=== PATIENT | male | born 1950 | race Caucasian/White ===

== ENCOUNTER 2017-12-08 11:49 | Inpatient (IN) | payer OTHER ==
[~2017-12-08] VITALS: Ht 177.8 cm; Wt 77.7 kg
[2017-12-08] MEDS ORDERED: SODIUM CHLORIDE 0.9% 1000ML 1,000 ML IV SCH (11:56)
--- NOTE | 2017-12-08 12:04 | EMERGENCY ROOM VISIT NOTE ---
History Report prepared by Jordyn: Shelly Cloud Under the Supervision of: Maged FerrerO. First contact with patient: 11:56 Chief Complaint: STROKE SYMPTOMS Stated Complaint: STROKE SYMPTOMS History of Present Illness The patient is a 67 year old male who presents to the Emergency Room with complaints of episodic stroke-like symptoms at 1015 this morning. The patient was on the phone Face-Timing with his grandson when his speech began to slur. The patient reports right-side arm numbness. He denies any facial weakness. He denies any headaches, chest pain, or shortness of breath. Per , the patient has had similar symptoms in the past, which have resolved within the hour. Source of History: patient, spouse/significant other Onset: since 1015 this morning Position: other (global) Quality: other (stroke-like symptoms) Timing: other (episodic) Associated Symptoms: + numbness (right arm), No headache, No chest pain, No SOB, No weakness (facial) Note: He notes slurred speech. Review of Systems See HPI for pertinent positives & negatives. A total of 10 systems reviewed and were otherwise negative. Past Medical & Surgical Medical Problems: (1) CAD (coronary artery disease) (2) CKD (chronic kidney disease), stage III (3) Dyslipidemia (4) HTN (hypertension) (5) Hx of diabetes mellitus Surgical Problems: (1) History of open heart surgery (2) History of penile implant (3) Hx of CABG (4) Hx of kidney transplant (5) Hx of pancreas transplant Family History Diabetes mellitus Heart disease Hypertension Social History Smoking Status: Current Every Day Smoker Smokeless Tobacco Use: Yes Alcohol Use: none Drug Use: none Marital Status: Housing Status: lives with significant other Occupation Status: unemployed Current/Historical Medications Scheduled Amlodipine (Norvasc), 5 MG PO DAILY Aspirin (Aspirin 81), 1 TAB PO DAILY Bimatoprost (Lumigan), 1 DROPS OPB HS Cholecalciferol (Vitamin D 1000 Unit), 1,000 INTER.UNIT PO DAILY Cyanocobalamin (Vitamin B12 100 Mcg), 200 MCG PO DAILY Fish Oil (Fish Oil), 1 GM PO DAILY Lisinopril (Prinivil), 20 MG PO DAILY Multivitamin (Multivitamin), 1 TAB PO DAILY Probiotic Product (Probiotic Daily), 1 CAP PO BID Tacrolimus (Prograf), 2 MG PO BID Vitamin E (Vitamin E 400 Iu), 400 INTER.UNIT PO DAILY Allergies Coded Allergies: Sulfamethoxazole w/Trimethoprim (Unverified Allergy, Unknown, rash, ) Physical Exam Vital Signs Date Time Temp Pulse Resp B/P (MAP) Pulse Ox O2 Delivery O2 Flow Rate FiO2 12/08/17 14:27 70 18 167/85 98 Room Air 12/08/17 13:00 66 20 162/81 97 Room Air 12/08/17 12:42 70 18 151/74 97 Room Air 12/08/17 12:42 76 12/08/17 12:24 76 20 181/86 100 Room Air 12/08/17 12:03 97 Room Air 12/08/17 11:54 37.0 73 18 158/87 96 Room Air Physical Exam GENERAL: Patient is awake, alert, and in no acute distress. Patient is resting comfortably and showing no signs of anxiety EYES: The conjunctivae are clear. The pupils are round and reactive. EARS, NOSE, MOUTH AND THROAT: The nose is without any evidence of any deformity. Mucous membranes are moist tongue is midline NECK: The neck is nontender and supple. RESPIRATORY: Normal respiratory effort is noted there is no evidence of wheezing rhonchi or rales CARDIOVASCULAR: Regular rate and rhythm noted there no murmurs rubs or gallops normal S1 normal S2 GASTROINTESTINAL: The abdomen is soft. Bowel sounds are present in all quadrants. Abdomen is nontender MUSCULOSKELETAL/EXTREMITIES: There is no evidence of gross deformity full range of motion is noted in the hips and shoulders SKIN: Trace pedal edema bilaterally. NEUROLOGIC: Patient is awake alert and oriented x3. Sign Designer strength symmetric, no drift noted, no facial droop appreciated, patient able to hold each leg off of bed for greater than 5 seconds. Medical Decision & Procedures ER Provider Diagnostic Interpretation: Radiology results as stated below per my review and radiologist interpretation: CT OF THE HEAD WITHOUT CONTRAST CLINICAL HISTORY: Stroke. Slurred speech. Dizzy. COMPARISON STUDY: No previous studies for comparison. CT DOSE: 687.98 mGy.cm TECHNIQUE: Helical axial images of the head were obtained without IV contrast. Automated exposure control was utilized for the study. A dose lowering technique was utilized adhering to the principles of ALARA. FINDINGS: No acute intracranial hemorrhage, midline shift or mass effect is present. Ventricular system is normal. Basilar cisterns are patent. There are no extra axial collections. White matter hypodensities suggest moderate small vessel disease. A 1.4 cm hypodensity within the left basal ganglia/nolasco radiata suggests an old infarct. There are no findings to suggest acute dural sinus thrombosis or acute territorial infarct. There is moderate mucosal thickening of the left maxillary sinus. There are postoperative findings within the sinuses. There is mild mucosal thickening of the ethmoid sinuses. Mastoid air cells are clear. IMPRESSION: 1. No acute intracranial findings. 2. 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 Moderate small vessel disease. 3. Moderate left maxillary sinus mucosal thickening. Electronically signed by: Russell Richards M.D. 12/08/2017 12:26 PM Dictated Date/Time: 12/08/2017 12:22 PM CHEST ONE VIEW PORTABLE CLINICAL HISTORY: Stroke mental status change COMPARISON STUDY: No previous studies for comparison. FINDINGS: Prior median sternotomy. No evidence for cardiac enlargement. Elevation right hemidiaphragm possibly chronic. Lungs appear clear. IMPRESSION: No acute process. The above report was generated using voice recognition software. It may contain grammatical, syntax or spelling errors. Electronically signed by: Eulalio Larson M.D. 12/08/2017 12:24 PM Dictated Date/Time: 12/08/2017 12:24 PM HEAD WITHOUT CONTRAST (CT) CT DOSE: 700.35 mGycm HISTORY: Headache. Stroke. Mental status change. booth and worsening S/S TECHNIQUE: Multiaxial CT images of the head were performed without the use of intravenous contrast. A dose lowering technique was utilized adhering to the principles of ALARA. Comparison: 12/08/2017 12:18 PM Findings: Chronic sinus change produces described. The calvarium and skull base are intact. The ventricles and sulci are within normal limits. There is no mass, hematoma, midline shift, or acute infarct. 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 No acute intracranial hemorrhage. Mild age-related atrophy and chronic small vessel change. Impression: No acute intracranial abnormality. Chronic and age-related changes unaltered from the prior study. The above report was generated using voice recognition software. It may contain grammatical, syntax or spelling errors. Electronically signed by: Eulalio Larson M.D. 12/08/2017 2:59 PM Dictated Date/Time: 12/08/2017 2:57 PM Laboratory Results 12/08/17 12:07 Red Blood Count 4.88, Mean Corpuscular Volume 88.3, Mean Corpuscular Hemoglobin 30.9, Mean Corpuscular Hemoglobin Concent 35.0, Mean Platelet Volume 11.5, Neutrophils (%) (Auto) 70.2, Lymphocytes (%) (Auto) 11.9, Monocytes (%) (Auto) 7.0, Eosinophils (%) (Auto) 10.5, Basophils (%) (Auto) 0.2, Neutrophils # (Auto ) 6.85, Lymphocytes # (Auto) 1.16, Monocytes # (Auto) 0.68, Eosinophils # (Auto ) 1.02, Basophils # (Auto) 0.02 12/08/17 12:07 Test 12/08/17 12:02 12/08/17 12:07 Bedside Prothrombin Time INR 1.0 (0.9-1.1) Bedside Glucose 148 mg/dl (70-99) White Blood Count 9.75 K/uL (4.8-10.8) Red Blood Count 4.88 M/uL (4.7-6.1) Hemoglobin 15.1 g/dL (14.0-18.0) Hematocrit 43.1 % (42-52) Mean Corpuscular Volume 88.3 fL (80-100) Mean Corpuscular Hemoglobin 30.9 pg (25-34) Mean Corpuscular Hemoglobin Concent 35.0 g/dl (32-36) Platelet Count 142 K/uL (130-400) Mean Platelet Volume 11.5 fL (7.4-10.4) Neutrophils (%) (Auto) 70.2 % Lymphocytes (%) (Auto) 11.9 % Monocytes (%) (Auto) 7.0 % Eosinophils (%) (Auto) 10.5 % Basophils (%) (Auto) 0.2 % Neutrophils # (Auto) 6.85 K/uL (1.4-6.5) Lymphocytes # (Auto) 1.16 K/uL (1.2-3.4) Monocytes # (Auto) 0.68 K/uL (0.11-0.59) Eosinophils # (Auto) 1.02 K/uL (0-0.5) Basophils # (Auto) 0.02 K/uL (0-0.2) RDW Standard Deviation 44.5 fL (36.4-46.3) RDW Coefficient of Variation 13.7 % (11.5-14.5) Immature Granulocyte % (Auto) 0.2 % Immature Granulocyte # (Auto) 0.02 K/uL (0.00-0.02) Prothrombin Time 10.4 SECONDS (9.0-12.0) Prothromb Time International Ratio 1.0 (0.9-1.1) Activated Partial Thromboplast Time 26.8 SECONDS (21.0-31.0) Partial Thromboplastin Ratio 1.0 Anion Gap 5.0 mmol/L (3-11) Est Creatinine Clear Calc Drug Dose 49.3 ml/min Estimated GFR () 55.6 Estimated GFR (Non- 47.9 BUN/Creatinine Ratio 13.8 (10-20) Estimated Average Glucose 151 mg/dl Hemoglobin A1c 6.9 % (4.5-5.6) Calcium Level 9.1 mg/dl (8.5-10.1) Magnesium Level 1.7 mg/dl (1.8-2.4) Total Creatine Kinase 157 U/L (39-308) Creatine Kinase MB 3.9 ng/ml (0.5-3.6) Creatine Kinase MB Ratio 2.5 (0-3.0) Troponin I < 0.015 ng/ml (0-0.045) Laboratory results per my review. Medications Administered Medications (Trade) Dose Ordered Sig/Noemí Route Start Time Stop Time Status Last Admin Dose Admin Magnesium Sulfate (Magnesium Sulfate) 1 gm NOW STAT IV 12/08/17 12:42 12/08/17 12:43 DC 12/08/17 12:59 1 GM Acetaminophen (Tylenol Tab) 1,000 mg NOW STAT PO 12/08/17 13:03 12/08/17 13:04 DC 12/08/17 13:12 1,000 MG ECG Per My Interpretation Indication: other (stroke-like symptoms) Rate (beats per minute): 74 Rhythm: normal sinus Findings: no acute ischemic change, no ectopy (no PVCs) Comparison ECG Date: no prior available ED Course 1155: The patient was evaluated in room A1. A complete history and physical examination were performed. 1156: Ordered NSS 1,000 ml @ 50 mls/hr IV 1240: The patient was moved to room B10. 1242: Ordered Magnesium Sulfate 1 gm IV 1245: I reassessed the patient at this time. He is resting. 1250: I spoke with Dr. Reddy [facility]. He recommends consulting with neurology. The patient will be evaluated by the [facility] for further management. 1258: I spoke with Dr. Santiago, [facility] neurology. We discussed the patient's case. He recommended an MRI. 1303: Ordered Tylenol 1,000 mg PO 1442: I reassessed the patient at this time. The patient has declined, he does not know where he is. 1445: The patient has been moved to room B1. Medical Decision Prior records/ancillary studies reviewed and summarized above. Nursing notes reviewed. Differential diagnosis: Etiologies such as metabolic, infection, hypo/hyperglycemia, electrolyte abnormalities, cardiac sources, intracerebral event, toxicologic, neurologic, as well as others were entertained. Additional history is obtained from the patient's significant other. The patient is a 67-year-old male who has a history of stroke in the past who presented to the emergency department for an evaluation of strokelike illness. The patient was found to have slurred speech and a facial droop by his significant other. The patient did not have symptoms upon arrival to the emergency department but did have some subjective numbness on the left side of the face and the right upper extremity. His NIH stroke scale at that time was 0. I discussed the patient's laboratory and radiographic studies with him. He does have a history of stroke but does not take antiplatelet agents as his primary neurologist has requested. I discussed patient's laboratory and radiographic studies with him. I discussed his case the patient's primary neurologist. I also discussed this case with the on-call [facility] hospitalist. The patient had a slight headache in the emergency department and was treated with Tylenol. He then started to have symptoms of recurrence of his stroke symptoms. He was evaluated again by the [facility] and had a repeat CAT scan which did not show any acute disease but his symptoms were very short-lived. The patient was reevaluated again and had no neurologic symptoms. Medication Reconcilliation Current Medication List: was personally reviewed by me Blood Pressure Screening Patient's blood pressure: Elevated blood pressure Blood pressure disposition: Elevated BP felt to be situational Consults Time Called: 1240 Consulting Physician: Lawrence Leon hospitalist Returned Call: 1250 I spoke with Lawrence Leon hospitalist. He recommends consulting with neurology. The patient will be evaluated by the [facility] for further management. Additional Consults: Time Called: 1253 Consulted Physician: Lawrence Weber neurology Returned Call: [phone] Additional Comments: I spoke with Lawrence Weber neurology. We discussed the patient's case. He recommended an MRI. Impression Primary Impression: TIA (transient ischemic attack) Additional Impression: Headache Scribe Attestation The scribe's documentation has been prepared under my direction and personally reviewed by me in its entirety. I confirm that the note above accurately reflects all work, treatment, procedures, and medical decision making performed by me. Departure Information Dispostion Being Evaluated By Hospitalist Referrals Jolly Prajapati M.D. (PCP) Patient Instructions My [facility] Stroke History Time Last Known Well 1015 today Stroke t-PA Criteria Reviewed Does NOT meet criteria for t-PA Reason t-PA Not Given Treatment not indicated Problem Qualifiers Primary Impression: TIA (transient ischemic attack) Transient cerebral ischemia type: unspecified Qualified Codes: G45.9 - Transient cerebral ischemic attack, unspecified Additional Impression: Headache Headache type: unspecified Headache chronicity pattern: acute headache Intractability: not intractable Qualified Codes: R51 - Headache
[2017-12-08 12:23] LABS: BASO % 0.2 %; BASO ABS # 0.02 K/uL (0-0.2); EOS % 10.5 %; EOS ABS # 1.02 K/uL (0-0.5); HEMATOCRIT 43.1 % (42-52); HEMOGLOBIN 15.1 g/dL (14.0-18.0); IG# 0.02 K/uL (0.00-0.02); LYMPH % 11.9 %; LYMPH ABS # 1.16 K/uL (1.2-3.4); MEAN CELL VOLUME 88.3 fL (80-100); MEAN CORPUSCULAR HEMOGLOBIN 30.9 pg (25-34); MEAN PLATELET VOLUME 11.5 fL (7.4-10.4); MONO ABS # 0.68 K/uL (0.11-0.59); NEUT % 70.2 %; NEUT ABS # 6.85 K/uL (1.4-6.5); PLATELET COUNT 142 K/uL (130-400); RED CELL DISTRIBUTION WIDTH CV 13.7 % (11.5-14.5); RED CELL DISTRIBUTION WIDTH SD 44.5 fL (36.4-46.3); WHITE BLOOD COUNT 9.75 K/uL (4.8-10.8)
--- NOTE | 2017-12-08 12:25 | DIAGNOSTIC IMAGING REPORT ---
CHEST ONE VIEW PORTABLE CLINICAL HISTORY: Stroke mental status change COMPARISON STUDY: No previous studies for comparison. FINDINGS: Prior median sternotomy. No evidence for cardiac enlargement. Elevation right hemidiaphragm possibly chronic. Lungs appear clear. IMPRESSION: No acute process. The above report was generated using voice recognition software. It may contain grammatical, syntax or spelling errors. Electronically signed by: Eulalio Larson M.D. 12/08/2017 12:24 PM Dictated Date/Time: 12/08/2017 12:24 PM
--- NOTE | 2017-12-08 12:27 | DIAGNOSTIC IMAGING REPORT ---
CT OF THE HEAD WITHOUT CONTRAST CLINICAL HISTORY: Stroke. Slurred speech. Dizzy. COMPARISON STUDY: No previous studies for comparison. CT DOSE: 687.98 mGy.cm TECHNIQUE: Helical axial images of the head were obtained without IV contrast. Automated exposure control was utilized for the study. A dose lowering technique was utilized adhering to the principles of ALARA. FINDINGS: No acute intracranial hemorrhage, midline shift or mass effect is present. Ventricular system is normal. Basilar cisterns are patent. There are no extra axial collections. White matter hypodensities suggest moderate small vessel disease. A 1.4 cm hypodensity within the left basal ganglia/nolasco radiata suggests an old infarct. There are no findings to suggest acute dural sinus thrombosis or acute territorial infarct. There is moderate mucosal thickening of the left maxillary sinus. There are postoperative findings within the sinuses. There is mild mucosal thickening of the ethmoid sinuses. Mastoid air cells are clear. IMPRESSION: 1. No acute intracranial findings. 2. 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 Moderate small vessel disease. 3. Moderate left maxillary sinus mucosal thickening. Electronically signed by: Russell Richards M.D. 12/08/2017 12:26 PM Dictated Date/Time: 12/08/2017 12:22 PM
[2017-12-08 12:33] LABS: PTT PATIENT 26.8 SECONDS (21.0-31.0)
[2017-12-08 12:34] LABS: BLOOD UREA NITROGEN 20 mg/dl (7-18); CALCIUM 9.1 mg/dl (8.5-10.1); CARBON DIOXIDE 28 mmol/L (21-32); CREATININE 1.48 mg/dl (0.60-1.40); GLUCOSE 162 mg/dl (70-99); POTASSIUM 4.2 mmol/L (3.5-5.1); SODIUM 136 mmol/L (136-145)
[2017-12-08 12:39] LABS: CKMB 3.9 ng/ml (0.5-3.6)
[2017-12-08] MEDS ORDERED: MAGNESIUM SULFATE 1GM / D5W 1 GM BAG IV STA (12:42)
[2017-12-08] MEDS ORDERED: ACETAMINOPHEN 500 MG TAB PO STA (13:03)
[2017-12-08] MEDS ORDERED: OMG3 PO ×2 (13:06)
[2017-12-08] MEDS ORDERED: TACR1CAP PO ×2 (13:06)
[2017-12-08] MEDS ORDERED: PROB1CAP41 PO ×2 (13:06)
[2017-12-08] MEDS ORDERED: MULT-506 PO ×2 (13:06)
[2017-12-08] MEDS ORDERED: CLOP1TAB15 PO (13:38)
[2017-12-08] MEDS ORDERED: LISI20TA3 PO ×2 (13:38)
[2017-12-08] MEDS ORDERED: AMLO-110 PO (13:38)
[2017-12-08] MEDS ORDERED: BIMA0.01 OPB ×2 (13:38)
[2017-12-08] MEDS ORDERED: OXYCODONE HCL IR 5 MG TAB (IMMEDIATE RELEASE) PO STA (14:43)
[2017-12-08] MEDS ORDERED: PHARMACIST DISCHARGE MED REC CONSULT PRN (14:45)
[2017-12-08] MEDS ORDERED: POLYETHYLENE (MIRALAX) 17 GM PACK PO PRN (14:45)
[2017-12-08] MEDS ORDERED: ACETAMINOPHEN 325 MG TAB PO PRN (14:45)
[2017-12-08] MEDS ORDERED: NITROGLYCERIN 0.4 MG SL PER TAB CHARGE SL PRN (14:45)
[2017-12-08] MEDS ORDERED: ASPI-435 PO ×2 (14:55)
[2017-12-08] MEDS ORDERED: VITA400C3 PO ×2 (14:55)
[2017-12-08] MEDS ORDERED: CYAN100T6 PO ×2 (14:55)
[2017-12-08] MEDS ORDERED: CHOL100027 PO ×2 (14:55)
--- NOTE | 2017-12-08 15:01 | DIAGNOSTIC IMAGING REPORT ---
HEAD WITHOUT CONTRAST (CT) CT DOSE: 700.35 mGycm HISTORY: Headache. Stroke. Mental status change. booth and worsening S/S TECHNIQUE: Multiaxial CT images of the head were performed without the use of intravenous contrast. A dose lowering technique was utilized adhering to the principles of ALARA. Comparison: 12/08/2017 12:18 PM Findings: Chronic sinus change produces described. The calvarium and skull base are intact. The ventricles and sulci are within normal limits. There is no mass, hematoma, midline shift, or acute infarct. 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 No acute intracranial hemorrhage. Mild age-related atrophy and chronic small vessel change. Impression: No acute intracranial abnormality. Chronic and age-related changes unaltered from the prior study. The above report was generated using voice recognition software. It may contain grammatical, syntax or spelling errors. Electronically signed by: Eulalio Larson M.D. 12/08/2017 2:59 PM Dictated Date/Time: 12/08/2017 2:57 PM
[2017-12-08] MEDS ORDERED: CLOPIDOGREL BISULFATE 300 MG TAB PO STA (15:40)
[2017-12-08] MEDS ORDERED: LABETALOL HCL IV 5 MG/ML 20ML IV PRN ×2 (16:00→17:15)
[2017-12-08 16:14] LABS: HEMOGLOBIN A1C 6.9 % (4.5-5.6)
[2017-12-08] MEDS ORDERED: IV FLUIDS COMPLETED PRN (16:15)
[2017-12-08 16:55] VITALS: BP_SYST 197; BP_SYST 205; BP_DIAS 87; BP_DIAS 95; PULSE 79; TEMP 36.7; O2SAT 97
[2017-12-08] MEDS ORDERED: DEXTROSE 50% 50 ML SYR IV PRN (17:00)
[2017-12-08] MEDS ORDERED: GLUCAGON FOR INJ 1 MG VIAL SQ PRN (17:00)
[2017-12-08] MEDS ORDERED: GLUCOSE 40% GEL 15 GM TUBE PO PRN (17:00)
[2017-12-08] MEDS ORDERED: GLUCOSE 10 TABS/TUBE PO PRN (17:00)
[2017-12-08 17:27] VITALS: BMI 24.6
[2017-12-08] MEDS ORDERED: OXYCODONE HCL IR 5 MG TAB (IMMEDIATE RELEASE) PO PRN (17:45)
[2017-12-08 18:14] VITALS: BP 175/71; PULSE 85
[2017-12-08 19:10] VITALS: BP 166/76; PULSE 76; TEMP 36.9; O2SAT 97
[2017-12-08] MEDS: BIMATOPROST 0.01% OP SOLN 2.5 ML BTL OPB SCH (21:24)
[2017-12-08] MEDS: TACROLIMUS 1 MG CAP PO SCH (21:24)
[2017-12-08] MEDS: INSULIN ASPART 100 UNITS/ML 3 ML PEN SC SCH (21:27)
[2017-12-08] MEDS: HEPARIN SOD 5000 UNIT/0.5 ML CARP SQ SCH (21:28)
--- NOTE | 2017-12-08 21:47 | History and Physical ---
History & Physical Date & Time of Service: Dec 08, 2017 at 15:17 Chief Complaint: Stroke Symptoms Primary Care Physician: Jolly Prajapati M.D. History of Present Illness Source: patient, spouse, clinic records, hospital records Pt is 67 y/o M with PMH CAD S/P CABG in 2002, dyslipidemia, diabetes, hypertension, CKD 3, history of kidney and pancreas transplant in 2003, penile implant, presented to ER with chief complaint of left facial drooping and slurred speech and right hand and finger tingling. reports believes onset of symptoms was 11:15 AM today reports patient was face timing with son and grandson when the noticed onset of slurred speech and left facial droop. Patient denied any headache or vision changes at that time however reported felt a little dizzy. reports immediately came to the ER which took about approximately 30 minutes upon ER arrival patient had resolution of slurred speech and left facial droop and no further dizziness. Still with some tingling to right hand and fingers. Denies extremity weakness. Patient states while here in the ER started having frontal headache. Denies photophobia, phonophobia , nausea or vomiting. Denies recent fall or head trauma. Reports 2 days ago had several episodes of diarrhea that resolved in approx 24 hours, other family member had similar symptoms. Denies fever/chills, diaphoresis, N/V/D/C, syncope , vision changes, neck pain, CP, SOB, orthopnea, palpitations, cough, sore throat, choking, otalgia, rhinorrhea, abdominal pain, extremity edema, rashes, urinary symptoms. Denies hx migraines, photophobia, phonophobia. Patient has been following with Dr. Santiago for history of intermittent left facial drooping and left arm and leg numbness which occurred in July. Patient had outpatient CT scan of head upon follow-up with PCP which revealed several subacute infarcts bilateral MCA. Patient was prescribed Plavix by Dr. Santiago however patient never started secondary to his concern of bleeding. patient takes baby aspirin every day. Patient with history of right facial drooping 3 years ago. Patient reports was evaluated to [facility] at that point in time and had negative stroke workup. Patient had TTE on 10/14/17: EF: 55-59%, mild abnormal LV diastolic function, moderate mitral annular calcification, no interarterial shunt, no atrial septal defect, no patent foramen ovale. Patient had ultrasound carotid arteries on 10/09/2017: Less than 50% stenosis of right internal carotid artery. Less than 50% stenosis of left internal carotid artery. patient had skip locator 2 weeks, place 11/12/17: Predominantly sinus rhythm , SVT run occurred 19 times, fasted interval lasting 11 beats with max HR 152 bpm, longest lasting 30.7 seconds, no atrial fibrillation or flutter Per epic records on hx, MRI 2013 chronic small vessel ischemic changes. Pt does not have the card with him on his penile implant to reveal if MRI compatible. Here in the ER upon initial evaluation by ER staff, patient was asymptomatic except for mild right hand numbness. Pt initial CT scan no acute changes, old L basal ganglia/nolasco radiata infartct. Patient then developed frontal headache and left-sided headache. Patient was given 1 g of Tylenol. Upon my evaluation patient had aphasia and continued headache. Approximately 15 minutes later patient was noted to have mild right facial drooping with continued headache, now increased to left side of IVERSON. Another CT head was obtained and did not show any other changes from initial CT scan. Patient returns from CT scan and reports headache has resolved and patient has no further aphasia, no further R extremity numbness or facial drooping. Past Medical/Surgical History Medical Problems: (1) CAD (coronary artery disease) Permanent Comment: s/p CABG x 5 in 2002 Status: Chronic (2) CKD (chronic kidney disease), stage III Status: Chronic (3) Dyslipidemia Status: Chronic (4) HTN (hypertension) Status: Chronic (5) Hx of diabetes mellitus Status: Chronic Surgical Problems: (1) History of open heart surgery Status: Resolved (2) History of penile implant Status: Resolved (3) Hx of CABG Status: Resolved (4) Hx of kidney transplant Permanent Comment: hx 2003 Status: Resolved (5) Hx of pancreas transplant Permanent Comment: 2003 Status: Resolved Family History Diabetes mellitus Heart disease Hypertension Social History Smoking Status: Never Smoker Smokeless Tobacco Use: Yes (2 bags chewing tobacco once a week) Alcohol Use: none Drug Use: none Marital Status: Housing status: lives with significant other Occupational Status: employed Allergies Coded Allergies: Sulfamethoxazole w/Trimethoprim (Unverified Allergy, Unknown, rash, ) Home Medications Scheduled Amlodipine (Norvasc), 5 MG PO DAILY Aspirin (Aspirin 81), 1 TAB PO DAILY Bimatoprost (Lumigan), 1 DROPS OPB HS Cholecalciferol (Vitamin D 1000 Unit), 1,000 INTER.UNIT PO DAILY Cyanocobalamin (Vitamin B12 100 Mcg), 200 MCG PO DAILY Fish Oil (Fish Oil), 1 GM PO DAILY Lisinopril (Prinivil), 20 MG PO DAILY Multivitamin (Multivitamin), 1 TAB PO DAILY Probiotic Product (Probiotic Daily), 1 CAP PO BID Tacrolimus (Prograf), 2 MG PO BID Vitamin E (Vitamin E 400 Iu), 400 INTER.UNIT PO DAILY Review of Systems Constitutional: No fever, No chills, No sweats, No weight loss, No fatigue Eyes: No worsening of vision, No eye pain, No redness, No discharge, No diplopia ENT: No hearing loss, No unusual epistaxis, No nasal symptoms, No sore throat, No tinnitus, No trouble swallowing Respiratory: No cough, No sputum, No wheezing, No shortness of breath, No dyspnea on exertion, No dyspnea at rest, No hemoptysis Cardiovascular: No chest pain, No orthopnea, No PND, No edema, No claudication , No palpitations Abdomen: + diarrhea (see HPI), + problem reported, No pain, No nausea, No vomiting, No constipation, No GI bleeding Musculoskeletal: No joint pain, No muscle pain, No swelling, No calf pain Genitourinary - Male: No hematuria, No dysuria, No urinary frequency, No urinary urgency Neurologic: + problem reported (see HPI) Psychiatric: No depression symptoms, No anxiety Endocrine: No fatigue, No excessive thirst, No excessive urination Hematologic / Lymphatic: No abnormal bleeding/bruising, No clotting problems, No swollen lymph nodes, No night sweats Integumentary: No rash, No itch Physical Exam Vital Signs Date Time Temp Pulse Resp B/P (MAP) Pulse Ox O2 Delivery O2 Flow Rate FiO2 12/08/17 14:27 70 18 167/85 98 Room Air 12/08/17 13:00 66 20 162/81 97 Room Air 12/08/17 12:42 70 18 151/74 97 Room Air 12/08/17 12:42 76 12/08/17 12:24 76 20 181/86 100 Room Air 12/08/17 12:03 97 Room Air 12/08/17 11:54 37.0 73 18 158/87 96 Room Air General Appearance: WD/WN, no apparent distress Head: normocephalic, atraumatic Eyes: normal inspection, PERRL, EOMI, sclerae normal ENT: hearing grossly normal, pharynx normal, + pertinent finding (mucous membranes moist) Neck: supple, no JVD, trachea midline Respiratory/Chest: lungs clear, normal breath sounds, no respiratory distress Cardiovascular: regular rate, rhythm, no murmur, normal peripheral pulses Abdomen/GI: normal bowel sounds, non tender, soft Extremities/Musculoskelatal: normal inspection, no calf tenderness, normal capillary refill, no pedal edema, normal range of motion, non-tender Neurologic/Psych: alert, oriented x 3, + pertinent finding (+expressive aphasia initial evaluation. Aphasia then resolves. No initial facial dropping noted, then pt with noted right facial dropping which then resolves. tongue midline. bilateral upper and lower extremities with ROM intact, strength 5/5 throughout, strong and equal lubrication technician strength, no ataxia, negative romberg.) Skin: normal color, warm/dry Diagnostics Laboratory Results Results Past 24 Hours Test 12/08/17 12:02 12/08/17 12:07 Range/Units Bedside Prothrombin Time INR 1.0 0.9-1.1 White Blood Count 9.75 4.8-10.8 K/uL Red Blood Count 4.88 4.7-6.1 M/uL Hemoglobin 15.1 14.0-18.0 g/dL Hematocrit 43.1 42-52 % Mean Corpuscular Volume 88.3 80-100 fL Mean Corpuscular Hemoglobin 30.9 25-34 pg Mean Corpuscular Hemoglobin Concent 35.0 32-36 g/dl Platelet Count 142 130-400 K/uL Mean Platelet Volume 11.5 7.4-10.4 fL Neutrophils (%) (Auto) 70.2 % Lymphocytes (%) (Auto) 11.9 % Monocytes (%) (Auto) 7.0 % Eosinophils (%) (Auto) 10.5 % Basophils (%) (Auto) 0.2 % Neutrophils # (Auto) 6.85 1.4-6.5 K/uL Lymphocytes # (Auto) 1.16 1.2-3.4 K/uL Monocytes # (Auto) 0.68 0.11-0.59 K/uL Eosinophils # (Auto) 1.02 0-0.5 K/uL Basophils # (Auto) 0.02 0-0.2 K/uL RDW Standard Deviation 44.5 36.4-46.3 fL RDW Coefficient of Variation 13.7 11.5-14.5 % Immature Granulocyte % (Auto) 0.2 % Immature Granulocyte # (Auto) 0.02 0.00-0.02 K/uL Prothrombin Time 10.4 9.0-12.0 SECONDS Prothromb Time International Ratio 1.0 0.9-1.1 Activated Partial Thromboplast Time 26.8 21.0-31.0 SECONDS Partial Thromboplastin Ratio 1.0 Sodium Level 136 136-145 mmol/L Potassium Level 4.2 3.5-5.1 mmol/L Chloride Level 103 98-107 mmol/L Carbon Dioxide Level 28 21-32 mmol/L Anion Gap 5.0 3-11 mmol/L Blood Urea Nitrogen 20 7-18 mg/dl Creatinine 1.48 0.60-1.40 mg/dl Est Creatinine Clear Calc Drug Dose 49.3 ml/min Estimated GFR () 55.6 Estimated GFR (Non- 47.9 BUN/Creatinine Ratio 13.8 10-20 Random Glucose 162 70-99 mg/dl Calcium Level 9.1 8.5-10.1 mg/dl Magnesium Level 1.7 1.8-2.4 mg/dl Total Creatine Kinase 157 39-308 U/L Creatine Kinase MB 3.9 0.5-3.6 ng/ml Creatine Kinase MB Ratio 2.5 0-3.0 Troponin I < 0.015 0-0.045 ng/ml Diagnostic Radiology CXR: IMPRESSION: No acute process. INITIAL HEAD CT at 12:22 IMPRESSION: 1. No acute intracranial findings. 2. 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 Moderate small vessel disease. 3. Moderate left maxillary sinus mucosal thickening. REPEAT HEAD CT at 14:57 Impression: No acute intracranial abnormality. Chronic and age-related changes unaltered from the prior study. EKG EKG: NSR, rate 74 Impression Assessment and Plan Pt with waxing waning neuro symptoms. First onset approx 11:15AM with slurred speech and L facial drooping lasted approx 30 minutes and resolved upon ER evaluation Pt with hx L facial drooping, reported in July 2017 resolved within 1 hour that pt did not seek initial evaluation for. Hx R facial symptoms 3 years ago with evaluation at [facility] with reported negative stroke workup at that time. Pt followed with Dr Grider over past 2 months and refused plavix at that time. Had CT head: several subacute infarcts bilateral MCA. Had TTE in 09/2017: EF: 55-59%, no interatrial shunt, septal defect or PFO. U/S carotids 09/2017: less than 50% occlusion bilateral internal carotids ZIO report 10/2017: Predominantly sinus rhythm, SVT run occurred 19 times, fasted interval lasting 11 beats with max HR 152 bpm, longest lasting 30.7 seconds, no atrial fibrillation or flutter TIA VS STROKE CT head in ER: old L basal ganglia/nolasco radiata infarct, no hemorrhage. Repeat CT head 10/31 pt with worsening symptoms shows no acute changes, no hemorrhage. Pt had resolution of IVERSON, aphasia, extremity paresthesias and facial drooping -tele to monitor -pt had recent doppler carotids and TTE -Pt with hx penile implant, had hx MRI in 2012. Pt does not have his procedure card. reports will try to look for it at home. Will order MRI, pending further information on pt's prosthesis. Holding MRA at this time with pt's hx renal transplant. -Plavix -continue ASA -holding on statin at this time with possible interaction with tacrolimus, lipid panel in am -neurology consult - spoke with Dr Santiago recommended MRI and plavix and EEG -EILEEN ordered, npo after midnight -continue to monitor, routine neuro checks HTN Will allow permissive HTN with stroke symptoms -labetolol prn SBP>180, DBP>100 -resume amlodipine, lisinopril tomorrow HX RENAL TRANSPLANT/CKD III Cr: 1. 48. ~baseline. Follows with Dr Mcgovern -nephrology [place] -continue to monitor renal functions -try to avoid nephrotoxic agents when possible -continue tacrolimus HX DM/HX PANCREATIC TRANSPLANT Pt not on medications. Glucose: 162 -HA1c in am -continue tacrolimus -novolog sliding scale per protocol HYPOMAGNESIA Ma.7. Was given 1gm magnesium IV in ER -repeat magnesium in am HX CAD S/P CABG Denies CP, SOB. Initial troponin negative. EKG no acute ST elevation noted, NSR -continue to monitor DVT Prophylaxis -heparin SQ Disposition admit tele Full Code as per discussion with pt Follows with Dr Prajapati for routine care Pt was seen with Dr Reddy. See addendum Resuscitation Status Full Code VTE Prophylaxis Will order VTE Prophylaxis: Yes Note ATTENDING ADDENDUM Record reviewed. Patient interviewed and examined. Care coordinated with Jeanna Warren PA-C. Please refer to her documentation for patient's history. 67 YO male with complicated PMH as summarized. Had stroke symptoms a few months ago with facial palsy and paresthesiae of left upper and lower extremities. CT in clinic in August demonstrated bilateral subacute ischemic strokes in MCA territories. Outpatient work-up included carotid duplex that showed < 50% stenoses, transthoracic echo, and skip locator. Episode of slurred speech and left facial palsy this morning. Symptoms improved in ED. At time of my assessment, pt c/o left frontal headache and was noted to have right facial palsy and mixed aphasia. EXAM: General- adult male, appears to be uncomfortable due to headache Lungs- clear to auscultation; no respiratory distress Cardiovascular- RRR; S4 gallop; no JVD; no pretibial edema Abdomen- + bowel sounds, soft, nontender Extremities- no cyanosis; no calf tenderness Neuro- alert, PERRL, EOMI, right facial palsy, tongue ? slightly deviated to right, motor strength extremities 5/5, plantar reflexes downgoing, had difficulty following instructions for finger to nose and heal to shah, mixed aphasia Skin- warm & dry DATA: CT # 1- apparent old infarct left basal ganglia, no bleed. CT # 2- no change. Lab studies as noted. Chest x-ray unremarkable. EKG performed at 1203 reviewed and demonstrated NSR at 74 / minute, no acute changes. ASSESSMENT AND PLAN: 67 YO male with previously noted bilateral MCA ischemic infarcts and outpatient evaluation as noted. Fluctuating symptoms today. Initially better in ED, then worse with severe headache, right facial palsy, mixed aphasia. Repeat CT stable without bleed. Neuro symptoms again improved. ED provider discussed case with Neuro. MRI recommended, but uncertain whether or not it can be performed safely because of penile implant years ago. Repeat CT imaging with contrast +/- CTA considered, but not pursued because of renal transplant status and elevated creatinine. Neurology recommended antiplatelet therapy with aspirin + clopidogrel. Further management per stroke protocol. Please refer to JADON Aleman's documentation for discussion of other issues. Bernard Reddy MD . Additional Copies To Jolly Prajapati M.D.
[2017-12-09] VITALS (12 sets, daily range): BP systolic 149–201; BP diastolic 60–90; PULSE 63–74; TEMP 36.6–36.9; O2SAT 95–97
[2017-12-09 06:44] LABS: BASO % 0.2 %; BASO ABS # 0.02 K/uL (0-0.2); EOS % 13.1 %; EOS ABS # 1.15 K/uL (0-0.5); HEMATOCRIT 38.6 % (42-52); HEMOGLOBIN 13.9 g/dL (14.0-18.0); IG# 0.02 K/uL (0.00-0.02); LYMPH ABS # 1.32 K/uL (1.2-3.4); MEAN CELL VOLUME 86.9 fL (80-100); MEAN CORPUSCULAR HEMOGLOBIN 31.3 pg (25-34); MEAN PLATELET VOLUME 11.4 fL (7.4-10.4); MONO % 7.8 %; MONO ABS # 0.69 K/uL (0.11-0.59); NEUT % 63.7 %; NEUT ABS # 5.61 K/uL (1.4-6.5); PLATELET COUNT 131 K/uL (130-400); RED CELL DISTRIBUTION WIDTH CV 13.7 % (11.5-14.5); RED CELL DISTRIBUTION WIDTH SD 43.5 fL (36.4-46.3); WHITE BLOOD COUNT 8.81 K/uL (4.8-10.8)
[2017-12-09 07:11] LABS: CALCIUM 8.5 mg/dl (8.5-10.1); CREATININE 1.5 mg/dl (0.60-1.40); POTASSIUM 4.1 mmol/L (3.5-5.1)
[2017-12-09] MEDS: INSULIN ASPART 100 UNITS/ML 3 ML PEN SC SCH ×4 (08:32→21:00)
[2017-12-09] MEDS ORDERED: ASPIRIN 81 MG ECTAB PO SCH (09:00)
[2017-12-09] MEDS ORDERED: ATORVASTATIN 40 MG TAB PO SCH (09:00)
[2017-12-09] MEDS: ASPIRIN 81 MG ECTAB PO SCH (09:58)
[2017-12-09] MEDS: CLOPIDOGREL BISULFATE 75 MG TAB PO SCH (09:58)
[2017-12-09] MEDS: MULTIVITAMIN TAB PO SCH (09:58)
[2017-12-09] MEDS: AMLODIPINE BESYLATE 5 MG TAB PO SCH (09:58)
[2017-12-09] MEDS: LISINOPRIL 20 MG TAB PO SCH (09:58)
[2017-12-09] MEDS: TACROLIMUS 1 MG CAP PO SCH ×2 (09:58→21:29)
[2017-12-09] MEDS: HEPARIN SOD 5000 UNIT/0.5 ML CARP SQ SCH ×2 (10:05→21:32)
--- NOTE | 2017-12-09 12:46 | EEG Procedure Note ---
EEG Procedure Note Date of Service Dec 09, 2017. Start / End Times Start Time: 8:58 AM End Time: 9:18 AM Referring Physician JADON Zarate History This is a 67-year-old male who presented with TIA/seizure-like symptoms. EEG for further evaluation of possible seizure etiology. Home Medication List Scheduled Amlodipine (Norvasc), 5 MG PO DAILY Aspirin (Aspirin 81), 1 TAB PO DAILY Bimatoprost (Lumigan), 1 DROPS OPB HS Cholecalciferol (Vitamin D 1000 Unit), 1,000 INTER.UNIT PO DAILY Cyanocobalamin (Vitamin B12 100 Mcg), 200 MCG PO DAILY Fish Oil (Fish Oil), 1 GM PO DAILY Lisinopril (Prinivil), 20 MG PO DAILY Multivitamin (Multivitamin), 1 TAB PO DAILY Probiotic Product (Probiotic Daily), 1 CAP PO BID Tacrolimus (Prograf), 2 MG PO BID Vitamin E (Vitamin E 400 Iu), 400 INTER.UNIT PO DAILY Inpatient Medication List Current Inpatient Medications Medications (Trade) Dose Ordered Sig/Noemí Route Start Time Stop Time Status Last Admin Dose Admin Miscellaneous Information (Pharmacist Discharge Med Rec Consult) 1 ea UD PRN N/A 12/08/17 14:45 01/07/18 14:44 Heparin Sodium (Porcine) (Heparin Sq 5000 Unit/0.5ml) 5,000 unit Q12 SQ 12/08/17 21:00 01/07/18 20:59 12/09/17 10:05 5,000 UNIT Acetaminophen (Tylenol Tab) 650 mg Q4H PRN PO 12/08/17 14:45 01/07/18 14:44 12/08/17 19:06 650 MG Nitroglycerin (Nitrostat Tab) 0.4 mg UD PRN SL 12/08/17 14:45 01/07/18 14:44 Polyethylene (Miralax Powder Packet) 17 gm DAILY PRN PO 12/08/17 14:45 01/07/18 14:44 Clopidogrel Bisulfate (plAVix TAB) 75 mg QAM PO 12/09/17 09:00 01/08/18 08:59 12/09/17 09:58 75 MG Amlodipine Besylate (Norvasc Tab) 5 mg DAILY PO 12/09/17 09:00 01/08/18 08:59 12/09/17 09:58 5 MG Aspirin (Ecotrin Tab) 81 mg DAILY PO 12/09/17 09:00 01/08/18 08:59 12/09/17 09:58 81 MG Lisinopril (Zestril Tab) 20 mg DAILY PO 12/09/17 09:00 01/08/18 08:59 12/09/17 09:58 20 MG Multivitamins (Multivitamin Tab) 1 tab DAILY PO 12/09/17 09:00 01/08/18 08:59 12/09/17 09:58 1 TAB Tacrolimus (Prograf Cap) 2 mg BID PO 12/08/17 21:00 01/07/18 20:59 12/09/17 09:58 2 MG Bimatoprost (Lumigan 0.01%) 1 drops HS OPB 12/08/17 21:00 01/07/18 20:59 12/08/17 21:24 1 DROPS Miscellaneous (Iv Fluids Completed) 1 ea PRN PRN N/A 12/08/17 16:15 12/08/18 16:14 Glucose (Glucose 40% Gel) 15-30 GRAMS 15 GRAMS... UD PRN PO 12/08/17 17:00 01/07/18 16:59 Glucose (Glucose Chew Tab) 4-8 Tablets 4 Tabl... UD PRN PO 12/08/17 17:00 01/07/18 16:59 Dextrose (Dextrose 50% 50ML Syringe) 25-50ML OF 50% DW IV FOR... UD PRN IV 12/08/17 17:00 01/07/18 16:59 Glucagon (Glucagon Inj) 1 mg UD PRN SQ 12/08/17 17:00 01/07/18 16:59 Oxycodone HCl (Roxicodone Immediate Rel Tab) 5 mg Q6H PRN PO 12/08/17 17:45 12/22/17 17:44 Insulin Aspart (novoLOG ASPART) SLIDING SCALE If C... ACHS SC 12/08/17 21:00 01/07/18 20:59 12/09/17 11:33 3 UNITS Labetalol HCl (Normodyne IV) 10 mg Q1H PRN IV 12/09/17 11:45 01/08/18 11:44 Description This is a 21 electrode EEG with a single channel dedicated to limited EKG. The electrodes were placed in accordance with the International 10-20 system. At the start of the recording the patient was in an awake state. Background was well organized and composed of symmetric mixed alpha and beta frequencies. There was a symmetric well-formed moderate amplitude 9-10 Hz posterior dominant rhythm that was reactive to eye opening and closure. Hyperventilation was not done. Intermittent photic stimulation at various frequencies produced no abnormalities. Sleep was indicated by symmetric sleep spindles. Interpretation This is a normal awake and asleep routine EEG. There was no electrographic seizures or epileptiform discharges. Clinical Correlation A normal EEG does not rule out epilepsy if there is a strong clinical suspicion.
--- NOTE | 2017-12-09 14:23 | Neurology Consultation ---
Neurology Consultation Date of Consultation: Dec 09, 2017. Attending Physician: John De Jesus MD Primary Care Physician: Jolly Prajapati M.D. Reason for Consultation: TIA History of Present Illness Source: patient Roderick is a 67 year old with PMH CAD S/P CABG in 2002, DL, DM, HTN, CKD 3, history of kidney and pancreas transplant in 2003, penile implant. He states he doesn't know what happened but he had right facial numbness, left hand numbness and tingling and a severe headache. He states he never gets headaches but this was a bad one. Records from ED estimated the onset of symptoms was 11:15 AM 12/08/2017 His son and grandson stated he had slurred speech and left facial droop. He came to the ED within 30 minutes resolution of slurred speech and left facial droop and no further dizziness. Still with some tingling to right hand and fingers. He did state he had 2 days ago had several episodes of diarrhea that resolved in approx 24 hours, other family member had similar symptoms. denies CP, SOB, abdominal pain, current one sided weakness, numbness, tingling, N, V, hearing loss, vision changes, falls, head injury. Past Medical/Surgical History Medical Problems: (1) Headache Status: Acute (2) TIA (transient ischemic attack) Status: Acute Social History Smokeless Tobacco Use: Yes (2 bags chewing tobacco once a week) Alcohol Use: none Drug Use: none Marital Status: Housing Status: lives with significant other Occupation Status: employed Allergies Coded Allergies: Sulfamethoxazole w/Trimethoprim (Unverified Allergy, Unknown, rash, ) Current Inpatient Medications Current Inpatient Medications Medications (Trade) Dose Ordered Sig/Noemí Route Start Time Stop Time Status Last Admin Dose Admin Miscellaneous Information (Pharmacist Discharge Med Rec Consult) 1 ea UD PRN N/A 12/08/17 14:45 01/07/18 14:44 Heparin Sodium (Porcine) (Heparin Sq 5000 Unit/0.5ml) 5,000 unit Q12 SQ 12/08/17 21:00 01/07/18 20:59 12/09/17 10:05 5,000 UNIT Acetaminophen (Tylenol Tab) 650 mg Q4H PRN PO 12/08/17 14:45 01/07/18 14:44 12/08/17 19:06 650 MG Nitroglycerin (Nitrostat Tab) 0.4 mg UD PRN SL 12/08/17 14:45 01/07/18 14:44 Polyethylene (Miralax Powder Packet) 17 gm DAILY PRN PO 12/08/17 14:45 01/07/18 14:44 Clopidogrel Bisulfate (plAVix TAB) 75 mg QAM PO 12/09/17 09:00 01/08/18 08:59 12/09/17 09:58 75 MG Amlodipine Besylate (Norvasc Tab) 5 mg DAILY PO 12/09/17 09:00 01/08/18 08:59 12/09/17 09:58 5 MG Aspirin (Ecotrin Tab) 81 mg DAILY PO 12/09/17 09:00 01/08/18 08:59 12/09/17 09:58 81 MG Lisinopril (Zestril Tab) 20 mg DAILY PO 12/09/17 09:00 01/08/18 08:59 12/09/17 09:58 20 MG Multivitamins (Multivitamin Tab) 1 tab DAILY PO 12/09/17 09:00 01/08/18 08:59 12/09/17 09:58 1 TAB Tacrolimus (Prograf Cap) 2 mg BID PO 12/08/17 21:00 01/07/18 20:59 12/09/17 09:58 2 MG Bimatoprost (Lumigan 0.01%) 1 drops HS OPB 12/08/17 21:00 01/07/18 20:59 12/08/17 21:24 1 DROPS Miscellaneous (Iv Fluids Completed) 1 ea PRN PRN N/A 12/08/17 16:15 12/08/18 16:14 Glucose (Glucose 40% Gel) 15-30 GRAMS 15 GRAMS... UD PRN PO 12/08/17 17:00 01/07/18 16:59 Glucose (Glucose Chew Tab) 4-8 Tablets 4 Tabl... UD PRN PO 12/08/17 17:00 01/07/18 16:59 Dextrose (Dextrose 50% 50ML Syringe) 25-50ML OF 50% DW IV FOR... UD PRN IV 12/08/17 17:00 01/07/18 16:59 Glucagon (Glucagon Inj) 1 mg UD PRN SQ 12/08/17 17:00 01/07/18 16:59 Oxycodone HCl (Roxicodone Immediate Rel Tab) 5 mg Q6H PRN PO 12/08/17 17:45 12/22/17 17:44 Insulin Aspart (novoLOG ASPART) SLIDING SCALE If C... ACHS SC 12/08/17 21:00 01/07/18 20:59 12/09/17 11:33 3 UNITS Labetalol HCl (Normodyne IV) 10 mg Q1H PRN IV 12/09/17 11:45 01/08/18 11:44 Physical Exam Vital Signs (Past 24 Hrs): Date Time Temp Pulse Resp B/P (MAP) Pulse Ox O2 Delivery O2 Flow Rate FiO2 12/09/17 12:49 36.6 70 18 155/73 (100) 96 Room Air 154/60 (91) 12/09/17 12:00 96 Room Air 12/09/17 11:24 36.9 63 18 201/89 (126) 97 185/77 (113) 12/09/17 08:00 96 Room Air 12/09/17 07:45 36.8 68 16 149/61 (90) 96 12/09/17 04:19 36.7 66 18 182/82 (115) 97 Room Air 12/09/17 04:00 Room Air 12/09/17 00:15 65 176/74 (108) 12/09/17 00:12 36.6 69 18 194/82 (119) 95 Room Air 12/09/17 00:00 Room Air 12/08/17 20:00 Room Air 12/08/17 19:10 36.9 76 18 166/76 (106) 97 Room Air 12/08/17 18:14 85 175/71 (105) 12/08/17 17:27 Room Air 12/08/17 16:55 36.7 79 20 197/87 (123) 97 205/95 (131) 12/08/17 15:48 68 16 203/88 98 12/08/17 14:27 70 18 167/85 98 Room Air Physical Exam: Constitutional: appearance nourished, healthy and normal Ears, Nose, Mouth and Throat: mucous membranes moist, no injection and skin normal, eyes normal Cardiovascular: normal S-1 and S-2 and regular rate and rhythm Respiratory: clear to auscultation (CTA) and no rales, rhonchi or wheeze Musculoskeletal: no peripheral edema and good distal pulses Skin: no stigmata of neurocutaneous disease noted and normal and intact Eyes: extraocular muscles intact (EOMI) and pupils equal, round and reactive to light (PERRL) NEUROLOGIC EXAMINATION: Mental status: Alert and interactive Oriented to full date and location Oriented to person Speech fluent slight lisp Cranial Nerves smile eye brow raise symmetric Reflexes: Deep tendon reflexes were symmetrical and graded 2/5. Plantar responses were flexor. Sensory: with cool or light touch Coordination: absent with eyes closed Gait/Stance: Posture normal. Gait normal: with steady with steps, base, turning,and tandem gait. Motor: Negative for pronator drift of out stretched arms with eyes closed. Strength: biceps triceps deltoids hand observation nurse 5/5 bilaterally, hip flex plantar flex ext bilaterally 5/5 Laboratory Results Past 24 Hours: 12/09/17 06:05 Red Blood Count 4.44, Mean Corpuscular Volume 86.9, Mean Corpuscular Hemoglobin 31.3, Mean Corpuscular Hemoglobin Concent 36.0, Mean Platelet Volume 11.4, Neutrophils (%) (Auto) 63.7, Lymphocytes (%) (Auto) 15.0, Monocytes (%) (Auto) 7.8, Eosinophils (%) (Auto) 13.1, Basophils (%) (Auto) 0.2, Neutrophils # (Auto ) 5.61, Lymphocytes # (Auto) 1.32, Monocytes # (Auto) 0.69, Eosinophils # (Auto ) 1.15, Basophils # (Auto) 0.02 12/09/17 06:05 Test 12/08/17 17:58 12/08/17 21:15 12/09/17 00:06 12/09/17 06:05 Hepatitis C Antibody Screen NEG (NEG) Urine Color YELLOW Urine Appearance CLEAR (CLEAR) Urine pH 5.5 (4.5-7.5) Urine Specific [place] 1.017 (1.000-1.030) Urine Protein 1+ (NEG) Urine Glucose (UA) NEG (NEG) Urine Ketones NEG (NEG) Urine Occult Blood NEG (NEG) Urine Nitrite NEG (NEG) Urine Bilirubin NEG (NEG) Urine Urobilinogen NEG (NEG) Urine Leukocyte Esterase NEG (NEG) Urine WBC (Auto) 0 /hpf (0-5) Urine RBC (Auto) 0-4 /hpf (0-4) Urine Hyaline Casts (Auto) 1-5 /lpf (0-5) Urine Epithelial Cells (Auto) 0-5 /lpf (0-5) Urine Bacteria (Auto) NEG (NEG) Troponin I < 0.015 ng/ml (0-0.045) White Blood Count 8.81 K/uL (4.8-10.8) Red Blood Count 4.44 M/uL (4.7-6.1) Hemoglobin 13.9 g/dL (14.0-18.0) Hematocrit 38.6 % (42-52) Mean Corpuscular Volume 86.9 fL (80-100) Mean Corpuscular Hemoglobin 31.3 pg (25-34) Mean Corpuscular Hemoglobin Concent 36.0 g/dl (32-36) Platelet Count 131 K/uL (130-400) Mean Platelet Volume 11.4 fL (7.4-10.4) Neutrophils (%) (Auto) 63.7 % Lymphocytes (%) (Auto) 15.0 % Monocytes (%) (Auto) 7.8 % Eosinophils (%) (Auto) 13.1 % Basophils (%) (Auto) 0.2 % Neutrophils # (Auto) 5.61 K/uL (1.4-6.5) Lymphocytes # (Auto) 1.32 K/uL (1.2-3.4) Monocytes # (Auto) 0.69 K/uL (0.11-0.59) Eosinophils # (Auto) 1.15 K/uL (0-0.5) Basophils # (Auto) 0.02 K/uL (0-0.2) RDW Standard Deviation 43.5 fL (36.4-46.3) RDW Coefficient of Variation 13.7 % (11.5-14.5) Immature Granulocyte % (Auto) 0.2 % Immature Granulocyte # (Auto) 0.02 K/uL (0.00-0.02) Anion Gap 6.0 mmol/L (3-11) Est Creatinine Clear Calc Drug Dose 48.7 ml/min Estimated GFR () 54.7 Estimated GFR (Non- 47.2 BUN/Creatinine Ratio 13.7 (10-20) Calcium Level 8.5 mg/dl (8.5-10.1) Magnesium Level 1.8 mg/dl (1.8-2.4) Triglycerides Level 106 mg/dl (0-150) Cholesterol Level 135 mg/dl (0-200) HDL Cholesterol 36 mg/dl LDL Cholesterol, Calculated 78 mg/dl VLDL Cholesterol, Calculated 21 mg/dl Cholesterol/HDL Ratio 3.8 Test 12/09/17 11:23 Bedside Glucose 269 mg/dl (70-99) Imaging CT head- Chronic sinus change produces described. The calvarium and skull base are intact. The ventricles and sulci are within normal limits. There is no mass , hematoma, midline shift, or acute infarct. 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 No acute intracranial hemorrhage. Mild age-related atrophy and chronic small vessel change. A normal EEG does not rule out epilepsy if there is a strong clinical suspicion. Impression 67 year old male history of TIA/stroke like symptoms Plan 1. CT head no new acute infarcts imaging 09/18/2018 [facility] several subacute infarcts in b/l MCA territories. 2. neurology Dr Santiago ordered ZIO patch done 11/12/2017 no afib but atrial tachycardia 3. advise to take plavix 75 mg and aspirin 81 mg daily- patient refused to continue on plavix due to increased bleeding risk 4. EEG with no seizure activity noted 5. MRI would be helpful unclear if patient is able to have MRI due to implant 6. MARQUIS- ordered will be done tomorrow 7. restart plavix 75 mg and aspirin 81 mg daily 8. headache - treat with tylenol 9. further recommendations to follow I have seen and discussed above patient with Dr Bernard Santiago, neurology Patient inown to me from op visits Above history reviewed currently asymptomatic and exam is normal history coud be vb tias or embolic shower or even later desean=fe migraines with somatosensory aura We need to get mri and mra to check for intracranial disease but need to have this cleared by radiology and we need to know if the penile implant has metallic elements but he states he had had mri studies in the past post implant so suspect we can get studies and hopefully clear the air having marquis today and we will continue plavix and asa for now Will follow up tomorrow Reviewed with Kyra Santiago MD
--- NOTE | 2017-12-09 17:36 | Progress Note ---
Internal Med Progress Note Date of Service: Dec 09, 2017. Provider Documentation: SUBJECTIVE: presented with numness of left side of head and face and right hand and severe headache symptoms resolved now 'speech is ok swallowing fine no chest pain or sob afebrile no cough no nausea OBJECTIVE: Vital Signs-as noted below Exam: General-alert and oriented. Not in distress ENT-Normal hearing Neck-no neck masses Lungs-cta b/l no wheezing or crackles Heart-S1 and S2 heard regular rate and rhythm no murmurs Abdomen-Soft bowel sounds present non tender no distension Extremities-no edema no erythema Neuro-alert and awake and Oriented power 5/5 in all extremities no pronator drift co ordination of movements normal non focal Lab data as noted below. ASSESSMENT & PLAN: CVA/TIA Pt with waxing waning neuro symptoms. First onset approx 11:15AM yesterday with slurred speech and L facial drooping lasted approx 30 minutes and resolved upon ER evaluation As per H and P:"Pt with hx L facial drooping, reported in July 2017 resolved within 1 hour that pt did not seek initial evaluation for as per h and p. Hx R facial symptoms 3 years ago with evaluation at [facility] with reported negative stroke workup at that time. Pt followed with Dr Grider over past 2 months and refused plavix at that time. Had CT head: several subacute infarcts bilateral MCA. Had TTE in 09/2017: EF: 55-59%, no interatrial shunt, septal defect or PFO. U/S carotids 09/2017: less than 50% occlusion bilateral internal carotids ZIO report 10/2017: Predominantly sinus rhythm, SVT run occurred 19 times, fasted interval lasting 11 beats with max HR 152 bpm, longest lasting 30.7 seconds, no atrial fibrillation or flutter" CT head in ER: old L basal ganglia/nolasco radiata infarct, no hemorrhage. Repeat CT head 2/2 pt with worsening symptoms shows no acute changes, no hemorrhage. Plan for EILEEN Plan for MRI/MRA head once records available regaring penile implant on Plavix and aspirin holding on statin at this time with possible interaction with tacrolimus, eeg unremarkable appreciate neuro inputs neuro checks continue to monitor in tele HTN ill allow permissive HTN with stroke symptoms -labetolol prn SBP>180, DBP>100 on amlodipine and lisinopril HX RENAL TRANSPLANT/CKD III Cr: 1. 48. ~baseline. Follows with Dr Mcgovern -nephrology Mateo continue tacrolimus will f/u labs HX DM/HX PANCREATIC TRANSPLANT Pt not on medications. Glucose: 162 HA1c6.9 continue tacrolimus novolog sliding scale per protocol will monitor HYPOMAGNESIA Ma.7. replaced HX CAD S/P CABG stable on aspirin, plavix DVT Prophylaxis heparin SQ Disposition monitor in tele Full Code as per admissions Follows with Dr Prajapati for routine care Vital Signs: Date Time Temp Pulse Resp B/P (MAP) Pulse Ox O2 Delivery O2 Flow Rate FiO2 12/09/17 16:00 Room Air 12/09/17 15:36 36.8 67 18 173/79 (110) 96 12/09/17 12:49 36.6 70 18 155/73 (100) 96 Room Air 154/60 (91) 12/09/17 12:00 96 Room Air 12/09/17 11:24 36.9 63 18 201/89 (126) 97 185/77 (113) 12/09/17 08:00 96 Room Air 12/09/17 07:45 36.8 68 16 149/61 (90) 96 12/09/17 04:19 36.7 66 18 182/82 (115) 97 Room Air 12/09/17 04:00 Room Air 12/09/17 00:15 65 176/74 (108) 12/09/17 00:12 36.6 69 18 194/82 (119) 95 Room Air 12/09/17 00:00 Room Air 12/08/17 20:00 Room Air 12/08/17 19:10 36.9 76 18 166/76 (106) 97 Room Air 12/08/17 18:14 85 175/71 (105) Lab Results: Results Past 24 Hours Test 12/08/17 17:58 12/08/17 20:22 12/08/17 21:15 12/09/17 00:06 Range/Units Troponin I < 0.015 < 0.015 0-0.045 ng/ml Hepatitis C Antibody Screen NEG NEG Bedside Glucose 215 70-99 mg/dl Urine Color YELLOW Urine Appearance CLEAR CLEAR Urine pH 5.5 4.5-7.5 Urine Specific [place] 1.017 1.000-1.030 Urine Protein 1+ NEG Urine Glucose (UA) NEG NEG Urine Ketones NEG NEG Urine Occult Blood NEG NEG Urine Nitrite NEG NEG Urine Bilirubin NEG NEG Urine Urobilinogen NEG NEG Urine Leukocyte Esterase NEG NEG Urine WBC (Auto) 0 0-5 /hpf Urine RBC (Auto) 0-4 0-4 /hpf Urine Hyaline Casts (Auto) 1-5 0-5 /lpf Urine Epithelial Cells (Auto) 0-5 0-5 /lpf Urine Bacteria (Auto) NEG NEG Test 12/09/17 06:05 12/09/17 07:20 12/09/17 11:23 12/09/17 16:28 Range/Units White Blood Count 8.81 4.8-10.8 K/uL Red Blood Count 4.44 4.7-6.1 M/uL Hemoglobin 13.9 14.0-18.0 g/dL Hematocrit 38.6 42-52 % Mean Corpuscular Volume 86.9 80-100 fL Mean Corpuscular Hemoglobin 31.3 25-34 pg Mean Corpuscular Hemoglobin Concent 36.0 32-36 g/dl Platelet Count 131 130-400 K/uL Mean Platelet Volume 11.4 7.4-10.4 fL Neutrophils (%) (Auto) 63.7 % Lymphocytes (%) (Auto) 15.0 % Monocytes (%) (Auto) 7.8 % Eosinophils (%) (Auto) 13.1 % Basophils (%) (Auto) 0.2 % Neutrophils # (Auto) 5.61 1.4-6.5 K/uL Lymphocytes # (Auto) 1.32 1.2-3.4 K/uL Monocytes # (Auto) 0.69 0.11-0.59 K/uL Eosinophils # (Auto) 1.15 0-0.5 K/uL Basophils # (Auto) 0.02 0-0.2 K/uL RDW Standard Deviation 43.5 36.4-46.3 fL RDW Coefficient of Variation 13.7 11.5-14.5 % Immature Granulocyte % (Auto) 0.2 % Immature Granulocyte # (Auto) 0.02 0.00-0.02 K/uL Sodium Level 137 136-145 mmol/L Potassium Level 4.1 3.5-5.1 mmol/L Chloride Level 103 98-107 mmol/L Carbon Dioxide Level 29 21-32 mmol/L Anion Gap 6.0 3-11 mmol/L Blood Urea Nitrogen 21 7-18 mg/dl Creatinine 1.50 0.60-1.40 mg/dl Est Creatinine Clear Calc Drug Dose 48.7 ml/min Estimated GFR () 54.7 Estimated GFR (Non- 47.2 BUN/Creatinine Ratio 13.7 10-20 Random Glucose 172 70-99 mg/dl Calcium Level 8.5 8.5-10.1 mg/dl Magnesium Level 1.8 1.8-2.4 mg/dl Triglycerides Level 106 0-150 mg/dl Cholesterol Level 135 0-200 mg/dl HDL Cholesterol 36 mg/dl LDL Cholesterol, Calculated 78 mg/dl VLDL Cholesterol, Calculated 21 mg/dl Cholesterol/HDL Ratio 3.8 Bedside Glucose 155 269 145 70-99 mg/dl
--- NOTE | 2017-12-09 18:54 | Anesthesiology Progress Note ---
Anesthesia Progress Note Date of Service Dec 09, 2017. Progress Notes Mr. Brock is a 67 year old male who presented with recent stroke like symptoms. He is allergic to bactrim. Medication list as noted in chart. PMH sig for 5 v CABG in 2002, penile implant and pancreas/kidney transplant in 2003. No anesthetic problems. PMH sig for CAD, HTN, GERD, IDDM, CKD. Never smoker but current smokeless tobacco use. CT head this admission failed to show new infarcts. EEG from 12/09/17 normal without evidence of seizure. EKG NSR but cannot r/o anterior infarct. Recent TTE Sep 2017 showed EF 55-59%. Carotid U/S showed less than 50% stenosis Sep 2017 b/l. Airway exam normal with MP 2. Plan for MAC. Consent obtained. Questions answered. Advised that he should be NPO after midnight to include chewing tobacco!
[2017-12-09] MEDS: LABETALOL HCL IV 5 MG/ML 20ML IV PRN (19:59)
[2017-12-09] MEDS: BIMATOPROST 0.01% OP SOLN 2.5 ML BTL OPB SCH (21:28)
[2017-12-10] VITALS (20 sets, daily range): BP systolic 122–189; BP diastolic 62–92; PULSE 60–75; TEMP 36.3–36.9; O2SAT 95–100
[2017-12-10] MEDS: LABETALOL HCL IV 5 MG/ML 20ML IV PRN ×2 (00:13→16:37)
[2017-12-10] MEDS: INSULIN ASPART 100 UNITS/ML 3 ML PEN SC SCH ×4 (06:30→20:15)
[2017-12-10] MEDS: TACROLIMUS 1 MG CAP PO SCH ×2 (07:24→20:11)
[2017-12-10] MEDS: CLOPIDOGREL BISULFATE 75 MG TAB PO SCH (07:25)
[2017-12-10] MEDS: MULTIVITAMIN TAB PO SCH (07:25)
[2017-12-10] MEDS: LISINOPRIL 20 MG TAB PO SCH (07:25)
[2017-12-10] MEDS: ASPIRIN 81 MG ECTAB PO SCH (07:25)
[2017-12-10] MEDS: AMLODIPINE BESYLATE 5 MG TAB PO SCH (07:25)
[2017-12-10 07:27] LABS: BASO % 0.3 %; BASO ABS # 0.02 K/uL (0-0.2); EOS % 16.1 %; EOS ABS # 1.09 K/uL (0-0.5); HEMATOCRIT 41.6 % (42-52); HEMOGLOBIN 14.8 g/dL (14.0-18.0); IG# 0.01 K/uL (0.00-0.02); LYMPH % 17.6 %; LYMPH ABS # 1.19 K/uL (1.2-3.4); MEAN CELL VOLUME 87.6 fL (80-100); MEAN CORPUSCULAR HEMOGLOBIN 31.2 pg (25-34); MEAN CORPUSCULAR HGB CONC 35.6 g/dl (32-36); MEAN PLATELET VOLUME 11.4 fL (7.4-10.4); MONO % 9.5 %; MONO ABS # 0.64 K/uL (0.11-0.59); NEUT % 56.4 %; NEUT ABS # 3.82 K/uL (1.4-6.5); PLATELET COUNT 142 K/uL (130-400); RED CELL DISTRIBUTION WIDTH CV 13.8 % (11.5-14.5); RED CELL DISTRIBUTION WIDTH SD 44.3 fL (36.4-46.3); WHITE BLOOD COUNT 6.77 K/uL (4.8-10.8)
[2017-12-10] MEDS: HEPARIN SOD 5000 UNIT/0.5 ML CARP SQ SCH ×2 (07:28→20:17)
[2017-12-10 08:01] LABS: CALCIUM 8.9 mg/dl (8.5-10.1); CREATININE 1.65 mg/dl (0.60-1.40); POTASSIUM 4.2 mmol/L (3.5-5.1)
[2017-12-10] MEDS: AMLODIPINE BESYLATE 5 MG TAB PO ONE ×2 (11:15→15:12)
[2017-12-10] MEDS ORDERED: LIDOCAINE HCL 2% VISC SOLN 20 ML UDC ONE (11:40)
--- NOTE | 2017-12-10 13:01 | History & Physical Bridge Note ---
H&P Re-Evaluation Bridge Note: I have examined the patient, reviewed the History & Physical and in the interval since the performance of the History & Physical I have noted the following changes of clinical significance: No changes noted
--- NOTE | 2017-12-10 13:39 | Cardiology Procedure Brief Nt ---
Preliminary Cardiology Note Procedure Date Dec 10, 2017. Pre-Procedure Diagnosis Assess for cardiac source of embolism Post-Procedure Diagnosis No source of cardiac embolism noted on transesophageal echocardiogram Procedure(s) Performed Transesophageal echocardiogram Drivers' Cash Clerk Eric Hodgson DO Human Resources Advisor(s) BHUPENDRA Min Estimated Blood Loss none Preliminary Findings Normal left ventricular systolic function. The left atrial appendage or left atrial thrombus. Intact interatrial septum without atrial septal defect or PFO. There are no valvular vegetations. There is no significant atheromatous disease in the aortic root, proximal ascending aorta, aortic arch, or proximal descending thoracic aorta. There is no cardiac source of embolism identified. Recommendations Ongoing medication therapy for secondary prevention of stroke, as per Neurology recommendations. Specimens none Anesthesia Lidocaine 60 mg IV, Propofol 270 mg IV Complication(s) None Disposition Transfer to telemetry
--- NOTE | 2017-12-10 13:48 | Anesthesiology Progress Note ---
Anesthesia Post Op Note Date & Time Dec 10, 2017 at 13:48 Vital Signs Pain Intensity: 0 Vital Signs Past 12 Hours Date Time Temp Pulse Resp B/P (MAP) Pulse Ox O2 Delivery O2 Flow Rate FiO2 12/10/17 13:43 65 18 137/75 (95) 94 Room Air 12/10/17 13:34 77 18 146/75 (98) 94 Room Air 12/10/17 13:30 70 20 134/66 96 Nasal Cannula 6 12/10/17 13:25 63 20 159/62 99 Nasal Cannula 6 12/10/17 13:20 62 20 122/62 99 Nasal Cannula 6 12/10/17 13:15 62 20 134/68 99 Nasal Cannula 6 12/10/17 13:10 69 20 175/92 100 Nasal Cannula 6 12/10/17 13:05 69 20 146/70 100 Nasal Cannula 6 12/10/17 13:00 61 20 151/75 100 Room Air 12/10/17 11:35 Room Air 12/10/17 11:32 36.8 63 18 149/73 (98) 96 Room Air 12/10/17 08:58 36.6 62 18 161/71 (101) 96 Room Air 175/91 (119) 12/10/17 08:00 Room Air 12/10/17 07:33 36.5 68 18 164/74 (104) 97 Room Air 12/10/17 05:00 36.7 60 18 155/73 (100) 95 Room Air 12/10/17 04:00 Room Air Notes Mental Status: alert / awake / arousable, participated in evaluation Pt Amnestic to Procedure: Yes Nausea / Vomiting: adequately controlled Pain: adequately controlled Airway Patency, RR, SpO2: stable & adequate BP & HR: stable & adequate Hydration State: stable & adequate Anesthetic Complications: no major complications apparent
[2017-12-10] MEDS ORDERED: PROPOFOL IV EMULSION 10 MG/ML 20 ML VIAL IV ONE (14:12)
[2017-12-10] MEDS ORDERED: LIDOCAINE HCL 2% 2 ML VIAL (20MG/ML) ONE (14:12)
--- NOTE | 2017-12-10 14:30 | Neurology Progress Notes ---
Neurology Progress Note Date of Service Dec 10, 2017. Hipolito Vaughn is a 67 year old with PMH CAD S/P CABG in 2002, DL, DM, HTN, CKD 3, history of kidney and pancreas transplant in 2003, penile implant. He states he doesn't know what happened but he had right facial numbness, left hand numbness and tingling and a severe headache. He states he never gets headaches but this was a bad one. Records from ED estimated the onset of symptoms was 11:15 AM 12/08/2017 His son and grandson stated he had slurred speech and left facial droop. He came to the ED within 30 minutes resolution of slurred speech and left facial droop and no further dizziness. Still with some tingling to right hand and fingers. He did state he had 2 days ago had several episodes of diarrhea that resolved in approx 24 hours, other family member had similar symptoms. He is back from his RICKEY. His is calling for the information for his implant to help with obtaining MRI. He want to get it done and get home. denies CP, SOB, abdominal pain, current one sided weakness, numbness, tingling, N, V, hearing loss, vision changes, falls, head injury. Objective Date Time Temp Pulse Resp B/P (MAP) Pulse Ox O2 Delivery O2 Flow Rate FiO2 12/10/17 13:58 36.3 63 16 180/79 (112) 96 Room Air 12/10/17 13:54 65 18 142/75 (97) 94 Room Air 12/10/17 13:43 65 18 137/75 (95) 94 Room Air 12/10/17 13:34 77 18 146/75 (98) 94 Room Air 12/10/17 13:30 70 20 134/66 96 Nasal Cannula 6 12/10/17 13:25 63 20 159/62 99 Nasal Cannula 6 12/10/17 13:20 62 20 122/62 99 Nasal Cannula 6 12/10/17 13:15 62 20 134/68 99 Nasal Cannula 6 12/10/17 13:10 69 20 175/92 100 Nasal Cannula 6 12/10/17 13:05 69 20 146/70 100 Nasal Cannula 6 12/10/17 13:00 61 20 151/75 100 Room Air 12/10/17 11:35 Room Air 12/10/17 11:32 36.8 63 18 149/73 (98) 96 Room Air 12/10/17 08:58 36.6 62 18 161/71 (101) 96 Room Air 175/91 (119) 12/10/17 08:00 Room Air 12/10/17 07:33 36.5 68 18 164/74 (104) 97 Room Air 12/10/17 05:00 36.7 60 18 155/73 (100) 95 Room Air 12/10/17 04:00 Room Air 12/10/17 00:46 75 144/65 (91) 12/10/17 00:04 36.8 67 18 184/78 (113) 96 Room Air 12/10/17 00:00 Room Air 12/09/17 21:27 74 166/75 (105) 12/09/17 20:21 36.7 72 20 187/86 (119) 97 Room Air 12/09/17 20:00 Room Air 12/09/17 19:56 68 201/90 (127) 12/09/17 16:00 Room Air 12/09/17 15:36 36.8 67 18 173/79 (110) 96 Last 24 Hours Test 12/09/17 16:28 12/09/17 21:04 12/10/17 07:12 12/10/17 07:43 Bedside Glucose 145 mg/dl 147 mg/dl 171 mg/dl White Blood Count 6.77 K/uL Red Blood Count 4.75 M/uL Hemoglobin 14.8 g/dL Hematocrit 41.6 % Mean Corpuscular Volume 87.6 fL Mean Corpuscular Hemoglobin 31.2 pg Mean Corpuscular Hemoglobin Concent 35.6 g/dl Platelet Count 142 K/uL Mean Platelet Volume 11.4 fL Neutrophils (%) (Auto) 56.4 % Lymphocytes (%) (Auto) 17.6 % Monocytes (%) (Auto) 9.5 % Eosinophils (%) (Auto) 16.1 % Basophils (%) (Auto) 0.3 % Neutrophils # (Auto) 3.82 K/uL Lymphocytes # (Auto) 1.19 K/uL Monocytes # (Auto) 0.64 K/uL Eosinophils # (Auto) 1.09 K/uL Basophils # (Auto) 0.02 K/uL RDW Standard Deviation 44.3 fL RDW Coefficient of Variation 13.8 % Immature Granulocyte % (Auto) 0.1 % Immature Granulocyte # (Auto) 0.01 K/uL Sodium Level 137 mmol/L Potassium Level 4.2 mmol/L Chloride Level 103 mmol/L Carbon Dioxide Level 28 mmol/L Anion Gap 6.0 mmol/L Blood Urea Nitrogen 26 mg/dl Creatinine 1.65 mg/dl Est Creatinine Clear Calc Drug Dose 44.2 ml/min Estimated GFR () 48.7 Estimated GFR (Non- 42.0 BUN/Creatinine Ratio 15.8 Random Glucose 165 mg/dl Calcium Level 8.9 mg/dl Imaging: RICKEY- Normal left ventricular systolic function. without left atrial appendage or left atrial thrombus. Intact interatrial septum without atrial septal defect or PFO. There are no valvular vegetations. There is no significant atheromatous disease in the aortic root, proximal ascending aorta, aortic arch, or proximal descending thoracic aorta. There is no cardiac source of embolism identified. Exam: Physical Exam: Constitutional: appearance nourished, healthy and normal Ears, Nose, Mouth and Throat: mucous membranes moist, no injection and skin normal, eyes normal Cardiovascular: normal S-1 and S-2 and regular rate and rhythm Respiratory: clear to auscultation (CTA) and no rales, rhonchi or wheeze Musculoskeletal: no peripheral edema and good distal pulses Skin: no stigmata of neurocutaneous disease noted and normal and intact Eyes: extraocular muscles intact (EOMI) and pupils equal, round and reactive to light (PERRL) NEUROLOGIC EXAMINATION: Mental status: Alert and interactive Oriented to full date and location Oriented to person Speech fluent with no evidence of aphasia Cranial Nerves smile eye brow raise symmetric Sensory: intact to light touch Coordination: finger to nose no bi pass Gait/Stance: Posture lying in bed Motor: Negative for pronator drift of out stretched arms with eyes closed. 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, hip flex plantar flex ext 5/5 bilaterally Current Inpatient Medications Medications (Trade) Dose Ordered Sig/Noemí Route Start Time Stop Time Status Last Admin Dose Admin Miscellaneous Information (Pharmacist Discharge Med Rec Consult) 1 ea UD PRN N/A 12/08/17 14:45 01/07/18 14:44 Heparin Sodium (Porcine) (Heparin Sq 5000 Unit/0.5ml) 5,000 unit Q12 SQ 12/08/17 21:00 01/07/18 20:59 12/10/17 07:28 5,000 UNIT Acetaminophen (Tylenol Tab) 650 mg Q4H PRN PO 12/08/17 14:45 01/07/18 14:44 12/08/17 19:06 650 MG Nitroglycerin (Nitrostat Tab) 0.4 mg UD PRN SL 12/08/17 14:45 01/07/18 14:44 Polyethylene (Miralax Powder Packet) 17 gm DAILY PRN PO 12/08/17 14:45 01/07/18 14:44 Clopidogrel Bisulfate (plAVix TAB) 75 mg QAM PO 12/09/17 09:00 01/08/18 08:59 12/10/17 07:25 75 MG Aspirin (Ecotrin Tab) 81 mg DAILY PO 12/09/17 09:00 01/08/18 08:59 12/10/17 07:25 81 MG Lisinopril (Zestril Tab) 20 mg DAILY PO 12/09/17 09:00 01/08/18 08:59 12/10/17 07:25 20 MG Multivitamins (Multivitamin Tab) 1 tab DAILY PO 12/09/17 09:00 01/08/18 08:59 12/10/17 07:25 1 TAB Tacrolimus (Prograf Cap) 2 mg BID PO 12/08/17 21:00 01/07/18 20:59 12/10/17 07:24 2 MG Bimatoprost (Lumigan 0.01%) 1 drops HS OPB 12/08/17 21:00 01/07/18 20:59 12/09/17 21:28 1 DROPS Miscellaneous (Iv Fluids Completed) 1 ea PRN PRN N/A 12/08/17 16:15 12/08/18 16:14 Glucose (Glucose 40% Gel) 15-30 GRAMS 15 GRAMS... UD PRN PO 12/08/17 17:00 01/07/18 16:59 Glucose (Glucose Chew Tab) 4-8 Tablets 4 Tabl... UD PRN PO 12/08/17 17:00 01/07/18 16:59 Dextrose (Dextrose 50% 50ML Syringe) 25-50ML OF 50% DW IV FOR... UD PRN IV 12/08/17 17:00 01/07/18 16:59 Glucagon (Glucagon Inj) 1 mg UD PRN SQ 12/08/17 17:00 01/07/18 16:59 Oxycodone HCl (Roxicodone Immediate Rel Tab) 5 mg Q6H PRN PO 12/08/17 17:45 12/22/17 17:44 Insulin Aspart (novoLOG ASPART) SLIDING SCALE If C... ACHS SC 12/08/17 21:00 01/07/18 20:59 12/09/17 17:16 4 UNITS Labetalol HCl (Normodyne IV) 10 mg Q1H PRN IV 12/09/17 11:45 01/08/18 11:44 12/10/17 00:13 10 MG Amlodipine Besylate (Norvasc Tab) 10 mg DAILY PO 12/11/17 09:00 01/08/18 08:59 Impression 67 year old male history of TIA/stroke like symptoms Plan 1. CT head no new acute infarcts imaging 09/18/2018 [facility] several subacute infarcts in b/l MCA territories. 2. neurology Dr Santiago ordered ZIO patch done 11/12/2017 no afib but atrial tachycardia 3. advise to take plavix 75 mg and aspirin 81 mg daily- patient refused to continue on plavix due to increased bleeding risk 4. EEG with no seizure activity noted 5. MRI would be helpful unclear if patient is able to have MRI due to implant 6. RICKEY- NO ASD 7. restart plavix 75 mg and aspirin 81 mg daily 8. headache - treat with tylenol neurology follow up 3-[address] Bernard Santigao, or Kyra Morrell PAC schedule I have seen and discussed above patient with Dr Bernard Santiaog, neurology Rickey done no pfo and no other source for emboli issue re mri and mra still pending but at this point see no reason we could not do this on op basis once th records are obtained re the nature and mri compatibility of the penile implant. Therapy even if he had intracranial disease would not change ie dual antiplatelet rx and we can follow up outpatient zuluaga after the information from the penile implant surgery group is obtained We will sign off for now but if the information arrives and he still needs to be in the hospital for medical reasons and mri can be don go for the mri mra combination looking for intracranial stenoses Bernard Santiago MD
--- NOTE | 2017-12-10 14:53 | Progress Note ---
Internal Med Progress Note Date of Service: Dec 10, 2017. Provider Documentation: SUBJECTIVE: denies any numbness or weakness now no headaches eating ok speech ok afebrile no sob or chest pain no nausea npo for marquis today OBJECTIVE: Vital Signs-as noted below Exam: General-alert and oriented. Not in distress ENT-Normal hearing Neck-no neck masses Lungs-cta b/l no wheezing or crackles Heart-S1 and S2 heard regular rate and rhythm no murmurs Abdomen-Soft bowel sounds present non tender no distension Extremities-no edema no erythema Neuro-alert and awake and Oriented power 5/5 in all extremities no pronator drift co ordination of movements normal non focal Lab data as noted below. ASSESSMENT & PLAN: CVA/TIA Pt with waxing waning neuro symptoms. First onset approx 11:15AM 12/08/17 with slurred speech and L facial drooping lasted approx 30 minutes and resolved upon ER evaluation As per H and P:"Pt with hx L facial drooping, reported in July 2017 resolved within 1 hour that pt did not seek initial evaluation for as per h and p. Hx R facial symptoms 3 years ago with evaluation at [facility] with reported negative stroke workup at that time. Pt followed with Dr Grider over past 2 months and refused plavix at that time. Had CT head: several subacute infarcts bilateral MCA. Had TTE in 09/2017: EF: 55-59%, no interatrial shunt, septal defect or PFO. U/S carotids 09/2017: less than 50% occlusion bilateral internal carotids ZIO report 10/2017: Predominantly sinus rhythm, SVT run occurred 19 times, fasted interval lasting 11 beats with max HR 152 bpm, longest lasting 30.7 seconds, no atrial fibrillation or flutter" CT head in ER: old L basal ganglia/nolasco radiata infarct, no hemorrhage. Repeat CT head 2/2 pt with worsening symptoms shows no acute changes, no hemorrhage. Plan for MARQUIS Plan for MRI/MRA head once records available regarding penile implant-still awaiting records on Plavix and aspirin holding on statin at this time with possible interaction with tacrolimus, eeg unremarkable appreciate neuro inputs neuro checks stable currently continue to monitor in tele HTN Will allow permissive HTN with stroke symptoms -labetalol prn SBP>180, DBP>100 on amlodipine and lisinopril increased amlodipine to 10mg and will monitor HX RENAL TRANSPLANT/CKD III. [place] on CKD stage 3 Cr: 1. 48. ~baseline. Follows with Dr Mcgovern -nephrology Mateo continue tacrolimus cr 1.65 today will f/u labs HX DM/HX PANCREATIC TRANSPLANT Pt not on medications. Glucose: 162 HA1c6.9 continue tacrolimus novolog sliding scale per protocol will monitor HYPOMAGNESIA Ma.7. replaced HX CAD S/P CABG stable on aspirin, plavix DVT Prophylaxis heparin SQ Disposition monitor in tele Full Code as per admissions Follows with Dr Prajapati for routine care Vital Signs: Date Time Temp Pulse Resp B/P (MAP) Pulse Ox O2 Delivery O2 Flow Rate FiO2 12/10/17 13:58 36.3 63 16 180/79 (112) 96 Room Air 12/10/17 13:54 65 18 142/75 (97) 94 Room Air 12/10/17 13:43 65 18 137/75 (95) 94 Room Air 12/10/17 13:34 77 18 146/75 (98) 94 Room Air 12/10/17 13:30 70 20 134/66 96 Nasal Cannula 6 12/10/17 13:25 63 20 159/62 99 Nasal Cannula 6 12/10/17 13:20 62 20 122/62 99 Nasal Cannula 6 12/10/17 13:15 62 20 134/68 99 Nasal Cannula 6 12/10/17 13:10 69 20 175/92 100 Nasal Cannula 6 12/10/17 13:05 69 20 146/70 100 Nasal Cannula 6 12/10/17 13:00 61 20 151/75 100 Room Air 12/10/17 11:35 Room Air 12/10/17 11:32 36.8 63 18 149/73 (98) 96 Room Air 12/10/17 08:58 36.6 62 18 161/71 (101) 96 Room Air 175/91 (119) 12/10/17 08:00 Room Air 12/10/17 07:33 36.5 68 18 164/74 (104) 97 Room Air 12/10/17 05:00 36.7 60 18 155/73 (100) 95 Room Air 12/10/17 04:00 Room Air 12/10/17 00:46 75 144/65 (91) 12/10/17 00:04 36.8 67 18 184/78 (113) 96 Room Air 12/10/17 00:00 Room Air 12/09/17 21:27 74 166/75 (105) 12/09/17 20:21 36.7 72 20 187/86 (119) 97 Room Air 12/09/17 20:00 Room Air 12/09/17 19:56 68 201/90 (127) 12/09/17 16:00 Room Air 12/09/17 15:36 36.8 67 18 173/79 (110) 96 Lab Results: Results Past 24 Hours Test 12/09/17 16:28 12/09/17 21:04 12/10/17 07:12 12/10/17 07:43 Range/Units Bedside Glucose 145 147 171 70-99 mg/dl White Blood Count 6.77 4.8-10.8 K/uL Red Blood Count 4.75 4.7-6.1 M/uL Hemoglobin 14.8 14.0-18.0 g/dL Hematocrit 41.6 42-52 % Mean Corpuscular Volume 87.6 80-100 fL Mean Corpuscular Hemoglobin 31.2 25-34 pg Mean Corpuscular Hemoglobin Concent 35.6 32-36 g/dl Platelet Count 142 130-400 K/uL Mean Platelet Volume 11.4 7.4-10.4 fL Neutrophils (%) (Auto) 56.4 % Lymphocytes (%) (Auto) 17.6 % Monocytes (%) (Auto) 9.5 % Eosinophils (%) (Auto) 16.1 % Basophils (%) (Auto) 0.3 % Neutrophils # (Auto) 3.82 1.4-6.5 K/uL Lymphocytes # (Auto) 1.19 1.2-3.4 K/uL Monocytes # (Auto) 0.64 0.11-0.59 K/uL Eosinophils # (Auto) 1.09 0-0.5 K/uL Basophils # (Auto) 0.02 0-0.2 K/uL RDW Standard Deviation 44.3 36.4-46.3 fL RDW Coefficient of Variation 13.8 11.5-14.5 % Immature Granulocyte % (Auto) 0.1 % Immature Granulocyte # (Auto) 0.01 0.00-0.02 K/uL Sodium Level 137 136-145 mmol/L Potassium Level 4.2 3.5-5.1 mmol/L Chloride Level 103 98-107 mmol/L Carbon Dioxide Level 28 21-32 mmol/L Anion Gap 6.0 3-11 mmol/L Blood Urea Nitrogen 26 7-18 mg/dl Creatinine 1.65 0.60-1.40 mg/dl Est Creatinine Clear Calc Drug Dose 44.2 ml/min Estimated GFR () 48.7 Estimated GFR (Non- 42.0 BUN/Creatinine Ratio 15.8 10-20 Random Glucose 165 70-99 mg/dl Calcium Level 8.9 8.5-10.1 mg/dl
--- NOTE | 2017-12-10 16:10 | TEE ---
*NOTICE TO RECEIVING [employer] This information is strictly Confidential and protected under [place] law. [place] law prohibits you from making any further disclosure of this information unless further disclosure is expressly permitted by the written consent of the person to whom it pertains or is authorized by law. A general authorization for the release of medical or other information is not sufficient for this purpose. Hospital accepts no responsibility if the information is made available to any other person, INCLUDING THE PATIENT. Interpretation Summary * Name: LAW HE Study Date: 12/10/2017 11:31 AM BP: 189/85 mmHg * Patient Location: CATH HR: 86 * : 1950 (M/d/yyyy) Gender: Male Height: 70 in * Age: 67 yrs Ethnicity: CA Weight: 168 lb * Ordering Physician: Jeanna Aleman * Referring Physician: Self, Referred * Performed By: Richelle Chavez RDCS * * Reason For Study: Cerebral Ischemia/ Embolus * BSA: 1.9 m2 * -- Conclusions -- * Transesophageal echocardiogram was technically adequate. * No cardiac source of embolism was identified. * Please refer to below for details. Procedure Details * The study was performed in Cardiac Catheterization Lab. * Time out was conducted by the physician, nurse, and central service tech with positive identification of patient and procedure. * Informed consent for Transesophageal Echocardiogram was obtained prior to the procedure. * An intravenous line was placed. A topical anesthetic agent was used for oropharangeal anesthesia. A bite block was inserted. * Sedation performed by the anesthesia department. * The patient's vital signs, including blood pressure, heart rate, pulse oximetry and cardiac rhythm were monitored throughout the procedure . * The posterior oropharynx was anesthetized using a topical anesthetic spray. A bite guard was inserted. * A multifrequency, multiplane transesopheageal echocardiographic endoscope was inserted and manipulated in the standard fashion to achieve multiplane views. * The transesophageal probe was passed without difficulty. * The usual views were obtained; basal, mid-esophageal, transgastric and aortic views. * The patient tolerated the procedure well without evidence of orophangeal or esophageal trauma. * A 2D transesophageal echocardiogram with spectral and color flow Doppler was performed. * 60 LIDOCAINE 270 PROPOFOL EILEEN PROBE #3 UTILIZED Start Time 13:08 End Time 13:25 Left Ventricle * The left ventricle is normal in size. * There is normal left ventricular wall thickness. * Left ventricular systolic function is normal. * Ejection Fraction = 55-60%. * The left ventricular wall motion is normal. Right Ventricle * The right ventricle is normal in size and function. Atria * The left atrial size is normal. * No thrombus is detected in the left atrial appendage. * No left atrial mass or thrombus visualized. * Right atrial size is normal. * The interatrial septum is intact with no evidence for an atrial septal defect. Mitral Valve * The mitral valve anatomy is normal. * There is no mitral valve prolapse present. * There is no vegetation seen on the mitral valve. * There is no mitral valve stenosis. * Significant mitral regurgitation is absent. Tricuspid Valve * The tricuspid valve is normal. * There is no tricuspid stenosis. * There is trace tricuspid regurgitation. Aortic Valve * The aortic valve is trileaflet. * There is no aortic valvular vegetation. * No hemodynamically significant valvular aortic stenosis. * No aortic regurgitation is present. Pulmonic Valve * The pulmonic valve is not well seen, but is grossly normal. Great Vessels * The aortic root is normal size. * The proximal descending thoracic aorta diameter is normal. There is no significant atheromatous disease in the visualized portions of the aortic root, proximal ascending aorta, aortic arch, and proximal descending thoracic aorta. Pericardium * There is no pericardial effusion.
[2017-12-10] MEDS: BIMATOPROST 0.01% OP SOLN 2.5 ML BTL OPB SCH (20:11)
[2017-12-11] VITALS (11 sets, daily range): BP systolic 153–220; BP diastolic 67–83; PULSE 62–72; TEMP 36.5–36.8; O2SAT 96–99; Ht 177.8 cm; Wt 77.7 kg
[2017-12-11] MEDS: LABETALOL HCL IV 5 MG/ML 20ML IV PRN ×2 (00:16→11:18)
[2017-12-11 07:41] LABS: BASO % 0.4 %; BASO ABS # 0.03 K/uL (0-0.2); EOS % 15.6 %; EOS ABS # 1.19 K/uL (0-0.5); HEMATOCRIT 40.3 % (42-52); HEMOGLOBIN 14.3 g/dL (14.0-18.0); IG# 0.02 K/uL (0.00-0.02); LYMPH % 17.3 %; LYMPH ABS # 1.32 K/uL (1.2-3.4); MEAN CELL VOLUME 87.8 fL (80-100); MEAN CORPUSCULAR HEMOGLOBIN 31.2 pg (25-34); MEAN CORPUSCULAR HGB CONC 35.5 g/dl (32-36); MONO % 7.4 %; MONO ABS # 0.56 K/uL (0.11-0.59); NEUT ABS # 4.49 K/uL (1.4-6.5); PLATELET COUNT 132 K/uL (130-400); RED CELL DISTRIBUTION WIDTH CV 13.8 % (11.5-14.5); RED CELL DISTRIBUTION WIDTH SD 44.5 fL (36.4-46.3); WHITE BLOOD COUNT 7.61 K/uL (4.8-10.8)
[2017-12-11] MEDS: MULTIVITAMIN TAB PO SCH (08:02)
[2017-12-11] MEDS: TACROLIMUS 1 MG CAP PO SCH ×2 (08:02→20:47)
[2017-12-11] MEDS: CLOPIDOGREL BISULFATE 75 MG TAB PO SCH (08:02)
[2017-12-11] MEDS: LISINOPRIL 20 MG TAB PO SCH (08:02)
[2017-12-11] MEDS: AMLODIPINE BESYLATE 5 MG TAB PO SCH (08:03)
[2017-12-11] MEDS: ASPIRIN 81 MG ECTAB PO SCH (08:03)
[2017-12-11] MEDS: INSULIN ASPART 100 UNITS/ML 3 ML PEN SC SCH ×4 (08:05→20:48)
[2017-12-11] MEDS: HEPARIN SOD 5000 UNIT/0.5 ML CARP SQ SCH ×2 (08:05→20:55)
[2017-12-11 08:12] LABS: CALCIUM 8.8 mg/dl (8.5-10.1); CREATININE 1.61 mg/dl (0.60-1.40); POTASSIUM 4.5 mmol/L (3.5-5.1)
[2017-12-11] MEDS ORDERED: CARVEDILOL 6.25 MG TAB PO ONE (14:00)
--- NOTE | 2017-12-11 15:18 | DIAGNOSTIC IMAGING REPORT ---
BRAIN COMBO HISTORY: Mental status change intermittent stroke symptoms TECHNIQUE: Utilizing a 1.5 Glo magnet and dedicated coil, multiplanar, multiecho imaging of the brain was performed pre and postcontrast administration. IV administration of 7.5 cc of Gadavist contrast was uneventful. COMPARISON STUDY: CT 12/08/2017 FINDINGS: Diffusion-weighted images show a low signal focus at the site of the previously described old ischemic insult left paraventricular region. There is a rim of mildly increased signal in a peripheral distribution. There is no reactive vasogenic edema. This region shows uniform increase in signal the T2 images suggesting an old ischemic insult. The peripheral increase in signal on diffusion density suggests a slight acute to subacute localized extension. No abnormal postcontrast enhancement. The ventricular system is midline. Moderate chronic small vessel change of the periventricular deep white matter regions. Structures the sella and parasellar region are unremarkable. IMPRESSION: 1. 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 2. No evidence for abnormal postcontrast enhancement. 3. Moderate chronic small vessel change throughout both cerebral hemispheres. 4. A follow-up MRI is recommended in 2-3 weeks as follow-up The above report was generated using voice recognition software. It may contain grammatical, syntax or spelling errors. Electronically signed by: Eulalio Larson M.D. 12/11/2017 3:17 PM Dictated Date/Time: 12/11/2017 3:12 PM TON
--- NOTE | 2017-12-11 16:50 | Neurology Progress Notes ---
Neurology Progress Note Date of Service Dec 11, 2017. Subjective patient was able to have MRI but images are not available. Will order carotid doppler and see patient tomorrow. MRI reports do not explain presenting symptoms will discuss with Dr Suresh Richards tomorrow for clarification Objective Date Time Temp Pulse Resp B/P (MAP) Pulse Ox O2 Delivery O2 Flow Rate FiO2 12/11/17 15:56 36.6 67 18 163/75 (104) 97 Room Air 12/11/17 13:59 72 18 168/77 (107) 96 Room Air 12/11/17 12:00 98 Room Air 12/11/17 11:51 36.5 70 18 184/80 (114) 98 12/11/17 08:00 97 Room Air 12/11/17 07:46 36.8 67 16 153/67 (95) 97 12/11/17 04:25 36.6 72 18 168/67 (100) 96 Room Air 12/11/17 04:00 Room Air 12/11/17 00:00 Room Air 12/10/17 22:45 36.9 73 18 189/76 (113) 97 Room Air 12/10/17 20:00 Room Air 12/10/17 20:00 36.6 74 18 169/81 (110) 97 Room Air 12/10/17 17:40 75 167/66 (99) Last 24 Hours Test 12/10/17 20:13 12/11/17 07:25 12/11/17 07:28 12/11/17 11:27 Bedside Glucose 147 mg/dl 158 mg/dl 246 mg/dl White Blood Count 7.61 K/uL Red Blood Count 4.59 M/uL Hemoglobin 14.3 g/dL Hematocrit 40.3 % Mean Corpuscular Volume 87.8 fL Mean Corpuscular Hemoglobin 31.2 pg Mean Corpuscular Hemoglobin Concent 35.5 g/dl Platelet Count 132 K/uL Mean Platelet Volume 12.0 fL Neutrophils (%) (Auto) 59.0 % Lymphocytes (%) (Auto) 17.3 % Monocytes (%) (Auto) 7.4 % Eosinophils (%) (Auto) 15.6 % Basophils (%) (Auto) 0.4 % Neutrophils # (Auto) 4.49 K/uL Lymphocytes # (Auto) 1.32 K/uL Monocytes # (Auto) 0.56 K/uL Eosinophils # (Auto) 1.19 K/uL Basophils # (Auto) 0.03 K/uL RDW Standard Deviation 44.5 fL RDW Coefficient of Variation 13.8 % Immature Granulocyte % (Auto) 0.3 % Immature Granulocyte # (Auto) 0.02 K/uL Sodium Level 138 mmol/L Potassium Level 4.5 mmol/L Chloride Level 105 mmol/L Carbon Dioxide Level 30 mmol/L Anion Gap 4.0 mmol/L Blood Urea Nitrogen 29 mg/dl Creatinine 1.61 mg/dl Est Creatinine Clear Calc Drug Dose 45.3 ml/min Estimated GFR () 50.2 Estimated GFR (Non- 43.3 BUN/Creatinine Ratio 18.0 Random Glucose 170 mg/dl Calcium Level 8.8 mg/dl Test 12/11/17 16:27 Bedside Glucose 109 mg/dl Imaging: MRI report reviewed no imaging available Exam: no exam for this encounter Current Inpatient Medications Medications (Trade) Dose Ordered Sig/Noemí Route Start Time Stop Time Status Last Admin Dose Admin Miscellaneous Information (Pharmacist Discharge Med Rec Consult) 1 ea UD PRN N/A 12/08/17 14:45 01/07/18 14:44 Heparin Sodium (Porcine) (Heparin Sq 5000 Unit/0.5ml) 5,000 unit Q12 SQ 12/08/17 21:00 01/07/18 20:59 12/11/17 08:05 5,000 UNIT Acetaminophen (Tylenol Tab) 650 mg Q4H PRN PO 12/08/17 14:45 01/07/18 14:44 12/08/17 19:06 650 MG Nitroglycerin (Nitrostat Tab) 0.4 mg UD PRN SL 12/08/17 14:45 01/07/18 14:44 Polyethylene (Miralax Powder Packet) 17 gm DAILY PRN PO 12/08/17 14:45 01/07/18 14:44 Clopidogrel Bisulfate (plAVix TAB) 75 mg QAM PO 12/09/17 09:00 01/08/18 08:59 12/11/17 08:02 75 MG Aspirin (Ecotrin Tab) 81 mg DAILY PO 12/09/17 09:00 01/08/18 08:59 12/11/17 08:03 81 MG Lisinopril (Zestril Tab) 20 mg DAILY PO 12/09/17 09:00 01/08/18 08:59 12/11/17 08:02 20 MG Multivitamins (Multivitamin Tab) 1 tab DAILY PO 12/09/17 09:00 01/08/18 08:59 12/11/17 08:02 1 TAB Tacrolimus (Prograf Cap) 2 mg BID PO 12/08/17 21:00 01/07/18 20:59 12/11/17 08:02 2 MG Bimatoprost (Lumigan 0.01%) 1 drops HS OPB 12/08/17 21:00 01/07/18 20:59 12/10/17 20:11 1 DROPS Miscellaneous (Iv Fluids Completed) 1 ea PRN PRN N/A 12/08/17 16:15 12/08/18 16:14 Glucose (Glucose 40% Gel) 15-30 GRAMS 15 GRAMS... UD PRN PO 12/08/17 17:00 01/07/18 16:59 Glucose (Glucose Chew Tab) 4-8 Tablets 4 Tabl... UD PRN PO 12/08/17 17:00 01/07/18 16:59 Dextrose (Dextrose 50% 50ML Syringe) 25-50ML OF 50% DW IV FOR... UD PRN IV 12/08/17 17:00 01/07/18 16:59 Glucagon (Glucagon Inj) 1 mg UD PRN SQ 12/08/17 17:00 01/07/18 16:59 Oxycodone HCl (Roxicodone Immediate Rel Tab) 5 mg Q6H PRN PO 12/08/17 17:45 12/22/17 17:44 Insulin Aspart (novoLOG ASPART) SLIDING SCALE If C... ACHS SC 12/08/17 21:00 01/07/18 20:59 12/11/17 12:14 7 UNITS Labetalol HCl (Normodyne IV) 10 mg Q1H PRN IV 12/09/17 11:45 01/08/18 11:44 12/11/17 11:18 10 MG Amlodipine Besylate (Norvasc Tab) 10 mg DAILY PO 12/11/17 09:00 01/08/18 08:59 12/11/17 08:03 10 MG Carvedilol (Coreg Tab) 6.25 mg BID PO 12/11/17 21:00 01/10/18 20:59 Impression 67 year old male history of TIA/stroke like symptoms Plan 1. CT head no new acute infarcts imaging 09/18/2018 [facility] several subacute infarcts in b/l MCA territories. 2. neurology Dr Santiago ordered ZIO patch done 11/12/2017 no afib but atrial tachycardia 3. advise to take plavix 75 mg and aspirin 81 mg daily- patient refused to continue on plavix due to increased bleeding risk 4. EEG with no seizure activity noted 5. MRI would be helpful unclear if patient is able to have MRI due to implant- done but images not available at this time 6. EILEEN- NO ASD 7. restart plavix 75 mg and aspirin 81 mg daily 8. headache - treat with tylenol 9. carotid doppler ordered neurology follow up 3-[address] Bernard Santiago, or Kyra Morrell PAC schedule I have seen and discussed above patient with Dr Kyra Colon, neurology Pt MRI reported to us, at time images not avail. Will see pt in am, review images. 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 ISAK Colon mD
--- NOTE | 2017-12-11 18:34 | Progress Note ---
Internal Med Progress Note Date of Service: Dec 11, 2017. Provider Documentation: SUBJECTIVE: ambulating fine speech ok eating ok no headaches no weakness wants to go home OBJECTIVE: Vital Signs-as noted below Exam: General-alert and oriented. Not in distress ENT-Normal hearing Neck-no neck masses Lungs-cta b/l no wheezing or crackles Heart-S1 and S2 heard regular rate and rhythm no murmurs Abdomen-Soft bowel sounds present non tender no distension Extremities-no edema no erythema Neuro-alert and awake and Oriented power 5/5 in all extremities no pronator drift co ordination of movements normal non focal Lab data as noted below. ASSESSMENT & PLAN: CVA/TIA Pt with waxing waning neuro symptoms. First onset approx 11:15AM 12/08/17 with slurred speech and L facial drooping lasted approx 30 minutes and resolved upon ER evaluation As per H and P:"Pt with hx L facial drooping, reported in July 2017 resolved within 1 hour that pt did not seek initial evaluation for as per h and p. Hx R facial symptoms 3 years ago with evaluation at [facility] with reported negative stroke workup at that time. Pt followed with Dr Grider over past 2 months and refused plavix at that time. Had CT head: several subacute infarcts bilateral MCA. Had TTE in 09/2017: EF: 55-59%, no interatrial shunt, septal defect or PFO. U/S carotids 09/2017: less than 50% occlusion bilateral internal carotids ZIO report 10/2017: Predominantly sinus rhythm, SVT run occurred 19 times, fasted interval lasting 11 beats with max HR 152 bpm, longest lasting 30.7 seconds, no atrial fibrillation or flutter" CT head in ER: old L basal ganglia/nolasco radiata infarct, no hemorrhage. Repeat CT head 2/2 pt with worsening symptoms shows no acute changes, no hemorrhage. Plan for EILEEN Plan for MRI/MRA head once records available regarding penile implant-still awaiting records on Plavix and aspirin holding on statin at this time with possible interaction with tacrolimus, eeg unremarkable MRI -possible extension of old infarct continue to monitor HTN Will allow permissive HTN with stroke symptoms -labetalol prn SBP>180, DBP>100 on amlodipine and lisinopril increased amlodipine to 10mg and will monitor added coreg will monitor HX RENAL TRANSPLANT/CKD III. [place] on CKD stage 3 Cr: 1. 48. ~baseline. Follows with Dr Mcgovern -nephrology Mateo continue tacrolimus cr 1.61 today will f/u labs HX DM/HX PANCREATIC TRANSPLANT Pt not on medications. Glucose: 162 HA1c6.9 continue tacrolimus novolog sliding scale per protocol will monitor HYPOMAGNESIA Ma.7. replaced HX CAD S/P CABG stable on aspirin, plavix DVT Prophylaxis heparin SQ Disposition monitor in tele Full Code as per admissions Follows with Dr Prajapati for routine care Vital Signs: Date Time Temp Pulse Resp B/P (MAP) Pulse Ox O2 Delivery O2 Flow Rate FiO2 12/11/17 16:03 97 Room Air 12/11/17 15:56 36.6 67 18 163/75 (104) 97 Room Air 12/11/17 13:59 72 18 168/77 (107) 96 Room Air 12/11/17 12:00 98 Room Air 12/11/17 11:51 36.5 70 18 184/80 (114) 98 12/11/17 08:00 97 Room Air 12/11/17 07:46 36.8 67 16 153/67 (95) 97 12/11/17 04:25 36.6 72 18 168/67 (100) 96 Room Air 12/11/17 04:00 Room Air 12/11/17 00:00 Room Air 12/10/17 22:45 36.9 73 18 189/76 (113) 97 Room Air 12/10/17 20:00 Room Air 12/10/17 20:00 36.6 74 18 169/81 (110) 97 Room Air Lab Results: Results Past 24 Hours Test 12/10/17 20:13 12/11/17 07:25 12/11/17 07:28 12/11/17 11:27 Range/Units Bedside Glucose 147 158 246 70-99 mg/dl White Blood Count 7.61 4.8-10.8 K/uL Red Blood Count 4.59 4.7-6.1 M/uL Hemoglobin 14.3 14.0-18.0 g/dL Hematocrit 40.3 42-52 % Mean Corpuscular Volume 87.8 80-100 fL Mean Corpuscular Hemoglobin 31.2 25-34 pg Mean Corpuscular Hemoglobin Concent 35.5 32-36 g/dl Platelet Count 132 130-400 K/uL Mean Platelet Volume 12.0 7.4-10.4 fL Neutrophils (%) (Auto) 59.0 % Lymphocytes (%) (Auto) 17.3 % Monocytes (%) (Auto) 7.4 % Eosinophils (%) (Auto) 15.6 % Basophils (%) (Auto) 0.4 % Neutrophils # (Auto) 4.49 1.4-6.5 K/uL Lymphocytes # (Auto) 1.32 1.2-3.4 K/uL Monocytes # (Auto) 0.56 0.11-0.59 K/uL Eosinophils # (Auto) 1.19 0-0.5 K/uL Basophils # (Auto) 0.03 0-0.2 K/uL RDW Standard Deviation 44.5 36.4-46.3 fL RDW Coefficient of Variation 13.8 11.5-14.5 % Immature Granulocyte % (Auto) 0.3 % Immature Granulocyte # (Auto) 0.02 0.00-0.02 K/uL Sodium Level 138 136-145 mmol/L Potassium Level 4.5 3.5-5.1 mmol/L Chloride Level 105 98-107 mmol/L Carbon Dioxide Level 30 21-32 mmol/L Anion Gap 4.0 3-11 mmol/L Blood Urea Nitrogen 29 7-18 mg/dl Creatinine 1.61 0.60-1.40 mg/dl Est Creatinine Clear Calc Drug Dose 45.3 ml/min Estimated GFR () 50.2 Estimated GFR (Non- 43.3 BUN/Creatinine Ratio 18.0 10-20 Random Glucose 170 70-99 mg/dl Calcium Level 8.8 8.5-10.1 mg/dl Test 12/11/17 16:27 Range/Units Bedside Glucose 109 70-99 mg/dl
[2017-12-11] MEDS: CARVEDILOL 6.25 MG TAB PO SCH (20:47)
[2017-12-11] MEDS: BIMATOPROST 0.01% OP SOLN 2.5 ML BTL OPB SCH (20:48)
[2017-12-12] VITALS (7 sets, daily range): BP systolic 152–193; BP diastolic 67–90; PULSE 60–65; TEMP 36.6–36.8; O2SAT 96–98
--- NOTE | 2017-12-12 07:03 | DIAGNOSTIC IMAGING REPORT ---
CAROTID DOPPLER NECK ART CLINICAL HISTORY: 67 years-old Male presenting with stroke . TECHNIQUE: Real-time grayscale and color and spectral Doppler ultrasound imaging of the bilateral carotid arteries was performed. NASCET criteria was used in evaluating this study. COMPARISON: None. FINDINGS: Right: Common carotid: Atherosclerosis. Peak systolic velocity 61 cm/s. Internal carotid artery: Atherosclerosis of the proximal ICA. Peak systolic velocity 98 cm/s. Systolic ratio: 1.6. External carotid artery: Atherosclerosis. Peak systolic velocity 395 cm/s. Left: Common carotid: Atherosclerosis. Peak systolic velocity 72 cm/s. Internal carotid artery: Atherosclerosis of the proximal ICA. Peak systolic velocity 110 cm/s. Systolic ratio: 1.5. External carotid artery: Atherosclerosis. Peak systolic velocity 660 cm/s. Bilateral antegrade flow within the vertebral arteries. Reference ranges: Stenosis measurements are compared to reference velocity parameters. ICA peak systolic velocity (PSV) < 125 cm/s normal or indicating < 50% stenosis; ICA PSV 125-230 cm/s equivalent to 50-69% stenosis; ICA PSV > 230 cm/s equivalent to greater than or equal to 70% stenosis. ICA PSV to common carotid artery PSV ratio < 2 normal or < 50% stenosis; 2-4 equates to 50-69% stenosis, > 4 equates to greater than or equal to 70% stenosis. Normal ICA end-diastolic velocity less than 40. Blood pressure Brachial: Not performed. IMPRESSION: 1. Atherosclerosis without hemodynamically significant stenosis seen within the common or internal carotid arteries. 2. Stenosis in the bilateral external carotid arteries. Electronically signed by: Donaldo Castillo M.D. 12/12/2017 7:01 AM Dictated Date/Time: 12/12/2017 7:00 AM
[2017-12-12] MEDS: TACROLIMUS 1 MG CAP PO SCH (07:40)
[2017-12-12] MEDS: LISINOPRIL 20 MG TAB PO SCH (07:40)
[2017-12-12] MEDS: AMLODIPINE BESYLATE 5 MG TAB PO SCH (07:40)
[2017-12-12] MEDS: CLOPIDOGREL BISULFATE 75 MG TAB PO SCH (07:40)
[2017-12-12] MEDS: ASPIRIN 81 MG ECTAB PO SCH (07:41)
[2017-12-12] MEDS: CARVEDILOL 6.25 MG TAB PO SCH (07:41)
[2017-12-12] MEDS: MULTIVITAMIN TAB PO SCH (07:41)
[2017-12-12] MEDS: INSULIN ASPART 100 UNITS/ML 3 ML PEN SC SCH ×3 (08:05→16:30)
[2017-12-12] MEDS: HEPARIN SOD 5000 UNIT/0.5 ML CARP SQ SCH (08:06)
--- NOTE | 2017-12-12 12:46 | Neurology Progress Notes ---
Neurology Progress Note Date of Service Dec 12, 2017. Hipolito Vaughn is a 67 year old with PMH CAD S/P CABG in 2002, DL, DM, HTN, CKD 3, history of kidney and pancreas transplant in 2003, penile implant. He states he doesn't know what happened but he had right facial numbness, left hand numbness and tingling and a severe headache. He states he never gets headaches but this was a bad one. Records from ED estimated the onset of symptoms was 11:15 AM 12/08/2017 His son and grandson stated he had slurred speech and left facial droop. He came to the ED within 30 minutes resolution of slurred speech and left facial droop and no further dizziness. Still with some tingling to right hand and fingers. He did state he had 2 days ago had several episodes of diarrhea that resolved in approx 24 hours, other family member had similar symptoms. He is doing well today and is ready to go home. His can't pick him up until around 5p, He states he no longer had a headache. he voices understanding with the findings on MRI and should be repeated in 2-3 weeks per radiology recommendations. He is also aware he should be taking both plavix and aspirin for stroke prevention. denies CP, SOB, abdominal pain, current one sided weakness, numbness, tingling, N, V, hearing loss, vision changes, falls, head injury. Objective Date Time Temp Pulse Resp B/P (MAP) Pulse Ox O2 Delivery O2 Flow Rate FiO2 12/12/17 12:00 Room Air 12/12/17 11:27 36.8 65 20 172/76 (108) 98 Room Air 193/90 (124) 12/12/17 08:00 Room Air 12/12/17 07:25 36.7 62 20 164/67 (99) 96 Room Air 12/12/17 05:33 36.6 60 18 152/67 (95) 97 Room Air 12/12/17 04:00 Room Air 12/12/17 00:10 36.8 62 18 173/84 (113) 96 Room Air 12/12/17 00:00 Room Air 12/11/17 21:45 62 162/75 (104) 12/11/17 21:25 36.8 68 18 220/83 (128) 99 Room Air 12/11/17 20:06 97 Room Air 12/11/17 16:03 97 Room Air 12/11/17 15:56 36.6 67 18 163/75 (104) 97 Room Air 12/11/17 13:59 72 18 168/77 (107) 96 Room Air Last 24 Hours Test 12/11/17 16:27 12/11/17 20:23 12/12/17 07:41 12/12/17 11:47 Bedside Glucose 109 mg/dl 158 mg/dl 145 mg/dl 147 mg/dl Imaging: MRI brain combo- . 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 2. No evidence for abnormal postcontrast enhancement. 3. Moderate chronic small vessel change throughout both cerebral hemispheres. 4. A follow- up MRI is recommended in 2-3 weeks as follow-up MRA not completed carotid doppler- . Atherosclerosis without hemodynamically significant stenosis seen within the common or internal carotid arteries. Stenosis in the bilateral external carotid arteries. Exam: Physical Exam: Constitutional: appearance nourished, healthy and normal Ears, Nose, Mouth and Throat: mucous membranes moist, no injection and skin normal, eyes normal Cardiovascular: normal S-1 and S-2 and regular rate and rhythm Respiratory: clear to auscultation (CTA) and no rales, rhonchi or wheeze Musculoskeletal: no peripheral edema Skin: no stigmata of neurocutaneous disease noted and normal and intact Eyes: extraocular muscles intact (EOMI) and pupils equal, round and reactive to light (PERRL) NEUROLOGIC EXAMINATION: Mental status: Alert and interactive Oriented to full date and location Oriented to person Speech fluent with no evidence of aphasia Cranial Nerves smile eye brow raise symmetric Coordination: finger to nose with no bipass Gait/Stance: Posture normal. Motor: Negative for pronator drift of out stretched arms with eyes closed. Strength: hand meter mechanic biceps triceps 5/5 bilaterally hip flex 5/5 bilaterally plantar flex ext 5/5 bilaterally Current Inpatient Medications Medications (Trade) Dose Ordered Sig/Noemí Route Start Time Stop Time Status Last Admin Dose Admin Miscellaneous Information (Pharmacist Discharge Med Rec Consult) 1 ea UD PRN N/A 12/08/17 14:45 01/07/18 14:44 Heparin Sodium (Porcine) (Heparin Sq 5000 Unit/0.5ml) 5,000 unit Q12 SQ 12/08/17 21:00 01/07/18 20:59 12/12/17 08:06 5,000 UNIT Acetaminophen (Tylenol Tab) 650 mg Q4H PRN PO 12/08/17 14:45 01/07/18 14:44 12/08/17 19:06 650 MG Nitroglycerin (Nitrostat Tab) 0.4 mg UD PRN SL 12/08/17 14:45 01/07/18 14:44 Polyethylene (Miralax Powder Packet) 17 gm DAILY PRN PO 12/08/17 14:45 01/07/18 14:44 Clopidogrel Bisulfate (plAVix TAB) 75 mg QAM PO 12/09/17 09:00 01/08/18 08:59 12/12/17 07:40 75 MG Aspirin (Ecotrin Tab) 81 mg DAILY PO 12/09/17 09:00 01/08/18 08:59 12/12/17 07:41 81 MG Lisinopril (Zestril Tab) 20 mg DAILY PO 12/09/17 09:00 01/08/18 08:59 12/12/17 07:40 20 MG Multivitamins (Multivitamin Tab) 1 tab DAILY PO 12/09/17 09:00 01/08/18 08:59 12/12/17 07:41 1 TAB Tacrolimus (Prograf Cap) 2 mg BID PO 12/08/17 21:00 01/07/18 20:59 12/12/17 07:40 2 MG Bimatoprost (Lumigan 0.01%) 1 drops HS OPB 12/08/17 21:00 01/07/18 20:59 12/11/17 20:48 1 DROPS Miscellaneous (Iv Fluids Completed) 1 ea PRN PRN N/A 12/08/17 16:15 12/08/18 16:14 Glucose (Glucose 40% Gel) 15-30 GRAMS 15 GRAMS... UD PRN PO 12/08/17 17:00 01/07/18 16:59 Glucose (Glucose Chew Tab) 4-8 Tablets 4 Tabl... UD PRN PO 12/08/17 17:00 01/07/18 16:59 Dextrose (Dextrose 50% 50ML Syringe) 25-50ML OF 50% DW IV FOR... UD PRN IV 12/08/17 17:00 01/07/18 16:59 Glucagon (Glucagon Inj) 1 mg UD PRN SQ 12/08/17 17:00 01/07/18 16:59 Oxycodone HCl (Roxicodone Immediate Rel Tab) 5 mg Q6H PRN PO 12/08/17 17:45 12/22/17 17:44 Insulin Aspart (novoLOG ASPART) SLIDING SCALE If C... ACHS SC 12/08/17 21:00 01/07/18 20:59 12/12/17 12:11 6 UNITS Labetalol HCl (Normodyne IV) 10 mg Q1H PRN IV 12/09/17 11:45 01/08/18 11:44 12/11/17 11:18 10 MG Amlodipine Besylate (Norvasc Tab) 10 mg DAILY PO 12/11/17 09:00 01/08/18 08:59 12/12/17 07:40 10 MG Carvedilol (Coreg Tab) 6.25 mg BID PO 12/11/17 21:00 01/10/18 20:59 12/12/17 07:41 6.25 MG Impression 67 year old male history of TIA/stroke like symptoms Plan 1. CT head no new acute infarcts imaging 09/18/2018 [facility] several subacute infarcts in b/l MCA territories. 2. neurology Dr Santiago ordered ZIO patch done 11/12/2017 no afib but atrial tachycardia 3. advise to take plavix 75 mg and aspirin 81 mg daily- patient refused to continue on plavix due to increased bleeding risk 4. EEG with no seizure activity noted 5. MRI brain combo with report extension of old stroke but would not account for reported symptoms-recommended to repeat in 2-3 weeks for clarification 6. EILEEN- NO ASD 7. restart plavix 75 mg and aspirin 81 mg daily 8. headache - treat with tylenol 9. carotid doppler >70% should have vascular referral as outpatient 10. MRA was not done will order as outpatient when repeat MRI is done for further evaluation of previous stroke neurology follow up 3-[address] Bernard Santiago, or Kyra Morrell PAC schedule I have seen and discussed above patient with Dr Kyra Colon, neurology. Pt seen, had been following Dr Santiago as outpt for recurrent neurol sx. Had had echo, zio, possibly EEG. On this admission possible extension of the deep white matter infarct. Pt was encouraged to take asa and plavix. He was prescribed Plavix but was not taking. Continue risk factor mod. Pt should see Dr Santiago in follow-up so he may compare outpt and inpt studies to further clarify. ISAK Colon MD
[2017-12-12] MEDS ORDERED: AMLO-114 PO ×2 (16:36)
[2017-12-12] MEDS ORDERED: CRG625 PO ×2 (16:36)
[2017-12-12] MEDS ORDERED: PLV75 PO ×2 (16:36)
--- NOTE | 2017-12-12 16:39 | Discharge Instructions ---
Discharge Instructions Date of Service Dec 12, 2017. Admission Reason for Admission: TIA Discharge Discharge Diagnosis / Problem: cva Discharge Goals Goal(s): Decrease discomfort, Improve function Activity Recommendations Activity Limitations: resume your previous activity . Instructions / Follow-Up Instructions / Follow-Up FOLLOWUP WITH FAMILY DOCTOR Jolly Arellano ON November AT 6:05PM. FOLLOWUP WITH NEUROLOGY IN 3-4 WEEKS REPEAT MRI/MRA HEAD IN 2-3 WEEKS PER NEUROLOGY. BLOOD PRESSURE FOLLOWUP WITH FAMILY DOCTOR. DIABETES FOLLOWUP WITH FAMILY DOCTOR HBA1C 6.9 PLEASE GO THROUGH MEDICATION LIST AND TO TAKE ALL MEDICATIONS REGULARLY PRESCRIBED. FOLLOWUP WITH VASCULAR SURGEON WITH FAMILY DOCTOR REFERRAL FOR CAROTID STENOSIS Risk Factors for Stroke: You can reduce your chances of stroke by working with your medical provider to adopt a healthy lifestyle. Some specific ways to lower your chance of stroke are: * If you are a smoker, now is the time to stop smoking cigarettes * If you are diabetic, improve the control of your blood sugars * Avoid excessive amounts of alcohol * Control high blood pressure * Lose weight if you are overweight * Be sure to lead an active lifestyle * Eat a healthy diet low in salt, cholesterol and fat You should know about other risk factors for stroke that you are unable to control. These include: * Age 55 years or older * Male gender * Certain racial groups: , or / * Family History of Stroke, Mini stroke or Heart Attack * Sickle Cell Disease Follow Up: It is important for you to keep your follow up appointments with your medical provider. Current Hospital Diet Patient's current hospital diet: AHA Diet (Heart Healthy), Diabetes Type 2 Diet Discharge Diet Recommended Diet: AHA Diet (Heart Healthy), Diabetes Type 2 Diet Pending Studies Studies pending at discharge: no Laboratory Results Hemoglobin A1c Test 12/08/17 12:07 Range/Units Estimated Average Glucose 151 mg/dl Hemoglobin A1c 6.9 H 4.5-5.6 % Lipid Panel Test 12/09/17 06:05 Range/Units Triglycerides Level 106 0-150 mg/dl Cholesterol Level 135 0-200 mg/dl HDL Cholesterol 36 mg/dl Cholesterol/HDL Ratio 3.8 LDL Cholesterol, Calculated 78 mg/dl Medical Emergencies . Who to Call and When: Medical Emergencies: Call 911 immediately if you experience any of the following warning signs and symptoms of Stroke: * Sudden numbness or weakness of the face, arm or leg, especially on one side of the body * Sudden confusion, trouble speaking or understanding * Sudden trouble seeing in one or both eyes * Sudden trouble walking, dizziness, loss of balance or coordination * Sudden severe headache with no cause Do not delay calling 911 if you experience any warning signs or symptoms of a stroke. Delay in seeking medical attention may affect what treatments can be given to you. . Non-Emergent Contact Non-Emergency issues call your: Primary Care Provider . . "Provider Documentation" section prepared by John De Jesus. . Stroke Core Measures Reason no t-PA for Stroke: Treatment not indicated Reason no antithrom by day 2: Treatment provided - N/A Reason no antithrom at D/C: Treatment provided - N/A Reason no statin at D/C: Treatment provided - N/A Reason no anticoag w/a fib: Treatment not indicated
--- NOTE | 2017-12-12 18:09 | Pharmacy Progress Note ---
Pharmacist Stroke Counseling Date of Service Dec 12, 2017. Scope Pharmacy has been consulted to provide medication discharge counseling for this patient admitted with transient ischemic attack as per the Pharmacist Discharge Counseling for Stroke Patients Protocol. Medications on Discharge New Medications: Amlodipine (Norvasc) 10 Mg Tab 10 MG PO DAILY, #30 TAB 2 Refills Carvedilol (Carvedilol) 6.25 Mg Tab 6.25 MG PO BID, #60 TAB 2 Refills Clopidogrel Bisulfate (Clopidogrel) 75 Mg Tab 75 MG PO QAM, #30 TAB 2 Refills Continued Medications: Aspirin (Aspirin 81) 81 Mg Tab 1 TAB PO DAILY Bimatoprost (Lumigan) 0.01 % Carmen 1 DROPS OPB HS for 30 Days, #2.5 ML 3 Refills Cholecalciferol (Vitamin D 1000 Unit) 1,000 Unit Cap 1000 INTER.UNIT PO DAILY, CAP Cyanocobalamin (Vitamin B12 100 Mcg) 100 Mcg Tab 200 MCG PO DAILY, TAB Fish Oil (Fish Oil) 1 Gm Cap 1 GM PO DAILY Lisinopril (Prinivil) 20 Mg Tab 20 MG PO DAILY, TAB Multivitamin (Multivitamin) Tab 1 TAB PO DAILY, TAB Probiotic Product (Probiotic Daily) 1 Cap Cap 1 CAP PO BID Tacrolimus (Prograf) 1 Mg Cap 2 MG PO BID, CAP Vitamin E (Vitamin E 400 Iu) 400 Unit Cap 400 INTER.UNIT PO DAILY, CAP Discontinued Medications: Amlodipine (Norvasc) 5 Mg Tab 5 MG PO DAILY, TAB Action The above medications, specifically ones for stroke treatment/prophylaxis, have been reviewed in detail with the patient and/or patient patient service representative(s) prior to discharge. This includes indication, common adverse reactions, drug interactions, and medication administration. Medication counseling has been employed using the teach-back method to ensure understanding. Outcome The patient has demonstrated understanding of the medications. Please note, they are aware that the pharmacist will call them within 72 hours post-discharge to confirm that the appropriate medications are being taken and answer any further medication related questions the patient might have at that time. Contact information Individual to be contacted: Daniela Relationship to patient (if applicable): Phone number: [phone] Best time to call: anytime Additional comments: * Roderick was pleasant to speak with. He was wishing his was there to ask the detailed questions. I reassured him that we would be calling in 72 hours and could speak with her then. * I noted that he was not prescribed statin therapy and that he could speak with his doctor at a follow up appointment to see if it would be appropriate for him. Thank you for allowing pharmacy to be involved in the care of this patient. Please call [phone] or [phone] with any additional questions
--- NOTE | 2017-12-12 19:28 | Progress Note ---
Internal Med Progress Note Date of Service: Dec 12, 2017. Provider Documentation: SUBJECTIVE: resting comfortably afebrile no chest pain or sob no weakness ambulating fine ok to go home OBJECTIVE: Vital Signs-as noted below Exam: General-alert and oriented. Not in distress ENT-Normal hearing Neck-no neck masses Lungs-cta b/l no wheezing or crackles Heart-S1 and S2 heard regular rate and rhythm no murmurs Abdomen-Soft bowel sounds present non tender no distension Extremities-no edema no erythema Neuro-alert and awake and Oriented power 5/5 in all extremities no pronator drift co ordination of movements normal non focal Lab data as noted below. ASSESSMENT & PLAN: CVA/TIA Pt with waxing waning neuro symptoms. First onset approx 11:15AM 12/08/17 with slurred speech and L facial drooping lasted approx 30 minutes and resolved upon ER evaluation As per H and P:"Pt with hx L facial drooping, reported in July 2017 resolved within 1 hour that pt did not seek initial evaluation for as per h and p. Hx R facial symptoms 3 years ago with evaluation at [facility] with reported negative stroke workup at that time. Pt followed with Dr Grider over past 2 months and refused plavix at that time. Had CT head: several subacute infarcts bilateral MCA. Had TTE in 09/2017: EF: 55-59%, no interatrial shunt, septal defect or PFO. U/S carotids 09/2017: less than 50% occlusion bilateral internal carotids ZIO report 10/2017: Predominantly sinus rhythm, SVT run occurred 19 times, fasted interval lasting 11 beats with max HR 152 bpm, longest lasting 30.7 seconds, no atrial fibrillation or flutter" CT head in ER: old L basal ganglia/nolasco radiata infarct, no hemorrhage. Repeat CT head 2/2 pt with worsening symptoms shows no acute changes, no hemorrhage. Plan for EILEEN Plan for MRI/MRA head once records available regarding penile implant-still awaiting records on Plavix and aspirin holding on statin at this time with possible interaction with tacrolimus, eeg unremarkable MRI -possible extension of old infarct to d/c on aspirin and plavix. BP control plan for repeat m,ri/mra head with contrast in 2-3 weeks and f/u with neurology HTN Will allow permissive HTN with stroke symptoms -labetalol prn SBP>180, DBP>100 on amlodipine and lisinopril increased amlodipine to 10mg and will monitor added coreg 6.25mg bid manual BP check 145/70 f/u with pcp HX RENAL TRANSPLANT/CKD III. BERLIN on CKD stage 3 Cr: 1. 48. ~baseline. Follows with Dr Mcgovern -nephrology Mateo continue tacrolimus cr 1.61 will f/u labs HX DM/HX PANCREATIC TRANSPLANT Pt not on medications. Glucose: 162 HA1c6.9 continue tacrolimus novolog sliding scale per protocol f/u with pcp for diabetes HYPOMAGNESIA Ma.7. replaced HX CAD S/P CABG stable on aspirin, plavix Discharged home Vital Signs: Date Time Temp Pulse Resp B/P (MAP) Pulse Ox O2 Delivery O2 Flow Rate FiO2 12/12/17 16:50 36.7 65 18 97 Room Air 12/12/17 16:03 97 Room Air 12/12/17 15:34 36.7 65 18 182/77 (112) 97 Room Air 12/12/17 12:00 Room Air 12/12/17 11:27 36.8 65 20 172/76 (108) 98 Room Air 193/90 (124) 12/12/17 08:00 Room Air 12/12/17 07:25 36.7 62 20 164/67 (99) 96 Room Air 12/12/17 05:33 36.6 60 18 152/67 (95) 97 Room Air 12/12/17 04:00 Room Air 12/12/17 00:10 36.8 62 18 173/84 (113) 96 Room Air 12/12/17 00:00 Room Air 12/11/17 21:45 62 162/75 (104) 12/11/17 21:25 36.8 68 18 220/83 (128) 99 Room Air 12/11/17 20:06 97 Room Air Lab Results: Results Past 24 Hours Test 12/11/17 20:23 12/12/17 07:41 12/12/17 11:47 12/12/17 16:07 Range/Units Bedside Glucose 158 145 147 135 70-99 mg/dl
--- NOTE | 2017-12-12 20:06 | Discharge Summary ---
Discharge Summary Date of Service Dec 12, 2017. Discharge Summary Admission Date: Dec 08, 2017 at 15:47 Discharge Date: Dec 12, 2017 Discharge Disposition: Home Principal Diagnosis: CVA HTN Secondary Diagnoses/Problems: (1) CAD (coronary artery disease) Permanent Comment: s/p CABG x 5 in 2002 Status: Chronic (2) CKD (chronic kidney disease), stage III Status: Chronic (3) Dyslipidemia Status: Chronic (4) HTN (hypertension) Status: Chronic (5) Hx of diabetes mellitus Status: Chronic Surgical Problems: (1) History of open heart surgery Status: Resolved (2) History of penile implant Status: Resolved (3) Hx of CABG Status: Resolved (4) Hx of kidney transplant Permanent Comment: hx 2003 Status: Resolved (5) Hx of pancreas transplant Permanent Comment: 2003 Status: Resolved Procedures: CT HEAD: 1. No acute intracranial findings. 2. 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 Moderate small vessel disease. 3. Moderate left maxillary sinus mucosal thickening. BRAIN MRI: 1. 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 2. No evidence for abnormal postcontrast enhancement. 3. Moderate chronic small vessel change throughout both cerebral hemispheres. 4. A follow-up MRI is recommended in 2-3 weeks as follow-up CAROTID US: 1. Atherosclerosis without hemodynamically significant stenosis seen within the common or internal carotid arteries. 2. Stenosis in the bilateral external carotid arteries. EEG: This is a normal awake and asleep routine EEG. There was no electrographic seizures or epileptiform discharges S/P EILEEN: Transesophageal echocardiogram was technically adequate. * No cardiac source of embolism was identified. Consultations: NEUROLOGY Medication Reconciliation New Medications: Amlodipine (Norvasc) 10 Mg Tab 10 MG PO DAILY, #30 TAB 2 Refills Carvedilol (Carvedilol) 6.25 Mg Tab 6.25 MG PO BID, #60 TAB 2 Refills Clopidogrel Bisulfate (Clopidogrel) 75 Mg Tab 75 MG PO QAM, #30 TAB 2 Refills Continued Medications: Aspirin (Aspirin 81) 81 Mg Tab 1 TAB PO DAILY Bimatoprost (Lumigan) 0.01 % Carmen 1 DROPS OPB HS for 30 Days, #2.5 ML 3 Refills Cholecalciferol (Vitamin D 1000 Unit) 1,000 Unit Cap 1000 INTER.UNIT PO DAILY, CAP Cyanocobalamin (Vitamin B12 100 Mcg) 100 Mcg Tab 200 MCG PO DAILY, TAB Fish Oil (Fish Oil) 1 Gm Cap 1 GM PO DAILY Lisinopril (Prinivil) 20 Mg Tab 20 MG PO DAILY, TAB Multivitamin (Multivitamin) Tab 1 TAB PO DAILY, TAB Probiotic Product (Probiotic Daily) 1 Cap Cap 1 CAP PO BID Tacrolimus (Prograf) 1 Mg Cap 2 MG PO BID, CAP Vitamin E (Vitamin E 400 Iu) 400 Unit Cap 400 INTER.UNIT PO DAILY, CAP Discontinued Medications: Amlodipine (Norvasc) 5 Mg Tab 5 MG PO DAILY, TAB Admission Information HPI (per Admitting provider): Pt is 67 y/o M with PMH CAD S/P CABG in 2002, dyslipidemia, diabetes, hypertension, CKD 3, history of kidney and pancreas transplant in 2003, penile implant, presented to ER with chief complaint of left facial drooping and slurred speech and right hand and finger tingling. reports believes onset of symptoms was 11:15 AM today reports patient was face timing with son and grandson when the noticed onset of slurred speech and left facial droop. Patient denied any headache or vision changes at that time however reported felt a little dizzy. reports immediately came to the ER which took about approximately 30 minutes upon ER arrival patient had resolution of slurred speech and left facial droop and no further dizziness. Still with some tingling to right hand and fingers. Denies extremity weakness. Patient states while here in the ER started having frontal headache. Denies photophobia, phonophobia , nausea or vomiting. Denies recent fall or head trauma. Reports 2 days ago had several episodes of diarrhea that resolved in approx 24 hours, other family member had similar symptoms. Denies fever/chills, diaphoresis, N/V/D/C, syncope , vision changes, neck pain, CP, SOB, orthopnea, palpitations, cough, sore throat, choking, otalgia, rhinorrhea, abdominal pain, extremity edema, rashes, urinary symptoms. Denies hx migraines, photophobia, phonophobia. Patient has been following with Dr. Santiago for history of intermittent left facial drooping and left arm and leg numbness which occurred in July. Patient had outpatient CT scan of head upon follow-up with PCP which revealed several subacute infarcts bilateral MCA. Patient was prescribed Plavix by Dr. Santiago however patient never started secondary to his concern of bleeding. patient takes baby aspirin every day. Patient with history of right facial drooping 3 years ago. Patient reports was evaluated to [facility] at that point in time and had negative stroke workup. Patient had TTE on 10/14/17: EF: 55-59%, mild abnormal LV diastolic function, moderate mitral annular calcification, no interarterial shunt, no atrial septal defect, no patent foramen ovale. Patient had ultrasound carotid arteries on 10/09/2017: Less than 50% stenosis of right internal carotid artery. Less than 50% stenosis of left internal carotid artery. patient had fiberglass technician 2 weeks, place 11/12/17: Predominantly sinus rhythm , SVT run occurred 19 times, fasted interval lasting 11 beats with max HR 152 bpm, longest lasting 30.7 seconds, no atrial fibrillation or flutter Per epic records on hx, MRI 2013 chronic small vessel ischemic changes. Pt does not have the card with him on his penile implant to reveal if MRI compatible. Here in the ER upon initial evaluation by ER staff, patient was asymptomatic except for mild right hand numbness. Pt initial CT scan no acute changes, old L basal ganglia/nolasco radiata infartct. Patient then developed frontal headache and left-sided headache. Patient was given 1 g of Tylenol. Upon my evaluation patient had aphasia and continued headache. Approximately 15 minutes later patient was noted to have mild right facial drooping with continued headache, now increased to left side of IVERSON. Another CT head was obtained and did not show any other changes from initial CT scan. Patient returns from CT scan and reports headache has resolved and patient has no further aphasia, no further R extremity numbness or facial drooping. Physical Exam (per Admitting): General Appearance: WD/WN, no apparent distress Head: normocephalic, atraumatic Eyes: normal inspection, PERRL, EOMI, sclerae normal ENT: hearing grossly normal, pharynx normal, + pertinent finding (mucous membranes moist) Neck: supple, no JVD, trachea midline Respiratory/Chest: lungs clear, normal breath sounds, no respiratory distress Cardiovascular: regular rate, rhythm, no murmur, normal peripheral pulses Abdomen/GI: normal bowel sounds, non tender, soft Extremities/Musculoskelatal: normal inspection, no calf tenderness, normal capillary refill, no pedal edema, normal range of motion, non-tender Neurologic/Psych: alert, oriented x 3, + pertinent finding (+expressive aphasia initial evaluation. Aphasia then resolves. No initial facial dropping noted, then pt with noted right facial dropping which then resolves. tongue midline. bilateral upper and lower extremities with ROM intact, strength 5/5 throughout, strong and equal brand marketing intern strength, no ataxia, negative romberg.) Skin: normal color, warm/dry Hospital Course CVA/TIA Pt with waxing waning neuro symptoms. First onset approx 11:15AM 12/08/17 with slurred speech and L facial drooping lasted approx 30 minutes and resolved upon ER evaluation As per H and P:"Pt with hx L facial drooping, reported in July 2017 resolved within 1 hour that pt did not seek initial evaluation for as per h and p. Hx R facial symptoms 3 years ago with evaluation at [facility] with reported negative stroke workup at that time. Pt followed with Dr Grider over past 2 months and refused plavix at that time. Had CT head: several subacute infarcts bilateral MCA. Had TTE in 09/2017: EF: 55-59%, no interatrial shunt, septal defect or PFO. U/S carotids 09/2017: less than 50% occlusion bilateral internal carotids ZIO report 10/2017: Predominantly sinus rhythm, SVT run occurred 19 times, fasted interval lasting 11 beats with max HR 152 bpm, longest lasting 30.7 seconds, no atrial fibrillation or flutter" CT head in ER: old L basal ganglia/nolasco radiata infarct, no hemorrhage. Repeat CT head 2/2 pt with worsening symptoms shows no acute changes, no hemorrhage. Plan for EILEEN Plan for MRI/MRA head once records available regarding penile implant-still awaiting records on Plavix and aspirin holding on statin at this time with possible interaction with tacrolimus, eeg unremarkable MRI -possible extension of old infarct to d/c on aspirin and plavix. BP control plan for repeat m,ri/mra head with contrast in 2-3 weeks and f/u with neurology HTN Will allow permissive HTN with stroke symptoms -labetalol prn SBP>180, DBP>100 on amlodipine and lisinopril increased amlodipine to 10mg and will monitor added coreg 6.25mg bid manual BP check 145/70 f/u with pcp HX RENAL TRANSPLANT/CKD III. B[place] on CKD stage 3 Cr: 1. 48. ~baseline. Follows with Dr Mcgovern -nephrology Mateo continue tacrolimus cr 1.61 will f/u labs HX DM/HX PANCREATIC TRANSPLANT Pt not on medications. Glucose: 162 HA1c6.9 continue tacrolimus novolog sliding scale per protocol f/u with pcp for diabetes HYPOMAGNESIA Ma.7. replaced HX CAD S/P CABG stable on aspirin, plavix Discharged home Total time spent on discharge = 40MINUTES This includes examination of the patient, discharge planning, medication reconciliation, and communication with other providers. Discharge Instructions Discharge Instructions Date of Service Dec 12, 2017. Admission Reason for Admission: TIA Discharge Discharge Diagnosis / Problem: cva Discharge Goals Goal(s): Decrease discomfort, Improve function Activity Recommendations Activity Limitations: resume your previous activity . Instructions / Follow-Up Instructions / Follow-Up FOLLOWUP WITH FAMILY DOCTOR Jolly Arellano ON November AT 6:05PM. FOLLOWUP WITH NEUROLOGY IN 3-4 WEEKS REPEAT MRI/MRA HEAD IN 2-3 WEEKS PER NEUROLOGY. BLOOD PRESSURE FOLLOWUP WITH FAMILY DOCTOR. DIABETES FOLLOWUP WITH FAMILY DOCTOR HBA1C 6.9 PLEASE GO THROUGH MEDICATION LIST AND TO TAKE ALL MEDICATIONS REGULARLY PRESCRIBED. FOLLOWUP WITH VASCULAR SURGEON WITH FAMILY DOCTOR REFERRAL FOR CAROTID STENOSIS Risk Factors for Stroke: You can reduce your chances of stroke by working with your medical provider to adopt a healthy lifestyle. Some specific ways to lower your chance of stroke are: * If you are a smoker, now is the time to stop smoking cigarettes * If you are diabetic, improve the control of your blood sugars * Avoid excessive amounts of alcohol * Control high blood pressure * Lose weight if you are overweight * Be sure to lead an active lifestyle * Eat a healthy diet low in salt, cholesterol and fat You should know about other risk factors for stroke that you are unable to control. These include: * Age 55 years or older * Male gender * Certain racial groups: , or / * Family History of Stroke, Mini stroke or Heart Attack * Sickle Cell Disease Follow Up: It is important for you to keep your follow up appointments with your medical provider. Current Hospital Diet Patient's current hospital diet: AHA Diet (Heart Healthy), Diabetes Type 2 Diet Discharge Diet Recommended Diet: AHA Diet (Heart Healthy), Diabetes Type 2 Diet Pending Studies Studies pending at discharge: no Laboratory Results Hemoglobin A1c Test 12/08/17 12:07 Range/Units Estimated Average Glucose 151 mg/dl Hemoglobin A1c 6.9 H 4.5-5.6 % Lipid Panel Test 12/09/17 06:05 Range/Units Triglycerides Level 106 0-150 mg/dl Cholesterol Level 135 0-200 mg/dl HDL Cholesterol 36 mg/dl Cholesterol/HDL Ratio 3.8 LDL Cholesterol, Calculated 78 mg/dl Medical Emergencies . Who to Call and When: Medical Emergencies: Call 911 immediately if you experience any of the following warning signs and symptoms of Stroke: * Sudden numbness or weakness of the face, arm or leg, especially on one side of the body * Sudden confusion, trouble speaking or understanding * Sudden trouble seeing in one or both eyes * Sudden trouble walking, dizziness, loss of balance or coordination * Sudden severe headache with no cause Do not delay calling 911 if you experience any warning signs or symptoms of a stroke. Delay in seeking medical attention may affect what treatments can be given to you. . Non-Emergent Contact Non-Emergency issues call your: Primary Care Provider . . "Provider Documentation" section prepared by John De Jesus. . Stroke Core Measures Reason no t-PA for Stroke: Treatment not indicated Reason no antithrom by day 2: Treatment provided - N/A Reason no antithrom at D/C: Treatment provided - N/A Reason no statin at D/C: Treatment provided - N/A Reason no anticoag w/a fib: Treatment not indicated
--- NOTE | 2017-12-15 14:40 | Pharmacy Progress Note ---
Pharmacist Post D/C Phone Note Date of phone call: Dec 15, 2017. Individual with whom pharmacist spoke to: Patient's (Daniela) The following questions were reviewed during the phone call with responses listed below each: Can you tell me the medications that you are currently taking as well as when and how you take each medication? - Medications Dose Route/Sig Max Daily Dose Days Date Category Norvasc (Amlodipine Besylate) 10 Mg Tab 10 Mg PO DAILY 12/12/17 Rx Carvedilol 6.25 Mg Tab 6.25 Mg PO BID 12/12/17 Rx Clopidogrel (Clopidogrel Bisulfate) 75 Mg Tab 75 Mg PO QAM 12/12/17 Rx Vitamin E 400 Iu (Vitamin E) 400 Unit Cap 400 Inter.unit PO DAILY 12/08/17 Reported Vitamin D 1000 Unit (Cholecalciferol) 1,000 Unit Cap 1,000 Inter.unit PO DAILY 12/08/17 Reported Vitamin B12 100 Mcg (Cyanocobalamin) 100 Mcg Tab 200 Mcg PO DAILY 12/08/17 Reported Aspirin 81 (Aspirin) 81 Mg Tab 1 Tab PO DAILY 12/08/17 Reported Prinivil (Lisinopril) 20 Mg Tab 20 Mg PO DAILY 12/08/17 Reported Lumigan (Bimatoprost) 0.01 % Carmen 1 Drops OPB HS 30 12/08/17 Reported Fish Oil 1 Gm Cap 1 Gm PO DAILY 12/08/17 Reported Probiotic Daily (Probiotic Product) 1 Cap Cap 1 Cap PO BID 12/08/17 Reported Multivitamin (Multivitamins) Tab 1 Tab PO DAILY 12/08/17 Reported Prograf (Tacrolimus) 1 Mg Cap 2 Mg PO BID 12/08/17 Reported When have you missed any doses of your medications? - No What side effects are you having from your medications? - None What questions do you have about your medications? - None What problems are you having obtaining your medications? - None - picked up new Rx Friday morning When is your next appointment with your primary care doctor? - 12/15/17 As per the Pharmacist Discharge Counseling for Stroke Patients Protocol, this phone call has been completed within 72 hours of discharge. Thank you for allowing us to be involved in the care of this patient.
== END 2017-12-12 18:58 | disposition home or self-care (01) | DRG 65 ==
LOC: C.EDB 11:51 → ENRESERV 15:01 → EDBEDREQ 15:44 → C.MED 15:47
PROVIDERS: ADMIT Hospitalist; ATTEND Internal Medicine
DX: I63.9 Cerebral infarction, unspecified (principal); Z94.0 Kidney transplant status; Z94.83 Pancreas transplant status; I25.10 Atherosclerotic heart disease of native coronary artery without angina pectoris; N18.3 Chronic kidney disease, stage 3 (moderate); E78.5 Hyperlipidemia, unspecified; I12.9 Hypertensive chronic kidney disease with stage 1 through stage 4 chronic kidney disease, or unspecified chronic kidney disease; F17.200 Nicotine dependence, unspecified, uncomplicated; E11.9 Type 2 diabetes mellitus without complications; E83.42 Hypomagnesemia; Z95.1 Presence of aortocoronary bypass graft; Z79.82 Long term (current) use of aspirin; Z88.2 Allergy status to sulfonamides; Z83.3 Family history of diabetes mellitus; Z82.49 Family history of ischemic heart disease and other diseases of the circulatory system

== ENCOUNTER → 2017-12-31 | Outpatient (CLI) | payer OTHER ==
[~2017-12-31] MED LIST: AMLO-110 PO; AMLO-114 PO; ASPI-435 PO; BIMA0.01 OPB; CHOL100027 PO; CLOP1TAB15 PO; CRG625 PO; CYAN100T6 PO; GADAVIST IV PRN; LISI20TA3 PO; MULT-506 PO; OMG3 PO; PLV75 PO; PROB1CAP41 PO; TACR1CAP PO; VITA400C3 PO
--- NOTE | 2017-12-31 16:31 | DIAGNOSTIC IMAGING REPORT ---
ORBIT RADIOGRAPHS 3 VIEWS HISTORY: pre-MRI screening. COMPARISON: None. FINDINGS: There are no radiopaque foreign bodies identified within the orbits. IMPRESSION: No radiopaque foreign bodies identified within the orbits. Electronically signed by: Deni Huffman M.D. 12/31/2017 4:30 PM Dictated Date/Time: 12/31/2017 4:30 PM
--- NOTE | 2017-12-31 17:25 | DIAGNOSTIC IMAGING REPORT ---
Brain MRI WITH AND WITHOUT CONTRAST HISTORY: Left facial numbness. F/U TO PREVIOUS ABNORMAL MRI,DEEP SMALL VESSEL EVENT TECHNIQUE: Multiplanar multisequence MRI of the brain was performed both before and after the intravenous administration of contrast. COMPARISON STUDY: Brain MRI 12/11/2017. FINDINGS: There is no mass, hematoma, midline shift, or acute infarct. Moderate mucosal thickening and a fluid level within the left maxillary sinus. This is consistent with acute sinusitis. No change in 1.3 cm old left periventricular infarct.. The mastoid air cells are clear. The ventricles and sulci demonstrate mild age-related involutional changes. Scattered foci of T2 hyperintensity seen within the periventricular and subcortical white matter are nonspecific but suggestive of mild microvascular ischemic changes. The major vascular flow voids at the skull base are well-maintained. No abnormal enhancement. IMPRESSION: 1. No acute intracranial abnormality. 2. No change in the old small left periventricular infarct. No acute infarcts identified. 3. Interval development of acute left maxillary sinusitis. Electronically signed by: Deni Huffman M.D. 12/31/2017 5:24 PM Dictated Date/Time: 12/31/2017 5:17 PM
== END | disposition home or self-care (01) ==
LOC: C.RAD 16:06
PROVIDERS: ATTEND Psychiatry & Neurology Neurology
DX: G45.2 Multiple and bilateral precerebral artery syndromes (principal); Z13.89 Encounter for screening for other disorder

== ENCOUNTER 2018-01-18 06:40 | Emergency (ER) | payer OTHER, MEDICARE ==
[~2018-01-18] VITALS: Ht 177.8 cm; Wt 78.6 kg
[~2018-01-18 06:40] MED LIST changes: -AMLO-110 PO; -CLOP1TAB15 PO; -GADAVIST IV PRN
[2018-01-18 06:51] VITALS: TEMP 37.4; Ht 177.8 cm; Wt 78.6 kg
[2018-01-18] MEDS ORDERED: METHYLPREDNISOLONE 125 MG VIAL IV STA (07:30)
[2018-01-18] MEDS ORDERED: ALBUT/IPRATROP 3MG/0.5MG NEB 3 ML VIAL INH STA (07:30)
[2018-01-18] MEDS ORDERED: VITACAP37 PO (07:38)
[2018-01-18 07:48] VITALS: O2SAT 96
[2018-01-18 07:54] LABS: BASO % 0.3 %; BASO ABS # 0.02 K/uL (0-0.2); EOS % 2.5 %; EOS ABS # 0.15 K/uL (0-0.5); HEMATOCRIT 41.8 % (42-52); HEMOGLOBIN 14.7 g/dL (14.0-18.0); IG# 0.02 K/uL (0.00-0.02); LYMPH % 10.8 %; LYMPH ABS # 0.65 K/uL (1.2-3.4); MEAN CELL VOLUME 87.1 fL (80-100); MEAN CORPUSCULAR HEMOGLOBIN 30.6 pg (25-34); MEAN CORPUSCULAR HGB CONC 35.2 g/dl (32-36); MEAN PLATELET VOLUME 10.9 fL (7.4-10.4); MONO ABS # 1.08 K/uL (0.11-0.59); NEUT % 68.1 %; NEUT ABS # 4.08 K/uL (1.4-6.5); PLATELET COUNT 135 K/uL (130-400); RED CELL DISTRIBUTION WIDTH CV 13.3 % (11.5-14.5); RED CELL DISTRIBUTION WIDTH SD 42.5 fL (36.4-46.3)
[2018-01-18 07:59] LABS: PTT PATIENT 28.9 SECONDS (21.0-31.0)
[2018-01-18 08:01] LABS: BLOOD UREA NITROGEN 18 mg/dl (7-18); CALCIUM 8.9 mg/dl (8.5-10.1); CARBON DIOXIDE 29 mmol/L (21-32); CREATININE 1.56 mg/dl (0.60-1.40); GLUCOSE 172 mg/dl (70-99); POTASSIUM 4.1 mmol/L (3.5-5.1); SODIUM 134 mmol/L (136-145)
[2018-01-18 08:06] LABS: CKMB 0.7 ng/ml (0.5-3.6)
--- NOTE | 2018-01-18 08:33 | DIAGNOSTIC IMAGING REPORT ---
CHEST 2 VIEWS ROUTINE CLINICAL HISTORY: cough, chest tightness dyspnea COMPARISON STUDY: 12/08/2017 FINDINGS: Chronic elevation right hemidiaphragm. Chronic blunting right lateral costophrenic angle. Lungs otherwise appear clear. Prior median sternotomy. IMPRESSION: Chronic change. No acute process. The above report was generated using voice recognition software. It may contain grammatical, syntax or spelling errors. Electronically signed by: Eulalio Larson M.D. 01/18/2018 8:32 AM Dictated Date/Time: 01/18/2018 8:32 AM
[2018-01-18] MEDS ORDERED: VNTHFA/IN INH (09:20)
[2018-01-18] MEDS ORDERED: METH4PAK PO (09:20)
--- NOTE | 2018-01-18 09:21 | EMERGENCY ROOM VISIT NOTE ---
History First contact with patient: 07:21 Chief Complaint: RESPIRATORY PROBLEMS Stated Complaint: CAN'T BREATHE Nursing Triage Summary: Pt has been feeling "tight in the chest" for a few days. History of Present Illness The patient is a 67 year old male who presents to the Emergency Room with complaints of his chest feeling tight. He states symptoms have been going on for 3-4 days. The patient denies any other upper respiratory symptoms of head congestion, fever, sore throat or ear pain. He does admit to intermittent cough sometimes productive sometimes not. Patient denies tobacco use. The patient denies any history of DVTs or PEs. He does admit to a collapsed lung when he had a cardiac bypass in 2002. He states since that time his lungs have never been the same. He does admit that he had asthma as a child but outgrew it at approximately age 18. The patient denies any recent leg pain or any recent travel or surgeries. Review of Systems 10 system review was performed and was negative unless stated otherwise history of present illness. Past Medical/Surgical History Medical Problems: (1) CAD (coronary artery disease) (2) CKD (chronic kidney disease), stage III (3) Dyslipidemia (4) HTN (hypertension) (5) Hx of diabetes mellitus Surgical Problems: (1) History of open heart surgery (2) History of penile implant (3) Hx of CABG (4) Hx of kidney transplant (5) Hx of pancreas transplant Family History Diabetes mellitus Heart disease Hypertension Social History Smoking Status: Never Smoker Alcohol Use: none Drug Use: none Marital Status: Housing Status: lives with significant other Occupation Status: employed Current/Historical Medications Scheduled Amlodipine (Norvasc), 10 MG PO DAILY Aspirin (Aspirin 81), 81 MG PO DAILY Bimatoprost (Lumigan), 1 DROPS OPB HS Carvedilol (Carvedilol), 6.25 MG PO BID Cholecalciferol (Vitamin D 1000 Unit), 1,000 INTER.UNIT PO DAILY Clopidogrel Bisulfate (Clopidogrel), 75 MG PO QAM Cyanocobalamin (Vitamin B12 100 Mcg), 200 MCG PO DAILY Fish Oil (Fish Oil), 1 GM PO DAILY Lisinopril (Prinivil), 20 MG PO DAILY Multivitamin (Multivitamin), 1 TAB PO DAILY Probiotic Product (Probiotic Daily), 1 CAP PO BID Tacrolimus (Prograf), 2 MG PO BID Vitamin E (E-400), 400 UNITS PO DAILY Physical Exam Vital Signs Date Time Temp Pulse Resp B/P (MAP) Pulse Ox O2 Delivery O2 Flow Rate FiO2 01/18/18 07:49 58 18 176/78 100 Nebulizer 01/18/18 07:48 96 Room Air 01/18/18 07:27 95 Room Air 01/18/18 07:10 61 01/18/18 07:03 95 Room Air 01/18/18 06:51 37.4 73 20 158/79 93 Room Air Physical Exam PHYSICAL EXAM: Vital Signs were reviewed: Temperature 37.4, blood pressure 150/ 79, pulse 73, respiratory rate 20 reviewed Nurse's notes and agree. Oxygen saturation is 83 % on room air which is normal . GENERAL: 67 year-old male appears in no acute distress. MENTAL STATUS: Alert, oriented, coherent. EARS: Canals clear. TMs good light reflex, no erythema or fluid level noted. NOSE: Nasal mucosa with moderate erythema engorgement. PHARYNX no erythema, no edema noted. No exudate noted. Airway is adequate. NECK: Supple, non-tender. No lymphadenopathy noted. LUNGS: Clear to auscultation without wheezes rales or rhonchi. Patient does have a deep congested cough. CARDIAC: Regular rate and rhythm without murmur. SKIN: No rashes noted. Medical Decision & Procedures ER Provider Diagnostic Interpretation: CHEST 2 VIEWS ROUTINE CLINICAL HISTORY: cough, chest tightness dyspnea COMPARISON STUDY: 12/08/2017 FINDINGS: Chronic elevation right hemidiaphragm. Chronic blunting right lateral costophrenic angle. Lungs otherwise appear clear. Prior median sternotomy. IMPRESSION: Chronic change. No acute process. The above report was generated using voice recognition software. It may contain grammatical, syntax or spelling errors. Electronically signed by: Eulalio Larson M.D. 01/18/2018 8:32 AM Dictated Date/Time: 01/18/2018 8:32 AM Laboratory Results 01/18/18 07:20 Red Blood Count 4.80, Mean Corpuscular Volume 87.1, Mean Corpuscular Hemoglobin 30.6, Mean Corpuscular Hemoglobin Concent 35.2, Mean Platelet Volume 10.9, Neutrophils (%) (Auto) 68.1, Lymphocytes (%) (Auto) 10.8, Monocytes (%) (Auto) 18.0, Eosinophils (%) (Auto) 2.5, Basophils (%) (Auto) 0.3, Neutrophils # (Auto ) 4.08, Lymphocytes # (Auto) 0.65, Monocytes # (Auto) 1.08, Eosinophils # (Auto ) 0.15, Basophils # (Auto) 0.02 01/18/18 07:20 Test 01/18/18 07:20 01/18/18 07:48 White Blood Count 6.00 K/uL (4.8-10.8) Red Blood Count 4.80 M/uL (4.7-6.1) Hemoglobin 14.7 g/dL (14.0-18.0) Hematocrit 41.8 % (42-52) Mean Corpuscular Volume 87.1 fL (80-100) Mean Corpuscular Hemoglobin 30.6 pg (25-34) Mean Corpuscular Hemoglobin Concent 35.2 g/dl (32-36) Platelet Count 135 K/uL (130-400) Mean Platelet Volume 10.9 fL (7.4-10.4) Neutrophils (%) (Auto) 68.1 % Lymphocytes (%) (Auto) 10.8 % Monocytes (%) (Auto) 18.0 % Eosinophils (%) (Auto) 2.5 % Basophils (%) (Auto) 0.3 % Neutrophils # (Auto) 4.08 K/uL (1.4-6.5) Lymphocytes # (Auto) 0.65 K/uL (1.2-3.4) Monocytes # (Auto) 1.08 K/uL (0.11-0.59) Eosinophils # (Auto) 0.15 K/uL (0-0.5) Basophils # (Auto) 0.02 K/uL (0-0.2) RDW Standard Deviation 42.5 fL (36.4-46.3) RDW Coefficient of Variation 13.3 % (11.5-14.5) Immature Granulocyte % (Auto) 0.3 % Immature Granulocyte # (Auto) 0.02 K/uL (0.00-0.02) Prothrombin Time 10.5 SECONDS (9.0-12.0) Prothromb Time International Ratio 1.0 (0.9-1.1) Activated Partial Thromboplast Time 28.9 SECONDS (21.0-31.0) Partial Thromboplastin Ratio 1.1 Anion Gap 6.0 mmol/L (3-11) Est Creatinine Clear Calc Drug Dose 46.8 ml/min Estimated GFR () 52.1 Estimated GFR (Non- 45.0 BUN/Creatinine Ratio 11.3 (10-20) Calcium Level 8.9 mg/dl (8.5-10.1) Total Creatine Kinase 75 U/L (39-308) Creatine Kinase MB 0.7 ng/ml (0.5-3.6) Creatine Kinase MB Ratio 0.9 (0-3.0) Troponin I < 0.015 ng/ml (0-0.045) Bedside D-Dimer 295 ng/mlFEU (0-450) Medications Administered Medications (Trade) Dose Ordered Sig/Noemí Route Start Time Stop Time Status Last Admin Dose Admin Albuterol/ Ipratropium (Duoneb) 3 ml NOW STAT INH 01/18/18 07:30 01/18/18 07:35 DC 01/18/18 07:46 3 ML Methylprednisolone Sodium Succinate (Solu-Medrol IV) 125 mg NOW STAT IV 01/18/18 07:30 01/18/18 07:35 DC 01/18/18 07:46 125 MG ECG Per My Interpretation Indication: other (Chest tightness) Rhythm: normal sinus Findings: no acute ischemic change ED Course The patient was evaluated. The patient's EMR was reviewed. Medication list was reviewed. The patient was placed on a monitor and continuous pulse ox. EKG was ordered interpreted as above. There were no acute ST findings. Normal sinus rhythm. IV access was obtained. The patient was given Solu-Medrol 125 mg IV for chest tightness. The patient was given a DuoNeb. CBC and differential, renal profile, CK-MB, coags, [id number] d-dimer, troponin was ordered. Chest x-ray was ordered interpreted by the radiologist and myself as above changes but no acute findings noted. Labs are reviewed and were unremarkable. D-dimer and troponin were within normal range. The patient was reevaluated and was feeling much better after the DuoNeb. The patient was independently evaluated with Dr. Pacheco who agree with treatment plan. The patient was discharged home in stable condition. Medical Decision Differential diagnosis include PE, URI, COPD, pneumonia, bronchitis [place] Drug Monitoring Program Search Results: patient reviewed within database Medication Reconcilliation Current Medication List: was personally reviewed by me Blood Pressure Screening Patient's blood pressure: Elevated blood pressure Blood pressure disposition: Elevated BP felt to be situational Impression Primary Impression: Reactive airway disease Departure Information Dispostion Home / Self-Care Condition GOOD Prescriptions Methylprednisolone (MEDROL DOSEPAK) 4 Mg Jared 1 PKT PO UD for 6 Days, #1 PKT Prov: Diana Larson PA-C 01/18/18 Albuterol Hfa (VENTOLIN HFA) 200 Puffs/93298 Mcg Aers 2 PUFFS INH QID for 5 Days, #1 INHALER Prov: Diana Larson PA-C 01/18/18 Referrals Jolly Prajapati M.D. (PCP) Forms HOME CARE DOCUMENTATION FORM, IMPORTANT VISIT INFORMATION, WORK / SCHOOL INSTRUCTIONS Patient Instructions My [facility] [employer] Additional Instructions Start the Medrol Dosepak tomorrow. Use the inhaler 2 puffs every 4 hours for 5 days then every 4 hours as needed for chest tightness or cough. Follow-up with your PCP this week for recheck as well as possible referral for pulmonary function tests. If symptoms worsen in the interim, return to ER. Problem Qualifiers Primary Impression: Reactive airway disease Asthma severity: unspecified severity Asthma persistence: unspecified Asthma complication type: uncomplicated Qualified Codes: J45.909 - Unspecified asthma, uncomplicated
[2018-01-18 09:32] VITALS: BP 159/71; PULSE 57; O2SAT 92
== END 2018-01-18 09:47 | disposition home or self-care (01) ==
LOC: C.EDB 06:42
DX: J45.909 Unspecified asthma, uncomplicated (principal); R07.89 Other chest pain; I25.10 Atherosclerotic heart disease of native coronary artery without angina pectoris; N18.3 Chronic kidney disease, stage 3 (moderate); E78.5 Hyperlipidemia, unspecified; I12.9 Hypertensive chronic kidney disease with stage 1 through stage 4 chronic kidney disease, or unspecified chronic kidney disease; Z79.82 Long term (current) use of aspirin; Z79.899 Other long term (current) drug therapy; Z86.39 Personal history of other endocrine, nutritional and metabolic disease; Z87.09 Personal history of other diseases of the respiratory system

== ENCOUNTER 2019-10-12 11:56 | Inpatient (IN) ==
[2019-10-12] MEDS ORDERED: cefTRIAXone SODIUM 1,000 MG/50 ML BAG IV STA (12:15)
[2019-10-12] MEDS ORDERED: ALBUT/IPRATROP 3MG/0.5MG NEB 3 ML VIAL INH STA (12:15)
[2019-10-12] MEDS ORDERED: methylPREDNISolone 60 MG in SYRINGE 1 ML IV STA (12:15)
--- NOTE | 2019-10-12 12:27 | XRay Report ---
XR chest 1V portable CLINICAL HISTORY: SOB COMPARISON STUDY: 10/06/2019 FINDINGS: There are postsurgical changes of a midline sternotomy. The heart is at the upper limits of normal in size. There is persistent elevation/eventration of the right hemidiaphragm. There is right basilar atelectasis/scarring. There is a subtle increase in the left basilar reticulonodular marking s. This could indicate a subtle infectious/inflammatory process.[ IMPRESSION: Subtle increase in left basilar reticulonodular markings, possibly secondary to a subtle infectious/inflammatory process. Stable elevation of the right hemidiaphragm with right basilar atele ctasis/scarring ACT 112: Negative or not required by law. Electronically signed by: Junior Ortega M.D. 10/12/2019 12:26 PM
[2019-10-12 12:30] LABS: Basophils # (auto) 0.01 K/uL (0-0.2); Basophils % (auto) 0.1 %; Eosinophils # (auto) 0.08 K/uL (0-0.5); Eosinophils % (auto) 0.7 %; Hemoglobin 14.7 g/dL (14.0-18.0); Immature Granulocytes # (auto) 0.05 K/uL (0.00-0.02); Immature Granulocytes % (auto) 0.4 %; Lymphocytes # (auto) 1.05 K/uL (1.2-3.4); Lymphocytes % (auto) 8.9 %; Mean Corpuscular Hgb Conc 35.9 g/dL (32-36); Mean Corpuscular Volume 86.5 fL (80-100); Mean Platelet Volume 11.8 fL (7.4-10.4); Monocytes # (auto) 0.98 K/uL (0.11-0.59); Monocytes % (auto) 8.3 %; Neutrophils # (auto) 9.59 K/uL (1.4-6.5); Neutrophils % (auto) 81.6 %; Platelet Count 166 K/uL (130-400); RDW Coefficient of Variation 13.6 % (11.5-14.5); RDW Standard Deviation 43.2 fL (36.4-46.3); Red Blood Count 4.74 M/uL (4.7-6.1); White Blood Count 11.76 K/uL (4.8-10.8)
[2019-10-12 12:45] LABS: Partial Thromboplastin Time 26.7 Seconds (21.0-31.0); Prothrombin Time 10.1 Seconds (9.0-12.0)
[2019-10-12 12:49] LABS: Alanine Aminotransferase 16 U/L (12-78); Albumin Level 2.9 gm/dl (3.4-5.0); Aspartate Aminotransferase 7 U/L (15-37); BUN Creatinine Ratio 17.6 (10-20); Blood Urea Nitrogen 20 mg/dl (7-18); Carbon Dioxide 31 mmol/L (21-32); Chloride 98 mmol/L (98-107); Est GFR (African American) 74.3; Est GFR (Non-African American) 64.1; Glucose 215 mg/dl (70-99); Magnesium 1.7 mg/dl (1.8-2.4); Potassium 4.5 mmol/L (3.5-5.1); Sodium 133 mmol/L (136-145)
[2019-10-12] MEDS ORDERED: ALBUT/IPRATROP 3MG/0.5MG NEB 3 ML VIAL NEB STA (12:50)
[2019-10-12] MEDS ORDERED: MAGNESIUM SULFATE / D5W 1 GM/100 ML BAG IV ONE (12:50)
[2019-10-12 12:54] LABS: Albumin Globulin Ratio 0.8 (0.9-2); Alkaline Phosphatase 82 U/L (45-117); Bilirubin,Total 0.7 mg/dl (0.2-1); Globulin 3.7 gm/dl (2.5-4.0); Total Protein 6.6 gm/dl (6.4-8.2); Troponin I < 0.015 ng/ml (0-0.045)
--- NOTE | 2019-10-12 13:01 | Emergency Department Note ---
Entered by Bird Duarte acting as a scribe for Shaheen Pringle MD History of Present Illness General Chief complaint: Shortness of Breath/Dyspnea Stated complaint: sob/cough Time Seen by Provider: 10/12/19 12:07 Source: patient Mode of arrival: EMS History of Present Illness Onset (ago): week(s) (6-8) Location: chest (lungs) Pain Consistency: + other (worsening) Quality: + other (SOB) Exacerbated By: + other (lying down) Associated symptoms: + denies other symptoms (fevers) The patient is a 69 y/o male who presents to the ED w/ CC of worsening shortness of breath beginning 6-8 weeks ago. The patient states he went to his PCP, Dr. Prajapati, today because he could not catch his breath, and his symptoms were worsening. He reports he was given a breathing treatment and felt mildly better. The patient notes his appointment today was not a scheduled visit. He states his symptoms also worsen when he is laying down, and he is not able to sleep. The patient reports a history of heart failure, CABGx5, and kidney and pancreas transplants in 2003. He notes he is taking immune suppressive medication. The patient denies fevers and a smoking history. He was sent here via EMS. The nursing staff notes the patient's O2Sat was 88 on 4L at his PCP. His O2Sat lisette to 96 on 8L and was then given a Duoneb. His current O2Sat is 93 on RA. Review of EMR states the patient was here on the 8th for SOB. His chest x-ray was clear, and his WBC was normal. He was diagnosed with influenza A and given Tamiflu and prednisone. He has finished both of these medications. Home Medications Home Medications Medication Instructions Recorded Confirmed Type aspirin [Aspirin Low Dose] 81 mg PO QAM #0 12/08/17 10/12/19 History bimatoprost [Lumigan] 1 drp OPB HS 30 Days #2.5 ml 12/08/17 10/12/19 History cholecalciferol (vitamin D3) 1,000 unit PO QAM #0 cap 12/08/17 10/12/19 History [Vitamin D3] cyanocobalamin (vitamin B-12) 200 mcg PO QAM #0 tab 12/08/17 10/12/19 History [Vitamin B-12] lactobacillus combination no.4 3,000 mmu cells PO QAM #0 12/08/17 10/12/19 History [Probiotic] multivitamin 1 tab PO QAM #0 tab 12/08/17 10/12/19 History omega 3-hkj-tox-fish oil [Fish Oil] 1 cap PO QAM #0 12/08/17 10/12/19 History tacrolimus [Prograf] 2 mg PO DAILY #0 cap 12/08/17 10/12/19 History vitamin E 400 unit PO QAM #0 01/18/18 10/12/19 History amlodipine 10 mg PO QAM 09/23/19 10/12/19 History carvedilol 6.25 mg PO BID 09/23/19 10/12/19 History clopidogrel 75 mg PO QAM 09/23/19 10/12/19 History metformin 500 mg PO QAM 09/23/19 10/12/19 History ondansetron 4 mg PO Q6H PRN #14 tab 10/06/19 10/12/19 Rx lisinopril 20 mg PO QAM 10/12/19 10/12/19 History tacrolimus 1 mg PO PM 10/12/19 10/12/19 History Allergies Allergy/AdvReac Type Severity Reaction Status Date / Time Bactrim Allergy Unknown rash Unverified 01/18/18 07:36 sulfamethoxazole Allergy Unknown rash Unverified 10/12/19 12:42 trimethoprim Allergy Unknown rash Unverified 10/12/19 12:42 Past Med/Surg History Medical History (Updated 10/12/19 @ 14:06 by Jeanna Aleman PA-C) CAD (coronary artery disease) (Chronic) "s/p CABG x 5 in 2002" CKD (chronic kidney disease), stage III (Chronic) Diabetes mellitus, type II Dyslipidemia (Chronic) History of TIA (transient ischemic attack) HTN (hypertension) (Chronic) Hx of diabetes mellitus (Chronic) Surgical History (Updated 10/12/19 @ 14:00 by Jeanna Aleman PA-C) History of kidney transplant 2003 -[facility] History of pancreas transplant 2003- [facility] S/P CABG (coronary artery bypass graft) 2002 Family History (Updated 10/12/19 @ 14:00 by Jeanna Aleman PA-C) Mother Breast cancer Father Diabetes Social History (Updated 10/12/19 @ 14:03 by Jeanna Aleman PA-C) Preferred Language: Qatari Communication Ability: Effective Operations Research Director Required: No Beliefs That Will Affect Care: None Current Living Situation: Spouse Other Information That Helps Us Care for You: No Feels Safe at Home: Yes Safety Concerns: Feels Safe At This Time Smoking Status: Never smoker Tobacco Type: smokeless tobacco ; Do You Dip or Chew Tobacco: No ; Second Hand Exposure: No ; Tobacco Cessation Education Requested by Patient: No Hx Alcohol Use: No Hx Substance Use: No Review of Systems See HPI for pertinent positives & negatives. and A total of 10 systems reviewed and were otherwise negative Physical Exam Vital Signs Vital Signs - 24 hr 10/12/19 12:00 10/12/19 12:06 10/12/19 12:16 Temperature 36.9 C Temperature Source Oral Pulse Rate 66 64 Pulse Rate [Right Finger] Pulse Rate from SpO2 Sensor 64 Pulse Rhythm Regular Pulse Strength Normal Respiratory Rate 22 20 Respiratory Effort / Characteristics Non-Labored Spontaneous Respiratory Depth Shallow Respiratory Pattern Regular Blood Pressure 165/75 H 165/75 H Blood Pressure Mean 105 112 Blood Pressure Position Lying Pulse Oximetry 93 90 93 Oxygen Delivery Method Room Air Room Air Oxygen Flow Rate Sepsis Recent Fever Within 48 Hours No Sepsis New/Unexplained Change in Mental Status No Sepsis Action Taken by Nursing No Action Required 10/12/19 12:30 10/12/19 12:38 10/12/19 13:34 Temperature Temperature Source Pulse Rate 63 64 Pulse Rate [Right Finger] 60 Pulse Rate from SpO2 Sensor 62 64 Pulse Rhythm Pulse Strength Respiratory Rate 27 H 20 28 H Respiratory Effort / Characteristics Non-Labored Spontaneous Respiratory Depth Respiratory Pattern Blood Pressure 177/83 H 168/82 H Blood Pressure Mean 130 112 Blood Pressure Position Pulse Oximetry 92 91 94 Oxygen Delivery Method Room Air Oxygen Flow Rate Sepsis Recent Fever Within 48 Hours Sepsis New/Unexplained Change in Mental Status Sepsis Action Taken by Nursing 10/12/19 13:48 Temperature Temperature Source Pulse Rate Pulse Rate [Right Finger] 60 Pulse Rate from SpO2 Sensor Pulse Rhythm Pulse Strength Respiratory Rate 20 Respiratory Effort / Characteristics Non-Labored Spontaneous Respiratory Depth Respiratory Pattern Blood Pressure Blood Pressure Mean Blood Pressure Position Pulse Oximetry 93 Oxygen Delivery Method Nasal Cannula Oxygen Flow Rate 2 Sepsis Recent Fever Within 48 Hours Sepsis New/Unexplained Change in Mental Status Sepsis Action Taken by Nursing GENERAL: Patient is in moderate distress from dyspnea. HEENT: No acute trauma, normocephalic atraumatic, mucous membranes moist, no nasal congestion, no scleral icterus. NECK: No stridor, no adenopathy, no meningismus, trachea is midline. LUNGS: Moist cough noted, diminished breath sounds bilaterally, breath sounds equal. Increased respiratory rate with bilateral wheezes. HEART: Without murmurs gallops or rubs, regular rate and rhythm. ABDOMEN: Soft, nontender, bowel sounds positive, no hernias, no peritonitis. EXTREMITIES: No cyanosis or edema, full range of motion of all the joints without pain or difficulty, no signs for acute trauma. NEUROLOGIC: Oriented x 3, no acute motor or sensory deficits, no focal weakness. SKIN: No rash, no jaundice, no diaphoresis. Course Course 1210: Past medical records reviewed. The patient was evaluated in room C05. A complete history and physical exam was performed. 1301: I reviewed the patient's case with Jeanna Aleman PA-C, [facility] Hospitalist with Dr. Freitas attending. She will evaluate the patient for further management. 1305: Upon reevaluation, the patient is resting comfortably. I discussed laboratory and radiographic results with him. He verbalized agreement of the treatment plan. The patient will be evaluated for further management and care. Administered Medications Albuterol (Duoneb) 3 ml NEB QIDR RUBY Stop: 11/11/19 15:49 Last Admin: 10/12/19 17:16 Dose: Not Given Documented by: [id number] Doxycycline Hyclate (Vibramycin) 100 mg PO BID RUBY Stop: 10/19/19 15:49 Last Admin: 10/12/19 17:10 Dose: 100 mg Documented by: [id number] Heparin Sodium (Porcine) (Heparin Sodium (Porcine)) 5,000 units SQ Q8 RUBY Stop: 11/11/19 15:59 Last Admin: 10/12/19 16:58 Dose: 5,000 units Documented by: [id number] Cosigned by: [id number] Sodium Chloride (Nss 1000ml) 1,000 mls @ 100 mls/hr IV .Q10H RUBY Stop: 10/13/19 11:49 Last Admin: 10/12/19 16:29 Dose: 100 mls/hr Documented by: [id number] Insulin Aspart (Novolog Flexpen) 0 units SC ACHS RUBY Stop: 11/11/19 16:29 Last Admin: 10/12/19 17:45 Dose: 8 units Documented by: [id number] Cosigned by: [id number] Discontinued Medications Albuterol (Duoneb) 3 ml INH NOW STA Stop: 10/12/19 12:16 Last Admin: 10/12/19 12:38 Dose: 3 ml Documented by: [id number] Albuterol (Duoneb) 3 ml NEB NOW STA Stop: 10/12/19 12:51 Last Admin: 10/12/19 13:48 Dose: 3 ml Documented by: [id number] Methylprednisolone 60 mg/ (Syringe) 1.96 mls @ 1.5 mls/min IV NOW STA Stop: 10/12/19 12:16 Last Admin: 10/12/19 13:38 Dose: Not Given Documented by: [id number] Ceftriaxone Sodium (Rocephin) 1,000 mg in 50 mls @ 100 mls/hr IV NOW STA Stop: 10/12/19 12:44 Last Infusion: 10/12/19 14:19 Dose: 0 mls/hr Documented by: [id number] Admin: 10/12/19 13:39 Dose: 100 mls/hr Documented by: [id number] Magnesium Sulfate/Dextrose (Magnesium Sulfate / D5w) 1 gm in 100 mls @ 100 mls/hr IV ONE ONE Stop: 10/12/19 13:49 Last Infusion: 10/12/19 14:36 Dose: 0 mls/hr Documented by: [id number] Admin: 10/12/19 13:38 Dose: 100 mls/hr Documented by: [id number] Methylprednisolone (Solumedrol) Confirm Administered Dose 80 mg .ROUTE .STK-MED ONE Stop: 10/12/19 13:08 Last Admin: 10/12/19 13:38 Dose: 60 mg Documented by: [id number] Critical Care Time Critical Care Time: Yes Total Critical Care Time: 33 I have personally spent 33 minutes of critical care time in the direct management of this patient. This includes bedside care, interpretation of diagnostic studies, and testing, discussion with consultants, patient, and family members, and other required patient management activities. This 33 minutes is in excess of all separately billable procedures. Medical Decision Making Differential Diagnosis Differential diagnosis includes: pneumonia, bronchitis, exacerbation of underlying lung disease, dehydration, failure of outpatient treatment, ischemia, influenza. Medical Records Attestation: I reviewed the patient's medical records. Home Medications Current Medication List: was personally reviewed by me Laboratory Data Attestation: I reviewed the patient's lab results. Result diagrams: 10/12/19 12:20 10/12/19 12:20 Lab Results 10/12/19 10/12/19 10/12/19 Range/Units 12:20 12:20 12:20 WBC 11.76 H (4.8-10.8) K/uL RBC 4.74 (4.7-6.1) M/uL Hgb 14.7 (14.0-18.0) g/dL Hct 41.0 L (42-52) % MCV 86.5 (80-100) fL MCH 31.0 (25-34) pg MCHC 35.9 (32-36) g/dL RDW Std Deviation 43.2 (36.4-46.3) fL RDW Coeff of Jorden 13.6 (11.5-14.5) % Plt Count 166 (130-400) K/uL MPV 11.8 H (7.4-10.4) fL Immature Gran % (Auto) 0.4 % Neut % (Auto) 81.6 % Lymph % (Auto) 8.9 % Nicholas % (Auto) 8.3 % Eos % (Auto) 0.7 % Baso % (Auto) 0.1 % Immature Gran # (Auto) 0.05 H (0.00-0.02) K/uL Neut # (Auto) 9.59 H (1.4-6.5) K/uL Lymph # (Auto) 1.05 L (1.2-3.4) K/uL Nicholas # (Auto) 0.98 H (0.11-0.59) K/uL Eos # (Auto) 0.08 (0-0.5) K/uL Baso # (Auto) 0.01 (0-0.2) K/uL PT 10.1 (9.0-12.0) Seconds INR 1.0 (0.9-1.1) APTT 26.7 (21.0-31.0) Seconds PTT Ratio 1.0 Sodium (136-145) mmol/L Potassium (3.5-5.1) mmol/L Chloride (98-107) mmol/L Carbon Dioxide (21-32) mmol/L Anion Gap (3-11) BUN (7-18) mg/dl Creatinine (0.6-1.4) mg/dl Est Cr Clr Drug Dosing Est GFR ( Amer) Est GFR (Non-Af Amer) BUN/Creatinine Ratio (10-20) Glucose (70-99) mg/dl Lactate 0.8 (0.4-2.0) mmol/L Calcium (8.5-10.1) mg/dl Magnesium (1.8-2.4) mg/dl Total Bilirubin (0.2-1) mg/dl AST (15-37) U/L ALT (12-78) U/L Alkaline Phosphatase (45-117) U/L Troponin I (0-0.045) ng/ml Total Protein (6.4-8.2) gm/dl Albumin (3.4-5.0) gm/dl Globulin (2.5-4.0) gm/dl Albumin/Globulin Ratio (0.9-2) 10/12/19 Range/Units 12:20 WBC (4.8-10.8) K/uL RBC (4.7-6.1) M/uL Hgb (14.0-18.0) g/dL Hct (42-52) % MCV (80-100) fL MCH (25-34) pg MCHC (32-36) g/dL RDW Std Deviation (36.4-46.3) fL RDW Coeff of Jorden (11.5-14.5) % Plt Count (130-400) K/uL MPV (7.4-10.4) fL Immature Gran % (Auto) % Neut % (Auto) % Lymph % (Auto) % Nicholas % (Auto) % Eos % (Auto) % Baso % (Auto) % Immature Gran # (Auto) (0.00-0.02) K/uL Neut # (Auto) (1.4-6.5) K/uL Lymph # (Auto) (1.2-3.4) K/uL Nicholas # (Auto) (0.11-0.59) K/uL Eos # (Auto) (0-0.5) K/uL Baso # (Auto) (0-0.2) K/uL PT (9.0-12.0) Seconds INR (0.9-1.1) APTT (21.0-31.0) Seconds PTT Ratio Sodium 133 L (136-145) mmol/L Potassium 4.5 (3.5-5.1) mmol/L Chloride 98 (98-107) mmol/L Carbon Dioxide 31 (21-32) mmol/L Anion Gap 4.0 (3-11) BUN 20 H (7-18) mg/dl Creatinine 1.15 (0.6-1.4) mg/dl Est Cr Clr Drug Dosing Not Reportable Est GFR ( Amer) 74.3 Est GFR (Non-Af Amer) 64.1 BUN/Creatinine Ratio 17.6 (10-20) Glucose 215 H (70-99) mg/dl Lactate (0.4-2.0) mmol/L Calcium 9.0 (8.5-10.1) mg/dl Magnesium 1.7 L (1.8-2.4) mg/dl Total Bilirubin 0.7 (0.2-1) mg/dl AST 7 L (15-37) U/L ALT 16 (12-78) U/L Alkaline Phosphatase 82 (45-117) U/L Troponin I < 0.015 (0-0.045) ng/ml Total Protein 6.6 (6.4-8.2) gm/dl Albumin 2.9 L (3.4-5.0) gm/dl Globulin 3.7 (2.5-4.0) gm/dl Albumin/Globulin Ratio 0.8 L (0.9-2) Imaging Data Radiologist's Impression: Radiology results as stated below per my review and the radiologist's interpretation: XR chest 1V portable CLINICAL HISTORY: SOB COMPARISON STUDY: 10/06/2019 FINDINGS: There are postsurgical changes of a midline sternotomy. The heart is at the upper limits of normal in size. There is persistent elevation/eventration of the right hemidiaphragm. There is right basilar atelectasis/scarring. There is a subtle increase in the left basilar reticulonodular markings. This could indicate a subtle infectious/inflammatory process.[ IMPRESSION: Subtle increase in left basilar reticulonodular markings, possibly secondary to a subtle infectious/inflammatory process. Stable elevation of the right hemidiaphragm with right basilar atelectasis/scarring ACT 112: Negative or not required by law. Electronically signed by: Junior Ortega M.D. 10/12/2019 12:26 PM ECG Data Attestation: I personally reviewed and interpreted this ECG as follows: Indication: + SOB/dyspnea Rate (beats per minute): 89 Rhythm: + normal sinus (with some baseline artifact) ECG Intervals/blocks: + Normal QT-c (435) ECG ST segments: no ST elevation ECG Findings: + Other (Potential old septal infarct.); no PVCs Blood Pressure Blood Pressure Findings: Elevated blood pressure Blood Pressure Disposition: further management by hospitalist MDM Narrative There is a mild leukocytosis which could be consistent with infection. No concerning anemia. No coagulopathy. No kidney failure. Glucose was just over 200, magnesium was somewhat low at 1.7. Lactic acid level was not elevated terrence ing sepsis less likely. Blood cultures are pending. Liver profile did not show any evidence for liver enzyme elevation. EKG showed a sinus rhythm, no acute ST elevation. Cardiac enzyme testing x1 was not consistent with acute cardiac injury. Chest film does appear to show a new lower lung pneumonia. This was not present on the film from a few days ago. There was no pneumothorax or CHF. On exam, the patient was wheezing and seemed short of breath. The patient was aggressively managed as he was dyspneic and reportedly hypoxic earlier. He received a DuoNeb, a second DuoNeb was given. He received IV magnesium for the low magnesium value. He was given IV Solu-Medrol and IV ceftriaxone. The patient does seem to be improved with the above treatment. I do think he requires a hospital stay. He is immunocompromised because of his kidney and pancreas transplant. He was diagnosed with influenza several days ago and is no better as an outpatient. He is now much more short of breath and does appear to have a pneumonia on x-ray. I spoke to the patient, I talked with case management. The on-call hospitalist was consulted. Impression & Plan Acute respiratory distress, Hypoxia, Immunocompromised, Wheezing, Shortness of breath Discharge Plan Visit Data *Final* Discharge Date/Time: 10/12/19 15:27 Chief Complaint: Shortness of Breath/Dyspnea Stated Complaint: sob/cough ED Provider: Shaheen Pringle Discharge Problem: Acute respiratory distress, Hypoxia, Immunocompromised, Wheezing, Shortness of breath Patient Disposition: Admitted As Inpatient Discharge Instructions Interventions: ED Discharge Assessment Last Done: 10/12/19 15:27 The scribe's documentation has been prepared under my direction and personally reviewed by me in its entirety. I confirm that the note above accurately reflects all work, treatment, procedures, and medical decision making performed by me.
--- NOTE | 2019-10-12 13:55 | History & Physical Report ---
Date of Service October 12, 2019 Assessment & Plan (1) Hypoxia: (2) Influenza A: (3) Pneumonia: Pt is 69 y/o M with PMH DM II, CKD H/O pancreas and kidney transplant in 2003, CAD s/p CABG in 2002, HTN, h/o TIA presented to ER with c/o SOB, cough. Was seen in ER on 10/06/19 and tested positive for influenza A and was started on prednisone and Tamiflu and finished yesterday without improvement of symptoms. Denies CP. 10/12/19 at PCP office with reported pulse ox of 88% on RA In ER afebrile, R: 20, BP: 165/75, 93% on RA WBC: 11.7, normal lactic acid, corrected Na of 135 for glucose of 215, negative troponin CXR: Subtle increase in left basilar reticulonodular markings, possibly secondar y to a subtle infectious/inflammatory process. -In ER given Solumedrol 60mg IV, Rocephin 1GM IV, Duoneb x 2 -Blood cultures pending -Rocephin, doxycycline -Solumedrol 40mg Q8H -Duonebs scheduled -Supplemental oxygen as needed -CBC, BMP in am (4) Hypomagnesemia: Magnesium: 1.7 -In ER given magnesium sulfate 1GM IV -Monitor magnesium level (5) Diabetes mellitus, type II: A1c: 7.2 on 06/2018 -Hold metformin -Basal bolus insulin per protocol (6) History of pancreas transplant: H/O DM. S/P pancreas transplant in 2003 in [facility] -Continue tacrolimus (7) History of kidney transplant: (8) CKD (chronic kidney disease), stage III: Hx ESRD. S/P kidney transplant in 2003 at [facility] Cr: 1.15. Baseline Cr: 1.2-1.3 -Monitor renal functions -Avoid nephrotoxic agents when possible -Continue tacrolimus (9) HTN (hypertension): -Continue amlodipine, carvedilol, lisinopril (10) CAD (coronary artery disease): Denies CP S/P CABG in 2002 -Continue aspirin, carvedilol (11) History of TIA (transient ischemic attack): -Continue Plavix, aspirin DVT Prophylaxis -Heparin SQ Full Code as per discussion with pt Follows with Dr Prajapati for routine care Pt was seen and care coordinated with Dr Laughlin. See addendum History of Present Illness Chief Complaint: SOB Primary Care Provider: Jolly Prajapati MD Pt is 69 y/o M with PMH DM II, CKD H/O pancreas and kidney transplant in 2003, CAD s/p CABG in 2002, HTN, h/o TIA presented to ER with c/o SOB. Pt reports cough, congestion and increased SOB and was seen in [facility] ER on 10/06/19 and tested positive for influenza A and was started on prednisone and Tamiflu. Reports finished yesterday without any relief. C/O continue cough intermittently productive yellow sputum, increased cough with lying supine and SOB with lying supine and with exertion. Seen at PCP's office today with reported pulse ox: 88% on RA and noted dyspnea with walking into office. Denies any known fevers. Has also been taking Mucinex and Tylenol at home. Reports decreased appetite and decreased oral intake. Reports family member with URI symptoms prior. Pt did not have influenza vaccine this season. Denies diaphoresis, N/V/D/C, IVERSON, dizziness, syncope, vision changes, neck pain, CP, SOB, orthopnea, palpitations, hemoptysis, sore throat, choking, otalgia, abdominal pain, paresthesias, weakness, extremity edema, rashes, urinary symptoms. Allergies Allergy/AdvReac Type Severity Reaction Status Date / Time Bactrim Allergy Unknown rash Unverified 01/18/18 07:36 sulfamethoxazole Allergy Unknown rash Unverified 10/12/19 12:42 trimethoprim Allergy Unknown rash Unverified 10/12/19 12:42 Home Medications Home Medications Medication Instructions Recorded Confirmed Type aspirin [Aspirin Low Dose] 81 mg PO QAM #0 12/08/17 10/12/19 History bimatoprost [Lumigan] 1 drp OPB HS 30 Days #2.5 ml 12/08/17 10/12/19 History cholecalciferol (vitamin D3) 1,000 unit PO QAM #0 cap 12/08/17 10/12/19 History [Vitamin D3] cyanocobalamin (vitamin B-12) 200 mcg PO QAM #0 tab 12/08/17 10/12/19 History [Vitamin B-12] lactobacillus combination no.4 3,000 mmu cells PO QAM #0 12/08/17 10/12/19 History [Probiotic] multivitamin 1 tab PO QAM #0 tab 12/08/17 10/12/19 History omega 2-zce-tzj-fish oil [Fish Oil] 1 cap PO QAM #0 12/08/17 10/12/19 History tacrolimus [Prograf] 2 mg PO DAILY #0 cap 12/08/17 10/12/19 History vitamin E 400 unit PO QAM #0 01/18/18 10/12/19 History amlodipine 10 mg PO QAM 09/23/19 10/12/19 History carvedilol 6.25 mg PO BID 09/23/19 10/12/19 History clopidogrel 75 mg PO QAM 09/23/19 10/12/19 History metformin 500 mg PO QAM 09/23/19 10/12/19 History ondansetron 4 mg PO Q6H PRN #14 tab 10/06/19 10/12/19 Rx lisinopril 20 mg PO QAM 10/12/19 10/12/19 History tacrolimus 1 mg PO PM 10/12/19 10/12/19 History Past Med/Surg History Medical History (Updated 10/12/19 @ 14:06 by Jeanna Aleman PA-C) CAD (coronary artery disease) (Chronic) "s/p CABG x 5 in 2002" CKD (chronic kidney disease), stage III (Chronic) Diabetes mellitus, type II Dyslipidemia (Chronic) History of TIA (transient ischemic attack) HTN (hypertension) (Chronic) Hx of diabetes mellitus (Chronic) Surgical History (Updated 10/12/19 @ 14:00 by Jeanna Aleman PA-C) History of kidney transplant 2003 -[facility] History of pancreas transplant 2003- [facility] S/P CABG (coronary artery bypass graft) 2002 Family History (Updated 10/12/19 @ 14:00 by Jeanna Aleman PA-C) Mother Breast cancer Father Diabetes Social History (Updated 10/12/19 @ 14:03 by Jeanna Aleman PA-C) Preferred Language: Norwegian Communication Ability: Effective Extension Supervisor Required: No Beliefs That Will Affect Care: None Current Living Situation: Spouse Other Information That Helps Us Care for You: No Feels Safe at Home: Yes Safety Concerns: Feels Safe At This Time Smoking Status: Never smoker Tobacco Type: smokeless tobacco ; Do You Dip or Chew Tobacco: No ; Second Hand Exposure: No ; Tobacco Cessation Education Requested by Patient: No Hx Alcohol Use: No Hx Substance Use: No Review of Systems Review of Systems: All systems reviewed & are unremarkable except as noted in HPI & below Physical Exam Physical Exam: General: no acute distress, chronic ill appearing, WDWN Head: normocephalic, atraumatic Eyes: PERRL, EOM's intact, conjunctiva non-injected, anicteric ENT: normal inspection external ears, nose, mucous membranes mildly dry Neck: supple, trachea midline Lungs: R: 20, no accessory muscle use on 3L oxygen via NC with sat: 94%, diffuse wheezing, rhonchi at bases; +cough CV: RRR, no murmur, no pretibial edema Abd: normal BS, soft, non-tender Ext: no cyanosis, no calf tenderness Neuro: A&O x 3, no focal deficits noted, normal affect Skin: warm, dry Results & Data Vital Signs (Past 12 Hours) Vital Signs Temp Pulse Pulse Resp BP Pulse Ox 10/12/19 13:48 60 20 93 10/12/19 12:38 60 20 91 10/12/19 12:16 93 10/12/19 12:00 36.9 C 66 22 165/75 H 93 Laboratory Results Short CBC 10/12/19 Range/Units 12:20 WBC 11.76 H (4.8-10.8) K/uL Hgb 14.7 (14.0-18.0) g/dL Hct 41.0 L (42-52) % Plt Count 166 (130-400) K/uL BMP 10/12/19 12:20 Sodium 133 L Potassium 4.5 Chloride 98 Carbon Dioxide 31 BUN 20 H Creatinine 1.15 Glucose 215 H Calcium 9.0 Cardiac Enzymes 10/12/19 Range/Units 12:20 Troponin I < 0.015 (0-0.045) ng/ml Liver Function 10/12/19 Range/Units 12:20 Total Bilirubin 0.7 (0.2-1) mg/dl AST 7 L (15-37) U/L ALT 16 (12-78) U/L Alkaline Phosphatase 82 (45-117) U/L Albumin 2.9 L (3.4-5.0) gm/dl Diagnostic Findings CXR: IMPRESSION: Subtle increase in left basilar reticulonodular markings, possibly secondary to a subtle infectious/inflammatory process. Stable elevation of the right hemidiaphragm with right basilar atelectasis/scarring ECG Rate (beats per minute): 69 Rhythm: sinus rhythm Code Status & VTE Plan VTE Prophylaxis Plan VTE Prophylaxis will be ordered: Yes Supervising Physician Co-Signing Physician Notes Attending addendum: The patient was seen and examined in medical floor in presence of the He finished recent course of anti-flu medication with history of immunosuppressed condition He was admitted with exacerbation of COPD likely infective He has been getting better since admission On examination Minimal shortness of breath at rest Sitting at the edge of the bed His blood pressure noted to be high at 167/78 Chest-decreased breath sounds bilaterally with occasional wheezing and minimal bibasilar crackles Heart-S1-S2, regular Abdomen-benign Extremities-no edema Admission labs and imaging studies reviewed Has exacerbation of COPD likely infective with immunosuppressed condition and current flu Agree with assessment and plan as outlined above by CATALINA Choudhary DR (1) HTN (hypertension) Hypertension type: essential hypertension Qualified Code(s): I10 - Essential (primary) hypertension
[2019-10-12] MEDS ORDERED: INFLUENZA ADMINISTRATION CHARGE ONE (14:08)
[2019-10-12] MEDS ORDERED: INFLUENZA VACCINE HIGH DOSE 65+ 0.5 ML SYR IM ONE (14:08)
--- NOTE | 2019-10-12 14:50 | Electrocardiogram Report ---
Test Reason : Blood Pressure : / mmHG Vent. Rate : 069 BPM Atrial Rate : 069 BPM P-R Int : 138 ms QRS Dur : 088 ms QT Int : 406 ms P-R-T Axes : 023 -39 034 degrees QTc Int : 435 ms Poor data quality, interpretation may be adversely affected Normal sinus rhythm Left axis deviation Abnormal ECG When compared with ECG of 06-OCT-2019 15:45, No significant change was found Confirmed by Giancarlo Diaz ([id number]) on 10/12/2019 2:50:19 PM Referred By: Confirmed By:Giancarlo Diaz
[2019-10-12] MEDS ORDERED: DEXTROSE 50% 50 ML SYRINGE IV PRN (15:50)
[2019-10-12] MEDS ORDERED: GLUCAGON FOR INJ 1 MG VIAL SQ PRN (15:50)
[2019-10-12] MEDS ORDERED: CARBOHYDRATES FOR HYPOGLYCEMIA PO PRN (15:50)
[2019-10-12] MEDS ORDERED: GLUCOSE 40% GEL 15 GM TUBE PO PRN (15:50)
[2019-10-12] MEDS ORDERED: ACETAMINOPHEN 325 MG TAB PO PRN (15:50)
[2019-10-12] MEDS ORDERED: GLUCOSE 10 TABS/TUBE PO PRN (15:50)
[2019-10-12] MEDS ORDERED: guaiFENesin 600 MG TABCR PO PRN (15:50)
[2019-10-12] MEDS: SODIUM CHLORIDE 0.9% 1000ML 1,000 ML IV SCH (16:29)
[2019-10-12] MEDS: HEPARIN SOD 5,000 UNIT/0.5 ML VIAL SQ SCH ×2 (16:58→21:20)
[2019-10-12] MEDS: DOXYCYCLINE HYCLATE 100 MG CAP PO SCH ×2 (17:10→23:30)
[2019-10-12] MEDS: ALBUT/IPRATROP 3MG/0.5MG NEB 3 ML VIAL NEB SCH ×2 (17:16→20:23)
[2019-10-12] MEDS: INSULIN ASPART 100 UNITS/ML 3 ML PEN SC SCH ×2 (17:45→21:18)
[2019-10-12] MEDS: BIMATOPROST 0.01% OP SOLN 2.5 ML BTL OP SCH (21:00)
[2019-10-12] MEDS: carvediloL 6.25 MG TAB PO SCH (21:02)
[2019-10-12] MEDS: TACROLIMUS 1 MG CAP PO SCH (21:03)
[2019-10-12] MEDS: INSULIN GLARGINE SOLOSTAR 100 UNITS/ML 3 ML PEN SC SCH (21:19)
[2019-10-12] MEDS: methylPREDNISolone 40 MG in SYRINGE 0 ML IV SCH (21:22)
[2019-10-13] MEDS ORDERED: INSULIN ASPART 100 UNITS/ML 3 ML PEN SC STA (01:01)
[2019-10-13] MEDS: SODIUM CHLORIDE 0.9% 1000ML 1,000 ML IV SCH (02:33)
[2019-10-13] MEDS: methylPREDNISolone 40 MG in SYRINGE 0 ML IV SCH ×3 (05:47→22:24)
[2019-10-13] MEDS: HEPARIN SOD 5,000 UNIT/0.5 ML VIAL SQ SCH ×3 (05:47→22:09)
[2019-10-13] MEDS: ALBUT/IPRATROP 3MG/0.5MG NEB 3 ML VIAL NEB SCH ×4 (07:04→19:58)
[2019-10-13 07:55] LABS: Basophils # (auto) 0.01 K/uL (0-0.2); Basophils % (auto) 0.1 %; Hematocrit (blood only) 41.5 % (42-52); Hemoglobin 14.4 g/dL (14.0-18.0); Immature Granulocytes # (auto) 0.11 K/uL (0.00-0.02); Immature Granulocytes % (auto) 1.1 %; Lymphocytes # (auto) 0.55 K/uL (1.2-3.4); Lymphocytes % (auto) 5.4 %; Mean Corpuscular Hemoglobin 30.2 pg (25-34); Mean Corpuscular Hgb Conc 34.7 g/dL (32-36); Mean Platelet Volume 11.2 fL (7.4-10.4); Monocytes # (auto) 0.18 K/uL (0.11-0.59); Monocytes % (auto) 1.8 %; Neutrophils # (auto) 9.41 K/uL (1.4-6.5); Neutrophils % (auto) 91.6 %; Platelet Count 164 K/uL (130-400); RDW Coefficient of Variation 13.8 % (11.5-14.5); RDW Standard Deviation 43.8 fL (36.4-46.3); Red Blood Count 4.77 M/uL (4.7-6.1); White Blood Count 10.26 K/uL (4.8-10.8)
[2019-10-13 08:23] LABS: BUN Creatinine Ratio 22.5 (10-20); Calcium 8.8 mg/dl (8.5-10.1); Creatinine Clr Calc Pharmacy 54.8 ml/min; Est GFR (African American) 68.5; Est GFR (Non-African American) 59.1; Magnesium 2.1 mg/dl (1.8-2.4); Potassium 5.1 mmol/L (3.5-5.1)
[2019-10-13] MEDS: AMLODIPINE BESYLATE 5 MG TAB PO SCH (08:43)
[2019-10-13] MEDS: carvediloL 6.25 MG TAB PO SCH ×2 (08:43→22:02)
[2019-10-13] MEDS: LACTOBACILLUS ACIDOPHILUS (FLORANEX) TAB PO SCH (08:43)
[2019-10-13] MEDS: ASPIRIN 81 MG ECTAB PO SCH (08:43)
[2019-10-13] MEDS: MULTIVITAMIN TAB PO SCH (08:43)
[2019-10-13] MEDS: TACROLIMUS 1 MG CAP PO SCH ×2 (08:44→22:01)
[2019-10-13] MEDS: INSULIN GLARGINE SOLOSTAR 100 UNITS/ML 3 ML PEN SC SCH (08:44)
[2019-10-13] MEDS: DOXYCYCLINE HYCLATE 100 MG CAP PO SCH ×2 (08:44→22:02)
[2019-10-13] MEDS: CHOLECALCIFEROL 1,000 UNITS 25 MCG TAB PO SCH (08:44)
[2019-10-13] MEDS: cefTRIAXone SODIUM 1,000 MG in DEXTROSE 5% 50 ML IV SCH (08:44)
[2019-10-13] MEDS: CLOPIDOGREL BISULFATE 75 MG TAB PO SCH (08:44)
[2019-10-13] MEDS: CYANOCOBALAMIN (VITAMIN B-12) 100 MCG TABLET PO SCH (08:44)
[2019-10-13] MEDS: lisinopriL 20 MG TAB PO SCH (08:44)
[2019-10-13] MEDS: INSULIN ASPART 100 UNITS/ML 3 ML PEN SC SCH ×4 (08:45→22:08)
[2019-10-13 09:05] LABS: Estimated Average Glucose 192 mg/dl; Hemoglobin A1C 8.3 % (4.5-5.6)
--- NOTE | 2019-10-13 10:42 | Hospitalist Progress Note ---
Date of Service October 13, 2019 Assessment & Plan (1) Hypoxia: (2) Influenza A: (3) Pneumonia: Present on admission with worsening SOB and hypoxia CXR on admission showed subtle increase in left basilar reticulonodular markings, possibly secondary to a subtle infectious/inflammatory process. Received IV Solumedrol and Rocephin IV in the ER In ER afebrile, R: 20, BP: 165/75, 93% on RA WBC: 11.7, normal lactic acid, corrected Na of 135 for glucose of 215, negative troponin CXR: Subtle increase in left basilar reticulonodular markings, possibly secondary to a subtle infectious/inflammatory process. Blood cx and sputum cx pending Continue IV Rocephin and doxycycline Continue oxygen supplement and neb treatment Continue monitor closely (4) Hypomagnesemia: Magnesium: 1.7 on admission Mg replaced in the ER Mg level 2.1 Monitor Magnesium level (5) Diabetes mellitus, type II: A1c: 7.2 on 06/2018 Most recent hba1c 8.3 Elevated BS since pt on IV steroid Will adjust sliding scale Continue to hold metformin Continue monitor BS (6) History of pancreas transplant: H/O DM. S/P pancreas transplant in 2003 in [facility] Continue tacrolimus (7) History of kidney transplant: (8) CKD (chronic kidney disease), stage III: Hx ESRD. S/P kidney transplant in 2003 at [facility] Cr: 1.15. Baseline Cr: 1.2-1.3 Avoid nephrotoxic agents when possible Continue tacrolimus Stable (9) HTN (hypertension): BP elevated Continue amlodipine, carvedilol, lisinopril If BP does not improve, will increase Lisinopril to 40mg (10) CAD (coronary artery disease): Denies CP S/P CABG in 2002 Continue aspirin, carvedilol, plavix Stable (11) History of TIA (transient ischemic attack): Continue Plavix, aspirin DVT Prophylaxis On Heparin SQ CODE STATUS Full Code Disposition Possible discharge tomorrow Subjective Pt was seen and examined. Sitting at the edge of the bed with no distress Pt said that breathing seems to improve He said that he is able to lie down flat with no discomfort He said that cough is minimal He continues requires oxygen supplement Denies any chest pain, palpitation and fever Physical Exam Physical Exam: General- No acute distress Head- atraumatic Eyes- PERRL, EOMI, ENT- oropharynx clear Neck- supple, no JVD Lungs- +wheezing Heart- regular rhythm; no murmur Abdomen- normal bowel sounds, soft, nontender Extremities- no calf tenderness Neuro- alert, oriented x 3; PERRL, EOMI; no facial palsy; no dysarthria Skin- warm & dry Results & Data Vital Signs (Past 12 Hours) Vital Signs Temp Pulse Pulse Resp BP Pulse Ox 10/13/19 09:28 71 10/13/19 09:00 56 L 10/13/19 07:48 36.8 C 59 L 18 172/70 H 93 10/13/19 07:04 66 18 96 10/13/19 04:26 37 C 74 16 153/81 H 94 10/13/19 00:39 66 10/12/19 23:14 36.9 C 67 18 162/80 H 95 (1) HTN (hypertension) Hypertension type: essential hypertension Qualified Code(s): I10 - Essential (primary) hypertension
[2019-10-13] MEDS ORDERED: INSULIN GLARGINE SOLOSTAR 100 UNITS/ML 3 ML PEN SC SCH (21:00)
[2019-10-13] MEDS: BIMATOPROST 0.01% OP SOLN 2.5 ML BTL OP SCH (22:00)
[2019-10-13] MEDS ORDERED: LORazepam 0.25 MG/0.5 ML VIAL IV PRN (22:20)
[2019-10-13] MEDS: INSULIN GLARGINE SOLOSTAR 100 UNITS/ML 3 ML PEN SQ SCH (22:35)
--- NOTE | 2019-10-13 23:03 | XRay Report ---
XR chest 1V portable CLINICAL HISTORY: Shortness of breath COMPARISON STUDY: 10/12/2019 FINDINGS: There are postsurgical changes of midline sternotomy. The heart is mildly enlarged. There i s chronic elevation right hemidiaphragm. There is right basilar atelectasis/scarring. There is no ove rt failure. There is blunting of both lateral costophrenic angles. There is no lobar consolidation.[ IMPRESSION: 1. No acute findings. 2. Stable elevation of the right hemidiaphragm with right basilar scarring. ACT 112: Negative or not required by law. Electronically signed by: Junior Ortega M.D. 10/13/2019 11:01 PM
[2019-10-14] MEDS: methylPREDNISolone 40 MG in SYRINGE 0 ML IV SCH ×3 (05:35→21:13)
[2019-10-14] MEDS: HEPARIN SOD 5,000 UNIT/0.5 ML VIAL SQ SCH ×3 (05:45→21:22)
[2019-10-14] MEDS: ALBUT/IPRATROP 3MG/0.5MG NEB 3 ML VIAL NEB SCH ×4 (07:06→19:45)
[2019-10-14] MEDS: ASPIRIN 81 MG ECTAB PO SCH (08:13)
[2019-10-14] MEDS: carvediloL 6.25 MG TAB PO SCH ×2 (08:13→21:14)
[2019-10-14] MEDS: AMLODIPINE BESYLATE 5 MG TAB PO SCH (08:14)
[2019-10-14] MEDS: cefTRIAXone SODIUM 1,000 MG in DEXTROSE 5% 50 ML IV SCH (08:14)
[2019-10-14] MEDS: DOXYCYCLINE HYCLATE 100 MG CAP PO SCH ×2 (08:14→21:13)
[2019-10-14] MEDS: CYANOCOBALAMIN (VITAMIN B-12) 100 MCG TABLET PO SCH (08:14)
[2019-10-14] MEDS: LACTOBACILLUS ACIDOPHILUS (FLORANEX) TAB PO SCH (08:14)
[2019-10-14] MEDS: CHOLECALCIFEROL 1,000 UNITS 25 MCG TAB PO SCH (08:14)
[2019-10-14] MEDS: lisinopriL 20 MG TAB PO SCH (08:14)
[2019-10-14] MEDS: TACROLIMUS 1 MG CAP PO SCH ×2 (08:14→21:12)
[2019-10-14] MEDS: CLOPIDOGREL BISULFATE 75 MG TAB PO SCH (08:14)
[2019-10-14] MEDS: MULTIVITAMIN TAB PO SCH (08:14)
[2019-10-14] MEDS: INSULIN GLARGINE SOLOSTAR 100 UNITS/ML 3 ML PEN SQ SCH ×2 (08:15→21:22)
[2019-10-14] MEDS: INSULIN ASPART 100 UNITS/ML 3 ML PEN SC SCH ×4 (08:15→21:23)
[2019-10-14] MEDS ORDERED: PHARMACY GLYCEMIC MGMT CONSULT PRN (12:00)
[2019-10-14] MEDS ORDERED: INSULIN GLARGINE SOLOSTAR 100 UNITS/ML 3 ML PEN SQ ONE (12:15)
[2019-10-14] MEDS ORDERED: INSULIN HUMAN REGULAR PER UNIT 7 UNITS in SYRINGE 6.93 ML IV ONE (12:15)
--- NOTE | 2019-10-14 14:38 | Pharmacy Report ---
Glycemic Control Consultation - Date of Service October 14, 2019 - Scope Scope: Glycemic Pharmacist consulted by Dr Quiroz on 10/14/19 for glycemic control and to write orders per [facility] inpatient glycemic control protocol - Objective Weight: 72.9 kg Accuchecks BSG (last 24hrs): 10/13/19 10/13/19 10/13/19 16:40 16:41 16:43 POC Glucose 327 H* 294 H 271 H 10/13/19 10/14/19 10/14/19 19:53 07:32 11:32 POC Glucose 266 H 270 H 317 H* 10/14/19 11:33 POC Glucose 326 H* HbA1c: Hemoglobin A1c 8.3 % (4.5-5.6) H 10/13/19 07:13 - Recent Pertinent Medications Outpatient Anti-diabetic Regimen: * Metformin 500 mg PO daily * A1c = 8.3 % (10/13/19) The patient is currently receiving: * Basal insulin: Lantus 15 units every 12 hours * Correctional Insulin: Novolog Correction per scale ACHS Goal Range: Low 120 mg/dL - High 160 mg/dL Correction Factor: 25 mg/dL/unit * Prandial insulin: Per carb ratio of 1 unit per 8 grams CHO consumed Risk Factors for Insulin Resistance: * Steroids: Solu-medrol 40 mg IV q8h * Infection: Ceftriaxone/Doxycycline (pneumonia) * Diet: T2DM - Assessment & Plan Assessment & Plan: ASSESSMENT: * LR is a 69 year old male presented to [facility] ED on 10/12/19 with chief complaint of shortness of breath * Patient diagnosed with pneumonia and being treated with IV antibiotics and methylprednisolone 40 mg IV q8h * Pertinent PMH includes history of pancreatic and kidney transplant (on chronic tacrolimus), type 2 DM, and CKD stage 3 * Pharmacy consulted at lunchtime on 10/14/19 for BSG of 326 mg/dL * 30 units (0.4 unit/kg) of Lantus ordered in addition to 7 unit (0.1 unit/kg) IV bolus * BSGs yesterday ranging 223-386 mg/dL - patient received 66 units of insulin PLAN FOR INPATIENT GLYCEMIC CONTROL: * Holding outpatient oral diabetes medications * Basal insulin - increase * Lantus 15 units this morning - added additional 30 units at lunchtime to account for methylprednisolone * Lantus 18 units SQ BID thereafter (weight/stress of 3 dosing) * Bolus insulin - tighten * NovoLog per scale ACHS or Q6hrs while NPO * Goal Range: Low 110 mg/dL - High 140 mg/dL * Correction Factor: 20 mg/dL/unit * Nutritional / Prandial insulin per carb ratio of 1 unit per 7 grams CHO consumed * Overnight checks at 00,04 added with same parameters * Please note that the plan above was derived based on current level of insulin resistance and hospital stress. These recommendations are appropriate for inpatient admission only. Plan of care upon discharge will need to be reassessed to avoid potential outpatient hypo/hyperglycemia. Thank you.
--- NOTE | 2019-10-14 19:55 | Hospitalist Progress Note ---
Date of Service October 14, 2019 Assessment & Plan (1) Hypoxia: (2) Influenza A: (3) Pneumonia: Present on admission with worsening SOB and hypoxia CXR on admission showed subtle increase in left basilar reticulonodular markings, possibly secondary to a subtle infectious/inflammatory process. Completed the course of tamiflu the day before admitting Received IV Solumedrol and Rocephin IV in the ER Blood cx no growth and sputum cx grew normal juan luis Continue IV Rocephin and doxycycline Continue oxygen supplement and neb treatment IV solumedrol will change to BID Continue monitor closely (4) Hypomagnesemia: Magnesium: 1.7 on admission Mg replaced in the ER Mg level 2.1 Monitor Magnesium level (5) Diabetes mellitus, type II: A1c: 7.2 on 06/2018 Most recent hba1c 8.3 Elevated BS since pt on IV steroid Will adjust sliding scale Continue to hold metformin Continue monitor BS (6) History of pancreas transplant: H/O DM. S/P pancreas transplant in 2003 in [facility] Continue tacrolimus (7) History of kidney transplant: (8) CKD (chronic kidney disease), stage III: Hx ESRD. S/P kidney transplant in 2003 at [facility] Cr: 1.15. Baseline Cr: 1.2-1.3 Avoid nephrotoxic agents when possible Continue tacrolimus Stable (9) HTN (hypertension): BP elevated Continue amlodipine, carvedilol, lisinopril If BP does not improve, will increase Lisinopril to 40mg (10) CAD (coronary artery disease): Denies CP S/P CABG in 2002 Continue aspirin, carvedilol, plavix Stable (11) History of TIA (transient ischemic attack): Continue Plavix, aspirin DVT Prophylaxis On Heparin SQ CODE STATUS Full Code Disposition Possible discharge tomorrow Subjective Pt was seen and examined Sitting in bed with no distress Pt said that he feels a little better He said that cough improves a little Saturated well with RA Denies any chest pain, palpitation and fever Physical Exam Physical Exam: General- No acute distress Head- atraumatic Eyes- PERRL, EOMI, ENT- oropharynx clear Neck- supple, no JVD Lungs- +wheezing Heart- regular rhythm; no murmur Abdomen- normal bowel sounds, soft, nontender Extremities- no calf tenderness Neuro- alert, oriented x 3; PERRL, EOMI; no facial palsy; no dysarthria Skin- warm & dry Results & Data Vital Signs (Past 12 Hours) Vital Signs Temp Pulse Pulse Resp BP Pulse Ox Pulse Ox 10/14/19 19:51 94 10/14/19 19:45 71 18 94 10/14/19 15:35 36.3 C L 70 18 165/73 H 97 10/14/19 15:23 76 10/14/19 15:08 72 16 97 10/14/19 11:24 36.3 C L 73 18 170/74 H 96 10/14/19 11:13 66 14 97 10/14/19 09:00 71 (1) HTN (hypertension) Hypertension type: essential hypertension Qualified Code(s): I10 - Essential (primary) hypertension
[2019-10-14] MEDS: guaiFENesin 200 MG TAB PO SCH (21:11)
[2019-10-14] MEDS: BIMATOPROST 0.01% OP SOLN 2.5 ML BTL OP SCH (21:14)
[2019-10-15] MEDS: INSULIN ASPART 100 UNITS/ML 3 ML PEN SC SCH ×5 (00:11→17:11)
[2019-10-15] MEDS: guaiFENesin 200 MG TAB PO SCH ×3 (02:09→15:14)
[2019-10-15] MEDS: HEPARIN SOD 5,000 UNIT/0.5 ML VIAL SQ SCH ×2 (06:13→13:52)
[2019-10-15] MEDS: ALBUT/IPRATROP 3MG/0.5MG NEB 3 ML VIAL NEB SCH ×3 (07:33→15:03)
[2019-10-15] MEDS: MULTIVITAMIN TAB PO SCH (08:02)
[2019-10-15] MEDS: carvediloL 6.25 MG TAB PO SCH (08:02)
[2019-10-15] MEDS: LACTOBACILLUS ACIDOPHILUS (FLORANEX) TAB PO SCH (08:02)
[2019-10-15] MEDS: TACROLIMUS 1 MG CAP PO SCH (08:03)
[2019-10-15] MEDS: CHOLECALCIFEROL 1,000 UNITS 25 MCG TAB PO SCH (08:03)
[2019-10-15] MEDS: AMLODIPINE BESYLATE 5 MG TAB PO SCH (08:03)
[2019-10-15] MEDS: ASPIRIN 81 MG ECTAB PO SCH (08:03)
[2019-10-15] MEDS: CLOPIDOGREL BISULFATE 75 MG TAB PO SCH (08:03)
[2019-10-15] MEDS: lisinopriL 20 MG TAB PO SCH (08:03)
[2019-10-15] MEDS: CYANOCOBALAMIN (VITAMIN B-12) 100 MCG TABLET PO SCH (08:03)
[2019-10-15] MEDS: DOXYCYCLINE HYCLATE 100 MG CAP PO SCH (08:03)
[2019-10-15] MEDS: INSULIN GLARGINE SOLOSTAR 100 UNITS/ML 3 ML PEN SQ SCH (08:07)
[2019-10-15] MEDS: cefTRIAXone SODIUM 1,000 MG in DEXTROSE 5% 50 ML IV SCH (08:12)
[2019-10-15] MEDS ORDERED: HydrALAZINE HCL 20 MG/ML VIAL IV PRN (08:17)
--- NOTE | 2019-10-15 08:55 | Pharmacy Report ---
Pharmacy Glycemic Short Note 2 - Date of Service October 15, 2019 - Glycemic Short BSG Results (Last 24 hours): 10/14/19 10/14/19 10/14/19 11:32 11:33 16:38 POC Glucose 317 H* 326 H* 189 H 10/14/19 10/15/19 10/15/19 21:00 00:10 03:54 POC Glucose 207 H 145 H 109 H 10/15/19 07:58 POC Glucose 138 H OUTPATIENT ANTIDIABETIC REGIMEN: * Metformin 500 mg PO daily * Of note: patient also on tacrolimus for history of pancreatic and kidney transplants * A1c = 8.3% (10/13/19) ASSESSMENT: * Pharmacy consulted yesterday (10/14) at lunchtime for BSG of 326 mg/dL * Since that time BSGs have ranged 109-207 mg/dL * Received 120 units of insulin yesterday (63 units of which were basal) * Steroids tapered today (methylprednisolone 40 mg IV q8h -> q12h) * Will keep weight/stress of 3 dosing for this morning and reassess with lunch BSG PLAN FOR INPATIENT GLYCEMIC CONTROL: * Hold outpatient oral diabetes medications * Basal insulin - utilize scale * Lantus scale * -12 units - BSG 140 mg/dL or below * -18 units - BSG 141 mg/dL or above * Bolus insulin - continue * NovoLog per scale ACHS or Q6hrs while NPO * Goal Range: Low 110 mg/dL - High 140 mg/dL * Correction Factor: 20 mg/dL/unit * Nutritional / Prandial insulin per carb ratio of 1 unit per 7 grams CHO consumed PLAN FOR DISCHARGE: * To be determined - patient still requiring large doses of insulin due to steroid-induced hyperglycemia * Based on GFR greater than 45 - could titrate up metformin to 1000 mg PO BIDM as tolerated by the patient * Increase by 500 mg at weekly intervals until reaching maximum dose of 1000 mg PO BIDM * Patient would need to have renal function monitored closely given history of kidney transplant * Consider XR formulation to decrease GI upset * Ensure proper outpatient followup for further management of diabetes * Support patient self-management * Healthy Lifestyle (diet, exercise, and smoking cessation) * Disease self-management (SMBG) * Prevention of complications (BP, Lipid goals, Immunizations) * Consider outpatient Diabetes Self-Management Education & Support
[2019-10-15] MEDS ORDERED: methylPREDNISolone 40 MG in SYRINGE 0 ML IV SCH (09:00)
--- NOTE | 2019-10-15 16:33 | Hospitalist Progress Note ---
Date of Service October 15, 2019 Assessment & Plan (1) Hypoxia: (2) Influenza A: (3) Pneumonia: Present on admission with worsening SOB and hypoxia CXR on admission showed subtle increase in left basilar reticulonodular markings, possibly secondary to a subtle infectious/inflammatory process. Completed the course of tamiflu the day before admitting Received IV Solumedrol and Rocephin IV in the ER Blood cx no growth and sputum cx grew normal juan luis IV Rocephin and doxycycline Will discharge on doxycycline po BID Will transition to oral prednisone Saturated well on RA Continue monitor closely (4) Hypomagnesemia: Magnesium: 1.7 on admission Mg replaced in the ER Mg level 2.1 Monitor Magnesium level (5) Diabetes mellitus, type II: A1c: 7.2 on 06/2018 Most recent hba1c 8.3 Elevated BS since pt on IV steroid On Lantus and Novolog sliding scale resume metformin on discharge Continue monitor BS (6) History of pancreas transplant: H/O DM. S/P pancreas transplant in 2003 in [facility] Continue tacrolimus (7) History of kidney transplant: (8) CKD (chronic kidney disease), stage III: Hx ESRD. S/P kidney transplant in 2003 at [facility] Cr: 1.15. Baseline Cr: 1.2-1.3 Avoid nephrotoxic agents when possible Continue tacrolimus Stable (9) HTN (hypertension): BP fluactuates Continue amlodipine, carvedilol, lisinopril If BP does not improve, Consider to increase Lisinopril to 40mg Follow up with PCP (10) CAD (coronary artery disease): Denies CP S/P CABG in 2002 Continue aspirin, carvedilol, plavix Stable (11) History of TIA (transient ischemic attack): Continue Plavix, aspirin DVT Prophylaxis On Heparin SQ CODE STATUS Full Code Disposition Possible discharge today Follow up with your PCP dr. Prajapati on 10/19 @ 2:05 PM Subjective Pt was seen and examined Sitting in chair with no distress Pt said that he feels much better he said that cough improves Saturated well on RA Denies any chest pain, palpitation and SOB Physical Exam Physical Exam: General- No acute distress Head- atraumatic Eyes- PERRL, EOMI, ENT- oropharynx clear Neck- supple, no JVD Lungs- No wheezing Heart- regular rhythm; no murmur Abdomen- normal bowel sounds, soft, nontender Extremities- no calf tenderness Neuro- alert, oriented x 3; PERRL, EOMI; no facial palsy; no dysarthria Skin- warm & dry Results & Data Vital Signs (Past 12 Hours) Vital Signs Temp Pulse Pulse Resp BP Pulse Ox 10/15/19 15:45 80 10/15/19 15:04 36.6 C 74 18 164/74 H 97 10/15/19 14:04 78 172/81 H 10/15/19 11:48 78 16 95 10/15/19 11:31 36.3 C L 87 16 182/93 H 97 10/15/19 08:00 75 10/15/19 07:45 36.2 C L 69 16 187/94 H 98 10/15/19 07:34 78 18 95 (1) HTN (hypertension) Hypertension type: essential hypertension Qualified Code(s): I10 - Essential (primary) hypertension
[2019-10-15] MEDS ORDERED: INSULIN GLARGINE SOLOSTAR 100 UNITS/ML 3 ML PEN SQ SCH (21:00)
--- NOTE | 2019-10-16 08:33 | Discharge Summary ---
Date of Service October 15, 2019 Admission HPI Per Admitting Provider Pt is 69 y/o M with PMH DM II, CKD H/O pancreas and kidney transplant in 2003, CAD s/p CABG in 2002, HTN, h/o TIA presented to ER with c/o SOB. Pt reports cough, congestion and increased SOB and was seen in [facility] ER on 10/06/19 and tested positive for influenza A and was started on prednisone and Tamiflu. Reports finished yesterday without any relief. C/O continue cough intermittently productive yellow sputum, increased cough with lying supine and SOB with lying supine and with exertion. Seen at PCP's office today with reported pulse ox: 88% on RA and noted dyspnea with walking into office. Denies any known fevers. Has also been taking Mucinex and Tylenol at home. Reports decreased appetite and decreased oral intake. Reports family member with URI symptoms prior. Pt did not have influenza vaccine this season. Denies diaphoresis, N/V/D/C, IVERSON, dizziness, syncope, vision changes, neck pain, CP, SOB, orthopnea, palpitations, hemoptysis, sore throat, choking, otalgia, abdominal pain, paresthesias, weakness, extremity edema, rashes, urinary symptoms. Admission Exam Per Admitting Provider General: no acute distress, chronic ill appearing, WDWN Head: normocephalic, atraumatic Eyes: PERRL, EOM's intact, conjunctiva non-injected, anicteric ENT: normal inspection external ears, nose, mucous membranes mildly dry Neck: supple, trachea midline Lungs: R: 20, no accessory muscle use on 3L oxygen via NC with sat: 94%, diffuse wheezing, rhonchi at bases; +cough CV: RRR, no murmur, no pretibial edema Abd: normal BS, soft, non-tender Ext: no cyanosis, no calf tenderness Neuro: A&O x 3, no focal deficits noted, normal affect Skin: warm, dry Principal Diagnosis Hypoxia Influenza A Pneumonia Diabetes Hypomagnesemia Discharge Exam General- No acute distress Head- atraumatic Eyes- PERRL, EOMI, ENT- oropharynx clear Neck- supple, no JVD Lungs- No wheezing Heart- regular rhythm; no murmur Abdomen- normal bowel sounds, soft, nontender Extremities- no calf tenderness Neuro- alert, oriented x 3; PERRL, EOMI; no facial palsy; no dysarthria Skin- warm & dry Discharge Data Allergies Allergy/AdvReac Type Severity Reaction Status Date / Time Bactrim Allergy Unknown rash Unverified 01/18/18 07:36 sulfamethoxazole Allergy Unknown rash Unverified 10/12/19 12:42 trimethoprim Allergy Unknown rash Unverified 10/12/19 12:42 Consultations 10/12/19 13:05 ED Decision to Admit Stat 10/12/19 15:50 Consult Case Management - Discharge Planning Routine Ordered Studies XR chest 1V portable CLINICAL HISTORY: SOB COMPARISON STUDY: 10/06/2019 FINDINGS: There are postsurgical changes of a midline sternotomy. The heart is at the upper limits of normal in size. There is persistent elevation/eventration of the right hemidiaphragm. There is right basilar atelectasis/scarring. There is a subtle increase in the left basilar reticulonodular markings. This could indicate a subtle infectious/inflammatory process.[ IMPRESSION: Subtle increase in left basilar reticulonodular markings, possibly secondary to a subtle infectious/inflammatory process. Stable elevation of the right hemidiaphragm with right basilar atelectasis/scarring ACT 112: Negative or not required by law. Electronically signed by: Junior Ortega M.D. 10/12/2019 12:26 PM Dictated: 10/12/19 1224 Transcribed: 10/12/19 1224 XR chest 1V portable CLINICAL HISTORY: Shortness of breath COMPARISON STUDY: 10/12/2019 FINDINGS: There are postsurgical changes of midline sternotomy. The heart is mildly enlarged. There is chronic elevation right hemidiaphragm. There is right basilar atelectasis/scarring. There is no overt failure. There is blunting of both lateral costophrenic angles. There is no lobar consolidation.[ IMPRESSION: 1. No acute findings. 2. Stable elevation of the right hemidiaphragm with right basilar scarring. ACT 112: Negative or not required by law. Electronically signed by: Junior Ortega M.D. 10/13/2019 11:01 PM Dictated: 10/13/19 2300 Transcribed: 10/13/19 230 Hospital Course (1) Hypoxia: (2) Influenza A: (3) Pneumonia: Present on admission with worsening SOB and hypoxia CXR on admission showed subtle increase in left basilar reticulonodular ma rkings, possibly secondary to a subtle infectious/inflammatory process. Completed the course of tamiflu the day before admitting Received IV Solumedrol and Rocephin IV in the ER Blood cx no growth and sputum cx grew normal juan luis IV Rocephin and doxycycline Will discharge on doxycycline po BID Will transition to oral prednisone Saturated well on RA Continue monitor closely (4) Hypomagnesemia: Magnesium: 1.7 on admission Mg replaced in the ER Mg level 2.1 Monitor Magnesium level (5) Diabetes mellitus, type II: A1c: 7.2 on 06/2018 Most recent hba1c 8.3 Elevated BS since pt on IV steroid On Lantus and Novolog sliding scale resume metformin on discharge Continue monitor BS (6) History of pancreas transplant: H/O DM. S/P pancreas transplant in 2003 in [facility] Continue tacrolimus (7) History of kidney transplant: (8) CKD (chronic kidney disease), stage III: Hx ESRD. S/P kidney transplant in 2003 at [facility] Cr: 1.15. Baseline Cr: 1.2-1.3 Avoid nephrotoxic agents when possible Continue tacrolimus Stable (9) HTN (hypertension): BP fluactuates Continue amlodipine, carvedilol, lisinopril If BP does not improve, Consider to increase Lisinopril to 40mg Follow up with PCP (10) CAD (coronary artery disease): Denies CP S/P CABG in 2002 Continue aspirin, carvedilol, plavix Stable (11) History of TIA (transient ischemic attack): Continue Plavix, aspirin DVT Prophylaxis On Heparin SQ CODE STATUS Full Code Disposition Possible discharge today Follow up with your PCP dr. Prajapati on 10/19 @ 2:05 PM Total Time Total Time Spent Total Time Spent (In Minutes): 35 minutes Total Time Includes: Examination of the Patient, Discharge Planning, Medication Reconciliation, Communication With Other Providers and Other Discharge Plan Discharge Items Patient Disposition: Home - Self-Care Reason For Visit: PNEUMONIA Discharge Diagnosis: Hypoxia Influenza A Pneumonia Diabetes Hypomagnesemia Activity: Resume your previous activity Non-emergency contact: Primary Care Provider Call non-emergency contact if: you have any medication questions and your temperature is above 101 Follow-up/Referrals: Jolly Prajapati MD [Primary Care Provider] - 10/19/19 2:05 pm Diet: Heart Healthy Addtl Attending Provider Instructions: Follow up with your primary care provider Dr. Prajapati on 10/19 @ 2:05 PM Monitor your blood pressure and bring your blood pressure log at your next appointment with your provider Your physician will adjust your blood pressure medication if needs Complete the course of the antibiotic with doxycycline and prednisone Pending Studies at Discharge: No Stand-Alone Forms: [facility], Smoking Cessation Medications and DC Order Prescriptions: New doxycycline hyclate 100 mg Capsule 100 mg PO BID 4 Days Qty: 8 RF: 0 guaifenesin 200 mg Tablet 200 mg PO Q8H PRN (Reason: cough) 5 Days Qty: 15 RF: 0 prednisone 20 mg tablet 40 mg PO DAILY 4 Days Qty: 8 RF: 0 Continued multivitamin Tablet 1 tab PO QAM Qty: 0 RF: 0 tacrolimus [Prograf] 1 mg Capsule 2 mg PO DAILY Qty: 0 RF: 0 omega 3-[id number]-fish oil [Fish Oil] 1,000 mg (120 mg-180 mg) Capsule 1 cap PO QAM Qty: 0 RF: 0 Probiotic 3 billion cell Capsule 3,000 mmu cells PO QAM Qty: 0 RF: 0 Lumigan 0.01 % Drops 1 drp OPB HS 30 Days Qty: 2.5 RF: 3 cyanocobalamin (vitamin B-12) [Vitamin B-12] 100 mcg Tablet 200 mcg PO QAM Qty: 0 RF: 0 aspirin [Aspirin Low Dose] 81 mg Tablet,Delayed Release (Dr/Ec) 81 mg PO QAM Qty: 0 RF: 0 cholecalciferol (vitamin D3) [Vitamin D3] 1,000 unit Tablet,Chewable 1,000 unit PO QAM Qty: 0 RF: 0 vitamin E 400 unit Capsule 400 unit PO QAM Qty: 0 RF: 0 metformin 500 mg tablet 500 mg PO QAM RF: 0 carvedilol 6.25 mg tablet 6.25 mg PO BID RF: 0 clopidogrel 75 mg tablet 75 mg PO QAM RF: 0 amlodipine 10 mg tablet 10 mg PO QAM RF: 0 ondansetron 4 mg tablet,disintegrating 4 mg PO Q6H PRN (Reason: nausea and vomiting) Qty: 14 RF: 0 lisinopril 20 mg tablet 20 mg PO QAM RF: 0 tacrolimus 1 mg Capsule 1 mg PO PM RF: 0 Discharge Orders: Discharge Order (Routine); Ordered 10/15/19 Ordered By: Claudy Carlton/Other Patient Handouts: Diabetes Synthetic Chemist Complications, Diabetes Resources, Diabetes Healthy Meals, Diabetes Exercise Benefits, Diabetes Living Life, Diabetes Manage A1C Test Admission Data Admit Date/Time: 10/12/19 13:49 Attending Provider: Claudy Quiroz Admit Provider: Hubert Laughlin Primary Care Provider: Jolly Prajapati Other Providers: Jatin Freitas ; Hubert Laughlin Other Interventions: Discharge Summary Assessment (RN) Last Done: 10/15/19 17:28 DC Date/Time DO NOT enter until pt leaves facility: 10/15/19 19:25
--- NOTE | 2019-10-19 09:14 | Coding Query ---
CODING QUERY To promote full compliance with coding requirements relating to patient care, provider participation is requested in all cases of supervisor throwing department uncertainty. Please assist us with the question(s) below: Coding Question(s): Patient admitted with shortness of breath. Received IV Solumedrol, Rocephin and Nebulizers in ED. History/Physical states " pt admitted with exacerbation of COPD , likely infectious". Please check below the phrase that describes the diagnosis that was treated during this Inpatient Stay. Thank you. Physician's Response(s): COPD with exacerbation was treated COPD wiithout exacerbation was treated Cannot determine if COPD was treated x__ Other/ Please document: Influenza, Pneumonia Principal Diagnosis: "that condition established after study, to be chiefly responsible for occasioning the admission of the patient to the hospital for care." Co-Existing Principal Diagnosis: "when two or more diagnoses equally meet the criteria for principal diagnosis as determined by the circumstances of admission, diagnostic work up, and/or therapy provided, and the Alphabetic Index, Tabular List, or another coding guideline does not provide sequencing direction, any one of the diagnoses may be sequenced first." "When the physician has documented what appears to be a current diagnosis in the body of the record, but has not included the diagnosis in the final diagnostic statement, the physician should be asked whether the diagnosis should be added." (Source [facility]oding [facility] 2 QTR90. p3-4) TON
== END 2019-10-15 19:25 | disposition home or self-care (01) | DRG 194 ==
LOC: ED 11:56 → SUATTDRO 13:49 → 2W 13:49 → 2N 15:27

== ENCOUNTER 2022-07-16 13:03 | Observation (INO) ==
[2022-07-16 14:07] LABS: Basophils # (auto) 0.04 K/uL (0-0.2); Basophils % (auto) 0.6 %; Eosinophils # (auto) 0.77 K/uL (0-0.50); Eosinophils % (auto) 10.7 %; Hematocrit (blood only) 40.4 % (40.1-51.0); Hemoglobin 13.9 g/dl (14.0-18.0); Immature Granulocytes # (auto) 0.04 K/uL (0.00-0.02); Immature Granulocytes % (auto) 0.6 %; Lymphocytes # (auto) 1.18 K/uL (1.2-3.4); Lymphocytes % (auto) 16.4 %; Mean Corpuscular Hemoglobin 31.4 pg (25.0-34.0); Mean Corpuscular Hgb Conc 34.4 g/dL (32.0-36.0); Mean Corpuscular Volume 91.4 fL (80.0-100.0); Mean Platelet Volume 11.4 fL (9.4-12.4); Monocytes # (auto) 0.66 K/uL (0.24-0.82); Monocytes % (auto) 9.2 %; Neutrophils # (auto) 4.52 K/uL (1.4-6.5); Neutrophils % (auto) 62.5 %; Platelet Count 148 K/uL (130-400); RDW Coefficient of Variation 14.2 % (11.5-14.5); RDW Standard Deviation 47.6 fL (36.4-46.3); Red Blood Count 4.42 M/uL (4.63-6.08); White Blood Count 7.21 K/ul (4.8-10.8)
[2022-07-16 14:28] LABS: Albumin Globulin Ratio 1.3 (0.9-2); Albumin Level 4.1 gm/dl (3.4-5.0); BUN Creatinine Ratio 15.8 (10-20); Bilirubin,Total 0.6 mg/dl (0.2-1.0); Calcium 9.7 mg/dl (8.5-10.1); Creatinine Clr Calc Pharmacy 46.5 ml/min; Est GFR (African American) 54.5 ml/min; Globulin 3.1 gm/dl (2.5-4.0); Magnesium 1.7 mg/dl (1.7-2.4); Potassium 4.1 mmol/L (3.5-5.1); Total Protein 7.2 gm/dl (6.0-8.3)
[2022-07-16 14:29] LABS: Partial Thromboplastin Ratio 1.1; Partial Thromboplastin Time 29.1 Seconds (21.0-31.0); Prothrombin Time 10.9 Seconds (9.0-12.0)
--- NOTE | 2022-07-16 14:57 | Electrocardiogram Report ---
Test Reason : Blood Pressure : / mmHG Vent. Rate : 058 BPM Atrial Rate : 058 BPM P-R Int : 148 ms QRS Dur : 092 ms QT Int : 438 ms P-R-T Axes : 018 -35 037 degrees QTc Int : 429 ms Poor data quality, interpretation may be adversely affected Sinus bradycardia Left anterior fascicular block Poor R wave progression, consider anterior AL vs. lead placement vs. LVH Abnormal ECG No previous ECGs available Confirmed by Channing Garza ([id number]) on 07/16/2022 2:57:14 PM Referred By: Confirmed By:Channing Garza
--- NOTE | 2022-07-16 15:16 | XRay Report ---
XR chest 2V PA/lateral CLINICAL HISTORY: SOB TECHNIQUE: 2 views of the chest were obtained. Comparison: Comparison is made to chest radiograph 10/13/2019 FINDINGS: Median sternotomy wires are unchanged. The cardiomediastinal silhouette is normal. There is elevation of the right hemidiaphragm. Underlying right lower airspace opacity is likely. Small right pleural e ffusion. IMPRESSION: Small right pleural effusion. Right lower lung airspace opacity may represent atelectasis, pneumonia, and/or aspiration. ACT 112: Negative or not required by law. Electronically signed by: Vitaliy Naidu M.D. 07/16/2022 3:15 PM
--- NOTE | 2022-07-16 16:03 | Emergency Department Note ---
Impression & Plan Pulmonary edema, Pleural effusion, COVID-19 ED Provider Note NAME: LAW HE AGE: 72 SEX: M : 1950 ARRIVES VIA: Walk-In INFORMANT: Patient, ED PROVIDER(S): Shankar Padron DO CHIEF COMPLAINT: Shortness of breath HPI: The patient is a 72-year-old male who presented to the emergency department at request of his primary care physician's office for an evaluation of shortness of breath. The patient has been having shortness of breath for approximately 1 year. He describes shortness of breath with exertion. He denies having any hemoptysis. He denies having any chest pain. His significant other also provides part of the history and states that he has been having some weakness and shortness of breath with exertion. He also notices some lower extremity swelling. He states he was seen at the office and had a chest x-ray yesterday. He was called today and told to go to the emergency department because of an abnormal chest x-ray. He thinks he might of been told to come because of fluid around his heart but he is not sure. The patient states he has been having symptoms for approximately 1 year. He states he has had a cough for approximately 1 month. Otherwise he states has been compliant with his outpatient medications. ROS: See above HPI for pertinent positives & negatives. A total of 10 systems reviewed and were otherwise negative. PAST MEDICAL HISTORY: See Below PAST SURGICAL HISTORY: See Below FAMILY HISTORY: See Below SOCIAL HISTORY: See Below HOME MEDICATIONS: See Below ALLERGIES: See Below VITALS: See Below PHYSICAL EXAMINATION: GENERAL: Patient is awake alert in no acute distress patient is resting comfortably and showing no signs of anxiety EYES: The conjunctivae are clear. The pupils are round and reactive. EARS, NOSE, MOUTH AND THROAT: The nose is without any evidence of any deformity. Mucous membranes are moist. Tongue is midline. NECK: The neck is nontender and supple. RESPIRATORY: Diminished breath sounds are noted at the right base. There were rales at the right base. There was no tachypnea or conversational dyspnea. CARDIOVASCULAR: Regular rate and rhythm noted there no murmurs rubs or gallops normal S1 normal S2. GASTROINTESTINAL: The abdomen is soft. Abdomen is nontender. MUSCULOSKELETAL/EXTREMITIES: There is no evidence of gross deformity full range of motion is noted in the hips and shoulders. SKIN: Skin is warm and dry. Trace pedal edema was noted bilaterally. NEUROLOGIC: Patient is awake alert and oriented x3 MEDICAL DECISION MAKING: The patient is a 72-year-old male who is seen by his primary care physician's office for an evaluation of shortness of breath. The patient was diagnosed with pulmonary edema with an elevated BNP. The patient was felt to be a good c andidate for inpatient management as he has no cardiac issues and they felt the patient needed further cardiac work-up. He was sent to the emergency department today for this work-up. I discussed the patient's laboratory and radiographic studies with him. [facility] They have agreed to evaluate the patient in the emergency department for further management and disposition. Triage Nursing notes reviewed. Prior medical records reviewed Vital Signs: reviewed and remarkable for elevated blood pressure. Differential diagnosis: Reactive airway disease, pneumonia, pneumothorax, COPD, CHF, infections, cardiac ischemia, pulmonary embolism, musculoskeletal, gastrointestinal, as well as other pathologies. ER treatment provided: See below Diagnostics interpreted by me: ECG: EKG was obtained in the emergency department. My interpretation is sinus bradycardia 50 bpm. There is no ectopy. There is no acute ST segment a bnormalities noted. No previous tracing was available. Cardiac Monitoring: An order was placed for continuous cardiac monitoring. The monitor shows a rate of 74 bpm with sinus rhythm. Laboratory studies: As stated above and show below. Imaging studies: See below Consultation(s): I discussed this case with Kiley who is [facility]. Past Med/Surg History Medical History (Updated 07/16/22 @ 21:54 by Shankar Padron DO) CAD (coronary artery disease) "s/p CABG x 5 in 2002" CKD (chronic kidney disease), stage III Diabetes mellitus, type II Dyslipidemia History of TIA (transient ischemic attack) HTN (hypertension) Hx of diabetes mellitus Surgical History History of kidney transplant 2003 -[facility] History of pancreas transplant 2003- [facility] S/P CABG (coronary artery bypass graft) 2002 Family History Mother Breast cancer Father Diabetes Social History Smoking Status: Never smoker Second Hand Exposure: No; Hx Alcohol Use: No Hx Substance Use: No Preferred Language: Malawian Communication Ability: Effective Teradata Developer Required: No Beliefs That Will Affect Care: None marital status: Current Living Situation: Spouse Feels Safe at Home: Yes Assistive Devices: None Allergies Allergies Allergy/AdvReac Type Severity Reaction Status Date / Time sulfamethoxazole Allergy Intermediate rash Verified 07/16/22 19:15 trimethoprim Allergy Intermediate rash Verified 07/16/22 19:15 Home Meds Home Medications Medication Instructions Recorded Confirmed aspirin 81 mg tablet,delayed 81 mg PO QAM ##0 12/08/17 07/16/22 release (Gerson Low Dose Aspirin) bimatoprost 0.01 % eye drops 1 drp OPB HS 30 days #2.5 mL 12/08/17 07/16/22 (Lumigan) cholecalciferol (vitamin D3) 25 1,000 unit PO QAM #0 caps 12/08/17 07/16/22 mcg (1,000 unit) chewable tablet (Vitamin D3) cyanocobalamin (vitamin B-12) 100 200 mcg PO QAM #0 tabs 12/08/17 07/16/22 mcg tablet (Vitamin B-12) multivitamin 1 tab PO QAM #0 tabs 12/08/17 07/16/22 omega 0-dwu-vfb-fish oil 1,000 mg 1 cap PO QAM ##0 12/08/17 07/16/22 (120 mg-180 mg) capsule (Fish Oil) amlodipine 10 mg tablet 10 mg PO QAM 09/23/19 07/16/22 carvedilol 6.25 mg tablet 12.5 mg PO BID 09/23/19 07/16/22 clopidogrel 75 mg tablet 75 mg PO QAM 09/23/19 07/16/22 metformin 500 mg tablet 1,000 mg PO BID 09/23/19 07/16/22 lisinopril 20 mg tablet 40 mg PO QAM 10/12/19 07/16/22 tacrolimus 1 mg capsule, See Rx Instructions .Route .COMPLEX 10/12/19 07/16/22 immediate-release chlorthalidone 25 mg tablet 25 mg PO DAILY 07/16/22 07/16/22 glipizide 2.5 mg tablet, extended 5 mg PO DAILY 07/16/22 07/16/22 release 24 hr Results & Data (ED) Vital Signs Vital Signs - 24 hr 07/16/22 13:09 07/16/22 16:04 07/16/22 16:05 Temperature 36.6 C Temperature Source Temporal Artery Scan Pulse Rate 61 Pulse Rate [Finger] Respiratory Rate 18 Respiratory Effort / Characteristics Non-Labored Spontaneous Non-Labored Respiratory Depth Normal Blood Pressure 152/79 H Blood Pressure [Right Arm] Blood Pressure Mean 103 Blood Pressure Mean [Right Arm] Blood Pressure Position Sitting Pulse Oximetry 98 98 Oxygen Delivery Method Room Air Room Air 07/16/22 16:05 07/16/22 16:02 07/16/22 17:55 Temperature Temperature Source Pulse Rate 72 Pulse Rate [Finger] 70 74 Respiratory Rate 20 18 20 Respiratory Effort / Characteristics Respiratory Depth Blood Pressure Blood Pressure [Right Arm] 159/83 H 180/79 H Blood Pressure Mean Blood Pressure Mean [Right Arm] 108 112 Blood Pressure Position Pulse Oximetry 98 98 97 Oxygen Delivery Method Room Air Home Medications Current Medication List: was personally reviewed by me Laboratory Data Attestation: I reviewed the patient's lab results. Result diagrams: 07/16/22 14:00 07/16/22 14:00 Lab Results 07/16/22 07/16/22 07/16/22 Range/Units 14:00 14:00 14:00 WBC 7.21 (4.8-10.8) K/ul RBC 4.42 L (4.63-6.08) M/uL Hgb 13.9 L (14.0-18.0) g/dl Hct 40.4 (40.1-51.0) % MCV 91.4 (80.0-100.0) fL MCH 31.4 (25.0-34.0) pg MCHC 34.4 (32.0-36.0) g/dL RDW Std Deviation 47.6 H (36.4-46.3) fL RDW Coeff of Jorden 14.2 (11.5-14.5) % Plt Count 148 (130-400) K/uL MPV 11.4 (9.4-12.4) fL Immature Gran % (Auto) 0.6 % Neut % (Auto) 62.5 % Lymph % (Auto) 16.4 % [place] % (Auto) 9.2 % Eos % (Auto) 10.7 % Baso % (Auto) 0.6 % Neut # (Auto) 4.52 (1.4-6.5) K/uL Lymph # (Auto) 1.18 L (1.2-3.4) K/uL [place] # (Auto) 0.66 (0.24-0.82) K/uL Eos # (Auto) 0.77 H (0-0.50) K/uL Baso # (Auto) 0.04 (0-0.2) K/uL Immature Gran # (Auto) 0.04 H (0.00-0.02) K/uL PT 10.9 (9.0-12.0) Seconds INR 1.0 (0.9-1.1) APTT 29.1 (21.0-31.0) Seconds PTT Ratio 1.1 Sodium 137 (136-145) mmol/L Potassium 4.1 (3.5-5.1) mmol/L Chloride 99 (98-107) mmol/L Carbon Dioxide 30 (21-32) mmol/L Anion Gap 8 (3-11) BUN 23 (6-23) mg/dl Creatinine 1.46 H (0.6-1.4) mg/dl Est Cr Clr Drug Dosing 46.5 ml/min Est GFR ( Amer) 54.5 ml/min Est GFR (Non-Af Amer) 47.0 ml/min BUN/Creatinine Ratio 15.8 (10-20) Glucose 119 H (70-99(Fasting)) mg/dl Calcium 9.7 (8.5-10.1) mg/dl Magnesium 1.7 (1.7-2.4) mg/dl Total Bilirubin 0.6 (0.2-1.0) mg/dl AST 16 (13-39) U/L ALT 12 (7-52) U/L Alkaline Phosphatase 69 (34-104) U/L Troponin I High Sens (0-20) pg/ml B-Natriuretic Peptide (0-100) pg/ml Total Protein 7.2 (6.0-8.3) gm/dl Albumin 4.1 (3.4-5.0) gm/dl Globulin 3.1 (2.5-4.0) gm/dl Albumin/Globulin Ratio 1.3 (0.9-2) Procalcitonin (0-0.5) ng/ml SARS-CoV-2 (PCR) (Negative) Influenza Type A (PCR) (Neg) Influenza Type B (PCR) (Neg) RSV (RT-PCR) (Neg) 07/16/22 07/16/22 07/16/22 Range/Units 14:00 14:00 16:18 WBC (4.8-10.8) K/ul RBC (4.63-6.08) M/uL Hgb (14.0-18.0) g/dl Hct (40.1-51.0) % MCV (80.0-100.0) fL MCH (25.0-34.0) pg MCHC (32.0-36.0) g/dL RDW Std Deviation (36.4-46.3) fL RDW Coeff of Jorden (11.5-14.5) % Plt Count (130-400) K/uL MPV (9.4-12.4) fL Immature Gran % (Auto) % Neut % (Auto) % Lymph % (Auto) % [place] % (Auto) % Eos % (Auto) % Baso % (Auto) % Neut # (Auto) (1.4-6.5) K/uL Lymph # (Auto) (1.2-3.4) K/uL [place] # (Auto) (0.24-0.82) K/uL Eos # (Auto) (0-0.50) K/uL Baso # (Auto) (0-0.2) K/uL Immature Gran # (Auto) (0.00-0.02) K/uL PT (9.0-12.0) Seconds INR (0.9-1.1) APTT (21.0-31.0) Seconds PTT Ratio Sodium (136-145) mmol/L Potassium (3.5-5.1) mmol/L Chloride (98-107) mmol/L Carbon Dioxide (21-32) mmol/L Anion Gap (3-11) BUN (6-23) mg/dl Creatinine (0.6-1.4) mg/dl Est Cr Clr Drug Dosing ml/min Est GFR ( Amer) ml/min Est GFR (Non-Af Amer) ml/min BUN/Creatinine Ratio (10-20) Glucose (70-99(Fasting)) mg/dl Calcium (8.5-10.1) mg/dl Magnesium (1.7-2.4) mg/dl Total Bilirubin (0.2-1.0) mg/dl AST (13-39) U/L ALT (7-52) U/L Alkaline Phosphatase (34-104) U/L Troponin I High Sens 7.1 (0-20) pg/ml B-Natriuretic Peptide 376 H (0-100) pg/ml Total Protein (6.0-8.3) gm/dl Albumin (3.4-5.0) gm/dl Globulin (2.5-4.0) gm/dl Albumin/Globulin Ratio (0.9-2) Procalcitonin (0-0.5) ng/ml SARS-CoV-2 (PCR) POSITIVE A* (Negative) Influenza Type A (PCR) Negative (Neg) Influenza Type B (PCR) Negative (Neg) RSV (RT-PCR) Negative (Neg) 07/16/22 Range/Units 20:35 WBC (4.8-10.8) K/ul RBC (4.63-6.08) M/uL Hgb (14.0-18.0) g/dl Hct (40.1-51.0) % MCV (80.0-100.0) fL MCH (25.0-34.0) pg MCHC (32.0-36.0) g/dL RDW Std Deviation (36.4-46.3) fL RDW Coeff of Jorden (11.5-14.5) % Plt Count (130-400) K/uL MPV (9.4-12.4) fL Immature Gran % (Auto) % Neut % (Auto) % Lymph % (Auto) % [place] % (Auto) % Eos % (Auto) % Baso % (Auto) % Neut # (Auto) (1.4-6.5) K/uL Lymph # (Auto) (1.2-3.4) K/uL [place] # (Auto) (0.24-0.82) K/uL Eos # (Auto) (0-0.50) K/uL Baso # (Auto) (0-0.2) K/uL Immature Gran # (Auto) (0.00-0.02) K/uL PT (9.0-12.0) Seconds INR (0.9-1.1) APTT (21.0-31.0) Seconds PTT Ratio Sodium (136-145) mmol/L Potassium (3.5-5.1) mmol/L Chloride (98-107) mmol/L Carbon Dioxide (21-32) mmol/L Anion Gap (3-11) BUN (6-23) mg/dl Creatinine (0.6-1.4) mg/dl Est Cr Clr Drug Dosing ml/min Est GFR ( Amer) ml/min Est GFR (Non-Af Amer) ml/min BUN/Creatinine Ratio (10-20) Glucose (70-99(Fasting)) mg/dl Calcium (8.5-10.1) mg/dl Magnesium (1.7-2.4) mg/dl Total Bilirubin (0.2-1.0) mg/dl AST (13-39) U/L ALT (7-52) U/L Alkaline Phosphatase (34-104) U/L Troponin I High Sens (0-20) pg/ml B-Natriuretic Peptide (0-100) pg/ml Total Protein (6.0-8.3) gm/dl Albumin (3.4-5.0) gm/dl Globulin (2.5-4.0) gm/dl Albumin/Globulin Ratio (0.9-2) Procalcitonin < 0.05 (0-0.5) ng/ml SARS-CoV-2 (PCR) (Negative) Influenza Type A (PCR) (Neg) Influenza Type B (PCR) (Neg) RSV (RT-PCR) (Neg) Imaging Data Radiologist's Impression: Chest X-Ray 07/16/22 13:17 XR chest 2V PA/lateral CLINICAL HISTORY: SOB TECHNIQUE: 2 views of the chest were obtained. Comparison: Comparison is made to chest radiograph 10/13/2019 FINDINGS: Median sternotomy wires are unchanged. The cardiomediastinal silhouette is normal. There is elevation of the right hemidiaphragm. Underlying right lower airspace opacity is likely. Small right pleural effusion. IMPRESSION: Small right pleural effusion. Right lower lung airspace opacity may represent atelectasis, pneumonia, and/or aspiration. ACT 112: Negative or not required by law. Electronically signed by: Vitaliy Naidu M.D. 07/16/2022 3:15 PM Discharge Plan Visit Data Chief Complaint: Shortness of Breath/Dyspnea Stated Complaint: SOB-FLUID AROUND HEART-REF BY DOC ED Provider: Shankar Padron Discharge Problem: Pulmonary edema, Pleural effusion, COVID-19 Patient Disposition: Being Evaluated by Hospitalist Forms Stand Alone Forms: My [facility] Prescriptions Prescriptions: No Action multivitamin Tablet 1 tab PO QAM Qty: 0 omega 0-uet-kif-fish oil [Fish Oil] 1,000 mg (120 mg-180 mg) Capsule 1 cap PO QAM Qty: 0 Lumigan 0.01 % Drops 1 drp OPB HS 30 Days Qty: 2.5 cyanocobalamin (vitamin B-12) [Vitamin B-12] 100 mcg Tablet 200 mcg PO QAM Qty: 0 aspirin [Gerson Low Dose Aspirin] 81 mg Tablet,Delayed Release (Dr/Ec) 81 mg PO QAM Qty: 0 cholecalciferol (vitamin D3) [Vitamin D3] 1,000 unit Tablet,Chewable 1,000 unit PO QAM Qty: 0 metformin 500 mg tablet 1,000 mg PO BID carvedilol 6.25 mg tablet 12.5 mg PO BID clopidogrel 75 mg tablet 75 mg PO QAM amlodipine 10 mg tablet 10 mg PO QAM lisinopril 20 mg tablet 40 mg PO QAM tacrolimus 1 mg Capsule See Rx Instructions .ROUTE .COMPLEX Rx Instructions: 2 Capsules in the morning and one in the evening chlorthalidone 25 mg tablet 25 mg PO DAILY glipizide 2.5 mg tablet extended release 24hr 5 mg PO DAILY Referrals Referrals: PCP,NO [Physician] -
[2022-07-16 17:06] LABS: Influenza A virus by PCR Negative (Neg); Influenza B virus by PCR Negative (Neg); RSV by PCR Negative (Neg)
[2022-07-16 17:31] LABS: SARS CoV2 RNA(COVID-19) InHosp POSITIVE (Negative)
--- NOTE | 2022-07-16 18:42 | History & Physical Report ---
Date of Service July 16, 2022 Assessment & Plan (1) Shortness of breath: (2) COVID-19: (3) History of TIA (transient ischemic attack): (4) History of pancreas transplant: (5) History of kidney transplant: (6) Diabetes mellitus, type II: (7) CAD (coronary artery disease): (8) HTN (hypertension): (9) CKD (chronic kidney disease), stage III: Plan This is a 72yo M with a PMH of Type 2 diabetes, CKD III, CAD, history of pancreas transplant at [facility], PAD, history of kidney transplant, history of CVA and other medical problems listed below who presents for follow up after 6 months. Shortness of breath Covid 19 Recent dx of bronchitis, complicated - on day 2 of Cefdinir abx started by PCP CXR with small right pleural effusion. Right lower lung airspace opacity may represent atelectasis, pneumonia, and/or aspiration Cold sx for >2 week, so out of window for antiviral. Oxygen saturation 97% on room air Will obtain blood cultures, sputum culture given immunocompromised state as a transplant patient Empiric rocephin, azithromycin for possible bacterial PNA. Procal pendiing Concern for volume overload given pro-BNP >1,000 in outpatient setting, progressive worsening SOB. Will obtain routine 2D echo (preserved EF of 60% in 2020) No chest pain, ECG without acute ST changes,initial HS trop negative DM II A1c 5.9 Hold home agents SSI while in-patient BSG AC HS CAD H/o CABG >10 years ago. Continue aspirin, plavix, Carvedilol. Not on a statin Asymptomatic bilateral carotid artery stenosis Recently scheduled f/u with vascular for carotids, PAUL Hypertension goal BP (blood pressure) < 140/90 Continue home lisinopril, amlodipine, carvedilol S/P kidney transplant, pancreas transplant Immunocompromised state In [address] [facility] Continue tacrolimus (recently decreased to 1mg BID) CKD III Cr at baseline of 1.5. Monitor with daily BMP DVT Ppx: SQ heparin Code status: FULL PCP: Alo Dispo: Admit to med tele Patient seen in collaboration with Dr. Gomez. Please see addendum. History of Present Illness Chief Complaint: Shortness of breath Primary Care Provider: Jolly Prajapati MD This is a 72yo M with a PMH of Type 2 diabetes, CKD III, CAD, history of pancreas transplant at [facility], PAD, history of kidney transplant, history of CVA and other medical problems listed below who presented to PCP for follow up after 6 months and was directed to ED for concern for fluid overload. Feels like he has been short of breath for the past year with worsened cold symptoms for past 3 weeks. Continues to have cough, runny nose, weakness. Has been taking Mucinex without much relief. Feeling very short of breath. Diagnosed with complicated bronchitis and started on 10-day course of cefdinir. Outpatient chest x-ray not resulted yet. Outpatient lab work from 07/15/22 with normal WBC of 10k, hgb 12.9, pro-BNP elevated at 1,234. Cr at baseline 1.5. Also had left x-ray hip done due to hip pain and found to have chronic findings mild osteoarthritis, unchanged postoperative changes of prior left femoral neck fracture fixation with screws in place. Also evidence of multilevel intervertebral disc degeneration and facet osteoarthritis and lower lumbar spine. Allergies Allergy/AdvReac Type Severity Reaction Status Date / Time sulfamethoxazole Allergy Intermediate rash Verified 07/16/22 19:15 trimethoprim Allergy Intermediate rash Verified 07/16/22 19:15 Home Medications Medication Instructions Recorded Confirmed Type aspirin 81 mg tablet,delayed 81 mg PO QAM ##0 12/08/17 07/16/22 History release (Gerson Low Dose Aspirin) bimatoprost 0.01 % eye drops 1 drp OPB HS 30 days #2.5 mL 12/08/17 07/16/22 History (Lisa) cholecalciferol (vitamin D3) 25 1,000 unit PO QAM #0 caps 12/08/17 07/16/22 History mcg (1,000 unit) chewable tablet (Vitamin D3) cyanocobalamin (vitamin B-12) 100 200 mcg PO QAM #0 tabs 12/08/17 07/16/22 History mcg tablet (Vitamin B-12) multivitamin 1 tab PO QAM #0 tabs 12/08/17 07/16/22 History omega 8-wso-rjo-fish oil 1,000 mg 1 cap PO QAM ##0 12/08/17 07/16/22 History (120 mg-180 mg) capsule (Fish Oil) amlodipine 10 mg tablet 10 mg PO QAM 09/23/19 07/16/22 History carvedilol 6.25 mg tablet 12.5 mg PO BID 09/23/19 07/16/22 History clopidogrel 75 mg tablet 75 mg PO QAM 09/23/19 07/16/22 History metformin 500 mg tablet 1,000 mg PO BID 09/23/19 07/16/22 History lisinopril 20 mg tablet 40 mg PO QAM 10/12/19 07/16/22 History tacrolimus 1 mg capsule, See Rx Instructions .Route .COMPLEX 10/12/19 07/16/22 History immediate-release chlorthalidone 25 mg tablet 25 mg PO DAILY 07/16/22 07/16/22 History glipizide 2.5 mg tablet, extended 5 mg PO DAILY 07/16/22 07/16/22 History release 24 hr Past Med/Surg History Medical History (Updated 07/16/22 @ 18:50 by Kiley Hammonds PA-C) CAD (coronary artery disease) "s/p CABG x 5 in 2002" CKD (chronic kidney disease), stage III Diabetes mellitus, type II Dyslipidemia History of TIA (transient ischemic attack) HTN (hypertension) Hx of diabetes mellitus Surgical History History of kidney transplant 2003 -[facility] History of pancreas transplant [address]- [facility] S/P CABG (coronary artery bypass graft) 2002 Family History Mother Breast cancer Father Diabetes Social History Smoking Status: Never smoker Second Hand Exposure: No; Hx Alcohol Use: No Hx Substance Use: No Preferred Language: Yi Communication Ability: Effective Driving Instructor Required: No Beliefs That Will Affect Care: None marital status: Current Living Situation: Spouse Feels Safe at Home: Yes Assistive Devices: None Review of Systems Review of Systems: At least ten systems reviewed and negative except as noted in the HPI. Physical Exam Physical Exam: Please see Dr. Gomez's addendum for physical exam. Results & Data Results & Data ([facility]) Vital Signs (Past 12 Hours) Vital Signs Temp Pulse Pulse Resp BP BP Pulse Ox 07/16/22 17:55 74 20 180/79 H 97 07/16/22 16:02 70 18 159/83 H 98 07/16/22 16:05 72 20 98 07/16/22 16:05 98 07/16/22 16:04 07/16/22 13:09 36.6 C 61 18 152/79 H 98 O2 Del Method 07/16/22 17:55 07/16/22 16:02 07/16/22 16:05 Room Air 07/16/22 16:05 07/16/22 16:04 Room Air 07/16/22 13:09 Room Air Laboratory Results Short CBC 07/16/22 Range/Units 14:00 WBC 7.21 (4.8-10.8) K/ul Hgb 13.9 L (14.0-18.0) g/dl Hct 40.4 (40.1-51.0) % Plt Count 148 (130-400) K/uL BMP 07/16/22 14:00 Sodium 137 Potassium 4.1 Chloride 99 Carbon Dioxide 30 BUN 23 Creatinine 1.46 H Glucose 119 H Calcium 9.7 Liver Function 07/16/22 Range/Units 14:00 Total Bilirubin 0.6 (0.2-1.0) mg/dl AST 16 (13-39) U/L ALT 12 (7-52) U/L Alkaline Phosphatase 69 (34-104) U/L Albumin 4.1 (3.4-5.0) gm/dl Diagnostic Findings Chest X-Ray 07/16/22 13:17 XR chest 2V PA/lateral CLINICAL HISTORY: SOB TECHNIQUE: 2 views of the chest were obtained. Comparison: Comparison is made to chest radiograph 10/13/2019 FINDINGS: Median sternotomy wires are unchanged. The cardiomediastinal silhouette is normal. There is elevation of the right hemidiaphragm. Underlying right lower airspace opacity is likely. Small right pleural effusion. IMPRESSION: Small right pleural effusion. Right lower lung airspace opacity may represent atelectasis, pneumonia, and/or aspiration. ACT 112: Negative or not required by law. Electronically signed by: Vitaliy Naidu M.D. 07/16/2022 3:15 PM Supervising Physician Co-Signing Physician Notes Pt is a 72 y/o M with hx of CAD s/p CABG, s/p Kidney and pancreatic transplant on tacro, DMII, CKD III, HTN, PAD admitted for Pneumonia. Pt has been having SOB for 1 year but 3 weeks ago developed cough, rhinorrhea. Did not get tested for COVID 3 weeks ago. Not vaccinated against COVID PE: NAD, well developed Lungs: Decreased BS on the R lower lung but no crackles or wheezing Cardiac: Normal S1/S2, no murmur Abd: ND, NT, soft MSK: trace pitting edema of the distal LE (L>R)- chronic Psych: AAOx3, normal affect A/P: Bacterial pneumonia with + COVID: -pt is not hypoxic -his current respiratory symptoms are likley 2/2 bacterial pneumonia -will start pt on azithro and ceftriaxone -will send sputum culture Chronic SOB with elevated BNP: -pt did not appeared to be fluid overloaded -however due to hx of CAD will get echo -for now continue his chlorthalidone daily Elevated TSH: -TSH from 07/15 was 21.3 -will get am TSH with T4 -start pt on levothyroxine 25 mcg (due to his age will start at a low dose) DMII: -hold PO meds -ISS s/p kidney and pancreatic transplant with CKD III: -will continue Tacrolimus (2mg and 1mg pm) -Cr at his baseline (1.4-1.5) Other chronic conditions: plan as above Agree with A/P by Kiley Hammonds PA-C (1) HTN (hypertension) Hypertension type: essential hypertension Qualified Code(s): I10 - Essential (primary) hypertension
[2022-07-16] MEDS ORDERED: TACROLIMUS 1 MG CAP PO SCH ×2 (20:15→22:30)
[2022-07-16] MEDS ORDERED: CARBOHYDRATES FOR HYPOGLYCEMIA PO PRN (22:06)
[2022-07-16] MEDS ORDERED: GLUCAGON FOR INJ 1 MG VIAL SQ PRN (22:06)
[2022-07-16] MEDS ORDERED: ACETAMINOPHEN 325 MG TAB PO PRN (22:06)
[2022-07-16] MEDS ORDERED: DEXTROSE 50% 50 ML SYRINGE IV PRN (22:06)
[2022-07-16] MEDS ORDERED: GLUCOSE 40% GEL 15 GM TUBE PO PRN (22:06)
[2022-07-16] MEDS ORDERED: GLUCOSE 10 TAB/TUBE PO PRN (22:06)
[2022-07-16] MEDS ORDERED: ONDANSETRON INJ 2 MG/ML 2 ML VIAL IV PRN (22:06)
[2022-07-16] MEDS ORDERED: POLYETHYLENE (MIRALAX) 17 GM PACK PO PRN (22:06)
[2022-07-16] MEDS ORDERED: cefTRIAXone SODIUM 2,000 MG in DEXTROSE 5% 50 ML IV SCH (22:30)
[2022-07-16] MEDS ORDERED: BIMATOPROST 0.01% OP SOLN 2.5 ML BTL OP SCH (22:30)
[2022-07-16] MEDS: INSULIN ASPART PER UNIT SC SCH (22:38)
[2022-07-16] MEDS ORDERED: AZITHROMYCIN 500 MG in DEXTROSE 5% 250 ML IV SCH (23:00)
[2022-07-16] MEDS: carvediloL 12.5 MG TAB PO SCH (23:32)
[2022-07-16] MEDS: guaiFENesin 600 MG TABCR PO SCH (23:32)
[2022-07-16] MEDS: HEPARIN SOD 5,000 UNIT/0.5 ML VIAL SQ SCH (23:33)
[2022-07-16] MEDS: TACROLIMUS 1 MG CAP PO SCH (23:35)
[2022-07-17] MEDS: HEPARIN SOD 5,000 UNIT/0.5 ML VIAL SQ SCH ×2 (05:46→13:48)
[2022-07-17] MEDS ORDERED: LEVOTHYROXINE SODIUM 25 MCG TABLET PO SCH (06:30)
[2022-07-17 07:26] LABS: BUN Creatinine Ratio 18.4 (10-20); Calcium 8.8 mg/dl (8.5-10.1); Creatinine Clr Calc Pharmacy 48.2 ml/min; Est GFR (African American) 56.9 ml/min; Est GFR (Non-African American) 49.1 ml/min
[2022-07-17 07:40] LABS: Thyroid Stimulating Hormone 22.393 uIu/ml (0.300-4.500)
[2022-07-17 07:54] LABS: Platelet Estimate Decreased (Normal)
[2022-07-17 07:55] LABS: Hematocrit (blood only) 35.1 % (40.1-51.0); Hemoglobin 12.4 g/dl (14.0-18.0); Mean Corpuscular Hemoglobin 31.4 pg (25.0-34.0); Mean Corpuscular Hgb Conc 35.3 g/dL (32.0-36.0); Mean Corpuscular Volume 88.9 fL (80.0-100.0); Mean Platelet Volume 11.8 fL (9.4-12.4); Platelet Count 120 K/uL (130-400); RDW Coefficient of Variation 13.6 % (11.5-14.5); RDW Standard Deviation 44.7 fL (36.4-46.3); Red Blood Count 3.95 M/uL (4.63-6.08); White Blood Count 7.28 K/ul (4.8-10.8)
[2022-07-17 08:15] LABS: T4 Free Thyroxine 0.59 ng/dl (0.61-1.60)
[2022-07-17] MEDS: INSULIN ASPART PER UNIT SC SCH ×3 (08:56→17:00)
[2022-07-17] MEDS ORDERED: CHLORTHALIDONE 25 MG TAB PO SCH (09:00)
[2022-07-17] MEDS ORDERED: CLOPIDOGREL BISULFATE 75 MG TAB PO SCH (09:00)
[2022-07-17] MEDS ORDERED: CYANOCOBALAMIN (B-12) 100 MCG TABLET PO SCH (09:00)
[2022-07-17] MEDS ORDERED: TACROLIMUS 1 MG CAP PO SCH ×3 (09:00)
[2022-07-17] MEDS ORDERED: OMEGA-3 (PURIFIED FISH OIL) 1 GM CAP PO SCH (09:00)
[2022-07-17] MEDS ORDERED: ASPIRIN 81 MG ECTAB PO SCH (09:00)
[2022-07-17] MEDS ORDERED: CHOLECALCIFEROL 1,000 UNITS 25 MCG TAB PO SCH (09:00)
[2022-07-17] MEDS ORDERED: amLODIPine BESYLATE 5 MG TAB PO SCH (09:00)
[2022-07-17] MEDS ORDERED: lisinopril 40 MG TAB PO SCH (09:00)
[2022-07-17] MEDS ORDERED: MULTIVITAMIN TAB PO SCH (09:00)
[2022-07-17] MEDS: TACROLIMUS 1 MG CAP PO SCH (09:17)
[2022-07-17] MEDS: guaiFENesin 600 MG TABCR PO SCH (09:18)
[2022-07-17] MEDS: carvediloL 12.5 MG TAB PO SCH (09:18)
--- NOTE | 2022-07-17 14:41 | Discharge Summary ---
Discharge Summary Date of Service July 17, 2022 Notes For Next Care Provider Patient will need follow-up with PCP in a week time, his echo was fairly okay, no evidence of pulmonary edema on imaging. Echo shows grade 1 diastolic dysfunction with preserved ejection fraction, will need continued monitoring in this regard. Patient will likely need blood test CBC/CMP/magnesium level in a week time. Medication Changes From Visit Cefdinir and azithromycin has been added. Continue your prior eyedrops as prescribed by your PCP office. Admission HPI Per Admitting Provider This is a 72yo M with a PMH of Type 2 diabetes, CKD III, CAD, history of pancreas transplant at [facility], [facility], history of kidney transplant, history of CVA and other medical problems listed below who presented to PCP for follow up after 6 months and was directed to ED for concern for fluid overload. Feels like he has been short of breath for the past year with worsened cold symptoms for past 3 weeks. Continues to have cough, runny nose, weakness. Has been taking Mucinex without much relief. Feeling very short of breath. Diagnosed with complicated bronchitis and started on 10-day course of cefdinir. Outpatient chest x-ray not resulted yet. Outpatient lab work from 07/15/22 with normal WBC of 10k, hgb 12.9, pro-BNP elevated at 1,234. Cr at baseline 1.5. Also had left x-ray hip done due to hip pain and found to have chronic findings mild osteoarthritis, unchanged postoperative changes of prior left femoral neck fracture fixation with screws in place. Also evidence of multilevel intervertebral disc degeneration and facet osteoarthritis and lower lumbar spine. Principal Dx & Hospital Course #1 = Principal Diagnosis (1) Shortness of breath: (2) COVID-19: (3) History of TIA (transient ischemic attack): (4) History of pancreas transplant: (5) History of kidney transplant: (6) Diabetes mellitus, type II: (7) CAD (coronary artery disease): (8) HTN (hypertension): (9) CKD (chronic kidney disease), stage III: Plan This is a 72yo M with a PMH of Type 2 diabetes, CKD III, CAD, history of pancreas transplant at [facility], [facility], history of kidney transplant, history of CVA and other medical problems listed below was managed for the following: Shortness of breath Covid 19 Recent dx of bronchitis, complicated - on day 2/10 of Cefdinir abx started by PCP CXR with small right pleural effusion. Right lower lung airspace opacity may r epresent atelectasis, pneumonia, and/or aspiration Cold sx for >2 week, so out of window for antiviral. Oxygen saturation 97% on room air Pending admitting blood cultures, sputum culture given immunocompromised state as a transplant patient Empiric rocephin, azithromycin for possible bacterial PNA. On p.o. antibiotics upon discharge. Concern for volume overload given pro-BNP >1,000 in outpatient setting, progressive worsening SOB. BNP in hospital was 376. 2D echo reviewed with preserved ejection fraction. Patient with no chest pain, reports improvement in his shortness of breath, reports improvement in his cough with clearing of his sputum color. Patient reports feeling fine and would like to go home. Patient hemodynamically stable. Patient to continue p.o. antibiotic upon discharge, follow-up with his PCP. And will likely need blood test in a week time. Patient to follow-up with his admitting blood cultures with his PCP. 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 Continue aspirin, plavix, Carvedilol. Not on a statin Asymptomatic bilateral carotid artery stenosis Recently scheduled f/u with vascular for carotids, PAUL Hypertension goal BP (blood pressure) < 140/90 Continue home lisinopril, amlodipine, carvedilol S/P kidney transplant, pancreas transplant Immunocompromised state In 2003 at [facility] Continue tacrolimus (recently decreased to 1mg BID) CKD III Cr at baseline of 1.5. Monitor with daily BMP Patient being discharged to home with following instruction at the point of discharge: Follow-up with your primary care physician within a week time. After evaluation you will likely need blood test CBC/CMP/magnesium level. You have been diagnosed with COVID 19 infection on 07/16/2022, maintain self- isolation for 5 days from diagnosis, then you will have to wear masks when around people for next 5 days. Complete your antibiotic course for your bronchitis. Follow-up with your PCP for admitting blood culture. Maintain fluid restriction of 1.5 to 1.8 L/day. Take your medications as prescribed. Discharge Exam GENERAL: Alert and oriented x3. NAD, on RA. HEENT: No pallor, no icterus. Pupils equal, round and reactive to light. Oral mucosa moist. NECK: No JVD, no neck masses. HEART: S1 and S2 heard. Regular rate and rhythm. No murmur, no gallop. RESPIRATORY SYSTEM: Normal AP diameter. No accessory muscle use. No wheezing, no crackles. ABDOMEN: Soft, bowel sounds present, nontender, no distention. CENTRAL NERVOUS SYSTEM: No facial droop. Speech is clear. Obeys simple commands. Moves extremities. EXTREMITIES: No edema, no erythema seen. Updated Medication List Medication Instructions Recorded Confirmed Type aspirin 81 mg tablet,delayed 81 mg PO QAM ##0 12/08/17 07/16/22 History release (Gerson Low Dose Aspirin) bimatoprost 0.01 % eye drops 1 drp OPB HS 30 days #2.5 mL 12/08/17 07/16/22 History (Lumigan) cholecalciferol (vitamin D3) 25 1,000 unit PO QAM #0 caps 12/08/17 07/16/22 History mcg (1,000 unit) chewable tablet (Vitamin D3) cyanocobalamin (vitamin B-12) 100 200 mcg PO QAM #0 tabs 12/08/17 07/16/22 History mcg tablet (Vitamin B-12) multivitamin 1 tab PO QAM #0 tabs 12/08/17 07/16/22 History omega 3-jfm-tbl-fish oil 1,000 mg 1 cap PO QAM ##0 12/08/17 07/16/22 History (120 mg-180 mg) capsule (Fish Oil) amlodipine 10 mg tablet 10 mg PO QAM 09/23/19 07/16/22 History carvedilol 6.25 mg tablet 12.5 mg PO BID 09/23/19 07/16/22 History clopidogrel 75 mg tablet 75 mg PO QAM 09/23/19 07/16/22 History metformin 500 mg tablet 1,000 mg PO BID 09/23/19 07/16/22 History lisinopril 20 mg tablet 40 mg PO QAM 10/12/19 07/16/22 History tacrolimus 1 mg capsule, 1 mg PO BID 10/12/19 07/16/22 History immediate-release chlorthalidone 25 mg tablet 25 mg PO DAILY 07/16/22 07/16/22 History glipizide 2.5 mg tablet, extended 5 mg PO DAILY 07/16/22 07/16/22 History release 24 hr azithromycin 250 mg tablet 250 mg PO DAILY 4 days #4 tabs 07/17/22 Rx brimonidine 0.2 %-timolol 0.5 % 1 drp OPL BID #10 mL 07/17/22 Rx eye drops (Combigan) cefdinir 300 mg capsule 300 mg PO BID 6 days #12 caps 07/17/22 Rx guaifenesin 600 mg tablet, 1,200 mg PO Q12 5 days #20 tabs 07/17/22 Rx extended release 12 hr (Mucinex) netarsudil 0.02 %-latanoprost 1 drp ophthalmic (eye) HS #2.5 mL 07/17/22 Rx 0.005 % eye drops (Rocklatan) Hospital Stay Data Consultations 07/16/22 17:57 ED Decision to Admit Stat Pending Results Patient Have Any Pending Studies at Discharge: Yes (Admitting culture reports.) Discharge Instructions Given to Patient (Per Discharging Provider) Follow-up with your primary care physician within a week time. After evaluation you will likely need blood test CBC/CMP/magnesium level. You have been diagnosed with COVID 19 infection on 07/16/2022, maintain self-iso lation for 5 days from diagnosis, then you will have to wear masks when around people for next 5 days. Complete your antibiotic course for your bronchitis. Maintain fluid restriction of 1.5 to 1.8 L/day. Follow-up with your PCP for admitting blood culture. Take your medications as prescribed. Total Time Total Time Spent Total Time Spent (In Minutes): 45
[2022-07-18] MEDS ORDERED: LEVOTHYROXINE SODIUM 25 MCG TABLET PO SCH (06:30)
== END 2022-07-17 17:35 | disposition home or self-care (01) ==
LOC: EDBD → 2W 13:03 → ED 13:03 → MERGE 13:03 → SUATTDRO 19:43 → 2W 22:46
DX: U07.1 COVID-19; Z88.8 Allergy status to other drugs, medicaments and biological substances; Z79.82 Long term (current) use of aspirin; Z94.83 Pancreas transplant status; Z88.2 Allergy status to sulfonamides; I25.10 Atherosclerotic heart disease of native coronary artery without angina pectoris; E11.9 Type 2 diabetes mellitus without complications; Z86.73 Personal history of transient ischemic attack (TIA), and cerebral infarction without residual deficits; Z79.899 Other long term (current) drug therapy; I65.23 Occlusion and stenosis of bilateral carotid arteries; J15.9 Unspecified bacterial pneumonia; I12.9 Hypertensive chronic kidney disease with stage 1 through stage 4 chronic kidney disease, or unspecified chronic kidney disease; Z95.1 Presence of aortocoronary bypass graft; Z79.84 Long term (current) use of oral hypoglycemic drugs; Z94.0 Kidney transplant status; Z79.890 Hormone replacement therapy; N18.30 Chronic kidney disease, stage 3 unspecified

== ENCOUNTER 2023-05-20 20:18 | Inpatient (IN) ==
--- NOTE | 2023-05-20 20:42 | Emergency Department Note ---
Impression & Plan Acute CVA (cerebrovascular accident), Right sided weakness ED Provider Note Provider: Amado Lester MD DATE OF SERVICE: 05/20/2023 CHIEF COMPLAINT: Weak right arm and leg, speech issues HISTORY OF PRESENT ILLNESS: Patient is a 73-year-old gentleman history of kidney and pancreas transplant, TIA, type 2 diabetes, CAD, and CKD presenting here today with . Onset of symptoms approximately 3 days ago with some weakness and discoordination with the right leg and arm. States his speech is minimal but slurred at some points. Rates maybe a slight headache. States he has been driving a little bit oddly has been unsteady on his feet. No trauma or falls reported. No MVAs. Patient denies significant chest pain or shortness of breath. Denies fever. Denies abdominal symptoms. Maybe a little bit of diminished sensation of the right leg and foot. is concerned that he may have had a stroke and convinced him finally to come in. Patient states he had a lot of hospitalizations after his kidney and pancreas transplant about 20 years ago and thus is not a fan of hospitals. States maybe a little bit of difficulty getting his words out earlier. Was seen here earlier this year and did have outpatient follow-up regarding some narrowing of the arteries in his neck but was told he was not a surgical candidate at that time as the blockages/stenosis/narrowing was not severe enough to warrant surgical intervention at that time. PAST MEDICAL HISTORY: As noted above MEDICATIONS: Reviewed home medications includes Plavix SOCIAL HISTORY: , non-smoker PHYSICAL EXAM: GENERAL: alert and oriented in no acute distress on stretcher Head: normocephalic and atraumatic EYES: No injection, discharge or icterus. PERRL, EOMI. NECK: Trachea midline. ENT: Mucous membranes pink and moist. Pharynx without erythema or exudate. LUNGS: Airway patent. No retractions or tachycardia HEART: Regular rate and rhythm. SKIN: Acyanotic, warm, dry, without rashes EXTREMITIES: Without swelling, tenderness or deformity NEUROLOGICAL: Very slight right facial droop noted on smiling tongue midline. Some mildly slurred speech. No clear aphasia at this time. Moving all extremities but slightly weak in the right arm and leg. Difficulty with ambulation due to strength in his right leg. EK bpm normal sinus rhythm. No PVC or PAC. Left axis noted. QTc 427. No clear acute ST segment elevation noted outside of isolated V2 elevation. In comparison to previous from November 19 of this year slightly more prominent V2 ST elevation but otherwise similar morphologies CONTINUOUS CARDIAC MONITORING: was ordered and showed a heart rate of 60s bpm in normal sinus rhythm 1 view chest x-ray per my interpretation: Chronic elevation of the right hemidiaphragm without evidence of pneumonia pneumothorax. Patient's laboratory studies and imaging reviewed. Differential includes Infection, dehydration, metabolic abnormality, hypo/hyperglycemia, electrolyte disturbance, anemia, hypoxia, cardiac sources, intracerebral event, toxicologic, neurologic, as well as other pathologies. IMPRESSION/MEDICAL DECISION MAKING: Patient presentation highly concerning for possible CVA but outside the timeframe for thrombolysis. Symptoms started several days ago. States has been on some aspirin. Did review prior evaluation here several months ago in the spring with notable stenosis of the neck carotid arteries. Reports he did follow-up was told not a candidate for intervention for this. Patient without otoniel hemiplegia but significant weakness in the right arm and leg. No clear aphasia but mildly slurred speech and possibly a slight right facial droop. Again no trauma. No infectious symptoms reported. Doubt meningitis. [id number] labs obtained and sent for CT scans urgently. Blood work here without significant leukocytosis and minimal anemia. No severe electrolyte abnormalities noted with a reassuring creatinine of 1.3 fairly good compared to previous. No evidence of acute hepatitis. No cardiac symptoms reported. Benign abdomen. CT imaging shows evidence of a new hypodensity in the left nolasco radiata concerning for infarct but no large territorial infarct or acute hemorrhage noted by report. CT angiogram of the head and neck with multiple stenoses. Given full dose aspirin and is already on Plavix. Will bring into the hospital for further care. Patient and agreeable. DIAGNOSIS: CVA, right-sided weakness DISPOSITION: Hospitalist will evaluate Patient was agreeable with this plan. Past Med/Surg History Medical History (Updated 05/20/23 @ 21:58 by Amado Lester M.D.) CAD (coronary artery disease) "s/p CABG x 5 in 2002" CKD (chronic kidney disease), stage III Diabetes mellitus, type II Dyslipidemia History of TIA (transient ischemic attack) HTN (hypertension) Hx of diabetes mellitus Surgical History History of kidney transplant 2004 -[facility] History of pancreas transplant 2003- [facility] S/P CABG (coronary artery bypass graft) 2002 Family History Mother Breast cancer Father Diabetes Social History Smoking Status: Never smoker Second Hand Exposure: No; Do You Dip or Chew Tobacco: Yes; Hx Alcohol Use: No Hx Substance Use: No Preferred Language: Chadian Communication Ability: Effective Revenue Enforcement Agent Required: No Beliefs That Will Affect Care: None marital status: Current Living Situation: Spouse Feels Safe at Home: Yes Assistive Devices: None Allergies Allergies Allergy/AdvReac Type Severity Reaction Status Date / Time sulfamethoxazole Allergy Intermediate rash Verified 05/20/23 22:47 trimethoprim Allergy Intermediate rash Verified 05/20/23 22:47 Home Meds Home Medications Medication Instructions Recorded Confirmed acetaminophen 325 mg tablet 650 mg PO QID PRN Pain 11/19/22 05/20/23 (Tylenol) amlodipine 10 mg tablet 10 mg PO DAILY 11/19/22 05/20/23 ascorbic acid (vitamin C) 500 mg 500 mg PO DAILY 11/19/22 05/20/23 tablet (Vitamin C) aspirin 81 mg tablet,delayed 81 mg PO DAILY 11/19/22 05/20/23 release brimonidine 0.2 %-timolol 0.5 % 1 drp OPB BID 11/19/22 05/20/23 eye drops (Combigan) chlorthalidone 25 mg tablet 25 mg PO DAILY 11/19/22 05/20/23 cholecalciferol (vitamin D3) 50 50 mcg PO DAILY 11/19/22 05/20/23 mcg (2,000 unit) tablet (Vitamin D3) clopidogrel 75 mg tablet 75 mg PO DAILY 11/19/22 05/20/23 cyanocobalamin (vitamin B-12) 100 0 mcg PO DAILY 11/19/22 05/20/23 mcg tablet (Vitamin B-12) glipizide 2.5 mg tablet, extended 2.5 mg PO BID 11/19/22 05/20/23 release 24 hr lisinopril 40 mg tablet 40 mg PO DAILY 11/19/22 05/20/23 metformin 1,000 mg tablet 1,000 mg PO BIDM 11/19/22 05/20/23 multivitamin 1 tab PO DAILY 11/19/22 05/20/23 netarsudil 0.02 %-latanoprost 1 drp OPB HS 11/19/22 05/20/23 0.005 % eye drops (Rocklatan) tacrolimus 1 mg oral granules in 1 mg PO BID 11/19/22 05/20/23 packet carvedilol 12.5 mg tablet 12.5 mg PO BID 05/20/23 05/20/23 oregano oil 1,500 mg capsule 0 mg PO DIRECTED 05/20/23 05/20/23 Results & Data (ED) Vital Signs Vital Signs - 24 hr 05/20/23 20:19 Temperature 37 C Temperature Source Temporal Artery Scan Pulse Rate 65 Respiratory Rate 17 Blood Pressure 156/78 H Blood Pressure Mean 104 Pulse Oximetry 98 Sepsis Recent Fever Within 48 Hours No Sepsis New/Unexplained Change in Mental Status No Sepsis Action Taken by Nursing No Action Required Laboratory Data 05/20/23 20:31 05/20/23 20:31 Lab Results 05/20/23 05/20/23 05/20/23 Range/Units 20:31 20:31 20:31 WBC 8.41 (4.8-10.8) K/ul RBC 4.11 L (4.70-6.10) M/uL Hgb 12.7 L (14.0-18.0) g/dl POC Hgb (14.0-18.0) g/dl Hct 36.4 L (42.0-52.0) % POC Hct (42-52) % MCV 88.6 (80.0-100.0) fL MCH 30.9 (25.0-34.0) pg MCHC 34.9 (32.0-36.0) g/dL RDW Std Deviation 44.7 (36.4-46.3) fL RDW Coeff of Jorden 13.7 (11.5-14.5) % Plt Count 131 (130-400) K/uL MPV 11.6 (9.4-12.4) fL PT 10.9 (9.0-12.0) Seconds INR 1.0 (0.9-1.1) APTT 28.0 (21.0-31.0) Seconds PTT Ratio 1.0 POC Sodium (135-144) mmol/L Sodium 135 L (136-145) mmol/L POC Potassium (3.3-5.0) mmol/L Potassium 4.4 (3.5-5.1) mmol/L POC Chloride (101-112) mmol/L Chloride 98 (98-107) mmol/L Carbon Dioxide 29 (21-32) mmol/L POC Total CO2 (24-31) mmol/L Anion Gap 8 (3-11) POC Anion Gap (16-25) mmol/L POC BUN (7-18) mg/dl BUN 27 H (6-23) mg/dl Creatinine 1.34 (0.6-1.4) mg/dl POC Creatinine (0.6-1.3) mg/dl Est Cr Clr Drug Dosing Not Reportable Est GFR ( Amer) 60.1 ml/min Est GFR (Non-Af Amer) 51.8 ml/min BUN/Creatinine Ratio 20.1 H (10-20) Glucose 158 H (70-99(Fasting)) mg/dl POC Glucose (other) (70-99) mg/dl Calcium 9.6 (8.6-10.3) mg/dl POC Ioniz Calcium Juan (1.12-1.32) mmol/l Magnesium 1.8 (1.7-2.4) mg/dl Total Bilirubin 0.7 (0.2-1.0) mg/dl AST 18 (13-39) U/L ALT 15 (7-52) U/L Alkaline Phosphatase 66 (34-104) U/L Total Protein 6.7 (6.0-8.3) gm/dl Albumin 4.0 (3.4-5.0) gm/dl Globulin 2.7 (2.5-4.0) gm/dl Albumin/Globulin Ratio 1.5 (0.9-2) // Range/Units 20:40 WBC (4.8-10.8) K/ul RBC (4.70-6.10) M/uL Hgb (14.0-18.0) g/dl POC Hgb 12.6 L (14.0-18.0) g/dl Hct (42.0-52.0) % POC Hct 37 L (42-52) % MCV (80.0-100.0) fL MCH (25.0-34.0) pg MCHC (32.0-36.0) g/dL RDW Std Deviation (36.4-46.3) fL RDW Coeff of Jorden (11.5-14.5) % Plt Count (130-400) K/uL MPV (9.4-12.4) fL PT (9.0-12.0) Seconds INR (0.9-1.1) APTT (21.0-31.0) Seconds PTT Ratio POC Sodium 135 (135-144) mmol/L Sodium (136-145) mmol/L POC Potassium 4.3 (3.3-5.0) mmol/L Potassium (3.5-5.1) mmol/L POC Chloride 96 L (101-112) mmol/L Chloride (98-107) mmol/L Carbon Dioxide (21-32) mmol/L POC Total CO2 29 (24-31) mmol/L Anion Gap (3-11) POC Anion Gap 15.0 L (16-25) mmol/L POC BUN 25 H (7-18) mg/dl BUN (6-23) mg/dl Creatinine (0.6-1.4) mg/dl POC Creatinine 1.4 H (0.6-1.3) mg/dl Est Cr Clr Drug Dosing Est GFR ( Amer) ml/min Est GFR (Non-Af Amer) ml/min BUN/Creatinine Ratio (10-20) Glucose (70-99(Fasting)) mg/dl POC Glucose (other) 156 H (70-99) mg/dl Calcium (8.6-10.3) mg/dl POC Ioniz Calcium Juan 1.24 (1.12-1.32) mmol/l Magnesium (1.7-2.4) mg/dl Total Bilirubin (0.2-1.0) mg/dl AST (13-39) U/L ALT (7-52) U/L Alkaline Phosphatase (34-104) U/L Total Protein (6.0-8.3) gm/dl Albumin (3.4-5.0) gm/dl Globulin (2.5-4.0) gm/dl Albumin/Globulin Ratio (0.9-2) Administered Medications Discontinued Medications Aspirin (Aspirin Chew 324 Mg) 324 mg PO NOW STA Stop: 05/20/23 21:57 Last Admin: 05/20/23 22:51 Dose: 324 mg Documented By: MARSHALL Ioversol (Ioversol 350 Mg 125ml Prefilled Syringe) 115 ml IV ONCE ONE Stop: 05/20/23 20:59 Last Admin: 05/20/23 21:01 Dose: 115 ml Documented By: FABY Imaging Data Radiologist's Impression: Head CT 05/20/23 20:26 Exam(s): CT HEAD Without Contrast EXAM: CT Head Without Intravenous Contrast CLINICAL HISTORY: Reason for exam: Neuro deficit, acute, stroke suspected. TECHNIQUE: Axial computed tomography images of the head/brain without intravenous contrast. CTDI is 35.65 mGy and DLP is 624.11 mGy-cm. Automated exposure control was utilized for the study. A dose lowering technique was utilized adhering to the principles of ALARA. COMPARISON: 11/19/2022 FINDINGS: Brain: Stable asymmetric hypodensity within the left frontal lobe. Hypodensity scattered throughout the basal ganglia and subcortical deep white matter consistent with moderate ischemic microangiopathy. No acute transcortical infarct identified on this exam. There is a new area of asymmetric hypodensity within the left nolasco radiata. No acute intracranial hemorrhage. Ventricles: Unremarkable. No ventriculomegaly. Bones/joints: Unremarkable. No acute fracture. Soft tissues: Unremarkable. Sinuses: Complete opacification of the maxillary sinuses bilaterally as well as the left frontal sinus. Mastoid air cells: Unremarkable as visualized. No mastoid effusion. IMPRESSION: 1. New area of asymmetric hypodensity within the left nolasco radiata concerning for age-indeterminate lacunar infarct. MRI may be helpful further evaluation. 2. No large territorial infarct identified on this exam 3. No acute intracranial hemorrhage 4. Chronic left frontal and basal ganglia lacunar infarcts Electronically signed by: Benja Arias MD 05/20/23 21:26 PM Head CTA 05/20/23 20:26 CR Exam(s): CTA HEAD With Contrast IV Amt: 115 ml opti 350 EXAM: CT Angiography Head With Intravenous Contrast CLINICAL HISTORY: Reason for exam: poss stroke. TECHNIQUE: Axial computed tomographic angiography images of the head with intravenous contrast. CTDI is 18.68 mGy and DLP is 473.23 mGy-cm. Automated exposure control was utilized for the study. A dose lowering technique was utilized adhering to the principles of ALARA. MIP reconstructed images were created and reviewed. CONTRAST: Patient received 115 ml opti 350 of IV contrast COMPARISON: No relevant prior studies available. FINDINGS: Right internal carotid artery: No acute findings. Intracranial segment is patent with no significant stenosis. No aneurysm. Right anterior cerebral artery: Unremarkable. No occlusion or significant stenosis. No aneurysm. Right middle cerebral artery: Unremarkable. No occlusion or significant stenosis. No aneurysm. Right posterior cerebral artery: Unremarkable. No occlusion or significant stenosis. No aneurysm. Right vertebral artery: Unremarkable as visualized. Left internal carotid artery: No acute findings. Intracranial segment is patent with no significant stenosis. No aneurysm. Left anterior cerebral artery: Unremarkable. No occlusion or significant stenosis. No aneurysm. Left middle cerebral artery: Unremarkable. No occlusion or significant stenosis. No aneurysm. Left posterior cerebral artery: Unremarkable. No occlusion or significant stenosis. No aneurysm. Left vertebral artery: There is a focal 80% stenosis involving the distal left vertebral artery in the posterior fossa. The remainder of the vessel is patent without evidence of stenosis or occlusion. Basilar artery: Unremarkable. No occlusion or significant stenosis. No aneurysm. IMPRESSION: 80% stenosis involving the distal left vertebral artery within the posterior fossa. Remainder the intracranial circulation within normal limits Communications: Call Doctor Acute arterial occlusion/ critical stenosis Electronically signed by: Benja Arias MD 05/20/23 21:30 PM Neck CTA 05/20/23 20:26 CR Exam(s): CTA NECK With Contrast IV Amt: 115 ml opti 350 EXAM: CT Angiography Neck With Intravenous Contrast CLINICAL HISTORY: Reason for exam: poss stroke. TECHNIQUE: Routine carotid CT angiography protocol was performed with intravenous contrast. NASCET criteria using the distal ICAs for comparison were used for evaluation of stenoses. CTDI is 18.68 mGy and DLP is 473.23 mGy-cm. Automated exposure control was utilized for the study. A dose lowering technique was utilized adhering to the principles of ALARA. MIP reconstructed images were created and reviewed. CONTRAST: Patient received 115 ml opti 350 of IV contrast COMPARISON: Reference is made to prior study dated 11/19/2022 FINDINGS: VASCULATURE: Right common carotid artery: Unremarkable. No occlusion or significant stenosis. No dissection. Right internal carotid artery: Dense atherosclerotic plaque involving the right carotid bulb with extension into the internal and external carotid arteries. This results in 90% stenosis of the proximal right external carotid artery. There is perhaps 30% stenosis of the proximal right internal carotid artery. Mild atherosclerotic change of the right ICA as it enters the carotid siphon resulting in 20% stenosis. No dissection. Right external carotid artery: See above. Right vertebral artery: Unremarkable. No occlusion or significant stenosis. No dissection. Left common carotid artery: Extensive atherosclerotic change of the distal left common carotid artery resulting in occlusion of the proximal left external carotid artery which reconstitutes via collaterals almost immediately after the: Occlusion. The atherosclerotic change extends into the proximal ICA with 80% stenosis at its origin. Mild atherosclerotic change of the distal left ICA as it enters the carotid siphon without hemodynamically significant stenosis. Left internal carotid artery: See above. Left external carotid artery: See above. Left vertebral artery: Unremarkable. No occlusion or significant stenosis. No dissection. NECK: Bones/joints: Unremarkable. Soft tissues: Unremarkable. Sinuses: Dense sinus opacification of the ethmoid and bilateral maxillary sinuses. Lung apices: Clear. CAROTID STENOSIS REFERENCE USING NASCET CRITERIA: % ICA stenosis = (1 - narrowest ICA diameter/diameter of distal cervical ICA) x 100. Mild - <50% stenosis. Moderate - 50-69% stenosis. Severe - 70-94% stenosis. Near occlusion - 95-99% stenosis. Occluded - 100% stenosis. IMPRESSION: 1. Dense atherosclerotic change of the distal right carotid artery resulting in 90% stenosis of the proximal right external carotid artery. There is 30% stenosis of the proximal right internal iliac artery just beyond its origin with a tandem 20% stenosis seen distally within the right ICA at its entrance to carotid siphon 2. Dense atherosclerotic plaque involving the left distal common carotid artery resulting in occlusion of the proximal left external carotid artery and 80% stenosis of the proximal left ICA. Communications: Call Doctor Acute arterial occlusion/ critical stenosis Electronically signed by: Benja Arias MD 05/20/23 21:43 PM Discharge Plan Visit Data Chief Complaint: Neuro Symptoms/Deficit Stated Complaint: BRAIN NOT TELLING HANDS FEET WHAT TO DO,WEAK ED Provider: Amado Lester Discharge Problem: Acute CVA (cerebrovascular accident), Right sided weakness Patient Disposition: Being Evaluated by Hospitalist Forms Stand Alone Forms: [facility] Prescriptions Prescriptions: No Action acetaminophen [Tylenol] 325 mg Tablet 650 mg PO QID PRN (Reason: Pain) clopidogrel 75 mg tablet 75 mg PO DAILY chlorthalidone 25 mg tablet 25 mg PO DAILY aspirin [Aspir-Low] 81 mg Tablet,Delayed Release (Dr/Ec) 81 mg PO DAILY amlodipine 10 mg tablet 10 mg PO DAILY glipizide 2.5 mg tablet extended release 24hr 2.5 mg PO BID lisinopril 40 mg tablet 40 mg PO DAILY brimonidine-timolol [Combigan] 0.2-0.5 % drops 1 drp OPB BID Rx Instructions: per dr 1st multivitamin Tablet 1 tab PO DAILY cyanocobalamin (vitamin B-12) [Vitamin B-12] 100 mcg Tablet 0 mcg PO DAILY Rx Instructions: lozenge ascorbic acid (vitamin C) [Vitamin C] 500 mg Tablet 500 mg PO DAILY metformin 1,000 mg tablet 1,000 mg PO BIDM cholecalciferol (vitamin D3) [Vitamin D3] 50 mcg (2,000 unit) Tablet 50 mcg PO DAILY tacrolimus 1 mg Granules In Packet 1 mg PO BID Rocklatan 0.02-0.005 % drops 1 drp OPB HS Rx Instructions: Needs tonight carvedilol 12.5 mg tablet 12.5 mg PO BID oregano oil 1,500 mg Capsule 0 mg PO DIRECTED Referrals Referrals: Jolly Prajapati MD [Primary Care Provider] -
[2023-05-20 20:50] LABS: Hematocrit (blood only) 36.4 % (42.0-52.0); Hemoglobin 12.7 g/dl (14.0-18.0); Mean Corpuscular Hemoglobin 30.9 pg (25.0-34.0); Mean Corpuscular Hgb Conc 34.9 g/dL (32.0-36.0); Mean Corpuscular Volume 88.6 fL (80.0-100.0); Mean Platelet Volume 11.6 fL (9.4-12.4); Platelet Count 131 K/uL (130-400); RDW Coefficient of Variation 13.7 % (11.5-14.5); RDW Standard Deviation 44.7 fL (36.4-46.3); Red Blood Count 4.11 M/uL (4.70-6.10); White Blood Count 8.41 K/ul (4.8-10.8)
[2023-05-20 20:52] LABS: iSTAT Creatinine 1.4 mg/dl (0.6-1.3); iSTAT Hemoglobin 12.6 g/dl (14.0-18.0); iSTAT Ionized Calcium 1.24 mmol/l (1.12-1.32); iSTAT Potassium 4.3 mmol/L (3.3-5.0)
[2023-05-20] MEDS ORDERED: IOVERSOL 350 MG 125mL Prefilled Syringe IV ONE (20:58)
[2023-05-20 21:04] LABS: Alanine Aminotransferase 15 U/L (7-52); Albumin Globulin Ratio 1.5 (0.9-2); Alkaline Phosphatase 66 U/L (34-104); Anion Gap 8 (3-11); Aspartate Aminotransferase 18 U/L (13-39); BUN Creatinine Ratio 20.1 (10-20); Bilirubin,Total 0.7 mg/dl (0.2-1.0); Blood Urea Nitrogen 27 mg/dl (6-23); Calcium 9.6 mg/dl (8.6-10.3); Carbon Dioxide 29 mmol/L (21-32); Chloride 98 mmol/L (98-107); Est GFR (African American) 60.1 ml/min; Est GFR (Non-African American) 51.8 ml/min; Globulin 2.7 gm/dl (2.5-4.0); Glucose 158 mg/dl (70-99(Fasting)); Magnesium 1.8 mg/dl (1.7-2.4); Potassium 4.4 mmol/L (3.5-5.1); Sodium 135 mmol/L (136-145); Total Protein 6.7 gm/dl (6.0-8.3)
[2023-05-20 21:18] LABS: Prothrombin Time 10.9 Seconds (9.0-12.0)
--- NOTE | 2023-05-20 21:27 | CT Scan Report ---
Exam(s): CT HEAD Without Contrast EXAM: CT Head Without Intravenous Contrast CLINICAL HISTORY: Reason for exam: Neuro deficit, acute, stroke suspected. TECHNIQUE: Axial computed tomography images of the head/brain without intravenous contrast. CTDI is 35.65 mGy and DLP is 624.11 mGy-cm. Automated exposure control was utilized for the study. A dose lowering technique was utilized adhering to the principles of ALARA. COMPARISON: 11/19/2022 FINDINGS: Brain: Stable asymmetric hypodensity within the left frontal lobe. Hypodensity scattered throughout the basal ganglia and subcortical deep white matter consistent with moderate ischemic microangiopathy. No acute transcortical infarct identified on this exam. There is a new area of asymmetric hypodensity within the left nolasco radiata. No acute intracranial hemorrhage. Ventricles: Unremarkable. No ventriculomegaly. Bones/joints: Unremarkable. No acute fracture. Soft tissues: Unremarkable. Sinuses: Complete opacification of the maxillary sinuses bilaterally as well as the left frontal sinus. Mastoid air cells: Unremarkable as visualized. No mastoid effusion. IMPRESSION: 1. New area of asymmetric hypodensity within the left nolasco radiata concerning for age-indeterminate lacunar infarct. MRI may be helpful further evaluation. 2. No large territorial infarct identified on this exam 3. No acute intracranial hemorrhage 4. Chronic left frontal and basal ganglia lacunar infarcts Electronically signed by: Benja Arais MD 05/20/23 21:26 PM
--- NOTE | 2023-05-20 21:31 | CT Scan Report ---
Exam(s): CTA HEAD With Contrast IV Amt: 115 ml opti 350 EXAM: CT Angiography Head With Intravenous Contrast CLINICAL HISTORY: Reason for exam: poss stroke. TECHNIQUE: Axial computed tomographic angiography images of the head with intravenous contrast. CTDI is 18.68 mGy and DLP is 473.23 mGy-cm. Automated exposure control was utilized for the study. A dose lowering technique was utilized adhering to the principles of ALARA. MIP reconstructed images were created and reviewed. CONTRAST: Patient received 115 ml opti 350 of IV contrast COMPARISON: No relevant prior studies available. FINDINGS: Right internal carotid artery: No acute findings. Intracranial segment is patent with no significant stenosis. No aneurysm. Right anterior cerebral artery: Unremarkable. No occlusion or significant stenosis. No aneurysm. Right middle cerebral artery: Unremarkable. No occlusion or significant stenosis. No aneurysm. Right posterior cerebral artery: Unremarkable. No occlusion or significant stenosis. No aneurysm. Right vertebral artery: Unremarkable as visualized. Left internal carotid artery: No acute findings. Intracranial segment is patent with no significant stenosis. No aneurysm. Left anterior cerebral artery: Unremarkable. No occlusion or significant stenosis. No aneurysm. Left middle cerebral artery: Unremarkable. No occlusion or significant stenosis. No aneurysm. Left posterior cerebral artery: Unremarkable. No occlusion or significant stenosis. No aneurysm. Left vertebral artery: There is a focal 80% stenosis involving the distal left vertebral artery in the posterior fossa. The remainder of the vessel is patent without evidence of stenosis or occlusion. Basilar artery: Unremarkable. No occlusion or significant stenosis. No aneurysm. IMPRESSION: 80% stenosis involving the distal left vertebral artery within the posterior fossa. Remainder the intracranial circulation within normal limits Communications: Call Doctor Acute arterial occlusion/ critical stenosis Electronically signed by: Benja Arias MD 05/20/23 21:30 PM
--- NOTE | 2023-05-20 21:44 | CT Scan Report ---
Exam(s): CTA NECK With Contrast IV Amt: 115 ml opti 350 EXAM: CT Angiography Neck With Intravenous Contrast CLINICAL HISTORY: Reason for exam: poss stroke. TECHNIQUE: Routine carotid CT angiography protocol was performed with intravenous contrast. NASCET criteria using the distal ICAs for comparison were used for evaluation of stenoses. CTDI is 18.68 mGy and DLP is 473.23 mGy-cm. Automated exposure control was utilized for the study. A dose lowering technique was utilized adhering to the principles of ALARA. MIP reconstructed images were created and reviewed. CONTRAST: Patient received 115 ml opti 350 of IV contrast COMPARISON: Reference is made to prior study dated 11/19/2022 FINDINGS: VASCULATURE: Right common carotid artery: Unremarkable. No occlusion or significant stenosis. No dissection. Right internal carotid artery: Dense atherosclerotic plaque involving the right carotid bulb with extension into the internal and external carotid arteries. This results in 90% stenosis of the proximal right external carotid artery. There is perhaps 30% stenosis of the proximal right internal carotid artery. Mild atherosclerotic change of the right ICA as it enters the carotid siphon resulting in 20% stenosis. No dissection. Right external carotid artery: See above. Right vertebral artery: Unremarkable. No occlusion or significant stenosis. No dissection. Left common carotid artery: Extensive atherosclerotic change of the distal left common carotid artery resulting in occlusion of the proximal left external carotid artery which reconstitutes via collaterals almost immediately after the: Occlusion. The atherosclerotic change extends into the proximal ICA with 80% stenosis at its origin. Mild atherosclerotic change of the distal left ICA as it enters the carotid siphon without hemodynamically significant stenosis. Left internal carotid artery: See above. Left external carotid artery: See above. Left vertebral artery: Unremarkable. No occlusion or significant stenosis. No dissection. NECK: Bones/joints: Unremarkable. Soft tissues: Unremarkable. Sinuses: Dense sinus opacification of the ethmoid and bilateral maxillary sinuses. Lung apices: Clear. CAROTID STENOSIS REFERENCE USING NASCET CRITERIA: % ICA stenosis = (1 - narrowest ICA diameter/diameter of distal cervical ICA) x 100. Mild - <50% stenosis. Moderate - 50-69% stenosis. Severe - 70-94% stenosis. Near occlusion - 95-99% stenosis. Occluded - 100% stenosis. IMPRESSION: 1. Dense atherosclerotic change of the distal right carotid artery resulting in 90% stenosis of the proximal right external carotid artery. There is 30% stenosis of the proximal right internal iliac artery just beyond its origin with a tandem 20% stenosis seen distally within the right ICA at its entrance to carotid siphon 2. Dense atherosclerotic plaque involving the left distal common carotid artery resulting in occlusion of the proximal left external carotid artery and 80% stenosis of the proximal left ICA. Communications: Call Doctor Acute arterial occlusion/ critical stenosis Electronically signed by: Benja Arias MD 05/20/23 21:43 PM
[2023-05-20] MEDS ORDERED: ASPIRIN CHEW 324 MG PO STA (21:56)
[2023-05-20] MEDS ORDERED: carvediloL 6.25 MG TAB PO STA (23:12)
[2023-05-20] MEDS ORDERED: TACROLIMUS 1 MG CAP PO STA (23:12)
[2023-05-20] MEDS ORDERED: GLUCAGON FOR INJ 1 MG VIAL SQ PRN (23:40)
[2023-05-20] MEDS ORDERED: GLUCOSE 40% GEL 15 GM TUBE PO PRN (23:40)
[2023-05-20] MEDS ORDERED: SODIUM CHLORIDE 0.9% 1000ML 1,000 ML IV SCH (23:40)
[2023-05-20] MEDS ORDERED: GLUCOSE 10 TAB/TUBE PO PRN (23:40)
[2023-05-20] MEDS ORDERED: POLYETHYLENE (MIRALAX) 17 GM PACK PO PRN (23:40)
[2023-05-20] MEDS ORDERED: DEXTROSE 50% 50 ML SYRINGE IV PRN (23:40)
[2023-05-20] MEDS ORDERED: NITROGLYCERIN SL 0.4 MG/TAB TAB SL PRN (23:40)
[2023-05-20] MEDS ORDERED: ACETAMINOPHEN 325 MG TAB PO PRN (23:40)
[2023-05-20] MEDS ORDERED: PHARMACIST DISCHARGE MED REC CONSULT PRN (23:40)
[2023-05-20] MEDS ORDERED: CARBOHYDRATES FOR HYPOGLYCEMIA PO PRN (23:40)
--- NOTE | 2023-05-20 23:55 | History & Physical Report ---
Date of Service May 20, 2023 Assessment & Plan (1) Acute CVA (cerebrovascular accident): Plan: 3-year-old male with past medical significant for type 2 diabetes, hyperlipidemia, hypothyroidism, CAD s/p CABG, hypertension, bilateral carotid stenosis, peripheral artery disease, stage III chronic kidney disease, urge incontinence, history of C. difficile, history of TIA, history of CVA, history of pancreas transplant, history of kidney transplant at [facility] presents with strokelike symptoms. Strokelike symptoms Having right extremity weakness and some slurred speech and some fogginess in the head going on since last Friday CT head showing possible lacunar infarct in the left nolasco radiata CTA head showing 80% stenosis in the left vertebral artery CTA neck showing 90% stenosis of the proximal right external carotid artery and 80% stenosis of the proximal left ICA. And diffuse atherosclerotic disease. Patient is on aspirin and Plavix. Again loaded with aspirin in the ER We will start him on high-dose statin Neurochecks per protocol We will follow MRI scan, echocardiogram Neurology evaluation a.m. Speech evaluation PT OT evaluation Gentle fluids Close monitoring telemetry floor History of diabetes Hold metformin and glipizide Insulin sliding scale We will follow the blood sugars and HbA1c levels Hypertension We will continue his home amlodipine, Coreg, lisinopril and chlorthalidone We will hold chlorthalidone for permissive hypertension We will monitor the blood pressure History of CAD s/p CABG On aspirin Plavix to and beta-charlie and statin History of kidney and pancreas transplant On tacrolimus Peripheral vascular disease Aspirin and Plavix on and on statin Increasing the dose of statin Hypothyroidism as per records Seems not on medication We will follow TSH Chronic kidney stage III Creatinine 1.3 We will follow the labs DVT prophylaxis SCDs for now Disposition telemetry floor Full code History of Present Illness Chief Complaint: Strokelike symptoms Primary Care Provider: Jolly Prajapati MD 73-year-old male with past medical significant for type 2 diabetes, hyperlipidemia, hypothyroidism, CAD s/p CABG, hypertension, bilateral carotid stenosis, peripheral artery disease, stage III chronic kidney disease, urge incontinence, history of C. difficile, history of TIA, history of CVA, history of pancreas transplant, history of kidney transplant at [facility] presents with strokelike symptoms. Patient states last week he had severe headache but that got resolved. Last Friday morning he noticed weakness in the right extremities. While walking he has to drag his leg but not that bad. On and off he had some slurred speech. He did not want to come to the hospital. Symptoms are still the same today. Able to give his history. in the room. Occasionally some mild slurred speech. No obvious facial droop seen. Currently feels some foggy in the right side of the head and mild headache. Has longstanding double vision on and off. No recent fevers. Some on and off cough. No earaches. Able to swallow okay in the ER. No chest pain or shortness of breath. He has a chronic chest tightness on and off in the nighttime. No abdominal pain. Normal bowel and bladder movements. Currently resting comfortably and hemodynamically stable Past medical history as mentioned above Past surgical history colonoscopy, CABG, incision and drainage of the left leg abscess hematoma, right fem/pop artery revascularization with stent placed and angioplasty, left femoral fracture repair, transplant of pancreas at [facility] in 2003, tonsillectomy, right tibial/peroneal artery revascularization with angio, transplantation of kidney in 2003 at [facility]. Social history . Sniffs tobacco. No alcohol use no drug use Family history mother had breast cancer. Father had diabetes. Mother has Alzheimer's. Allergies Allergy/AdvReac Type Severity Reaction Status Date / Time sulfamethoxazole Allergy Intermediate rash Verified 05/20/23 22:47 trimethoprim Allergy Intermediate rash Verified 05/20/23 22:47 Home Medications Medication Instructions Recorded Confirmed Type acetaminophen 325 mg tablet 650 mg PO QID PRN Pain 11/19/22 05/20/23 History (Tylenol) amlodipine 10 mg tablet 10 mg PO DAILY 11/19/22 05/20/23 History ascorbic acid (vitamin C) 500 mg 500 mg PO DAILY 11/19/22 05/20/23 History tablet (Vitamin C) aspirin 81 mg tablet,delayed 81 mg PO DAILY 11/19/22 05/20/23 History release brimonidine 0.2 %-timolol 0.5 % 1 drp OPB BID 11/19/22 05/20/23 History eye drops (Combigan) chlorthalidone 25 mg tablet 25 mg PO DAILY 11/19/22 05/20/23 History cholecalciferol (vitamin D3) 50 50 mcg PO DAILY 11/19/22 05/20/23 History mcg (2,000 unit) tablet (Vitamin D3) clopidogrel 75 mg tablet 75 mg PO DAILY 11/19/22 05/20/23 History cyanocobalamin (vitamin B-12) 100 0 mcg PO DAILY 11/19/22 05/20/23 History mcg tablet (Vitamin B-12) glipizide 2.5 mg tablet, extended 2.5 mg PO BID 11/19/22 05/20/23 History release 24 hr lisinopril 40 mg tablet 40 mg PO DAILY 11/19/22 05/20/23 History metformin 1,000 mg tablet 1,000 mg PO BIDM 11/19/22 05/20/23 History multivitamin 1 tab PO DAILY 11/19/22 05/20/23 History netarsudil 0.02 %-latanoprost 1 drp OPB HS 11/19/22 05/20/23 History 0.005 % eye drops (Rocklatan) tacrolimus 1 mg oral granules in 1 mg PO BID 11/19/22 05/20/23 History packet carvedilol 12.5 mg tablet 12.5 mg PO BID 05/20/23 05/20/23 History oregano oil 1,500 mg capsule 0 mg PO DIRECTED 05/20/23 05/20/23 History atorvastatin 10 mg tablet 10 mg PO DAILY 05/21/23 05/21/23 History Past Med/Surg History Medical History (Updated 05/20/23 @ 21:58 by Amado Lester M.D.) CAD (coronary artery disease) "s/p CABG x 5 in 2002" CKD (chronic kidney disease), stage III Diabetes mellitus, type II Dyslipidemia History of TIA (transient ischemic attack) HTN (hypertension) Hx of diabetes mellitus Surgical History History of kidney transplant 2003 -[facility] History of pancreas transplant 2003- [facility] S/P CABG (coronary artery bypass graft) 2002 Family History Mother Breast cancer Father Diabetes Social History Smoking Status: Never smoker Second Hand Exposure: No; Hx Alcohol Use: No Hx Substance Use: No Preferred Language: Wolof Communication Ability: Effective 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 Lungs- clear to auscultation, no wheezing or crackles. Heart- regular rhythm; no murmur, no gallop. Abdomen- normal bowel sounds, soft, nontender, no distension. Extremities- no pretibial edema, no erythema seen. Neuro- alert, oriented x 3; PERRL, EOMI; no facial palsy; mild slurred speech; motor 5/5 in left extremities. 4-5/5 in right upper extremity 3/5 in right lower extremity; Co ordniation of movements normal ; finger to nose intact bilaterally. sensations intact. Skin- warm & dry Results & Data Results & Data Vital Signs (Past 12 Hours) Vital Signs Temp Pulse Resp BP Pulse Ox 05/20/23 20:19 37 C 65 17 156/78 H 98 Diagnostic Findings Laboratory Results WBC 8.41 K/ul (4.8-10.8) 05/20/23 20:31 RBC 4.11 M/uL (4.70-6.10) L 05/20/23 20:31 Hgb 12.7 g/dl (14.0-18.0) L 05/20/23 20:31 POC Hgb 12.6 g/dl (14.0-18.0) L 05/20/23 20:40 Hct 36.4 % (42.0-52.0) L 05/20/23 20:31 POC Hct 37 % (42-52) L 05/20/23 20:40 MCV 88.6 fL (80.0-100.0) 05/20/23 20:31 MCH 30.9 pg (25.0-34.0) 05/20/23 20:31 MCHC 34.9 g/dL (32.0-36.0) 05/20/23 20:31 RDW Std Deviation 44.7 fL (36.4-46.3) 05/20/23 20:31 RDW Coeff of Jorden 13.7 % (11.5-14.5) 05/20/23 20: Plt Count 131 K/uL (130-400) 05/20/23 20:31 MPV 11.6 fL (9.4-12.4) 05/20/23 20: PT 10.9 Seconds (9.0-12.0) 05/20/23 20: INR 1.0 (0.9-1.1) 05/20/23 20: APTT 28.0 Seconds (21.0-31.0) 05/20/23 20: PTT Ratio 1.0 05/20/23 20: POC Sodium 135 mmol/L (135-144) 05/20/23 20:40 Sodium 135 mmol/L (136-145) L 05/20/23 20: POC Potassium 4.3 mmol/L (3.3-5.0) 05/20/23 20:40 Potassium 4.4 mmol/L (3.5-5.1) 05/20/23 20: POC Chloride 96 mmol/L (101-112) L 05/20/23 20:40 Chloride 98 mmol/L (98-107) 05/20/23 20:31 Carbon Dioxide 29 mmol/L (21-32) 05/20/23 20:31 POC Total CO2 29 mmol/L (24-31) 05/20/23 20:40 Anion Gap 8 (3-11) 05/20/23 20: POC Anion Gap 15.0 mmol/L (16-25) L 05/20/23 20:40 POC BUN 25 mg/dl (7-18) H 05/20/23 20:40 BUN 27 mg/dl (6-23) H 05/20/23 20:31 Creatinine 1.34 mg/dl (0.6-1.4) 05/20/23 20: POC Creatinine 1.4 mg/dl (0.6-1.3) H 05/20/23 20:40 Est Cr Clr Drug Dosing Not Reportable 05/20/23 20: Est GFR ( Amer) 60.1 ml/min 05/20/23 20: Est GFR (Non-Af Amer) 51.8 ml/min 05/20/23 20:31 BUN/Creatinine Ratio 20.1 (10-20) H 05/20/23 20:31 Glucose 158 mg/dl (70-99(Fasting)) H 05/20/23 20:31 POC Glucose (other) 156 mg/dl (70-99) H 05/20/23 20:40 Calcium 9.6 mg/dl (8.6-10.3) 05/20/23 20:31 POC Ioniz Calcium Juan 1.24 mmol/l (1.12-1.32) 05/20/23 20:40 Magnesium 1.8 mg/dl (1.7-2.4) 05/20/23 20:31 Total Bilirubin 0.7 mg/dl (0.2-1.0) 05/20/23 20:31 AST 18 U/L (13-39) 05/20/23 20:31 ALT 15 U/L (7-52) 05/20/23 20:31 Alkaline Phosphatase 66 U/L (34-104) 05/20/23 20:31 Total Protein 6.7 gm/dl (6.0-8.3) 05/20/23 20:31 Albumin 4.0 gm/dl (3.4-5.0) 05/20/23 20:31 Globulin 2.7 gm/dl (2.5-4.0) 05/20/23 20:31 Albumin/Globulin Ratio 1.5 (0.9-2) 05/20/23 20:[address] 05/20/23 20:26 Exam(s): CT HEAD Without Contrast EXAM: CT Head Without Intravenous Contrast CLINICAL HISTORY: Reason for exam: Neuro deficit, acute, stroke suspected. TECHNIQUE: Axial computed tomography images of the head/brain without intravenous contrast. CTDI is 35.65 mGy and DLP is 624.11 mGy-cm. Automated exposure control was utilized for the study. A dose lowering technique was utilized adhering to the principles of ALARA. COMPARISON: 11/19/2022 FINDINGS: Brain: Stable asymmetric hypodensity within the left frontal lobe. Hypodensity scattered throughout the basal ganglia and subcortical deep white matter consistent with moderate ischemic microangiopathy. No acute transcortical infarct identified on this exam. There is a new area of asymmetric hypodensity within the left nolasco radiata. No acute intracranial hemorrhage. Ventricles: Unremarkable. No ventriculomegaly. Bones/joints: Unremarkable. No acute fracture. Soft tissues: Unremarkable. Sinuses: Complete opacification of the maxillary sinuses bilaterally as well as the left frontal sinus. Mastoid air cells: Unremarkable as visualized. No mastoid effusion. IMPRESSION: 1. New area of asymmetric hypodensity within the left nolasco radiata concerning for age-indeterminate lacunar infarct. MRI may be helpful further evaluation. 2. No large territorial infarct identified on this exam 3. No acute intracranial hemorrhage 4. Chronic left frontal and basal ganglia lacunar infarcts Electronically signed by: Benja Arias MD 05/20/23 21:26 PM Head CTA 05/20/23 20:26 CR Exam(s): CTA HEAD With Contrast IV Amt: 115 ml opti 350 EXAM: CT Angiography Head With Intravenous Contrast CLINICAL HISTORY: Reason for exam: poss stroke. TECHNIQUE: Axial computed tomographic angiography images of the head with intravenous contrast. CTDI is 18.68 mGy and DLP is 473.23 mGy-cm. Automated exposure control was utilized for the study. A dose lowering technique was utilized adhering to the principles of ALARA. MIP reconstructed images were created and reviewed. CONTRAST: Patient received 115 ml opti 350 of IV contrast COMPARISON: No relevant prior studies available. FINDINGS: Right internal carotid artery: No acute findings. Intracranial segment is patent with no significant stenosis. No aneurysm. Right anterior cerebral artery: Unremarkable. No occlusion or significant stenosis. No aneurysm. Right middle cerebral artery: Unremarkable. No occlusion or significant stenosis. No aneurysm. Right posterior cerebral artery: Unremarkable. No occlusion or significant stenosis. No aneurysm. Right vertebral artery: Unremarkable as visualized. Left internal carotid artery: No acute findings. Intracranial segment is patent with no significant stenosis. No aneurysm. Left anterior cerebral artery: Unremarkable. No occlusion or significant stenosis. No aneurysm. Left middle cerebral artery: Unremarkable. No occlusion or significant stenosis. No aneurysm. Left posterior cerebral artery: Unremarkable. No occlusion or significant stenosis. No aneurysm. Left vertebral artery: There is a focal 80% stenosis involving the distal left vertebral artery in the posterior fossa. The remainder of the vessel is patent without evidence of stenosis or occlusion. Basilar artery: Unremarkable. No occlusion or significant stenosis. No aneurysm. IMPRESSION: 80% stenosis involving the distal left vertebral artery within the posterior fossa. Remainder the intracranial circulation within normal limits Communications: Call Doctor Acute arterial occlusion/ critical stenosis Electronically signed by: Benja Arias MD 05/20/23 21:30 PM Neck CTA 05/20/23 20:26 CR Exam(s): CTA NECK With Contrast IV Amt: 115 ml opti 350 EXAM: CT Angiography Neck With Intravenous Contrast CLINICAL HISTORY: Reason for exam: poss stroke. TECHNIQUE: Routine carotid CT angiography protocol was performed with intravenous contrast. NASCET criteria using the distal ICAs for comparison were used for evaluation of stenoses. CTDI is 18.68 mGy and DLP is 473.23 mGy-cm. Automated exposure control was utilized for the study. A dose lowering technique was utilized adhering to the principles of ALARA. MIP reconstructed images were created and reviewed. CONTRAST: Patient received 115 ml opti 350 of IV contrast COMPARISON: Reference is made to prior study dated 11/19/2022 FINDINGS: VASCULATURE: Right common carotid artery: Unremarkable. No occlusion or significant stenosis. No dissection. Right internal carotid artery: Dense atherosclerotic plaque involving the right carotid bulb with extension into the internal and external carotid arteries. This results in 90% stenosis of the proximal right external carotid artery. There is perhaps 30% stenosis of the proximal right internal carotid artery. Mild atherosclerotic change of the right ICA as it enters the carotid siphon resulting in 20% stenosis. No dissection. Right external carotid artery: See above. Right vertebral artery: Unremarkable. No occlusion or significant stenosis. No dissection. Left common carotid artery: Extensive atherosclerotic change of the distal left common carotid artery resulting in occlusion of the proximal left external carotid artery which reconstitutes via collaterals almost immediately after the: Occlusion. The atherosclerotic change extends into the proximal ICA with 80% stenosis at its origin. Mild atherosclerotic change of the distal left ICA as it enters the carotid siphon without hemodynamically significant stenosis. Left internal carotid artery: See above. Left external carotid artery: See above. Left vertebral artery: Unremarkable. No occlusion or significant stenosis. No dissection. NECK: Bones/joints: Unremarkable. Soft tissues: Unremarkable. Sinuses: Dense sinus opacification of the ethmoid and bilateral maxillary sinuses. Lung apices: Clear. CAROTID STENOSIS REFERENCE USING NASCET CRITERIA: % ICA stenosis = (1 - narrowest ICA diameter/diameter of distal cervical ICA) x 100. Mild - <50% stenosis. Moderate - 50-69% stenosis. Severe - 70-94% stenosis. Near occlusion - 95-99% stenosis. Occluded - 100% stenosis. IMPRESSION: 1. Dense atherosclerotic change of the distal right carotid artery resulting in 90% stenosis of the proximal right external carotid artery. There is 30% stenosis of the proximal right internal iliac artery just beyond its origin with a tandem 20% stenosis seen distally within the right ICA at its entrance to carotid siphon 2. Dense atherosclerotic plaque involving the left distal common carotid artery resulting in occlusion of the proximal left external carotid artery and 80% stenosis of the proximal left ICA. Communications: Call Doctor Acute arterial occlusion/ critical stenosis Electronically signed by: Benja Arias MD 05/20/23 21:43 PM ECG Additional Comments: ECG normal sinus rhythm with a rate of 68. Left axis deviation. No significant change was found. Code Status & VTE Plan VTE Prophylaxis Plan VTE Prophylaxis will be ordered: Yes
[2023-05-21] MEDS ORDERED: GADOBUTROL 65ML VIAL IV ONE (01:29)
--- NOTE | 2023-05-21 02:05 | Magnetic Resonance Report ---
Exam(s): MRI HEAD W/WO Contrast IV Amt: 7cc gadavist EXAM: MR Head Without and With Intravenous Contrast CLINICAL HISTORY: Reason for exam: cva. TECHNIQUE: Magnetic resonance images of the head/brain without and with intravenous contrast in multiple planes. CONTRAST: Patient received 7cc gadavist of IV contrast COMPARISON: No relevant prior studies available. FINDINGS: Brain: Acute lacunar infarct left nolasco radiata. This corresponds to the area of hypodensity identified on the prior CT. Chronic left frontal lobe lacunar infarct. Extensive pansinusitis. No hemorrhage. Moderate ischemic microangiopathy. Ventricles: Unremarkable. No ventriculomegaly. Bones/joints: Unremarkable. Sinuses: See above. Mastoid air cells: Unremarkable as visualized. No mastoid effusion. Orbits: Unremarkable as visualized. IMPRESSION: Acute lacunar infarct left nolasco radiata. Electronically signed by: Benja Arias MD 05/21/23 02:04 AM
[2023-05-21 05:09] LABS: Basophils # (auto) 0.04 K/uL (0-0.2); Basophils % (auto) 0.6 %; Eosinophils # (auto) 0.85 K/uL (0-0.50); Eosinophils % (auto) 13.2 %; Hematocrit (blood only) 37.6 % (42.0-52.0); Hemoglobin 13.3 g/dl (14.0-18.0); Immature Granulocytes # (auto) 0.02 K/uL (0.01-0.20); Immature Granulocytes % (auto) 0.3 %; Lymphocytes # (auto) 1.12 K/uL (1.2-3.4); Lymphocytes % (auto) 17.3 %; Mean Corpuscular Hemoglobin 30.9 pg (25.0-34.0); Mean Corpuscular Hgb Conc 35.4 g/dL (32.0-36.0); Mean Corpuscular Volume 87.4 fL (80.0-100.0); Mean Platelet Volume 12.1 fL (9.4-12.4); Monocytes # (auto) 0.57 K/uL (0.11-0.59); Monocytes % (auto) 8.8 %; Neutrophils # (auto) 3.86 K/uL (1.40-6.50); Neutrophils % (auto) 59.8 %; Platelet Count 128 K/uL (130-400); RDW Coefficient of Variation 13.8 % (11.5-14.5); RDW Standard Deviation 43.8 fL (36.4-46.3); White Blood Count 6.46 K/ul (4.8-10.8)
[2023-05-21 05:29] LABS: BUN Creatinine Ratio 20.5 (10-20); Calcium 9.3 mg/dl (8.6-10.3); Chol HDL Ratio 3.3 (0-5); Est GFR (African American) 61.2 ml/min; Est GFR (Non-African American) 52.8 ml/min; Potassium 4.2 mmol/L (3.5-5.1)
[2023-05-21 06:09] LABS: Thyroid Stimulating Hormone 4.855 uIu/ml (0.300-4.500)
[2023-05-21 06:44] LABS: T4 Free Thyroxine 0.78 ng/dl (0.61-1.60)
--- NOTE | 2023-05-21 07:18 | XRay Report ---
XR chest 1V portable HISTORY: 73 years-old Male stroke alert acute strokelike symptoms COMPARISON: 07/16/2022 TECHNIQUE: AP view of the chest FINDINGS: Cardiac silhouette is enlarged. Prior median sternotomy. Unchanged right hemidiaphragmatic elevation. No pneumothorax, pleural effusion or overt pulmonary edema. Chronic right basilar atelectasis versus scarring. Degenerative changes of the shoulders and spine. IMPRESSION: No acute process. ACT 112: Negative or not required by law. The above report was generated using voice recognition software. It may contain grammatical, syntax o r spelling errors. Electronically signed by: Phill Pitts M.D. 05/21/2023 7:16 AM
[2023-05-21] MEDS ORDERED: PHARMACY GLYCEMIC MGMT CONSULT PRN (08:24)
[2023-05-21] MEDS: INSULIN ASPART PER UNIT CHARGE SC SCH ×4 (08:55→21:39)
[2023-05-21] MEDS: carvediloL 12.5 MG TAB PO SCH ×2 (08:56→21:39)
[2023-05-21] MEDS: ATORVASTATIN 40 MG TAB PO SCH (08:56)
[2023-05-21] MEDS: ASCORBIC ACID 500 MG TAB PO SCH (08:56)
[2023-05-21] MEDS: ASPIRIN 81 MG ECTAB PO SCH (08:56)
[2023-05-21] MEDS: MULTIVITAMIN TAB PO SCH (08:57)
[2023-05-21] MEDS: TACROLIMUS 1 MG CAP PO SCH ×2 (08:57→21:39)
[2023-05-21] MEDS: CHOLECALCIFEROL 1,000 UNITS 25 MCG TAB PO SCH (08:57)
[2023-05-21] MEDS: CLOPIDOGREL BISULFATE 75 MG TAB PO SCH (08:57)
[2023-05-21] MEDS: COMBIGAN~ORDER AWAITING ACTION SCH ×3 (08:57→23:19)
[2023-05-21] MEDS ORDERED: CHLORTHALIDONE 25 MG TAB PO SCH (09:00)
[2023-05-21] MEDS ORDERED: amLODIPine BESYLATE 5 MG TAB PO SCH (09:00)
[2023-05-21] MEDS ORDERED: lisinopril 40 MG TAB PO SCH (09:00)
[2023-05-21] MEDS: CYANOCOBALAMIN (B-12) 100 MCG TABLET PO SCH (09:00)
--- NOTE | 2023-05-21 09:00 | Neurology Consultation ---
Date of Consultation May 21, 2023 Assessment & Plan (1) Acute CVA (cerebrovascular accident): Patient presents with R sided weakness with stroke presumed secondary to symptomatic severe L ICA stenosis with bilateral ICA disease. Would recommend revascularization/vascular surgery consult for input. Given the small size of the stroke and clinical improvement would advocate for early surgery if possible. In the meantime he is on the appropriate medical management with DAPT and a statin (albeit 10mg lipitor) which have failed given the growth of this stenosis over the past 2-3 years despite near maximal medical therapy. -- Continue DAPT and atorvastatin 80mg daily -- Vascular surgery consult -- Please let us know if we can be of further assistance, he will need neurology follow-up post-op as an outpatient in 4-6 weeks. Telehealth Consultation Telehealth Information Telehealth Information: I performed this visit using a real-time telehealth connection between my location and the patients location ([facility]). After connecting through interactive tele-video, patient was identified by name and date of and/or wristband check.Patient (or authorized healthcare represen marek) was informed that this was a telemedicine visit and it was being conducted confidentially over secure lines. My office door was closed and no one else was present in the room with me.Patient (or authorized healthcare outside dealer sales representative) provided consent to proceed with the visit, expressed an understanding of privacy and security of the telemedicine visit, and gave permission to have a hospital outside dealer sales representative in the room in order to assist with the visit and to conduct portions of the visit, as needed. I informed the patient (or authorized healthcare outside dealer sales representative) that I reviewed their record and presented the opportunity for them to ask any questions regarding the visit today. The patient agreed to participate. History of Present Illness Reason for Consultation: Stroke Requesting Physician: Dr. 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 He decided to come in yesterday due to the worsening of his weakness. This morning he feels nearly back to normal but admits that for at least a few months he has felt that his thinking is foggy and has a harder time thinking of the right words to say. He also reports having had a TIA in the past but does not recall the details. He remembers seeing vascular surgery at [facility] for carotid stenosis 2-3 years ago but it was felt his carotids were not stenotic enough to offer surgery and has been on DAPT+statin since then. Allergies Allergy/AdvReac Type Severity Reaction Status Date / Time sulfamethoxazole Allergy Intermediate rash Verified 05/20/23 22:47 trimethoprim Allergy Intermediate rash Verified 05/20/23 22:47 Home Medications Medication Instructions Recorded Confirmed Type acetaminophen 325 mg tablet 650 mg PO QID PRN Pain 11/19/22 05/20/23 History (Tylenol) amlodipine 10 mg tablet 10 mg PO DAILY 11/19/22 05/20/23 History ascorbic acid (vitamin C) 500 mg 500 mg PO DAILY 11/19/22 05/20/23 History tablet (Vitamin C) aspirin 81 mg tablet,delayed 81 mg PO DAILY 11/19/22 05/20/23 History release brimonidine 0.2 %-timolol 0.5 % 1 drp OPB BID 11/19/22 05/20/23 History eye drops (Combigan) chlorthalidone 25 mg tablet 25 mg PO DAILY 11/19/22 05/20/23 History cholecalciferol (vitamin D3) 50 50 mcg PO DAILY 11/19/22 05/20/23 History mcg (2,000 unit) tablet (Vitamin D3) clopidogrel 75 mg tablet 75 mg PO DAILY 11/19/22 05/20/23 History cyanocobalamin (vitamin B-12) 100 0 mcg PO DAILY 11/19/22 05/20/23 History mcg tablet (Vitamin B-12) glipizide 2.5 mg tablet, extended 2.5 mg PO BID 11/19/22 05/20/23 History release 24 hr lisinopril 40 mg tablet 40 mg PO DAILY 11/19/22 05/20/23 History metformin 1,000 mg tablet 1,000 mg PO BIDM 11/19/22 05/20/23 History multivitamin 1 tab PO DAILY 11/19/22 05/20/23 History netarsudil 0.02 %-latanoprost 1 drp OPB HS 11/19/22 05/20/23 History 0.005 % eye drops (Rocklatan) tacrolimus 1 mg oral granules in 1 mg PO BID 11/19/22 05/20/23 History packet carvedilol 12.5 mg tablet 12.5 mg PO BID 05/20/23 05/20/23 History oregano oil 1,500 mg capsule 0 mg PO DIRECTED 05/20/23 05/20/23 History atorvastatin 10 mg tablet 10 mg PO DAILY 05/21/23 05/21/23 History Patient History Medical History (Updated 05/20/23 @ 21:58 by Amado Lester M.D.) CAD (coronary artery disease) "s/p CABG x 5 in 2002" CKD (chronic kidney disease), stage III Diabetes mellitus, type II Dyslipidemia History of TIA (transient ischemic attack) HTN (hypertension) Hx of diabetes mellitus Surgical History History of kidney transplant 2003 -[facility] History of pancreas transplant 2003- [facility] S/P CABG (coronary artery bypass graft) 2002 Family History Mother Breast cancer Father Diabetes Social History Smoking Status: Never smoker Second Hand Exposure: No; Hx Alcohol Use: No Hx Substance Use: No Preferred Language: Kyrgyz Communication Ability: Effective 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 Oriented to person, place, and time. Fluent. Comprehension intact. Affect appropriate. Cranial Nerves: II: pupils 3/3 to 2/2, dalton grossly intact. III/IV/: Versions intact without nystagmus, no gaze preference. V: Facial sensation symmetric to light touch VII: Facial expression symmetric VIII: Hearing intact to voice Motor: Strength was symmetric and antigravity throughout. Pronator drift was absent. There were no abnormal movements. Sensory: Sensation to light touch was intact. Coordination: Finger to nose was intact. Reflexes: Unable to assess over telemedicine Results & Data Vital Signs (Past 12 Hours) Vital Signs Temp Pulse Pulse Resp BP BP Pulse Ox 05/21/23 07:26 36.5 C 60 18 135/87 94 08/23/23 05:30 65 05/21/23 05:23 69 175/78 H 05/21/23 05:15 05/21/23 05:12 36.8 C 67 19 205/75 H 98 05/21/23 04:30 73 26 H 169/82 H 97 05/21/23 04:00 66 18 160/62 H 97 05/21/23 00:40 63 05/21/23 03:40 66 16 158/72 H 97 05/21/23 01:40 68 16 140/57 L 96 05/20/23 23:40 67 156/81 H 95 05/20/23 22:10 68 16 150/74 H 96 Pulse Ox O2 Del Method O2 Del Method 05/21/23 07:26 Room Air 05/21/23 05:30 05/21/23 05:23 05/21/23 05:15 98 Room Air 05/21/23 05:12 Room Air 05/21/23 04:30 05/21/23 04:00 05/21/23 00:40 05/21/23 03:40 Room Air 05/21/23 01:40 Room Air 05/20/23 23:40 Room Air 05/20/23 22:10 Room Air Laboratory Results Abnormal lab results 05/20/23 05/20/23 05/20/23 Range/Units 20:31 20:31 20:40 RBC 4.11 L (4.70-6.10) M/uL Hgb 12.7 L (14.0-18.0) g/dl POC Hgb 12.6 L (14.0-18.0) g/dl Hct 36.4 L (42.0-52.0) % POC Hct 37 L (42-52) % Plt Count (130-400) K/uL Lymph # (Auto) (1.2-3.4) K/uL Eos # (Auto) (0-0.50) K/uL Sodium 135 L (136-145) mmol/L POC Chloride 96 L (101-112) mmol/L POC Anion Gap 15.0 L (16-25) mmol/L POC BUN 25 H (7-18) mg/dl BUN 27 H (6-23) mg/dl POC Creatinine 1.4 H (0.6-1.3) mg/dl BUN/Creatinine Ratio 20.1 H (10-20) Glucose 158 H (70-99(Fasting)) mg/dl POC Glucose (70-99) mg/dl POC Glucose (other) 156 H (70-99) mg/dl TSH (0.300-4.500) uIu/ml 05/21/23 05/21/23 05/21/23 Range/Units 00:21 00:24 04:28 RBC 4.30 L (4.70-6.10) M/uL Hgb 13.3 L (14.0-18.0) g/dl POC Hgb (14.0-18.0) g/dl Hct 37.6 L (42.0-52.0) % POC Hct (42-52) % Plt Count 128 L (130-400) K/uL Lymph # (Auto) 1.12 L (1.2-3.4) K/uL Eos # (Auto) 0.85 H (0-0.50) K/uL Sodium (136-145) mmol/L POC Chloride (101-112) mmol/L POC Anion Gap (16-25) mmol/L POC BUN (7-18) mg/dl BUN (6-23) mg/dl POC Creatinine (0.6-1.3) mg/dl BUN/Creatinine Ratio (10-20) Glucose (70-99(Fasting)) mg/dl POC Glucose 313 H* 283 H (70-99) mg/dl POC Glucose (other) (70-99) mg/dl TSH (0.300-4.500) uIu/ml 05/21/23 05/21/23 05/21/23 Range/Units 04:28 04:28 07:14 RBC (4.70-6.10) M/uL Hgb (14.0-18.0) g/dl POC Hgb (14.0-18.0) g/dl Hct (42.0-52.0) % POC Hct (42-52) % Plt Count (130-400) K/uL Lymph # (Auto) (1.2-3.4) K/uL Eos # (Auto) (0-0.50) K/uL Sodium 135 L (136-145) mmol/L POC Chloride (101-112) mmol/L POC Anion Gap (16-25) mmol/L POC BUN (7-18) mg/dl BUN 27 H (6-23) mg/dl POC Creatinine (0.6-1.3) mg/dl BUN/Creatinine Ratio 20.5 H (10-20) Glucose 235 H (70-99(Fasting)) mg/dl POC Glucose 247 H (70-99) mg/dl POC Glucose (other) (70-99) mg/dl TSH 4.855 H (0.300-4.500) uIu/ml Diagnostic Findings MRI - small ischemic stroke in the L periventricular white matter CTA - Bilateral ICA stenosis, 90% L and 80% R, heavily calcified plaque
--- NOTE | 2023-05-21 09:07 | Pharmacy Report ---
Pharmacy Glycemic Short Note 2 - Date of Service May 21, 2023 - Glycemic Short BSG Results (Last 24 hours): 05/20/23 05/20/23 05/21/23 20:31 20:40 00:21 Glucose 158 H POC Glucose 313 H* POC Glucose (other) 156 H 05/21/23 05/21/23 05/21/23 00:24 04:28 07:14 Glucose 235 H POC Glucose 283 H 247 H POC Glucose (other) OUTPATIENT ANTIDIABETIC REGIMEN: * glipizide 2.5 mg bid, metformin 1 gm bid ASSESSMENT: * 73 year old admitted for stroke workup. PMHx significant for type 2 diabetes, htn, hld, hypothyroidism, and kidney transplant. A1c currently pending * BSGs in the 300s on admission. Fasting BSG 247 mg/dL - will start low dose basal insulin ~0.2 units/kg and novolog * May need to tighten novolog later today if BSGs trending upward PLAN FOR INPATIENT GLYCEMIC CONTROL: * Hold outpatient oral diabetes medications * Basal insulin * Lantus 15 units daily * Bolus insulin * NovoLog per scale ACHS or Q6hrs while NPO * Goal Range: Low 120 mg/dL - High 150 mg/dL * Correction Factor: 30 mg/dL/unit * Nutritional / Prandial insulin per carb ratio of 1 unit per 15 grams CHO consumed
[2023-05-21 09:11] LABS: Estimated Average Glucose 163 mg/dl; Hemoglobin A1C 7.3 % (4.5-5.6)
[2023-05-21] MEDS ORDERED: LANTUS PER UNIT CHARGE SC SCH (09:30)
--- NOTE | 2023-05-21 09:50 | Pharmacy Report ---
- Date of Service May 21, 2023 - Pharmacy CVA/TIA Medication Review Medications to Prevent Stroke handout has been added to the patients discharge packet. Antiplatelet(s) * Aspirin 81 mg daily, Plavix 75 mg daily Cholesterol * High intensity statin: atorvastatin 80 mg daily Therapeutic Anticoagulation * No history of Afib/Aflutter noted Type 2 Diabetes * Patient has T2DM and is managed on metformin and glipizide at home. A1c 7.3% on admission. * Agents such SGLT2 inhibitors can provide additional CVD benefit in patients with stroke. It is reasonable to defer decision to add such agent to their outpatient provider due to familiarity with risks/benefits of such therapies. Patient with complex history of pancreas and kidney transplant. * "Medications to prevent stroke" handout has already been added to the sarah banda's discharge packet, which instructs the patient to follow up with their outpatient provider to evaluate which diabetes medication with proven CVD benefit is best for them
--- NOTE | 2023-05-21 10:20 | Communication Note ---
Date of Service: May 21, 2023 Patient was admitted with right sided weakness. He was found to have an 80% left internal carotid artery stenosis. We recommended intervention on the left carotid. We went over the options of endarterectomy vs TCAR. He is a TCAR candidate and he is agreeable to the TCAR. He was on ASA and plavix. He was started on a statin. He needs to be on all three for at least one year post TCAR and definitely for 30 consecutive days post procedure non stop and at least three days pre op. He also needs to be plavix tested to check if he is a responder to the plavix. We will draw the test Friday in our office lab and schedule him for Friday or Friday of next week.
--- NOTE | 2023-05-21 10:27 | Consultation ---
Date of Consultation May 21, 2023 Assessment & Plan (1) Symptomatic carotid artery stenosis with infarction: Pt with significant stenosis of L ICA, and acute L lacunar infarct on MRI. Pt also seen by Dr Link today. Recommends pt undergo surgical intervention. Options of L CEA vs transfemoral stenting vs TCAR procedure were discussed at length with patient, including risks and benefits of each. Pt elects to proceed with L TCAR procedure. Pt is already taking plavix and ASA and atorvastatin. He will require platelet inhibition testing to eval effectiveness of plavix, which is not done at this facility. Will obtain as outpt in 1-2 days and schedule pt for L TCAR on Friday, pending his results. Office will call to schedule. Will consult [facility] cardiology for card clearance d/t significant cardiac hx. This was all discussed with his by phone as well. TCAR procedure, risks, benefits and alternatives were discussed with pt by myself at Dr Link's request. Pt expresses understanding and agreement to proceed. Patient was seen, examined, and chart reviewed. Agree with exam and treatment plan of the Vascular PA. History of Present Illness Reason for Consultation: ALICIA CVA Attending Physician: Sánchez Carballo MD History of Present Illness 73 yo m with hx of CHF, CAD s/p CABG, s/p pancreas and renal transplant, DMII, CKD, dyslipidemia, HTN, BL ICA stenosis, TIA, admitted with R arm/leg weakness which occurred twice in 48 hrs, seen in consultation today for L ICA stenosis on CTA. Pt states has had TIA in past and was told he did not need surgery, but is unsure of the details/sx he had at the time. States has been feeling "fuzzy" and been more forgetful in past 6 months or so. 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 Weakness resolved presently, but does feel that he has decreased control of his R hand. Denies amaurosis, facial droop, syncope, palpitations, heart racing, dizziness, chest pain, fever, recent illness, abd pain, N/V, rest pain, claudication, cough, SOB, nonhealing ulcerations, other complaints. MRI brain demonstrates acute L hemispheric CVA. CTA neck demonstrates 80% stenosis of L ICA, <50% stenosis R ICA. Allergies Allergy/AdvReac Type Severity Reaction Status Date / Time sulfamethoxazole Allergy Intermediate rash Verified 05/20/23 22:47 trimethoprim Allergy Intermediate rash Verified 05/20/23 22:47 Home Medications Medication Instructions Recorded Confirmed Type acetaminophen 325 mg tablet 650 mg PO QID PRN Pain 11/19/22 05/20/23 History (Tylenol) amlodipine 10 mg tablet 10 mg PO DAILY 11/19/22 05/20/23 History ascorbic acid (vitamin C) 500 mg 500 mg PO DAILY 11/19/22 05/20/23 History tablet (Vitamin C) aspirin 81 mg tablet,delayed 81 mg PO DAILY 11/19/22 05/20/23 History release brimonidine 0.2 %-timolol 0.5 % 1 drp OPB BID 11/19/22 05/20/23 History eye drops (Combigan) chlorthalidone 25 mg tablet 25 mg PO DAILY 11/19/22 05/20/23 History cholecalciferol (vitamin D3) 50 50 mcg PO DAILY 11/19/22 05/20/23 History mcg (2,000 unit) tablet (Vitamin D3) clopidogrel 75 mg tablet 75 mg PO DAILY 11/19/22 05/20/23 History cyanocobalamin (vitamin B-12) 100 0 mcg PO DAILY 11/19/22 05/20/23 History mcg tablet (Vitamin B-12) glipizide 2.5 mg tablet, extended 2.5 mg PO BID 11/19/22 05/20/23 History release 24 hr lisinopril 40 mg tablet 40 mg PO DAILY 11/19/22 05/20/23 History metformin 1,000 mg tablet 1,000 mg PO BIDM 11/19/22 05/20/23 History multivitamin 1 tab PO DAILY 11/19/22 05/20/23 History netarsudil 0.02 %-latanoprost 1 drp OPB HS 11/19/22 05/20/23 History 0.005 % eye drops (Rocklatan) tacrolimus 1 mg oral granules in 1 mg PO BID 11/19/22 05/20/23 History packet carvedilol 12.5 mg tablet 12.5 mg PO BID 05/20/23 05/20/23 History oregano oil 1,500 mg capsule 0 mg PO DIRECTED 05/20/23 05/20/23 History atorvastatin 10 mg tablet 10 mg PO DAILY 05/21/23 05/21/23 History Patient History Medical History (Updated 05/21/23 @ 10:32 by Shazia Piper PA-C) CAD (coronary artery disease) "s/p CABG x 5 in 2002" CKD (chronic kidney disease), stage III Diabetes mellitus, type II Dyslipidemia History of TIA (transient ischemic attack) HTN (hypertension) Hx of diabetes mellitus Symptomatic carotid artery stenosis with infarction Surgical History History of kidney transplant 2003 -[facility] History of pancreas transplant 2003- [facility] S/P CABG (coronary artery bypass graft) 2002 Family History Mother Breast cancer Father Diabetes Social History Smoking Status: Never smoker Second Hand Exposure: No; Hx Alcohol Use: No Hx Substance Use: No Preferred Language: Greek Communication Ability: Effective Smt Technician Required: No Beliefs That Will Affect Care: None marital status: Current Living Situation: Spouse Other Information That Helps Us Care for You: No Feels Safe at Home: Yes Safety Concerns: Feels Safe At This Time Assistive Devices: Cane and Glasses Review of Systems Review of Systems: All systems reviewed & are unremarkable except as noted in HPI & below Physical Exam Constitutional: WD/WN, vitals as above healthy appearing, cooperative and comfortable; not in distress Neck: trachea midline and + facial hair Respiratory: normal respiratory effort, lungs clear to auscultation Auscultation: + diminished lung sounds Cardiovascular: Rate/Rhythm: regular rate and regular rhythm Vessels: + carotid bruit, femoral pulses present, posterior tibial pulses present, dorsalis pedis pulses present and radial pulses present; + abnormal peripheral pulses Extremities: normal capillary refill; no edema Gastrointestinal (Abdomen): Inspection/Auscultation: abdomen normal to inspection, normal bowel sounds and + abdominal surgical scar (old, healed) Percussion/Palpation: abdomen soft; abdomen nontender Musculoskeletal: Extremities: strength 5/5 throughout (except 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=4/5.); no cyanosis Skin: no rashes, warm and dry Neurologic: moves all extremities, + focal motor deficit (slightly weaker R candy wrapping machine operator) and awake; not confused Speech / Cognition: normal speech Psychiatric: A+Ox3, euthymic affect Results & Data Vital Signs (Past 12 Hours) Vital Signs Temp Pulse Pulse Resp BP BP Pulse Ox 05/21/23 07:00 64 05/21/23 07:26 36.5 C 60 18 135/87 94 05/21/23 05:30 65 05/21/23 05:23 69 175/78 H 05/21/23 05:15 05/21/23 05:12 36.8 C 67 19 205/75 H 98 05/21/23 04:30 73 26 H 169/82 H 97 05/21/23 04:00 66 18 160/62 H 97 05/21/23 00:40 63 05/21/23 03:40 66 16 158/72 H 97 05/21/23 01:40 68 16 140/57 L 96 05/20/23 23:40 67 156/81 H 95 Pulse Ox O2 Del Method O2 Del Method 05/21/23 07:00 05/21/23 07:26 Room Air 05/21/23 05:30 05/21/23 05:23 05/21/23 05:15 98 Room Air 05/21/23 05:12 Room Air 05/21/23 04:30 05/21/23 04:00 05/21/23 00:40 05/21/23 03:40 Room Air 05/21/23 01:40 Room Air 05/20/23 23:40 Room Air
--- NOTE | 2023-05-21 12:45 | Cardiology Consultation ---
Date of Consultation May 21, 2023 Assessment & Plan (1) Acute CVA (cerebrovascular accident): (2) Symptomatic carotid artery stenosis with infarction: (3) Preoperative cardiovascular examination: (4) ASCVD (arteriosclerotic cardiovascular disease): (5) S/P CABG x 5: (6) HTN, goal below 130/80: (7) Dyslipidemia, goal LDL below 70: Plan Complex 73-year-old male admitted with an acute CVA felt to be secondary to high-grade left internal carotid artery stenosis. - Cardiology consultation requested for preoperative evaluation prior to left TCAR on Friday, May 26, 2023. - Patient unable to achieve 4 METS secondary to dyspnea. - Resting echocardiography with preserved LV systolic function, mild mitral and tricuspid regurgitation only, no evidence of pulmonary hypertension - Risks of pharmacological stress testing in the setting appear to be greater than the benefit. - Options discussed. Risks explained. Patient is high risk for a necessary procedure. - Recommend proceeding as planned. - Continue carvedilol and amlodipine without perioperative interruption. - Continue dual antiplatelet therapy - Continue high intensity statin therapy. - Maintain telemetry while hospitalized - Outpatient 14-day ZIO monitoring to evaluate for atrial fibrillation if telemetry unyielding - Recommend outpatient general cardiology follow-up in [place], [place] Supervising Physician Co-Signing Physician Notes Patient seen examined the bedside. Resting comfortably and arousable to verbal stimuli. Notes continued, mild, right-sided weakness. No dysarthria or visual change. Denies chest pain or shortness of breath. Complex cardiovascular history noted above. Prior to CVA patient able to perform activities of daily living without restriction. Denies exertional chest discomfort, however, notes mild, chronic dyspnea on exertion. Amlodipine and lisinopril on hold since admission. Blood pressure significantly elevated this afternoon. Onset of symptoms over the weekend. Outside window for TNK, therefore, did not receive thrombolytic therapy in the emergency department. PE: Hypertensive. Gen: NAD, AAO x3. Neck: 1/4 right sided carotid bruit. Heart: Regular rhythm. normal S1S2. no murmur. Lungs: Clear bilateral, no rales, rhonchi, wheeze. Extremities: No edema. Neuro: Mild right-sided weakness. A/P: Agree with above PAPatricio history, physical exam, assessment and plan. 73-year-old patient admitted with acute CVA due to high-grade left internal carotid artery stenosis. No recent congestive heart failure, acute coronary syndrome, or unstable dysrhythmia. Resting echocardiogram demonstrates normal LV function with mild mitral and tricuspid regurgitation. Patient considered high risk from a cardiovascular perspective for necessary surgery. Continue antiplatelet therapy, beta-charlie, high intensity statin therapy uninterrupted perioperatively. Restart amlodipine and lisinopril today due to elevated blood pressure. Thank you for allow me to participate in the care of your patient. History of Present Illness Reason for Consultation: Cardiology clearance for L TCAR procedure on Friday, May 26, 2023 Requesting Physician: Rosalba Attending Physician: Sánchez Carballo MD History of Present Illness Complex 73 year old male admitted to [facility] on 05/20/2023 with stroke like symptoms that began four days prior to arrival - headache, right sided weakness, intermittent slurred speech. Presumed CVA secondary to symptomatic severe left internal carotid artery disease. Neurology advocating for early surgery if possible. Left TCAR scheduled for Friday, May 26, 2023 Dyspnea noted with minimal activity. Patient unable to achieve 4 Mets. No resting dyspnea. No chest pain or discomfort. No recent sublingual nitroglycerin use. No palpitations. No orthopnea, PND, or edema. No syncope. Limited cardiac records available for review. Patient does not and has not followed with a central office operator for a number of years. Patient with a history of multivessel coronary artery disease status post CABG x5 in February 2003. Prior to renal and pancreas transplant the patient underwent diagnostic cardiac catheterization, on March 08, 2004, revealing patent grafts. Reports not available for review. Patient with a longstanding history of diabetes mellitus initially diagnosed at age 31, end-stage chronic kidney disease previously undergoing hemodialysis via right upper extremity AV fistula until renal and pancreas transplantation in 2003. Patient with significant lower extremity peripheral arterial disease status post angioplasty and stenting of the right popliteal artery and angioplasty of the right posterior tibial artery via [facility]. Additional issues include history of TIA, hypertension, dyslipidemia, hypothyroidism, prior left hip fracture status post repair in 2020. Family History: Father with CAD. Mother with breast cancer. Social History: Never smoker. + Smokeless tobacco user. 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 No illegal drug use. 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 Allergies Allergy/AdvReac Type Severity Reaction Status Date / Time sulfamethoxazole Allergy Intermediate rash Verified 05/20/23 22:47 trimethoprim Allergy Intermediate rash Verified 05/20/23 22:47 Home Medications Medication Instructions Recorded Confirmed Type acetaminophen 325 mg tablet 650 mg PO QID PRN Pain 11/19/22 05/20/23 History (Tylenol) amlodipine 10 mg tablet 10 mg PO DAILY 11/19/22 05/20/23 History ascorbic acid (vitamin C) 500 mg 500 mg PO DAILY 11/19/22 05/20/23 History tablet (Vitamin C) aspirin 81 mg tablet,delayed 81 mg PO DAILY 11/19/22 05/20/23 History release brimonidine 0.2 %-timolol 0.5 % 1 drp OPB BID 11/19/22 05/20/23 History eye drops (Combigan) chlorthalidone 25 mg tablet 25 mg PO DAILY 11/19/22 05/20/23 History cholecalciferol (vitamin D3) 50 50 mcg PO DAILY 11/19/22 05/20/23 History mcg (2,000 unit) tablet (Vitamin D3) clopidogrel 75 mg tablet 75 mg PO DAILY 11/19/22 05/20/23 History cyanocobalamin (vitamin B-12) 100 0 mcg PO DAILY 11/19/22 05/20/23 History mcg tablet (Vitamin B-12) glipizide 2.5 mg tablet, extended 2.5 mg PO BID 11/19/22 05/20/23 History release 24 hr lisinopril 40 mg tablet 40 mg PO DAILY 11/19/22 05/20/23 History metformin 1,000 mg tablet 1,000 mg PO BIDM 11/19/22 05/20/23 History multivitamin 1 tab PO DAILY 11/19/22 05/20/23 History netarsudil 0.02 %-latanoprost 1 drp OPB HS 11/19/22 05/20/23 History 0.005 % eye drops (Rocklatan) tacrolimus 1 mg oral granules in 1 mg PO BID 11/19/22 05/20/23 History packet carvedilol 12.5 mg tablet 12.5 mg PO BID 05/20/23 05/20/23 History oregano oil 1,500 mg capsule 0 mg PO DIRECTED 05/20/23 05/20/23 History atorvastatin 10 mg tablet 10 mg PO DAILY 05/21/23 05/21/23 History Patient History Medical History CAD (coronary artery disease) "s/p CABG x 5 in 2002" CKD (chronic kidney disease), stage III Diabetes mellitus, type II Dyslipidemia History of TIA (transient ischemic attack) HTN (hypertension) Hx of diabetes mellitus Symptomatic carotid artery stenosis with infarction Surgical History History of kidney transplant [address] [facility] History of pancreas transplant [address]- [facility] S/P CABG (coronary artery bypass graft) 2002 Family History Mother Breast cancer Father Diabetes Social History Smoking Status: Never smoker Second Hand Exposure: No; Hx Alcohol Use: No Hx Substance Use: No Preferred Language: Faroese Communication Ability: Effective Head Of Cytogenetics Required: No Beliefs That Will Affect Care: None marital status: Current Living Situation: Spouse Feels Safe at Home: Yes Assistive Devices: Cane and Glasses Review of Systems Review of Systems: Complete review of systems is otherwise as stated above, negative, noncontributory Physical Exam Physical Exam: General: Lethargic. A&Ox3. NAD. HENT: Normocephalic. Atraumatic. Eyes: PER. Conjunctiva pink, sclera clear. Neck: Bilateral carotid bruits. No JVD. Heart: RRR. Soft systolic murmur heard at the lower left sternal border. No diastolic murmur. PMI is nondisplaced. Lungs: Clear to auscultation. Abdomen: +BS. Soft. Nontender. No masses or organomegaly. Extremities: No clubbing, cyanosis, or edema. Limited neurological examination: Right-sided weakness. No facial droop Pulses: radial=2/4, posterior tibial=0/4. Results & Data Vital Signs (Past 12 Hours) Vital Signs Temp Pulse Pulse Resp BP BP Pulse Ox 05/21/23 11:10 36.6 C 69 18 190/87 H 97 05/21/23 07:00 64 05/21/23 07:26 36.5 C 60 18 135/87 94 05/21/23 05:30 65 05/21/23 05:23 69 175/78 H 05/21/23 05:15 05/21/23 05:12 36.8 C 67 19 205/75 H 98 05/21/23 04:30 73 26 H 169/82 H 97 05/21/23 04:00 66 18 160/62 H 97 05/21/23 03:40 66 16 158/72 H 97 05/21/23 01:40 68 16 140/57 L 96 Pulse Ox O2 Del Method O2 Del Method 05/21/23 11:10 Room Air 05/21/23 07:00 05/21/23 07:26 Room Air 05/21/23 05:30 05/21/23 05:23 05/21/23 05:15 98 Room Air 05/21/23 05:12 Room Air 05/21/23 04:30 05/21/23 04:00 05/21/23 03:40 Room Air 05/21/23 01:40 Room Air Laboratory Results Cardiac Enzymes 05/20/23 Range/Units 20:31 AST 18 (13-39) U/L Coagulation 05/20/23 Range/Units 20:31 PT 10.9 (9.0-12.0) Seconds APTT 28.0 (21.0-31.0) Seconds Lipids 05/21/23 Range/Units 04:28 Triglycerides 90 (0-150) mg/dl Cholesterol 121 (0-200) mg/dl HDL Cholesterol 37 mg/dl Cholesterol/HDL Ratio 3.3 (0-5) CBC 05/20/23 05/21/23 Range/Units 20:31 04:28 WBC 8.41 6.46 (4.8-10.8) K/ul RBC 4.11 L 4.30 L (4.70-6.10) M/uL Hgb 12.7 L 13.3 L (14.0-18.0) g/dl Hct 36.4 L 37.6 L (42.0-52.0) % Plt Count 131 128 L (130-400) K/uL Neut # (Auto) 3.86 (1.40-6.50) K/uL Lymph # (Auto) 1.12 L (1.2-3.4) K/uL [place] # (Auto) 0.57 (0.11-0.59) K/uL Eos # (Auto) 0.85 H (0-0.50) K/uL Baso # (Auto) 0.04 (0-0.2) K/uL Comprehensive Metabolic Panel 05/20/23 05/21/23 Range/Units 20:31 04:28 Sodium 135 L 135 L (136-145) mmol/L Potassium 4.4 4.2 (3.5-5.1) mmol/L Chloride 98 100 (98-107) mmol/L Carbon Dioxide 29 28 (21-32) mmol/L BUN 27 H 27 H (6-23) mg/dl Creatinine 1.34 1.32 (0.6-1.4) mg/dl Glucose 158 H 235 H (70-99(Fasting)) mg/dl Calcium 9.6 9.3 (8.6-10.3) mg/dl AST 18 (13-39) U/L ALT 15 (7-52) U/L Alkaline Phosphatase 66 (34-104) U/L Total Protein 6.7 (6.0-8.3) gm/dl Albumin 4.0 (3.4-5.0) gm/dl Intake and Output 05/20/23 05/21/23 05/21/23 22:59 06:59 14:59 Intake Total 240 / 240 Balance 240 / 240 Intake: Oral 240 / 240 Other: Weight 70.3 kg 70.5 kg Weight Measurement Method Chair Scale Chair Scale Diagnostic Findings CT Head: New area of asymmetric hypodensity within the left nolasco radiata concerning for age-indeterminate lacunar infarct. Chronic left frontal and basal ganglia lacunar infarcts Brain MRI: Acute lacunar infarct left nolasco radiata. Head CTA: 80% stenosis involving the distal left vertebral artery within the posterior fossa. Neck CTA: Dense atherosclerotic change of the distal right carotid artery resulting in 90% stenosis of the proximal right external carotid artery. There is 30% stenosis of the proximal right internal iliac artery just beyond its origin with a tandem 20% stenosis seen distally within the right ICA at its entrance to carotid siphon. Dense atherosclerotic plaque involving the left distal common carotid artery resulting in occlusion of the proximal left external carotid artery and 80% stenosis of the proximal left ICA. EKG on presentation revealed normal sinus rhythm at 68 bpm with left axis deviation, possible old anterior infarct. May 21, 2023 TTE Interpretation Summary ([facility], Dr. Whitaker): EF 60 to 65%. Mild concentric LVH. Septal motion consistent with postoperative state. Moderately dilated left atrium. Mild mitral regurgitation. Mild tricuspid regurgitation. Doppler findings do not suggest pulmonary hypertension Telemetry: Sinus throughout, currently sinus at 65 bpm Chest x-ray on May 20, 2023 showed no acute process, right hemidiaphragmatic elevation noted.
[2023-05-21] MEDS ORDERED: amLODIPine BESYLATE 5 MG TAB PO ONE (14:15)
--- NOTE | 2023-05-21 17:43 | Electrocardiogram Report ---
Test Reason : Blood Pressure : / mmHG Vent. Rate : 068 BPM Atrial Rate : 068 BPM P-R Int : 160 ms QRS Dur : 092 ms QT Int : 402 ms P-R-T Axes : 028 -30 037 degrees QTc Int : 427 ms Normal sinus rhythm Left axis deviation Possible Anterior infarct , age undetermined Abnormal ECG When compared with ECG of 19-NOV-2022 11:48, No significant change was found Confirmed by Giancarlo Diaz ([id number]) on 05/21/2023 5:43:26 PM Referred By: REFERRED SELF Confirmed By:Giancarlo Diaz
--- NOTE | 2023-05-21 17:48 | Hospitalist Progress Note ---
Date of Service May 21, 2023 Assessment & Plan (1) Acute CVA (cerebrovascular accident): Plan: 3-year-old male with past medical significant for type 2 diabetes, hyperlipidemia, hypothyroidism, CAD s/p CABG, hypertension, bilateral carotid stenosis, peripheral artery disease, stage III chronic kidney disease, urge incontinence, history of C. difficile, history of TIA, history of CVA, history of pancreas transplant, history of kidney transplant at [facility] presents with strokelike symptoms. Strokelike symptoms Having right extremity weakness and some slurred speech and some fogginess in the head going on since last Friday CT head showing possible lacunar infarct in the left nolasco radiata CTA head showing 80% stenosis in the left vertebral artery CTA neck showing 90% stenosis of the proximal right external carotid artery and 80% stenosis of the proximal left ICA. And diffuse atherosclerotic disease. Patient is on aspirin and Plavix. Again loaded with aspirin in the ER We will start him on high-dose statin Neurochecks per protocol We will follow MRI scan, echocardiogram Neurology evaluation a.m. Speech evaluation PT OT evaluation Gentle fluids Close monitoring telemetry floor History of diabetes Hold metformin and glipizide Insulin sliding scale We will follow the blood sugars and HbA1c levels Hypertension We will continue his home amlodipine, Coreg, lisinopril and chlorthalidone We will hold chlorthalidone for permissive hypertension We will monitor the blood pressure History of CAD s/p CABG On aspirin Plavix to and beta-charlie and statin History of kidney and pancreas transplant On tacrolimus Peripheral vascular disease Aspirin and Plavix on and on statin Increasing the dose of statin Hypothyroidism as per records Seems not on medication We will follow TSH Chronic kidney stage III Creatinine 1.3 We will follow the labs DVT prophylaxis SCDs for now Disposition telemetry floor Full code Admission and Anticipated Discharge Date Admission Date: May 20, 2023 Results & Data Results & Data Vital Signs (Past 12 Hours) Vital Signs Temp Pulse Pulse Resp BP Pulse Ox O2 Del Method 05/21/23 14:40 36.5 C 70 18 181/81 H 99 Room Air 05/21/23 11:10 36.6 C 69 18 190/87 H 97 Room Air 05/21/23 07:00 64 05/21/23 07:26 36.5 C 60 18 135/87 94 Room Air
[2023-05-21] MEDS: lisinopril 20 MG TAB PO SCH (21:39)
[2023-05-22 07:42] LABS: Basophils # (auto) 0.05 K/uL (0.00-0.20); Basophils % (auto) 0.7 %; Eosinophils # (auto) 0.78 K/uL (0.00-0.50); Eosinophils % (auto) 10.2 %; Hemoglobin 12.5 g/dl (14.0-18.0); Immature Granulocytes # (auto) 0.03 K/uL (0.01-0.20); Immature Granulocytes % (auto) 0.4 %; Lymphocytes % (auto) 15.7 %; Mean Corpuscular Hemoglobin 31.3 pg (25.0-34.0); Mean Corpuscular Hgb Conc 34.7 g/dL (32.0-36.0); Mean Platelet Volume 11.7 fL (9.4-12.4); Monocytes # (auto) 0.62 K/uL (0.11-0.59); Monocytes % (auto) 8.1 %; Neutrophils # (auto) 4.95 K/uL (1.40-6.50); Neutrophils % (auto) 64.9 %; Platelet Count 127 K/uL (130-400); RDW Coefficient of Variation 13.8 % (11.5-14.5); RDW Standard Deviation 45.3 fL (36.4-46.3); White Blood Count 7.63 K/ul (4.8-10.8)
[2023-05-22 08:10] LABS: BUN Creatinine Ratio 21.1 (10-20); Calcium 8.9 mg/dl (8.6-10.3); Creatinine Clr Calc Pharmacy 42.5 ml/min; Est GFR (African American) 51.6 ml/min; Est GFR (Non-African American) 44.5 ml/min; Potassium 4.4 mmol/L (3.5-5.1)
[2023-05-22] MEDS: INSULIN ASPART PER UNIT CHARGE SC SCH ×2 (08:20→13:01)
[2023-05-22] MEDS ORDERED: amLODIPine BESYLATE 5 MG TAB PO SCH ×2 (09:00)
[2023-05-22] MEDS: ASPIRIN 81 MG ECTAB PO SCH (09:01)
[2023-05-22] MEDS: carvediloL 12.5 MG TAB PO SCH (09:01)
[2023-05-22] MEDS: CHOLECALCIFEROL 1,000 UNITS 25 MCG TAB PO SCH (09:02)
[2023-05-22] MEDS: ASCORBIC ACID 500 MG TAB PO SCH (09:02)
[2023-05-22] MEDS: CLOPIDOGREL BISULFATE 75 MG TAB PO SCH (09:03)
[2023-05-22] MEDS: MULTIVITAMIN TAB PO SCH (09:03)
[2023-05-22] MEDS: ATORVASTATIN 40 MG TAB PO SCH (09:03)
[2023-05-22] MEDS: lisinopril 20 MG TAB PO SCH (09:04)
[2023-05-22] MEDS: COMBIGAN~ORDER AWAITING ACTION SCH (09:04)
[2023-05-22] MEDS ORDERED: LANTUS PER UNIT CHARGE SC SCH (09:15)
[2023-05-22] MEDS: TACROLIMUS 1 MG CAP PO SCH (10:22)
[2023-05-22] MEDS: CYANOCOBALAMIN (B-12) 100 MCG TABLET PO SCH (10:49)
--- NOTE | 2023-05-22 11:03 | Pharmacy Report ---
Pharmacy Glycemic Short Note 2 - Date of Service May 22, 2023 - Glycemic Short BSG Results (Last 24 hours): 05/21/23 05/21/23 05/21/23 11:06 11:20 11:35 Glucose POC Glucose 45 L* 52 L* 102 H 05/21/23 05/21/23 05/21/23 12:09 16:11 20:41 Glucose POC Glucose 239 H 346 H* 172 H 05/22/23 05/22/23 07:24 07:38 Glucose 212 H POC Glucose 208 H OUTPATIENT ANTIDIABETIC REGIMEN: * Glipizide 2.5 mg PO BID * Metformin 1000 mg PO BID * HbA1c: 7.3% (05/21/23) ASSESSMENT: 05/22: * Roderick received 30 units of insulin yesterday, 15 units each of basal and bolus. Believe lunchtime hypoglycemia was related to inaccurate AM BSG given patient's BSGs the rest of the evening. * Fasting BSG today is elevated at 208 mg/dL. Confirmed patient did not eat anything prior to AM accucheck. * Will give another 15 units of basal today. Tightening correctional insulin and adding carb ratio back this morning. 05/21: * 73 year old admitted for stroke workup. PMHx significant for type 2 diabetes, htn, hld, hypothyroidism, and kidney transplant. A1c currently pending * BSGs in the 300s on admission. Fasting BSG 247 mg/dL - will start low dose basal insulin ~0.2 units/kg and novolog * May need to tighten novolog later today if BSGs trending upward PLAN FOR INPATIENT GLYCEMIC CONTROL: * Hold outpatient oral diabetes medications * Basal insulin * Lantus 15 units SC daily * Bolus insulin * NovoLog per scale ACHS or Q6hrs while NPO * Goal Range: Low 110 mg/dL - High 140 mg/dL * Correction Factor: 25 mg/dL/unit * Nutritional / Prandial insulin per carb ratio of 1 unit per 15 grams CHO consumed
[2023-05-22] MEDS ORDERED: BRIMONIDINE TARTRATE 0.2% 5ML OP SCH (12:00)
[2023-05-22] MEDS ORDERED: TIMOLOL MALEATE 0.5% OP SOLN 5 ML BTL OP SCH (12:00)
--- NOTE | 2023-05-22 12:02 | Discharge Summary ---
Discharge Summary Date of Service May 22, 2023 Notes For Next Care Provider Medication Changes From Visit CHANGE LISINOPRIL FROM 40MG DAILY TO 20MG TWICE A DAY. CHANGE ATORVASTATIN FROM 10MG DAILY TO 80 MG DAILY. Admission HPI Per Admitting Provider 73-year-old male with past medical significant for type 2 diabetes, hyperlipidemia, hypothyroidism, CAD s/p CABG, hypertension, bilateral carotid stenosis, peripheral artery disease, stage III chronic kidney disease, urge incontinence, history of C. difficile, history of TIA, history of CVA, history of pancreas transplant, history of kidney transplant at [facility] presents with strokelike symptoms. Patient states last week he had severe headache but that got resolved. Last Friday morning he noticed weakness in the right extremities. While walking he has to drag his leg but not that bad. On and off he had some slurred speech. He did not want to come to the hospital. Symptoms are still the same today. Able to give his history. in the room. Occasionally some mild slurred speech. No obvious facial droop seen. Currently feels some foggy in the right side of the head and mild headache. Has longstanding double vision on and off. No recent fevers. Some on and off cough. No earaches. Able to swallow okay in the ER. No chest pain or shortness of breath. He has a chronic chest tightness on and off in the nighttime. No abdominal pain. Normal bowel and bladder movements. Currently resting comfortably and hemodynamically stable Past medical history as mentioned above Past surgical history colonoscopy, CABG, incision and drainage of the left leg abscess hematoma, right fem/pop artery revascularization with stent placed and angioplasty, left femoral fracture repair, transplant of pancreas at [facility] in 2003, tonsillectomy, right tibial/peroneal artery revascularization with angio, transplantation of kidney in 2003 at [facility]. Social history . Sniffs tobacco. No alcohol use no drug use Family history mother had breast cancer. Father had diabetes. Mother has Alzheimer's. Admission Exam Per Admitting Provider General- Not in distress Head- atraumatic Eyes- PERRL, EOMI, ENT- oropharynx clear Neck- supple, no JVD, no adenopathy, Bruit in right carotid artery heard. Lungs- clear to auscultation, no wheezing or crackles. Heart- regular rhythm; no murmur, no gallop. Abdomen- normal bowel sounds, soft, nontender, no distension. Extremities- no pretibial edema, no erythema seen. Neuro- alert, oriented x 3; PERRL, EOMI; no facial palsy; mild slurred speech; motor 5/5 in left extremities. 4-5/5 in right upper extremity 3/5 in right lower extremity; Co ordniation of movements normal ; finger to nose intact bilaterally. sensations intact. Skin- warm & dry Principal Dx & Hospital Course #1 = Principal Diagnosis (1) Acute CVA (cerebrovascular accident): per previous hospitalist notes with addendum: 73-year-old male with past medical significant for type 2 diabetes, hyperlipidemia, hypothyroidism, CAD s/p CABG, hypertension, bilateral carotid stenosis, peripheral artery disease, stage III chronic kidney disease, urge incontinence, history of C. difficile, history of TIA, history of CVA, history of pancreas transplant, history of kidney transplant at [facility] presents with strokelike symptoms. Acute cerebrovascular accident: Acute lacunar infarct left nolasco radiata In the setting of bilateral carotid artery stenosis, 80% stenosis of the left ICA Having right extremity weakness and some slurred speech and some fogginess in the head going on since last Friday morning Brain MRI: No acute lacunar infarct in the left nolasco radiata CTA head showing 80% stenosis in the left vertebral artery CTA neck showing 90% stenosis of the proximal right external carotid artery and 80% stenosis of the proximal left ICA. And diffuse atherosclerotic disease. Patient is already on aspirin and Plavix, Lipitor 10 mg daily next Neurologist consulted, recommend to increase Lipitor to 80 mg daily Also recommend vascular surgery evaluation for left ICA stenosis Vascular surgery consulted, recommend surgical intervention for left ICA stenosis, scheduled on Friday Cardiology service consulted for preop evaluation, patient is high risk for surgery, recommend changing lisinopril from 40 mg daily to 20 mg twice daily History of diabetes A1c 7.3 Continue usual regimen Hypertension continue his home amlodipine, Coreg, lisinopril and chlorthalidone History of CAD s/p CABG On aspirin, Plavix to and beta-charlie and statin History of kidney and pancreas transplant On tacrolimus Peripheral vascular disease Aspirin and Plavix on and on statin Hypothyroidism TSH 4.8 Free T4 0.7 ff up as outpatient Chronic kidney stage III stable DVT prophylaxis SCDs for now Disposition Vascular surgery this coming Friday PCP in 1 week Updated Medication List Medication Instructions Recorded Confirmed Type acetaminophen 325 mg tablet 650 mg PO QID PRN Pain 11/19/22 05/20/23 History (Tylenol) amlodipine 10 mg tablet 10 mg PO DAILY 11/19/22 05/20/23 History ascorbic acid (vitamin C) 500 mg 500 mg PO DAILY 11/19/22 05/20/23 History tablet (Vitamin C) aspirin 81 mg tablet,delayed 81 mg PO DAILY 11/19/22 05/20/23 History release brimonidine 0.2 %-timolol 0.5 % 1 drp OPB BID 11/19/22 05/20/23 History eye drops (Combigan) chlorthalidone 25 mg tablet 25 mg PO DAILY 11/19/22 05/20/23 History cholecalciferol (vitamin D3) 50 50 mcg PO DAILY 11/19/22 05/20/23 History mcg (2,000 unit) tablet (Vitamin D3) clopidogrel 75 mg tablet 75 mg PO DAILY 11/19/22 05/20/23 History cyanocobalamin (vitamin B-12) 100 0 mcg PO DAILY 11/19/22 05/20/23 History mcg tablet (Vitamin B-12) glipizide 2.5 mg tablet, extended 2.5 mg PO BID 11/19/22 05/20/23 History release 24 hr metformin 1,000 mg tablet 1,000 mg PO BIDM 11/19/22 05/20/23 History multivitamin 1 tab PO DAILY 11/19/22 05/20/23 History netarsudil 0.02 %-latanoprost 1 drp OPB HS 11/19/22 05/20/23 History 0.005 % eye drops (Rocklatan) tacrolimus 1 mg oral granules in 1 mg PO BID 11/19/22 05/20/23 History packet carvedilol 12.5 mg tablet 12.5 mg PO BID 05/20/23 05/20/23 History oregano oil 1,500 mg capsule 0 mg PO DIRECTED 05/20/23 05/20/23 History atorvastatin 40 mg tablet 80 mg PO QAM 30 days #60 tabs 05/22/23 Rx lisinopril 20 mg tablet 20 mg PO BID 30 days #60 tabs 05/22/23 Rx Hospital Stay Data Consultations 05/20/23 21:59 ED Decision to Admit Stat 08/23/23 07:55 Consult Vascular Surgery Routine 05/21/23 08:00 Consult Neurology Routine 05/21/23 09:21 Consult Vascular Surgery Routine 05/21/23 10:38 Consult Cardiology Routine Diagnostic Imagining Performed 05/20/23 20:26 CT angio head w con Stat CT angio neck with con Stat CT head/brain wo con Stat 05/21/23 01:26 MR brain wo/w con Routine Pending Results Patient Have Any Pending Studies at Discharge: No Discharge Instructions Given to Patient (Per Discharging Provider) ALWAYS TAKE YOUR MEDICATIONS DAILY. PLEASE REFER TO YOUR NEW MEDICATION LIST AND FOLLOW INSTRUCTIONS CAREFULLY. YOUR NEW MEDICATIONS INCLUDE: CHANGE LISINOPRIL FROM 40MG DAILY TO 20MG TWICE A DAY. CHANGE ATORVASTATIN FROM 10MG DAILY TO 80 MG DAILY. RESUME METFORMIN TOMORROW. FOLLOW UP WITH PRIMARY CARE PHYSICIAN OUTLINED ABOVE. CAROTID SURGERY ON FRIDAY C/O DR. TAYLOR. FOLLOW UP WITH PRIMARY CARE PHYSICIAN OUTLINED ABOVE. NO SMOKING/CHEWING TOBACCO. Who to Call and When: Medical Emergencies: Call 911 immediately if you experience any of the following warning signs and symptoms of Stroke: Sudden numbness or weakness of the face, arm or leg, especially on one side of the body Sudden confusion, trouble speaking or understanding Sudden trouble seeing in one or both eyes Sudden trouble walking, dizziness, loss of balance or coordination Sudden severe headache with no cause Do not delay calling 911 if you experience any warning signs or symptoms of a stroke. Delay in seeking medical attention may affect what treatments can be given to you. Risk Factors for Stroke: You can reduce your chances of stroke by working with your medical provider to adopt a healthy lifestyle. Some specific ways to lower your chance of stroke are: If you are a smoker, now is the time to stop smoking cigarettes If you are diabetic, improve the control of your blood sugars Avoid excessive amounts of alcohol Control high blood pressure Lose weight if you are overweight Be sure to lead an active lifestyle Eat a healthy diet low in salt, cholesterol and fat You should know about other risk factors for stroke that you are unable to control. These include: Age 55 years or older Male gender Certain racial groups: , or / Family History of Stroke, Mini stroke or Heart Attack Sickle Cell Disease Follow Up: It is important for you to keep your follow up appointments with your medical provider. . Total Time Total Time Spent Total Time Spent (In Minutes): >30 minutes
--- NOTE | 2023-05-24 12:57 | Coding Query ---
CODING QUERY To promote full compliance with coding requirements relating to patient care, provider participation is requested in all cases of cable machine operator uncertainty. Please assist us with the question(s) below: Coding Question(s): Pt admitted with stroke. Seeking to clarify the type of stroke patient was treated for . Neuro consulted, stated Left internal carotid artery occlusion causing the stroke symptoms. CT brain : Lacunar stroke. MRI ruled out Lacunar stroke. Please document the type of stroke diagnosed and treated during this inpatient stay. Pt scheduled for TCAR in 30 days. Thanks for your help. Greg Leung, [facility] Physician's Response(s): Acute lacunar infarct left nolasco radiata. Principal Diagnosis: "that condition established after study, to be chiefly responsible for occasioning the admission of the patient to the hospital for care." Co-Existing Principal Diagnosis: "when two or more diagnoses equally meet the criteria for principal diagnosis as determined by the circumstances of admission, diagnostic work up, and/or therapy provided, and the Alphabetic Index, Tabular List, or another coding guideline does not provide sequencing direction, any one of the diagnoses may be sequenced first." "When the physician has documented what appears to be a current diagnosis in the body of the record, but has not included the diagnosis in the final diagnostic statement, the physician should be asked whether the diagnosis should be added." (Source Coding Clinic 2 QTR90. p3-4) TON
== END 2023-05-22 14:09 | disposition home or self-care (01) | DRG 65 ==
LOC: ED 20:18 → EDINP 23:11 → SUATTDRO 23:11 → EDINP 23:37 → 2S 05-21 05:02

== ENCOUNTER 2023-07-16 10:21 | Inpatient (IN) ==
--- NOTE | 2023-05-30 10:45 | Anesthesiology Consultation ---
Date of Service May 30, 2023 Assessment & Plan (1) Encounter for pre-operative examination: Plan - check BSG am DOS. - nephrology progress note 05/30/23: "...BERLIN (acute kidney injury): Resolved. BERLIN hemodynamic in setting of acute blood loss anemia. Creatinine returned to baseline. Document I'O's. Repeat metabolic profile tomorrow AM....Follow up in the nephrology clinic within 2 weeks of hospital discharge. No additional recommendations from nephrology at this time. Tacro trough pending. Close outpatient follow up encouraged...Symptomatic anemia: s/p PRBC transfusion at admission. Gastric ulcer clipped. No additional signs of bleeding reported. Goal is to maintain hemoglobin ~8 in setting of BERLIN. H/H stable. Tsat slightly low at 17, ferritin 83. Venofer 200 mg IV provided yesterday. Additional 400 mg IV Venofer today. Oral iron supplement also started...Renal lesion: R lower pole lesion noted on CT at admission. Possible increased in size from prior. A follow up US has been requested now. Please schedule outpatient follow up in the nephro logy clinic for prospective monitoring s/p discharge..." - Patient currently admitted at [facility]. 05/29/23 hospitalist note: "...symptomatic anemia transferred to ICU and received4 unit packed RBCs...s/p EGD 1 05/27/2023: gastric ulcer s/p clipping...Has been on Protonix drip which will be continued for 3 days...Aspirin and Plavix are on hold...Hemoglobin remains stable at 7.6 and no more evidence of GI bleed...Recent Acute CVA diagnosed last week with Bilateral carotid stenosis admitted last week for acute CVA with mild R sided weakness, slurred speech found to have acute CVA, BL carotid aretery [sic] stenosis, L>R. Neuro recommend to continue usual ASA, Plavix plan for L carotid artery surgery 05/26 but patient presented to the ER for melena...hxCKD, hx of kidney and pancreas transplant on tacrolimus immunosuppression. History of renal, pancreatic transplant. Tacrolimus on hold..." - communication note by Shazia Piper PA-C 05/26/23: "73 yo m with symptomatic L ICA Stenosis was seen by Dr Link and was scheduled for L TCAR earlier this week. Procedure was cancelled d/t pt admission for GI bleed and d/c of DAPT. Pt now stabilized and nearing discharge. Recommend pt undergo L CEA instead of TCAR, as DAPT is not required for CEA. Pt scheduled for L CEA on Jun 03, at 0730. Pt will need to be NPO after midnight Friday evening and arrive at [facility] for procedure at 0530 Friday morning. Discussed with pt, is expresses understanding and agreement. Pt states he is expecting d/c to rehab either today or tomorrow. Request that these instructions be relayed to his rehab facility." - Per finisher plate on 05/23/2023: No known infectious disease contacts, current infectious disease symptoms in past 10 days or COVID positive test result in the past 90 days. - PAT note was completed while patient was admitted to [facility], to anesthesiologist evaluation am DOS including if any additional testing or notes were completed after my assessment. - from 05/23/23 PAT note: "Seen by cardio during admission for consultation 05/21/23= Complex 73-year-old male admitted with an acute CVA felt to be secondary to high-grade left internal carotid artery stenosis.Cardiology consultation requested for preoperative evaluation prior to left TCAR on Friday, May 26, 2023.Patient unable to achieve 4 METS secondary to dyspnea. Resting echocardiography with preserved LV systolic function, mild mitral and tricuspid regurgitation only, no evidence of pulmonary hypertension.Risks of pharmacological stress testing in the setting appear to be greater than the benefit. Options discussed. Risks explained. Patient is high risk for a necessary procedure.Recommend proceeding as planned .Continue carvedilol and amlodipine without perioperative interruption. Continue dual antiplatelet therapy. Continue high intensity statin therapy Maintain telemetry while hospitalized. Outpatient 14-day ZIO monitoring to evaluate for atrial fibrillation if telemetry unyielding. Recommend outpatient general cardiology follow-up in [place] Pt admitted to [facility] 05/20/23-05/22/23=Patient presented to ER with strokelike symptoms. Acute CVA. Acute lacunar infarct left nolasco radiata. In the setting of bilateral carotid artery stenosis, 80% of the left ICA. Patient on aspirin, Plavix, Lipitor.Neurologist consultedrecommend increase Lipitor to 80 mg daily. Also recommend vascular surgery evaluation for left ICA stenosis. Vascular surgery consultedrecommend surgical intervention for left ICA stenosisscheduled on Friday05/26/2023. Cardiology service consulted for preop evaluation, patient is high risk for surgeryrecommend changing lisinopril from 40 mg daily to 20 mg twice daily. Diabetescontinue current regimen. Hypertensioncontinue meds. History of CAD status post CABGon aspirin/Plavix/beta-charlie/statin. History of kidney and pancreas transplant on tacrolimus. PVDon aspirin and Plavix/statin. Hypothyroidism. CKD stage IIIstable." Chart Review Chart Review: Acceptable Risk for Surgery (pending anesthesiologist evaluation and review of records am DOS) and Patient NOT seen in Pre Admission Testing History Surgery Operation Date: 06/03/23 08:00 Proposed Procedures p Left Carotid Endarterectomy - Remington Link MD Height/Weight Height: 5 ft 10 in Weight: 70 kg Allergies Allergy/AdvReac Type Severity Reaction Status Date / Time sulfamethoxazole Allergy Intermediate rash Verified 05/27/23 06:48 trimethoprim Allergy Intermediate rash Verified 05/27/23 06:48 promethazine [From Phenergan] AdvReac Intermediate Confusion Verified 05/27/23 06:48 Medications Home Medications Medication Instructions Recorded Confirmed Last Taken acetaminophen 325 mg tablet 650 mg PO QID PRN Pain 11/19/22 05/26/23 Unknown (Tylenol) amlodipine 10 mg tablet 10 mg PO QAM 11/19/22 05/26/23 Unknown ascorbic acid (vitamin C) 500 mg 500 mg PO QAM 11/19/22 05/26/23 Unknown tablet (Vitamin C) aspirin 81 mg tablet,delayed 81 mg PO QAM 11/19/22 05/26/23 Unknown release brimonidine 0.2 %-timolol 0.5 % 1 drp OPB BID 11/19/22 05/26/23 Unknown eye drops (Combigan) chlorthalidone 25 mg tablet 25 mg PO DAILY 11/19/22 05/26/23 Unknown cholecalciferol (vitamin D3) 50 50 mcg PO QAM 11/19/22 05/26/23 Unknown mcg (2,000 unit) tablet (Vitamin D3) clopidogrel 75 mg tablet 75 mg PO QAM 11/19/22 05/26/23 Unknown cyanocobalamin (vitamin B-12) 100 1,000 mcg PO QAM 11/19/22 05/26/23 Unknown mcg tablet (Vitamin B-12) glipizide 2.5 mg tablet, extended 2.5 mg PO BID 11/19/22 05/26/23 Unknown release 24 hr metformin 1,000 mg tablet 1,000 mg PO BIDM 11/19/22 05/26/23 Unknown multivitamin 2 tab PO QAM 11/19/22 05/26/23 Unknown netarsudil 0.02 %-latanoprost 1 drp OPB HS 11/19/22 05/26/23 05/19/23 0.005 % eye drops (Rocklatan) tacrolimus 1 mg oral granules in 1 mg PO BID 11/19/22 05/26/23 Unknown packet carvedilol 12.5 mg tablet 12.5 mg PO BID 05/20/23 05/26/23 Unknown oregano oil 1,500 mg capsule 0 mg PO DIRECTED 05/20/23 05/26/23 Unknown atorvastatin 40 mg tablet 80 mg PO QAM 30 days #60 tabs 05/22/23 05/26/23 Unknown lisinopril 20 mg tablet 20 mg PO BID 30 days #60 tabs 05/22/23 05/26/23 Unknown Past Medical History Medical History (Updated 05/30/23 @ 11:12 by Ewa Horta PA-C) Acute CVA (cerebrovascular accident) - 05/17/23- started with weakness and discoordination right let and arm. Speech slurred at some points. - Dx'ed with acute CVA 05/20/23- admitted to [facility] until 05/22/23 - Right side weakness is getting better. Asthma as child CAD (coronary artery disease) "s/p CABG x 5 in 2002" [facility] CKD (chronic kidney disease), stage III - at this time - Hx of ESRD- on dialysis x one year but had kidney transplant 2003- no dialysis required since that time Diabetes mellitus, type II Hx of severe diabetes- 2003 had pancreas transplant- did not require DM meds until the past four years (had to restart oral DM meds) Dyslipidemia Fistula hx of ---was in right arm and no longer working History of COVID-19 06/2022 - resolved History of TIA (transient ischemic attack) Unsure of date HTN (hypertension) Hypothyroidism PAD (peripheral artery disease) S/p right fem/pop artery revascularization with stent placed and angioplasty per records - right tibial/peroneal artery revascularization with angio Skin cancer on ear and head Symptomatic carotid artery stenosis with infarction 90% stenosis of the proximal right external carotid artery. There is 30% stenosis of the proximal right internal iliac artery just beyond its origin with a tandem 20% stenosis seen distally within the right ICA at its entrance to carotid siphon; 80% stenosis of the proximal left ICA Past Family History Family History Mother Breast cancer Father Diabetes Past Surgical History Surgical History History of kidney transplant 2004 -[facility] -- ERSD and on dialysis for a year and then had transplant and at this time the doctor is monitoring History of open reduction and internal fixation (ORIF) procedure left hip History of pancreas transplant 2003- [facility]- had this at the time of kidney transplant pancreas had abcess and was taken back in to drain it. Hx of extremity bypass graft - right fem/pop artery revascularization with stent placed and angioplasty per records - right tibial/peroneal artery revascularization with angio S/P CABG (coronary artery bypass graft) x 5 -- [facility] 2002 - incidental finding when getting worked up for transplant follows with Medical doctor Social History Smoking Status: Current some day smoker tobacco type: smokeless tobacco Do You Dip or Chew Tobacco: Yes Hx Alcohol Use: No Hx Substance Use: No substance use type: does not use Lab Results Anesthesia Preop Results Results Anesthesia Widget: WBC 7.22 K/ul (4.8-10.8) 05/30/23 Hgb 7.7 g/dl (14.0-18.0) L 05/30/23 Hct 22.5 % (42.0-52.0) L 05/30/23 Plt 109 K/uL (130-400) L 05/30/23 Na 136 mmol/L (136-145) 05/30/23 K 4.1 mmol/L (3.5-5.1) 05/30/23 Cl 103 mmol/L (98-107) 05/30/23 CO2 28 mmol/L (21-32) 05/30/23 BUN 35 mg/dl (6-23) H 05/30/23 Creat 1.36 mg/dl (0.6-1.4) 05/30/23 Glucose Level 202 mg/dl (70-99(Fasting)) H 05/30/23 POC Glucose 222 mg/dl (70-99) H 05/30/23 PT 11.4 Seconds (9.0-12.0) 05/27/23 PTT 23.9 Seconds (21.0-31.0) 05/27/23 INR 1.0 (0.9-1.1) 05/27/23 TSH 4.855 uIu/ml (0.300-4.500) H 05/21/23 Free T4 0.78 ng/dl (0.61-1.60) 05/21/23 HA1c 7.3 % (4.5-5.6) H 05/21/23 Urine Color Yellow 05/27/23 Urine Appearance Clear (Clear) 05/27/23 Urine pH 5.0 (4.5-7.5) 05/27/23 Urine Specific Humphreys 1.016 (1.000-1.030) 05/27/23 Urine Protein Negative (Negative) 05/27/23 Urine Glucose (UA) Negative (Negative) 05/27/23 Urine Ketones Negative (Negative) 05/27/23 Urine Blood Negative (Negative) 05/27/23 Urine Nitrite Negative (Negative) 05/27/23 Urine Bilirubin Negative (Negative) 05/27/23 Urine Urobilinogen Negative (Negative) 05/27/23 Urine Leukocyte Esterase Negative (Negative) 05/27/23 Coronavirus OC43 (PCR) Not Detected (NotDetected) 05/26/23 Coronavirus HKU1 (PCR) Not Detected (NotDetected) 05/26/23 Coronavirus 229E (PCR) Not Detected (NotDetected) 05/26/23 COVID-19 PCR Not Detected (NotDetected) 05/26/23 Coronavirus NL63 (PCR) Not Detected (NotDetected) 05/26/23 Blood Type A Positive 05/26/23 Antibody Screen NEGATIVE 05/26/23 Testing Electrocardiogram Date: 05/26/23 NSR, rate 74 bpm Poor R wave progression, consider anterior PA vs lead placement vs LVH Chest X-Ray Date: 05/26/23 *1view* Cardiomegaly with no acute cardiopulmonary abnormality identified. Echocardiogram Date: 05/21/23 EF 60-65% Mild cLVH Septal motion is consistent with post-operative state Moderately dilated LA Mild mitral regurgitation Mild tricuspid regurgitation Mild pulmonic regurgitation Other Testing Abdomen pelvis CT 05/27/23 1. Moderate fluid distention of small and large bowel loops without evidence for obstruction. No acute pathology on this noncontrast examination. 2. Hyperdense lesion emanating from the lower pole of the right kidney which is increased in size from a comparison study 3 years prior and may reflect a hemorrhagic cyst but is technically indeterminate on this study, further evaluation with nonemergent ultrasound may provide further information. Head CT 05/26/23 1. Small vessel ischemic/degenerative changes. 2. Cerebral and cerebellar atrophy. Brain MRI 05/21/23 Acute lacunar infarct left nolasco radiata Neck CTA 05/20/23 1. Dense atherosclerotic change of the distal right carotid artery resulting in 90% stenosis of the proximal right external carotid artery. There is 30% stenosis of the proximal right internal iliac artery just beyond its origin with a tandem 20% stenosis seen distally within the right ICA at its entrance to carotid siphon 2. Dense atherosclerotic plaque involving the left distal common carotid artery resulting in occlusion of the proximal left external carotid artery and 80% stenosis of the proximal left ICA. Head CTA 05/20/23 80% stenosis involving the distal left vertebral artery within the posterior fossa.
--- NOTE | 2023-07-16 07:42 | History & Physical Report ---
Date of Service July 16, 2023 History of Present Illness Primary Care Provider: Jolly Prajapati MD Chief Complaint Severe left internal carotid artery stenosis Subjective I had the pleasure of seeing Roderick today for follow-up. As you know he is a 73-year-old gentleman who has a severe stenosis of his left internal carotid artery. On the day of surgery he had an upper GI bleed while he was on Plavix and aspirin for his TCAR. He then became septic during his hospital stay because of his cellulitis of his arm from an IV infiltration. He has now undergone his total treatment. His sepsis. There is no more evidence of infection according to the patient. He has no new neurologic symptoms. He is not on any anticoagulation at this time or antiplatelets. He is on a statin. Objective Vitals & Measurements HR: 73 (Monitored) RR: 18 BP: 160/62 SpO2: 97% WT: 61.000 kg (Dosing) WT: 61 kg Physical Exam On exam he is awake alert and oriented x3. He is in no apparent distress. His blood pressure is 160/62. Neurologically he is intact. His radials and carotids are +2 bilaterally. The right arm. Patient is healed nicely with no erythema present. His heart had a regular rate and rhythm. His lungs are clear. Abdominal exam is benign. He did have femoral pulses in both lower extremities. She has normal capillary refill distally. Assessment/Plan Left carotid stenosis At this point we elected to go ahead with a left carotid endarterectomy. This is due to the fact that he cannot be on any antiplatelets due to his recent GI bleed. He understood the risks and options and benefits of an endarterectomy versus the risks options benefits of anticoagulation after TCAR. We will schedule his surgery in the near future. Thank you very much for letting us participate in the care of this patient. Sincerely, Stephania Link MD Signature Line Electronic Signature on File Remington Link MD Author Signature Dt/Tm: 07/14/2023 02:14 PM Professional Services Specialist Theo Grider [facility], [address] [place] [address] EJS Result Type: .Outpt Ltr Date of Service: July 14, 2023 14:11 EDT Authorization Status: Final Subject: Follow Up Visit Author or Import Date: MD Link Eugene J on July 14, 2023 14:14 EDT Verified By: MD Link Eugene J on July 14, 2023 14:14 EDT Allergies Allergy/AdvReac Type Severity Reaction Status Date / Time sulfamethoxazole Allergy Intermediate rash Verified 07/15/23 09:54 trimethoprim Allergy Intermediate rash Verified 07/15/23 09:54 promethazine [From Phenergan] AdvReac Intermediate Confusion Verified 07/15/23 09:54 Home Medications Medication Instructions Recorded Confirmed Type acetaminophen 325 mg tablet 650 mg PO QID PRN Pain 11/19/22 07/15/23 History (Tylenol) amlodipine 10 mg tablet 10 mg PO QAM 11/19/22 07/15/23 History ascorbic acid (vitamin C) 500 mg 500 mg PO QAM 11/19/22 07/15/23 History tablet (Vitamin C) brimonidine 0.2 %-timolol 0.5 % 1 drp OPB BID 11/19/22 07/15/23 History eye drops (Combigan) chlorthalidone 25 mg tablet 25 mg PO QAM 11/19/22 07/15/23 History cholecalciferol (vitamin D3) 50 50 mcg PO QAM 11/19/22 07/15/23 History mcg (2,000 unit) tablet (Vitamin D3) clopidogrel 75 mg tablet 75 mg PO QAM 11/19/22 07/15/23 History cyanocobalamin (vitamin B-12) 100 1,000 mcg PO QAM 11/19/22 07/15/23 History mcg tablet (Vitamin B-12) glipizide 2.5 mg tablet, extended 2.5 mg PO BID 11/19/22 07/15/23 History release 24 hr metformin 1,000 mg tablet 1,000 mg PO BIDM 11/19/22 07/15/23 History multivitamin 2 tab PO QAM 11/19/22 07/15/23 History netarsudil 0.02 %-latanoprost 1 drp OPB HS 11/19/22 07/15/23 History 0.005 % eye drops (Rocklatan) tacrolimus 1 mg oral granules in 1 mg PO BID 11/19/22 07/15/23 History packet carvedilol 12.5 mg tablet 12.5 mg PO BID 05/20/23 07/15/23 History oregano oil 1,500 mg capsule 0 mg PO DIRECTED 05/20/23 07/15/23 History benzonatate 100 mg capsule 100 mg PO TID PRN cough #30 caps 06/10/23 07/15/23 Rx ferrous sulfate 325 mg (65 mg 325 mg PO BIDM #60 tabs 06/10/23 07/15/23 Rx iron) tablet,delayed release loratadine 10 mg tablet (Wal-itin) 10 mg PO QAM #30 tabs 06/10/23 07/15/23 Rx L.acidop,casei,lactis,rham-B.lact,dennys 2 cap PO BID 07/15/23 07/15/23 History 625 mg (10 billion cell) capsule (Advanced Probiotic) atorvastatin 10 mg tablet 10 mg PO QAM 07/15/23 07/15/23 History lisinopril 40 mg tablet 40 mg PO QAM 07/15/23 07/15/23 History Past Med/Surg History Medical History (Updated 07/15/23 @ 09:28 by Berna Nuñez RN) Acute CVA (cerebrovascular accident) - 05/17/23- started with weakness and discoordination right let and arm. Speech slurred at some points. - Dx'ed with acute CVA 05/20/23- admitted to [facility] until 05/22/23 - Right side weakness is getting better. Asthma as child Bacteremia associated with IV line during patient's inpatient stay at the end of April 2023 due to a severe IV infiltration during inpatient stay. doing okay at this time. no curret infection. CAD (coronary artery disease) "s/p CABG x 5 in 2002" [facility] CKD (chronic kidney disease), stage III - at this time - Hx of ESRD- on dialysis x one year but had kidney transplant 2003- no dialysis required since that time Diabetes mellitus, type II Hx of severe diabetes- 2003 had pancreas transplant- did not require DM meds until the past four years (had to restart oral DM meds) Dyslipidemia Fistula hx of ---was in right arm and no longer working GI bleed ~05/26/[address] [facility] History of COVID-19 06/2022 - resolved History of pneumothorax during his open heart surgery in 2002 at [facility]. will have reoccurring pneumonia since. History of TIA (transient ischemic attack) Unsure of date HTN (hypertension) Hx: recurrent pneumonia last episode ~Fall 2021 Hypothyroidism PAD (peripheral artery disease) S/p right fem/pop artery revascularization with stent placed and angioplasty per records - right tibial/peroneal artery revascularization with angio S/P transesophageal echocardiogram (EILEEN) Skin cancer on ear and head Symptomatic carotid artery stenosis with infarction 90% stenosis of the proximal right external carotid artery. There is 30% stenosis of the proximal right internal iliac artery just beyond its origin with a tandem 20% stenosis seen distally within the right ICA at its entrance to carotid siphon; 80% stenosis of the proximal left ICA Surgical History (Updated 07/15/23 @ 09:28 by Berna Nuñez RN) History of esophagogastroduodenoscopy (EGD) for a GI Bleed ~05/26/[address]patrick [address] [facility]. History of kidney transplant [address] -[facility] -- ERSD and on dialysis for a year and then had transplant and at this time the doctor is monitoring History of open reduction and internal fixation (ORIF) procedure left hip History of pancreas transplant 2003- [facility]- had this at the time of kidney transplant pancreas had abcess and was taken back in to drain it. Hx of chest tube placement 2002 for pneumothorax Hx of extremity bypass graft - right fem/pop artery revascularization with stent placed and angioplasty per records - right tibial/peroneal artery revascularization with angio S/P CABG (coronary artery bypass graft) x 5 -- [facility] 2002 - incidental finding when getting worked up for transplant follows with Medical doctor S/P PICC central line placement since removed 05/2023 Transplant recipient pancreas and kidney transplants in 2003 Family History (Updated 07/15/23 @ 08:58 by Berna Nuñez RN) Mother Breast cancer Father Diabetes Other No family history of adverse response to anesthesia Social History Smoking Status: Never smoker Tobacco Type: Smokeless Tobacco (Dip or Chew) Second Hand Exposure: No; Do You Dip or Chew Tobacco: Yes (advised NPO); Tobacco Cessation Education Requested by Patient: No Hx Alcohol Use: No Hx Substance Use: No Preferred Language: Occitan Communication Ability: Effective Hall Manager Required: No Beliefs That Will Affect Care: None marital status: Current Living Situation: Spouse Other Information That Helps Us Care for You: No Assistive Devices: Cane, Glasses and Walker
[~2023-07-16 10:21] MED LIST changes: -AMLO-114 PO; -ASPI-435 PO; -BIMA0.01 OPB; +BUPIVACAINE/EPINEPHRINE 0.5% MPF 1:200,000 30 ML VIAL ONE; +CEFAZOLIN 2,000 MG/15 ML SYR IV SCH; -CHOL100027 PO; -CRG625 PO; -CYAN100T6 PO; +DEXAMETHASONE SOD INJ 4 MG/ML VIAL ONE; +GELATIN SPONGE SZ 100 ONE; +HEPARIN (PORCINE) 1000 UNIT/ML 10 ML (CATH LAB USE ONLY) ONE; +HEPARIN SOD (PORCINE) 1000 UNIT/ML ONE; +LACTATED RINGER'S 1,000 ML BAG IV SCH; +LIDOCAINE 1% LOCAL 20 ML VIAL ONE; +LIDOCAINE 2% 2 ML VIAL/AMP(20MG/ML) INFIL ONE; -LISI20TA3 PO; +MIDAZOLAM HCL 1 MG/ML 2ML VIAL ONE; -MULT-506 PO; +NITROGLYCERIN/D5W 100 MCG/ML BTL ONE; -OMG3 PO; +ONDANSETRON INJ 2 MG/ML 2 ML VIAL ONE; +PHENYLEPHRINE HCL 10 MG/ML VIAL ONE; -PLV75 PO; -PROB1CAP41 PO; +PROPOFOL IV EMULSION 10 MG/ML 20 ML VIAL IV ONE; +ROCURONIUM BROMIDE 10 MG/ML 5 ML VIAL IV ONE; +SODIUM CHLORIDE 0.9% 1,000 ML IV SCH; +SUGAMMADEX SODIUM 200 MG/2 ML VIAL IV ONE; -TACR1CAP PO; +THROMBIN FOR SOLN 20000 UNIT KIT ONE; -VITA400C3 PO; +ceFAZolin 2000MG 2,000 MG/15 ML SYR IV SCH; +ceFAZolin 330 MG/ML 1 GM VIAL ONE; +ePHEDrine sulfate 50 MG/5 ML SYR ONE; +fentaNYL citrate PF 100 MCG/2 ML VIAL ONE
[2023-07-16] MEDS ORDERED: HEPARIN (PORCINE) 1000 UNIT/ML 10 ML (CATH LAB USE ONLY) ONE (10:42)
[2023-07-16] MEDS ORDERED: BUPIVACAINE/EPINEPHRINE 0.5% MPF 1:200,000 30 ML VIAL ONE (10:42)
[2023-07-16] MEDS ORDERED: LIDOCAINE 1% LOCAL 20 ML VIAL ONE (10:42)
[2023-07-16] MEDS ORDERED: ceFAZolin 330 MG/ML 1 GM VIAL ONE (10:42)
[2023-07-16] MEDS ORDERED: THROMBIN FOR SOLN 20000 UNIT KIT ONE (10:43)
[2023-07-16] MEDS ORDERED: GELATIN SPONGE SZ 100 ONE (10:43)
[2023-07-16] MEDS ORDERED: PROPOFOL IV EMULSION 10 MG/ML 20 ML VIAL IV ONE (11:11)
[2023-07-16] MEDS ORDERED: fentaNYL citrate PF 100 MCG/2 ML VIAL ONE ×2 (11:11→13:05)
[2023-07-16] MEDS ORDERED: NITROGLYCERIN 5 MG/ML 10 ML VIAL ONE (11:11)
[2023-07-16] MEDS ORDERED: PHENYLEPHRINE HCL 10 MG/ML VIAL ONE (11:11)
[2023-07-16] MEDS ORDERED: LIDOCAINE 2% 2 ML VIAL/AMP(20MG/ML) INFIL ONE (11:11)
[2023-07-16] MEDS ORDERED: MIDAZOLAM HCL 1 MG/ML 2ML VIAL ONE (11:11)
[2023-07-16] MEDS ORDERED: HEPARIN SOD (PORCINE) 1000 UNIT/ML ONE (11:11)
[2023-07-16] MEDS ORDERED: ONDANSETRON INJ 2 MG/ML 2 ML VIAL ONE (11:11)
[2023-07-16] MEDS ORDERED: ESMOLOL HCL INJ 10 MG/ML 10ML VIAL IV ONE (11:11)
[2023-07-16] MEDS ORDERED: GLYCOPYRROLATE 0.2 MG/ML VIAL ONE (11:26)
[2023-07-16] MEDS ORDERED: fentaNYL citrate PF 100 MCG/2 ML VIAL IV PRN (11:56)
[2023-07-16] MEDS ORDERED: PROMETHAZINE HCL 12.5 MG in SODIUM CHLORIDE 0.9% 50 ML IV PRN (11:56)
[2023-07-16] MEDS ORDERED: ATROPINE SULFATE 0.1 MG/ML 10ML SYR IV PRN (11:56)
[2023-07-16] MEDS ORDERED: ONDANSETRON INJ 2 MG/ML 2 ML VIAL IV PRN ×2 (11:56→16:14)
[2023-07-16] MEDS ORDERED: HYDROmorphone INJ 2 MG/ML SYR/VIAL IV PRN (11:56)
[2023-07-16] MEDS ORDERED: ePHEDrine sulfate 50 MG/ML AMP IV PRN (11:56)
--- NOTE | 2023-07-16 12:06 | History & Physical Bridge Note ---
Date of Service July 16, 2023 History & Physical Bridge Note I have examined the patient, reviewed the History & Physical and in the interval since the performance of the History & Physical I have noted the following changes of clinical significance: no changes noted
[2023-07-16] MEDS ORDERED: PROTAMINE SULFATE 10 MG/ML 5 ML VIAL IV ONE (14:24)
[2023-07-16] MEDS ORDERED: SUGAMMADEX SODIUM 200 MG/2 ML VIAL IV ONE (14:25)
[2023-07-16] MEDS ORDERED: PHENYLEPHRINE HCL 25 MG/250 ML NSS IV ONE (14:30)
--- NOTE | 2023-07-16 14:41 | Operative Report ---
Post Operative Report Pre & Post Diagnosis Operation Date: 07/16/23 12:00 Pre-Op Diagnosis: Severe left internal carotid artery stenosis Post-Op Diagnosis: Severe left internal carotid artery stenosis I identified the patient and participated in the time-out.: Yes Procedure Operation Date: 07/16/23 12:00 Actual Procedures p Left Carotid Endarterectomy with Bovine Patch(Left) - Remington Link MD Surgeon Remington Link MD Visual Effects Artist Rosalva,PAC Estimated Blood Loss 150 Findings Consistent with Post-Op Diagnosis Specimens none Anesthesia Type General Complications none Disposition Accompanied Patient To Recovery: No Disposition: Recovery Room Indications This is a 73-year-old gentleman found to have a severe stenosis of the left internal carotid artery. He did have a TIA in April of this year. We are planning on a TCAR procedure but the day of the procedure he came into the ER with a GI bleed. This was treated. We decided not to do a TCAR due to the recent GI bleed and the need for dual platelet therapy for at least a year after. Endarterectomy was discussed with the patient. I have discussed the risks options and benefits of the procedure with the patient. The patient understands the risks options and benefits and agrees to the procedure. Description of Procedure The patient was taken to the operating room and placed in supine position. After general anesthesia was accomplished the left side of the neck was prepped and draped in a sterile manner. The patient was identified and a timeout performed. A longitudinal neck incision was then made coursing along the medial border of the sternocleidomastoid muscle. The incision was taken down through the platysmal layer. The facial vein was identified, ligated, and divided. The common carotid artery was then seen. It was dissected free down to the omohyoid muscle. The dissection was carried upward until the external carotid artery and superior thyroid artery was seen. The superior thyroid artery was slung with a 2-0 silk suture. The external carotid was slung with a red rubber vessel loop. Next the dissection was carried up along the internal carotid artery. This was carried upward to beyond the area of narrowing. The hypoglossal nerve was seen and preserved. The patient was heparinized. After adequate heparinization was accomplished, the internal, external, and common carotid arteries were clamped. A longitudinal arteriotomy was started on the common carotid artery and extended upward along the internal carotid artery to a point beyond the area of narrowing. There was calcified plaque of the internal carotid artery origin causing approximately 85-90% narrowing. A Doppler shunt was then placed in the internal, followed by the common carotid artery and held in place with Blanco clamps. There was good back bleeding seen from the internal carotid artery. The endarterectomy was then started in the appropriate plane on the common carotid artery. This was carried upward and the external carotid was everted and endarterectomized. The endarterectomy was then carried up along the internal carotid artery till a nice feathering breakoff point was accomplished beyond the end of the plaque. The endarterectomy was then carried down further on the common carotid artery. At end of the arteriotomy, the plaque was then transected. Under loop magnification, all loose debris and flaps werer removed. There is no distal flap seen at the end of the endarterectomy site. The arteriotomy then closed using a bovine patch with 6-0 Prolene suture. This was done in the usual vascular fashion. Prior to completing the closure, the doppler shunt was removed and the internal and common carotid arteries were reclamped. Backbleeding and forward bleeding was allowed to occur. The flow surface was irrigated with heparinized saline. The final few sutures were then placed and securely tied. Clamps were then removed off the external and common carotid arteries. The clamp was then removed the internal carotid artery. Good distal flow was seen. Adequate hemostasis was seen of the patch. The wound was inspected and adequate hemostasis was obtained. The wound was irrigated with antibiotic solution. It was then closed with a running 3-0 Vicryl suture for the platysmal layer and a 4-0 subcuticular Vicryl suture for the skin edges. Dermabond was used for dressing. The patient left the operation room in satisfactory condition and tolerated the procedure well. All needle and sponge counts were correct at the end of the procedure. Shazia Piper Pac assisted due to lack of resident availability and was necessary for prepping, draping, retraction, wound closure defects, subQ and skin closure and was necessary for the case. I attest to the content of the Intraoperative Record and any orders documented therein. Any exceptions are noted below.
--- NOTE | 2023-07-16 15:45 | Anesthesiology Progress Note ---
Date of Service July 16, 2023 Anesthesia Post Procedure Vital Signs Vital Signs: Temp Pulse Pulse Resp BP BP Pulse Ox 07/16/23 15:40 63 12 148/84 H 150/53 H 97 07/16/23 15:30 64 16 149/66 H 146/51 H 98 07/16/23 15:20 63 12 140/62 147/48 H 95 07/16/23 15:10 63 20 149/63 H 157/53 H 100 07/16/23 15:00 36.2 C L 65 12 149/71 H 157/55 H 100 07/16/23 11:00 07/16/23 11:00 36.8 C 62 18 165/73 H 96 O2 Del Method O2 Flow Rate 07/16/23 15:40 Nasal Cannula 2 07/16/23 15:30 Nasal Cannula 2 07/16/23 15:20 Nasal Cannula 2 07/16/23 15:10 Oxymask 10 07/16/23 15:00 Oxymask 10 07/16/23 11:00 Room Air 07/16/23 11:00 Room Air Transfer of Care Handoff Completed per policy Notes Mental Status: alert / awake / arousable Patient Amnestic to Procedure: Yes Nausea / Vomiting: adequately controlled Pain: adequately controlled Airway Patency, RR, SpO2: stable & adequate BP & HR: stable & adequate Hydration State: stable & adequate Anesthetic Complications: no major complications apparent
[2023-07-16] MEDS ORDERED: ACETAMINOPHEN 325 MG TAB PO PRN (16:14)
[2023-07-16] MEDS ORDERED: MoRPHine SULFATE 4 MG/ML 1 ML CARP\\VIAL IV PRN (16:14)
[2023-07-16] MEDS ORDERED: BENZONATATE 100 MG CAPSULE PO PRN (16:14)
[2023-07-16] MEDS ORDERED: LORATADINE 10 MG TAB PO PRN (16:14)
[2023-07-16] MEDS ORDERED: oxyCODONE/ACETAMINOPHEN 5mg/325mg TAB PO PRN (16:14)
[2023-07-16] MEDS ORDERED: LACTATED RINGER'S 1,000 ML IV SCH (16:30)
--- NOTE | 2023-07-16 17:24 | Critical Care Consultation ---
Date of Consultation July 16, 2023 Assessment & Plan (1) Postop carotid endarterectomy surveillance, encounter for: Plan Continue frequent neurovascular checks. General medical care deferred to vascular surgery. ICU team available overnight should patient have any evidence of decompensation. Thank you for the consult. We will follow while he remains in ICU care. History of Present Illness Reason for Consultation: Status post endarterectomy Attending Physician: Remington Link MD History of Present Illness 73-year-old male with a history of left internal carotid artery stenosis. He presented today for an elective left endarterectomy. He is now in ICU for postop monitoring. He has a brachial arterial line in place. He denies any significant complaint at present. No chest pain or weakness. Allergies Allergy/AdvReac Type Severity Reaction Status Date / Time sulfamethoxazole Allergy Intermediate rash Verified 07/16/23 10:53 trimethoprim Allergy Intermediate rash Verified 07/16/23 10:53 promethazine [From Phenergan] AdvReac Intermediate Confusion Verified 07/16/23 10:53 Home Medications Medication Instructions Recorded Confirmed Type acetaminophen 325 mg tablet 650 mg PO QID PRN Pain 11/19/22 07/16/23 History (Tylenol) amlodipine 10 mg tablet 10 mg PO QAM 11/19/22 07/16/23 History ascorbic acid (vitamin C) 500 mg 500 mg PO QAM 11/19/22 07/16/23 History tablet (Vitamin C) brimonidine 0.2 %-timolol 0.5 % 1 drp OPB BID 11/19/22 07/16/23 History eye drops (Combigan) chlorthalidone 25 mg tablet 25 mg PO QAM 11/19/22 07/16/23 History cholecalciferol (vitamin D3) 50 50 mcg PO QAM 11/19/22 07/16/23 History mcg (2,000 unit) tablet (Vitamin D3) clopidogrel 75 mg tablet (Plavix) 75 mg PO QAM 11/19/22 07/16/23 History cyanocobalamin (vitamin B-12) 100 1,000 mcg PO QAM 11/19/22 07/16/23 History mcg tablet (Vitamin B-12) glipizide 2.5 mg tablet, extended 2.5 mg PO BID 11/19/22 07/16/23 History release 24 hr metformin 1,000 mg tablet 1,000 mg PO BIDM 11/19/22 07/16/23 History multivitamin 2 tab PO QAM 11/19/22 07/16/23 History netarsudil 0.02 %-latanoprost 1 drp OPB HS 11/19/22 07/16/23 History 0.005 % eye drops (Rocklatan) tacrolimus 1 mg oral granules in 1 mg PO BID 11/19/22 07/16/23 History packet (Prograf) carvedilol 12.5 mg tablet 12.5 mg PO BID 05/20/23 07/16/23 History oregano oil 1,500 mg capsule 0 mg PO DIRECTED 05/20/23 07/16/23 History benzonatate 100 mg capsule 100 mg PO TID PRN cough #30 caps 06/10/23 07/16/23 Rx ferrous sulfate 325 mg (65 mg 325 mg PO BIDM #60 tabs 06/10/23 07/16/23 Rx iron) tablet,delayed release L.acidop,casei,lactis,rham-B.lact,dennys 2 cap PO BID 07/15/23 07/16/23 History 625 mg (10 billion cell) capsule (Advanced Probiotic) atorvastatin 10 mg tablet (Lipitor) 10 mg PO QAM 07/15/23 07/16/23 History lisinopril 40 mg tablet 40 mg PO QAM 07/15/23 07/16/23 History loratadine 10 mg tablet (Claritin) 10 mg PO QAM PRN Allergy Symptoms 07/16/23 07/16/23 History Patient History Medical History (Updated 07/16/23 @ 18:27 by Prosper Busch MD) Acute CVA (cerebrovascular accident) - 05/17/23- started with weakness and discoordination right let and arm. Speech slurred at some points. - Dx'ed with acute CVA 05/20/23- admitted to [facility] until 05/22/23 - Right side weakness is getting better. Asthma as child Bacteremia associated with IV line during patient's inpatient stay at the end of April 2023 due to a severe IV infiltration during inpatient stay. doing okay at this time. no curret infection. CAD (coronary artery disease) "s/p CABG x 5 in 2002" [facility] CKD (chronic kidney disease), stage III - at this time - Hx of ESRD- on dialysis x one year but had kidney transplant 2003- no dialysis required since that time Diabetes mellitus, type II Hx of severe diabetes- 2003 had pancreas transplant- did not require DM meds until the past four years (had to restart oral DM meds) Dyslipidemia Fistula hx of ---was in right arm and no longer working GI bleed ~05/26/23 treated at [facility] History of COVID-19 06/2022 - resolved History of pneumothorax during his open heart surgery in 2002 at [facility]. will have reoccurring pneumonia since. History of TIA (transient ischemic attack) Unsure of date HTN (hypertension) Hx: recurrent pneumonia last episode ~Fall 2021 Hypothyroidism PAD (peripheral artery disease) S/p right fem/pop artery revascularization with stent placed and angioplasty per records - right tibial/peroneal artery revascularization with angio Postop carotid endarterectomy surveillance, encounter for S/P transesophageal echocardiogram ([facility]ILENE) Skin cancer on ear and head Symptomatic carotid artery stenosis with infarction 90% stenosis of the proximal right external carotid artery. There is 30% stenosis of the proximal right internal iliac artery just beyond its origin with a tandem 20% stenosis seen distally within the right ICA at its entrance to carotid siphon; 80% stenosis of the proximal left ICA Surgical History History of esophagogastroduodenoscopy (EGD) for a GI Bleed ~05/26/[address] Fitzpatrick at [facility]. History of kidney transplant 2003 -[facility] -- ERSD and on dialysis for a year and then had transplant and at this time the doctor is monitoring History of open reduction and internal fixation (ORIF) procedure left hip History of pancreas transplant 2003- [facility]- had this at the time of kidney transplant pancreas had abcess and was taken back in to drain it. Hx of chest tube placement 2002 for pneumothorax Hx of extremity bypass graft - right fem/pop artery revascularization with stent placed and angioplasty per records - right tibial/peroneal artery revascularization with angio S/P CABG (coronary artery bypass graft) x 5 -- [facility] 2002 - incidental finding when getting worked up for transplant follows with Medical doctor S/P PICC central line placement since removed 05/2023 Transplant recipient pancreas and kidney transplants in 2003 Family History (Updated 07/15/23 @ 08:58 by Berna Nuñez RN) Mother Breast cancer Father Diabetes Other No family history of adverse response to anesthesia Social History Smoking Status: Never smoker Tobacco Type: Smokeless Tobacco (Dip or Chew) Second Hand Exposure: No; Do You Dip or Chew Tobacco: Yes (advised NPO); Tobacco Cessation Education Requested by Patient: No Hx Alcohol Use: No Hx Substance Use: No Preferred Language: Syrian Communication Ability: Effective Manual Training Teacher Required: No Beliefs That Will Affect Care: None marital status: Current Living Situation: Spouse Other Information That Helps Us Care for You: No Assistive Devices: Cane, Glasses and Walker Review of Systems Review of Systems: All systems reviewed & are unremarkable except as noted in HPI & below Physical Exam Physical Exam: Constitutional: Patient appears to be of their stated age. Patient is in no apparent distress. Patient is well-developed. Eyes: Pupils are equal round and reactive to light. Conjunctivae are normal. Anicteric sclera. Ears nose, mouth and throat: Mallampati class 1. Normal posterior oropharynx. Uvula is midline. Neck: Trachea is midline. Visual inspection is normal. Respiratory: Clear to auscultation bilaterally. No use of accessory muscles. No significant clubbing noted. Cardiovascular: Regular rate and rhythm. No murmurs. No edema. Gastrointestinal: Normal bowel sounds, soft, nontender and nondistended. No hepatosplenomegaly noted. Musculoskeletal: No cyanosis. Patient is able to move all extremities. Strength is 5 out of 5 in the upper and lower extremities. Skin: No rashes, warm dry and intact. Neurologic: No obvious focal neurological deficits seen. Psychiatric: Alert and oriented x3 with a euthymic affect. Results & Data Results & Data Vital Signs (Past 12 Hours) Vital Signs Temp Pulse Pulse Pulse Resp BP BP 07/16/23 17:00 67 21 07/16/23 17:00 140/71 07/16/23 16:20 63 13 07/16/23 16:35 63 07/16/23 16:14 36.5 C 07/16/23 15:50 62 12 148/67 H 07/16/23 15:40 63 12 148/84 H 07/16/23 15:30 64 16 149/66 H 07/16/23 15:20 63 12 140/62 07/16/23 15:10 63 20 149/63 H 07/16/23 15:00 36.2 C L 65 12 149/71 H 07/16/23 11:00 07/16/23 11:00 36.8 C 62 18 165/73 H BP Pulse Ox O2 Del Method O2 Flow Rate 07/16/23 17:00 93 07/16/23 17:00 07/16/23 16:20 91 Room Air 07/16/23 16:35 07/16/23 16:14 07/16/23 15:50 148/51 H 97 Nasal Cannula 2 07/16/23 15:40 150/53 H 97 Nasal Cannula 2 07/16/23 15:30 146/51 H 98 Nasal Cannula 2 07/16/23 15:20 147/48 H 95 Nasal Cannula 2 07/16/23 15:10 157/53 H 100 Oxymask 10 07/16/23 15:00 157/55 H 100 Oxymask 10 07/16/23 11:00 Room Air 07/16/23 11:00 96 Room Air Coding Level of Care Code 30928 IN/OBS CONSULT LVL 2,35M Diagnoses Postop carotid endarterectomy surveillance, encounter for Z48.812
[2023-07-16] MEDS: glipiZIDE ER 2.5 MG TABCR PO SCH (17:48)
[2023-07-16] MEDS: FERROUS SULFATE 325 MG TAB PO SCH (17:48)
[2023-07-16] MEDS: ceFAZolin 2000MG 2,000 MG/15 ML SYR IV SCH (20:14)
[2023-07-16] MEDS: PANTOprazole 40 MG in SYRINGE 0 ML IV SCH (20:14)
[2023-07-16] MEDS: carvediloL 12.5 MG TAB PO SCH (20:15)
[2023-07-16] MEDS: ADVANCED PROBIOTIC 1250 MG CAPSULE PO SCH (20:15)
[2023-07-16] MEDS: TACROLIMUS 1 MG CAP PO SCH (20:16)
[2023-07-16] MEDS: BRIMONIDINE TARTRATE 0.2% 5ML OPB SCH (20:16)
[2023-07-16] MEDS: TIMOLOL MALEATE 0.5% OP SOLN 5 ML BTL OP SCH (20:17)
[2023-07-16] MEDS ORDERED: NON-FORMULARY MEDICATION (Brimonidine-Timolol [Combigan] 0.2-0.5 % drops) OPB SCH (21:00)
[2023-07-17] MEDS: ceFAZolin 2000MG 2,000 MG/15 ML SYR IV SCH (03:42)
--- NOTE | 2023-07-17 08:13 | Pulmonology Progress Note ---
Date of Service July 17, 2023 Assessment & Plan (1) Postop carotid endarterectomy surveillance, encounter for: Plan Continue frequent neurovascular checks. General medical care deferred to vascular surgery. ICU team available should patient have any evidence of decompensation. Probable discharge home today. Thank you for the consult. We will follow while he remains in ICU care. Admission and Anticipated Discharge Date Admission Date: July 16, 2023 Subjective No acute events overnight. Patient tolerating diet. Art line is out. Systolic blood pressures elevated to 160. Patient without complaint. Review of Systems Review of Systems: All systems reviewed & are unremarkable except as noted in HPI & below Physical Exam Physical Exam: Constitutional: Patient appears to be of their stated age. Patient is in no apparent distress. Patient is well-developed. Eyes: Pupils are equal round and reactive to light. Conjunctivae are normal. Anicteric sclera. Ears nose, mouth and throat: Mallampati class 1. Normal posterior oropharynx. Uvula is midline. Neck: Trachea is midline. Visual inspection is normal. Respiratory: Clear to auscultation bilaterally. No use of accessory muscles. No significant clubbing noted. Cardiovascular: Regular rate and rhythm. No murmurs. No edema. Gastrointestinal: Normal bowel sounds, soft, nontender and nondistended. No hepatosplenomegaly noted. Musculoskeletal: No cyanosis. Patient is able to move all extremities. Strength is 5 out of 5 in the upper and lower extremities. Skin: No rashes, warm dry and intact. Neurologic: No obvious focal neurological deficits seen. Psychiatric: Alert and oriented x3 with a euthymic affect. Results & Data Results & Data Vital Signs (Past 12 Hours) Vital Signs Temp Pulse Resp BP Pulse Ox 07/17/23 04:00 61 17 164/68 H 97 07/17/23 04:00 37.0 C 07/17/23 00:00 66 07/17/23 03:00 60 16 154/64 H 99 07/17/23 02:00 61 17 165/67 H 97 07/17/23 01:00 61 17 158/65 H 98 07/17/23 00:00 60 18 163/67 H 98 07/16/23 23:01 69 21 139/90 95 07/16/23 23:00 93 H 21 92 07/16/23 22:00 64 16 156/73 H 99 07/17/23 00:22 37.2 C 10/18/23 21:00 65 18 152/71 H 99 PG Care Time/CCT Total # of Minutes Spent Total Time Spent with Patient: Total time spent is greater than 50% in coordination of care (as documented) at patient's floor/unit and/or counseling patient: Coding Level of Care Code 10500 SUB INP/OBS CARE 10/23MIN Diagnoses Postop carotid endarterectomy surveillance, encounter for Z48.812
[2023-07-17] MEDS: ADVANCED PROBIOTIC 1250 MG CAPSULE PO SCH (08:35)
[2023-07-17] MEDS: TACROLIMUS 1 MG CAP PO SCH (08:35)
[2023-07-17] MEDS: carvediloL 12.5 MG TAB PO SCH (08:35)
[2023-07-17] MEDS: glipiZIDE ER 2.5 MG TABCR PO SCH (08:37)
[2023-07-17] MEDS: FERROUS SULFATE 325 MG TAB PO SCH (08:37)
[2023-07-17] MEDS: BRIMONIDINE TARTRATE 0.2% 5ML OPB SCH (08:39)
[2023-07-17] MEDS: TIMOLOL MALEATE 0.5% OP SOLN 5 ML BTL OP SCH (08:40)
[2023-07-17] MEDS: PANTOprazole 40 MG in SYRINGE 0 ML IV SCH (08:41)
[2023-07-17] MEDS ORDERED: MULTIVITAMIN TAB PO SCH (09:00)
[2023-07-17] MEDS ORDERED: CLOPIDOGREL BISULFATE 75 MG TAB PO SCH (09:00)
[2023-07-17] MEDS ORDERED: CHLORTHALIDONE 25 MG TAB PO SCH (09:00)
[2023-07-17] MEDS ORDERED: lisinopril 40 MG TAB PO SCH (09:00)
[2023-07-17] MEDS ORDERED: ATORVASTATIN 10 MG TAB PO SCH (09:00)
[2023-07-17] MEDS ORDERED: CHOLECALCIFEROL 1,000 UNITS 25 MCG TAB PO SCH (09:00)
[2023-07-17] MEDS ORDERED: ASCORBIC ACID 500 MG TAB PO SCH (09:00)
[2023-07-17] MEDS ORDERED: amLODIPine BESYLATE 5 MG TAB PO SCH (09:00)
[2023-07-17] MEDS ORDERED: CYANOCOBALAMIN (B-12) 500 MCG TABLET PO SCH (09:00)
--- NOTE | 2023-07-17 14:01 | Surgery Progress Note ---
Date of Service July 17, 2023 Assessment & Plan (1) Postop carotid endarterectomy surveillance, encounter for: Plan: Pt POD #1 after incomplicated L CEA. Doing well post op. Does have some L lower lip marginal mandibular nerve dysfunction. No other sx. Pt discussed with Dr Link. Will d/c home today and see in office in 2 weeks. Admission and Anticipated Discharge Date Admission Date: July 16, 2023 Subjective 73 yo M POD #1 after L CEA, seen in f/u today. Pt states feeling a little tired, but otherwise fine. Feels his L lower lip is numb and he is biting it when he chews. Denies IVERSON or other new complaints. Review of Systems Review of Systems: All systems reviewed & are unremarkable except as noted in HPI & below Physical Exam Constitutional: WD/WN, vitals as above Neck: trachea midline L neck incision C/D/I, mild local soft edema and ecchymosis. No erythema Respiratory: normal respiratory effort, lungs clear to auscultation Auscultation: + diminished lung sounds Cardiovascular: Rate/Rhythm: regular rate and regular rhythm Vessels: posterior tibial pulses present, dorsalis pedis pulses present and radial pulses present; + abnormal peripheral pulses Gastrointestinal (Abdomen): Inspection/Auscultation: abdomen normal to inspection and normal bowel sounds Percussion/Palpation: abdomen soft; abdomen nontender Musculoskeletal: no cyanosis or clubbing, extremities motor strength 5/5 Skin: no rashes, warm and dry Neurologic: moves all extremities and awake; no focal motor deficits and not confused Psychiatric: A+Ox3, euthymic affect Results & Data Vital Signs (Past 12 Hours) Vital Signs Temp Pulse Pulse Resp BP BP Pulse Ox 07/17/23 12:00 37.1 C 65 22 177/75 H 96 07/17/23 11:00 79 20 170/80 H 91 07/17/23 10:00 62 18 157/68 H 94 07/17/23 09:00 107 H 22 151/97 H 96 07/17/23 08:00 65 22 169/71 H 96 07/17/23 08:00 37.0 C 73 26 H 183/79 H 99 07/17/23 08:00 67 07/17/23 08:00 37.0 C 73 23 183/79 H 99 07/17/23 04:00 61 17 164/68 H 97 07/17/23 04:00 37.0 C 07/17/23 03:00 60 16 154/64 H 99 07/17/23 02:00 61 17 165/67 H 97 O2 Del Method O2 Flow Rate 07/17/23 12:00 Room Air 07/17/23 11:00 Room Air 07/17/23 10:00 Room Air 07/17/23 09:00 Room Air 07/17/23 08:00 Nasal Cannula 2 07/17/23 08:00 Room Air 07/17/23 08:00 07/17/23 08:00 Room Air 07/17/23 04:00 07/17/23 04:00 07/17/23 03:00 07/17/23 02:00
--- NOTE | 2023-07-17 14:02 | Discharge Summary ---
Date of Service July 17, 2023 Admission HPI Per Admitting Provider I had the pleasure of seeing Roderick today for follow-up. As you know he is a 73-year-old gentleman who has a severe stenosis of his left internal carotid artery. On the day of surgery he had an upper GI bleed while he was on Plavix and aspirin for his TCAR. He then became septic during his hospital stay because of his cellulitis of his arm from an IV infiltration. He has now undergone his total treatment. His sepsis. There is no more evidence of infection according to the patient. He has no new neurologic symptoms. He is not on any anticoagulation at this time or antiplatelets. He is on a statin. Admission Exam Per Admitting Provider On exam he is awake alert and oriented x3. He is in no apparent distress. His blood pressure is 160/62. Neurologically he is intact. His radials and carotids are +2 bilaterally. The right arm. Patient is healed nicely with no erythema present. His heart had a regular rate and rhythm. His lungs are clear. Abdominal exam is benign. He did have femoral pulses in both lower extremities. She has normal capillary refill distally. Principal Diagnosis 1. s/p L CEA 2. L ICA stenosis Discharge Exam Constitutional WD/WN, vitals as above no acute distress ENMT Mouth: no dentition abnormality Mallampati Class: II Neck normal visual inspection and trachea midline Respiratory normal respiratory effort, lungs clear to auscultation normal respiratory effort; no respiratory distress Auscultation: lungs clear to auscultation bilaterally and + diminished lung sounds Cardiovascular Rate/Rhythm: regular rate and regular rhythm Heart Sounds: no murmur Vessels: posterior tibial pulses present, dorsalis pedis pulses present and radial pulses present; + abnormal peripheral pulses Gastrointestinal (Abdomen) Inspection/Auscultation: abdomen normal to inspection and normal bowel sounds Percussion/Palpation: abdomen soft; abdomen nontender Musculoskeletal no cyanosis or clubbing, extremities motor strength 5/5 Spine: normal cervical ROM Skin no rashes, warm and dry Neurologic moves all extremities and awake; no focal motor deficits and not confused Psychiatric A+Ox3, euthymic affect Orientation: alert and oriented x 3 Discharge Data Allergies Allergy/AdvReac Type Severity Reaction Status Date / Time sulfamethoxazole Allergy Intermediate rash Verified 07/16/23 10:53 trimethoprim Allergy Intermediate rash Verified 07/16/23 10:53 promethazine [From Phenergan] AdvReac Intermediate Confusion Verified 07/16/23 10:53 Consultations 07/16/23 16:14 Consult Software Verification Engineer Routine Procedures Performed Operation Date: 07/16/23 12:00 Actual Procedures p Left Carotid Endarterectomy with Bovine Patch(Left) - Remington Link MD Hospital Course (1) Postop carotid endarterectomy surveillance, encounter for: Pt doing well POD #1. D/C home today Total Time Total Time Spent Total Time Spent (In Minutes): 0 Discharge Plan Discharge Items Patient Disposition: Home - Self-Care Reason For Visit: Left Internal Carotid Artery Stenosis Discharge Diagnosis: 1. s/p Left Carotid Endarterectomy 2. Left ICA stenosis Condition on Discharge: Good Activity: Per Instructions section Non-emergency contact: Primary Care Provider and Surgeon Call non-emergency contact if: you have any medication questions, your pain is not controlled, your pain is worsening, your pain is concerning for you, you have a fever, your wound has increased redness and your wound has increased dra candelario Follow-up/Referrals: Jolly Prajapati MD [Primary Care Provider] - (Follow up with your PCP within 2 weeks) Remington Link MD [Physician] - (Follow up with Dr Link or Shazia Piper PA-C in 2 weeks. ) Diet: Heart Healthy Addtl Attending Provider Instructions: SPECIAL CARE INSTRUCTIONS: Medications: * Continue to take Aspirin as directed. Incision Care: * You may shower, but do not rub incision. You may let the warm soapy water run over it. Be sure to dry the incision well after bathing. * Do not shave directly over the incision until it is healed. * DO NOT IMMERSE THE INCISION IN A TUB/POOL/etc. UNTIL HEALED. Restrictions: * Do not drive for at least one week or if you are still taking any narcotic pain medication. * Do not lift anything heavier than a gallon of milk for one week after going home. Possible Complications: * Numbness - It is normal to have some numbness around the incision. Numbness can extend beyond the incision to areas of the neck, ear and face. The numbness is due to bruising of nerves during the surgery and will gradually improve over a period of months. * Hoarseness/Difficulty Speaking and Swallowing - The bruising of nerves in the neck can also cause a hoarse voice, difficulty speaking or swallowing. This may improve over time, HOWEVER, if it continues for more than a few days please contact our office ([phone]). * Excessive Swelling - There will be some swelling immediately after surgery which usually resolves within one week. If you notice that the swelling is getting worse, notify your surgeon ([phone]). * Drainage/Bleeding - If there is any drainage or bleeding, it should be a very small amount (less than a teaspoon per day). If you have excessive bleeding or drainage from the incision, call your surgeon ([phone]) right away. ACTIVATION OF EMERGENCY MEDICAL SYSTEM: Call 911, immediately, if you experience any of the following: Warning Signs and Symptoms of Stroke: * Sudden numbness or weakness of the face, arm or leg, especially on one side of the body * Sudden confusion, trouble speaking or understanding * Sudden trouble seeing in one or both eyes * Sudden trouble walking, dizziness, loss of balance or coordination * Sudden severe headache with no cause Do not delay calling 911 if you experience any warning signs or symptoms of a stroke. Delay in seeking medical attention may affect what treatments can be given to you. Risk Factors for Stroke: You can reduce your chances of stroke by working with your medical provider to adopt a healthy lifestyle. Some specific ways to lower your chance of stroke are: * If you are a smoker, now is the time to stop smoking cigarettes * If you are diabetic, improve the control of your blood sugars * Avoid excessive amounts of alcohol * Control high blood pressure * Lose weight if you are overweight * Be sure to lead an active lifestyle * Eat a healthy diet low in salt, cholesterol and fat You should know about other risk factors for stroke that you are unable to control. These include: * Age 55 years or older * Male gender * Certain racial groups: , or / * Family History of Stroke, Mini stroke or Heart Attack * Sickle Cell Disease You will be receiving a call from the Vascular Surgery Nurse after you are discharged. FOLLOW UP VISIT: It is important for you to keep your follow up appointments with your medical provider. Keep any scheduled doctor appointments. Pending Studies at Discharge: No Stand-Alone Forms: My [facility] [employer], Smoking Cessation Medications and DC Order Prescriptions: New oxycodone-acetaminophen [Percocet] 5-325 mg Tablet 1 - 2 tab PO Q6H PRN (Reason: pain) Qty: 20 0RF Continued ferrous sulfate 325 mg (65 mg iron) Tablet,Delayed Release (Dr/Ec) 325 mg PO BIDM Qty: 60 0RF benzonatate 100 mg Capsule 100 mg PO TID PRN (Reason: cough) Qty: 30 0RF acetaminophen [Tylenol] 325 mg Tablet 650 mg PO QID PRN (Reason: Pain) chlorthalidone 25 mg tablet 25 mg PO QAM amlodipine 10 mg tablet 10 mg PO QAM glipizide 2.5 mg tablet extended release 24hr 2.5 mg PO BID brimonidine-timolol [Combigan] 0.2-0.5 % drops 1 drp OPB BID Rx Instructions: per dr 1st multivitamin Tablet 2 tab PO QAM cyanocobalamin (vitamin B-12) [Vitamin B-12] 100 mcg Tablet 1,000 mcg PO QAM Rx Instructions: lozenge ascorbic acid (vitamin C) [Vitamin C] 500 mg Tablet 500 mg PO QAM metformin 1,000 mg tablet 1,000 mg PO BIDM Hold Instructions: Resume on 05/23/23. cholecalciferol (vitamin D3) [Vitamin D3] 50 mcg (2,000 unit) Tablet 50 mcg PO QAM Prograf 1 mg Granules In Packet 1 mg PO BID Rocklatan 0.02-0.005 % drops 1 drp OPB HS carvedilol 12.5 mg tablet 12.5 mg PO BID oregano oil 1,500 mg Capsule 0 mg PO DIRECTED atorvastatin [Lipitor] 10 mg Tablet 10 mg PO QAM lisinopril 40 mg Tablet 40 mg PO QAM Advanced Probiotic 625 mg (10 billion cell) capsule 2 cap PO BID loratadine [Claritin] 10 mg tablet 10 mg PO QAM PRN (Reason: Allergy Symptoms) Discontinued clopidogrel [Plavix] 75 mg tablet 75 mg PO QAM Hold Instructions: Until further instructions by your primary care physician Discharge Orders: Discharge Order (Routine); Ordered 07/17/23 Ordered By: Shazia Piper Admission Data Admit Date/Time: 07/16/23 12:06 Attending Provider: Remington Link Admit Provider: Remington Link Primary Care Provider: Jolly Prajapati Other Providers: Shaheen Handley ; Hayden Stevenson ; Armando Palma ; Prosper Busch ; Denton Samayoa ; Derrick Quevedo ; Shannon Baldwin ; Tio Obrien ; Laura Caba ; Nyla Fowler ; Ezequiel Carvajal ; Bernard Weinstein ; [facility]
== END 2023-07-17 15:00 | disposition home health service (06) | DRG 38 ==
LOC: ASU 10:21 → 1E 12:06
DX: Z79.02 Long term (current) use of antithrombotics/antiplatelets; I65.22 Occlusion and stenosis of left carotid artery; E11.51 Type 2 diabetes mellitus with diabetic peripheral angiopathy without gangrene; Z79.84 Long term (current) use of oral hypoglycemic drugs; K92.2 Gastrointestinal hemorrhage, unspecified; Z94.0 Kidney transplant status; I25.10 Atherosclerotic heart disease of native coronary artery without angina pectoris; N18.30 Chronic kidney disease, stage 3 unspecified; Z88.2 Allergy status to sulfonamides

== ENCOUNTER 2023-09-12 17:33 | Inpatient (IN) ==
[2023-09-12 18:35] LABS: Basophils # (auto) 0.02 K/uL (0.00-0.20); Basophils % (auto) 0.3 %; Eosinophils # (auto) 0.84 K/uL (0.00-0.50); Eosinophils % (auto) 12.2 %; Hematocrit (blood only) 38.5 % (42.0-52.0); Hemoglobin 13.3 g/dl (14.0-18.0); Immature Granulocytes # (auto) 0.02 K/uL (0.01-0.20); Immature Granulocytes % (auto) 0.3 %; Lymphocytes # (auto) 1.27 K/uL (1.20-3.40); Lymphocytes % (auto) 18.5 %; Mean Corpuscular Hemoglobin 29.9 pg (25.0-34.0); Mean Corpuscular Hgb Conc 34.5 g/dL (32.0-36.0); Mean Corpuscular Volume 86.5 fL (80.0-100.0); Mean Platelet Volume 12.1 fL (9.4-12.4); Monocytes # (auto) 0.47 K/uL (0.11-0.59); Monocytes % (auto) 6.8 %; Neutrophils # (auto) 4.26 K/uL (1.40-6.50); Neutrophils % (auto) 61.9 %; Platelet Count 145 K/uL (130-400); RDW Coefficient of Variation 14.4 % (11.5-14.5); RDW Standard Deviation 45.2 fL (36.4-46.3); Red Blood Count 4.45 M/uL (4.70-6.10); White Blood Count 6.88 K/ul (4.8-10.8)
[2023-09-12 18:48] LABS: Albumin Globulin Ratio 1.5 (0.9-2); Albumin Level 3.9 gm/dl (3.4-5.0); BUN Creatinine Ratio 37.9 (10-20); Bilirubin,Total 0.5 mg/dl (0.2-1.0); Calcium 9.1 mg/dl (8.6-10.3); Creatinine Clr Calc Pharmacy 30.6 ml/min; Est GFR (African American) 33.2 ml/min; Est GFR (Non-African American) 28.6 ml/min; Globulin 2.6 gm/dl (2.5-4.0); Potassium 4.9 mmol/L (3.5-5.1); Total Protein 6.5 gm/dl (6.0-8.3)
[2023-09-12] MEDS ORDERED: SODIUM CHLORIDE 0.9% 1,000 ML IV ONE (19:00)
--- NOTE | 2023-09-12 20:43 | CT Scan Report ---
Exam(s): CT ABDOMEN + PELVIS Without Contrast EXAM: CT Abdomen and Pelvis Without Intravenous Contrast CLINICAL HISTORY: Reason for exam: diarreha malathi. TECHNIQUE: Axial computed tomography images of the abdomen and pelvis without intravenous contrast. CTDI is 16.64 mGy and DLP is 951.63 mGy-cm. Automated exposure control was utilized for the study. A dose lowering technique was utilized adhering to the principles of ALARA. COMPARISON: CT abdomen pelvis May 27, 2023. FINDINGS: Lung bases: Atelectasis at the lung bases. Heart: Cardiomegaly. Calcified coronary arteries. ABDOMEN: Liver: Unremarkable. Gallbladder and bile ducts: Cholelithiasis. No ductal dilation. Pancreas: Unremarkable. No ductal dilation. Spleen: Unremarkable. No splenomegaly. Adrenals: Unremarkable. No mass. Kidneys and ureters: Atrophy of the [place] kidneys. Mass in the RIGHT lower pole measures 2.8 x 2.4 cm, increasing in size when compared to May 27, 2023. Recommend abdominal MRI and urology evaluation. Underlying cancer cannot be excluded. 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 No hydronephrosis. Stomach and bowel: Diverticulosis, without acute diverticulitis. No small bowel obstruction. No free intraperitoneal air. PELVIS: Appendix: No findings to suggest acute appendicitis. Bladder: Unremarkable. No stones. Reproductive: Penile pump. ABDOMEN and PELVIS: Intraperitoneal space: Unremarkable. No free air. No significant fluid collection. Bones/joints: Sternotomy wires. Degenerative changes of the spine. No acute fracture. No dislocation. Soft tissues: Unremarkable. Vasculature: Atherosclerotic changes of the aorta. Lymph nodes: Unremarkable. No enlarged lymph nodes. IMPRESSION: 1. Atrophy of the [place] kidneys. Mass in the RIGHT lower pole measures 2.8 x 2.4 cm, increasing in size when compared to May 27, 2023. Recommend abdominal MRI and urology evaluation. Underlying cancer cannot be excluded. 2. 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 No hydronephrosis. 3. Diverticulosis, without acute diverticulitis. No small bowel obstruction. No free intraperitoneal air. Electronically signed by: Shiva Mcgovern MD 09/12/23 20:42 PM
[2023-09-12 21:21] LABS: Magnesium 1.9 mg/dl (1.7-2.4)
--- NOTE | 2023-09-12 21:33 | History & Physical Report ---
Date of Service September 12, 2023 Assessment & Plan (1) ARF (acute renal failure): Plan: ARF, NAGMA secondary to diarrheal illness rule out recurrent C. difficile given recent antibiotic Rx Possible foodborne infection given recent salad consumption at a local diner hx ESRD sp kidney transplant on tacrolimus immunosuppression Renal mass right rule out malignancy given history of tacrolimus immunosuppression History CAD status post CABG/CVA/PVD status post surgery Valvular heart disease (mild MR, TR) hypertension, slightly elevated hyperlipidemia, on statin Rx DM2 on oral medications, sp pancreas transplant on tacrolimus immunosuppression, well-controlled as of recent hemoglobin A1c of 6 last May 2023 hypothyroidism, elevated TSH from April, Chronic anemia, hemoglobin at baseline past tobacco abuse GMF Baseline UA, monitor creatinine response to IVF Appropriate to hold home diuretic and MAGALIE inhibitor for now until creatinine back to baseline Nephrology consult if without improvement (Patient known to [facility].) Stool C. difficile Inpatient Urology consult for right renal mass as per patient's request ISS BG goal 1 10-1 40, carb count coverage Recheck TSH DVT prophylaxis. SCDs Re: Recent GI bleed Full code Patient requesting updates providers. Ms. Daniela Brock, contact #[phone]. Text document was generated using [employer] voice recognition software. It may contain grammatical or spelling errors. Kindly contact undersigned for clarification of any documentation item in question. History of Present Illness Chief Complaint: Weakness, diarrhea Primary Care Provider: Jolly Prajapati MD History obtained from patient, family, and records. 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 difficile, chronic anemia (baseline hemoglobin 12) Last confinement June 2023 under Vascular Surgery service for elective left carotid endarterectomy for left ICA stenosis. Procedure has been delayed by almost months due to [facility] admission last April 2023 for recurrent GI bleed secondary to gastric ulcer. Antiplatelet Rx on hold indefinitely. 1 week history of increasing weakness and diarrhea symptoms, dark brown stools. No chest pain, no SOB. Antibiotic Rx last month for some respiratory tract infection as per . Salad consumption at a local diner. Poor appetite. Increased abdominal cramping noted the last couple of days. Patient directed to ER by outpatient provider. 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 Allergies Allergy/AdvReac Type Severity Reaction Status Date / Time sulfamethoxazole Allergy Intermediate rash Verified 09/12/23 18:55 trimethoprim Allergy Intermediate rash Verified 09/12/23 18:55 promethazine [From Phenergan] AdvReac Intermediate AGITATION/C Verified 09/12/23 18:55 ONFUSION Home Medications Medication Instructions Recorded Confirmed Type acetaminophen 325 mg tablet 650 mg PO Q4H PRN Pain 11/19/22 09/12/23 History (Tylenol) amlodipine 10 mg tablet 10 mg PO QAM 11/19/22 09/12/23 History ascorbic acid (vitamin C) 500 mg 500 mg PO QAM 11/19/22 09/12/23 History tablet (Vitamin C) brimonidine 0.2 %-timolol 0.5 % 1 drp OPL BID 11/19/22 09/12/23 History eye drops (Combigan) chlorthalidone 25 mg tablet 25 mg PO QAM 11/19/22 09/12/23 History cholecalciferol (vitamin D3) 50 50 mcg PO QAM 11/19/22 09/12/23 History mcg (2,000 unit) tablet (Vitamin D3) cyanocobalamin (vitamin B-12) 100 1,000 mcg PO QAM 11/19/22 09/12/23 History mcg tablet (Vitamin B-12) glipizide 2.5 mg tablet, extended 5 mg PO QAM 11/19/22 09/12/23 History release 24 hr metformin 1,000 mg tablet 1,000 mg PO BIDM 11/19/22 09/12/23 History multivitamin 1 tab PO QAM 11/19/22 09/12/23 History netarsudil 0.02 %-latanoprost 1 drp OPB HS 11/19/22 09/12/23 History 0.005 % eye drops (Rocklatan) carvedilol 12.5 mg tablet 12.5 mg PO BID 05/20/23 09/12/23 History oregano oil 1,500 mg capsule 1,500 mg PO DAILY 05/20/23 09/12/23 History benzonatate 100 mg capsule 100 mg PO TID PRN cough #30 caps 06/10/23 09/12/23 Rx atorvastatin 10 mg tablet (Lipitor) 10 mg PO QAM 07/15/23 09/12/23 History lisinopril 40 mg tablet 40 mg PO QAM 07/15/23 09/12/23 History L.acidop,casei,lactis,rham-B.lact,dennys 1 cap PO BID 09/12/23 09/12/23 History 625 mg (10 billion cell) capsule (Advanced Probiotic) ferrous sulfate 325 mg (65 mg 325 mg PO BID 09/12/23 09/12/23 History iron) tablet,delayed release loperamide 2 mg capsule 2 mg PO DIRECTED PRN Diarrhea 09/12/23 09/12/23 History tacrolimus 1 mg oral granules in 1 mg PO AMPM 09/12/23 09/12/23 History packet trazodone 50 mg tablet 50 mg PO HS 09/12/23 09/12/23 History Past Med/Surg History Medical History Postop carotid endarterectomy surveillance, encounter for S/P transesophageal echocardiogram ([facility]) Hx: recurrent pneumonia last episode ~Fall 2021 History of pneumothorax during his open heart surgery in 2002 at [facility]. will have reoccurring pneumonia since. Bacteremia associated with IV line during patient's inpatient stay at the end of April 2023 due to a severe IV infiltration during inpatient stay. doing okay at this time. no curret infection. GI bleed ~05/26/23 treated at [facility] PAD (peripheral artery disease) S/p right fem/pop artery revascularization with stent placed and angioplasty per records - right tibial/peroneal artery revascularization with angio Hypothyroidism Fistula hx of ---was in right arm and no longer working Skin cancer on ear and head Asthma as child History of COVID-19 06/2022 - resolved Symptomatic carotid artery stenosis with infarction 90% stenosis of the proximal right external carotid artery. There is 30% stenosis of the proximal right internal iliac artery just beyond its origin with a tandem 20% stenosis seen distally within the right ICA at its entrance to carotid siphon; 80% stenosis of the proximal left ICA Acute CVA (cerebrovascular accident) - 05/17/23- started with weakness and discoordination right let and arm. Speech slurred at some points. - Dx'ed with acute CVA 05/20/23- admitted to [facility] until 05/22/23 - Right side weakness is getting better. History of TIA (transient ischemic attack) Unsure of date Diabetes mellitus, type II Hx of severe diabetes- 2003 had pancreas transplant- did not require DM meds until the past four years (had to restart oral DM meds) CAD (coronary artery disease) "s/p CABG x 5 in 2002" [facility] HTN (hypertension) Dyslipidemia CKD (chronic kidney disease), stage III - at this time - Hx of ESRD- on dialysis x one year but had kidney transplant 2003- no dialysis required since that time Surgical History Transplant recipient pancreas and kidney transplants in 2003 S/P PICC central line placement since removed 05/2023 Hx of chest tube placement 2002 for pneumothorax History of esophagogastroduodenoscopy (EGD) for a GI Bleed ~05/26/[address] Fitzpatrick at [facility]. Hx of extremity bypass graft - right fem/pop artery revascularization with stent placed and angioplasty per records - right tibial/peroneal artery revascularization with angio History of open reduction and internal fixation (ORIF) procedure left hip History of pancreas transplant 2003- [facility]- had this at the time of kidney transplant pancreas had abcess and was taken back in to drain it. History of kidney transplant 2003 -[facility] -- ERSD and on dialysis for a year and then had transplant and at this time the doctor is monitoring S/P CABG (coronary artery bypass graft) x 5 -- [facility] 2002 - incidental finding when getting worked up for transplant follows with Medical doctor Family History Mother Breast cancer Father Diabetes Other No family history of adverse response to anesthesia Social History Smoking Status: Never smoker Tobacco Type: Smokeless Tobacco (Dip or Chew) Second Hand Exposure: No; Do You Dip or Chew Tobacco: Yes (advised NPO); Hx Alcohol Use: No Hx Substance Use: No Preferred Language: Slovenian Communication Ability: Impaired Unit Nurse Required: No Beliefs That Will Affect Care: Catholic Catholic Beliefs: Jewish marital status: Current Living Situation: Spouse Other Information That Helps Us Care for You: No Feels Safe at Home: Yes Safety Concerns: Feels Safe At This Time Assistive Devices: Walker Review of Systems Review of Systems: As per HPI, all other systems reviewed and negative Physical Exam Physical Exam: GENERAL: Slightly uncomfortable, slightly hard of hearing, pleasant, no respiratory distress SKIN: Pallor, warm HEENT: Pale palpebral conjunctivae, no ptosis, dry buccal mucosa NECK : Supple, no tenderness CHEST : CTA, no tenderness HEART : RRR, no obvious murmurs ABDOMEN: Some distention, nontender EXTREMITIES : No LE swelling/tenderness, no other conspicuous deformities noted NEUROLOGIC : Coherent, no facial asymmetry, slightly hard of hearing, no other gross focality Results & Data Results & Data Vital Signs (Past 12 Hours) Vital Signs Temp Pulse Resp BP Pulse Ox O2 Del Method 09/12/23 18:14 Room Air 09/12/23 18:06 66 09/12/23 17:53 36.9 C 65 14 143/69 H 99 Room Air Laboratory Results Laboratory Results WBC 6.88 K/ul (4.8-10.8) 09/12/23 17:58 RBC 4.45 M/uL (4.70-6.10) L 09/12/23 17:58 Hgb 13.3 g/dl (14.0-18.0) L 09/12/23 17:58 Hct 38.5 % (42.0-52.0) L 09/12/23 17:58 MCV 86.5 fL (80.0-100.0) 09/12/23 17:58 MCH 29.9 pg (25.0-34.0) 09/12/23 17:58 MCHC 34.5 g/dL (32.0-36.0) 09/12/23 17:58 RDW Std Deviation 45.2 fL (36.4-46.3) 09/12/23 17:58 RDW Coeff of Jorden 14.4 % (11.5-14.5) 09/12/23 17:58 Plt Count 145 K/uL (130-400) 09/12/23 17:58 MPV 12.1 fL (9.4-12.4) 09/12/23 17:58 Immature Gran % (Auto) 0.3 % 09/12/23 17:58 Neut % (Auto) 61.9 % 09/12/23 17:58 Lymph % (Auto) 18.5 % 09/12/23 17:58 Fleming % (Auto) 6.8 % 09/12/23 17:58 Eos % (Auto) 12.2 % 09/12/23 17:58 Baso % (Auto) 0.3 % 09/12/23 17:58 Neut # (Auto) 4.26 K/uL (1.40-6.50) 09/12/23 17:58 Lymph # (Auto) 1.27 K/uL (1.20-3.40) 09/12/23 17:58 Fleming # (Auto) 0.47 K/uL (0.11-0.59) 09/12/23 17:58 Eos # (Auto) 0.84 K/uL (0.00-0.50) H 09/12/23 17:58 Baso # (Auto) 0.02 K/uL (0.00-0.20) 09/12/23 17:58 Immature Gran # (Auto) 0.02 K/uL (0.01-0.20) 09/12/23 17:58 Sodium 132 mmol/L (136-145) L 09/12/23 17:58 Potassium 4.9 mmol/L (3.5-5.1) 09/12/23 17:58 Chloride 107 mmol/L (98-107) 09/12/23 17:58 Carbon Dioxide 17 mmol/L (21-32) L 09/12/23 17:58 Anion Gap 8 (3-11) 09/12/23 17:58 BUN 83 mg/dl (6-23) H 09/12/23 17:58 Creatinine 2.19 mg/dl (0.6-1.4) H 09/12/23 17:58 Est Cr Clr Drug Dosing 30.6 ml/min 09/12/23 17:58 Est GFR ( Amer) 33.2 ml/min 09/12/23 17:58 Est GFR (Non-Af Amer) 28.6 ml/min 09/12/23 17:58 BUN/Creatinine Ratio 37.9 (10-20) H 09/12/23 17:58 Glucose 82 mg/dl (70-99(Fasting)) 09/12/23 17:58 Calcium 9.1 mg/dl (8.6-10.3) 09/12/23 17:58 Magnesium 1.9 mg/dl (1.7-2.4) 09/12/23 17:58 Total Bilirubin 0.5 mg/dl (0.2-1.0) 09/12/23 17:58 AST 13 U/L (13-39) 09/12/23 17:58 ALT 10 U/L (7-52) 09/12/23 17:58 Alkaline Phosphatase 76 U/L (34-104) 09/12/23 17:58 Total Protein 6.5 gm/dl (6.0-8.3) 09/12/23 17:58 Albumin 3.9 gm/dl (3.4-5.0) 09/12/23 17:58 Globulin 2.6 gm/dl (2.5-4.0) 09/12/23 17:58 Albumin/Globulin Ratio 1.5 (0.9-2) 09/12/23 17:58 Lipase 62 U/L (11-82) 09/12/23 17:58 Impressions Abdomen/Pelvis CT 09/12/23 19:00 Exam(s): CT ABDOMEN + PELVIS Without Contrast EXAM: CT Abdomen and Pelvis Without Intravenous Contrast CLINICAL HISTORY: Reason for exam: diarreha malathi. TECHNIQUE: Axial computed tomography images of the abdomen and pelvis without intravenous contrast. CTDI is 16.64 mGy and DLP is 951.63 mGy-cm. Automated exposure control was utilized for the study. A dose lowering technique was utilized adhering to the principles of ALARA. COMPARISON: CT abdomen pelvis May 27, 2023. FINDINGS: Lung bases: Atelectasis at the lung bases. Heart: Cardiomegaly. Calcified coronary arteries. ABDOMEN: Liver: Unremarkable. Gallbladder and bile ducts: Cholelithiasis. No ductal dilation. Pancreas: Unremarkable. No ductal dilation. Spleen: Unremarkable. No splenomegaly. Adrenals: Unremarkable. No mass. Kidneys and ureters: Atrophy of the [place] kidneys. Mass in the RIGHT lower pole measures 2.8 x 2.4 cm, increasing in size when compared to May 27, 2023. Recommend abdominal MRI and urology evaluation. Underlying cancer cannot be excluded. 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 No hydronephrosis. Stomach and bowel: Diverticulosis, without acute diverticulitis. No small bowel obstruction. No free intraperitoneal air. PELVIS: Appendix: No findings to suggest acute appendicitis. Bladder: Unremarkable. No stones. Reproductive: Penile pump. ABDOMEN and PELVIS: Intraperitoneal space: Unremarkable. No free air. No significant fluid collection. Bones/joints: Sternotomy wires. Degenerative changes of the spine. No acute fracture. No dislocation. Soft tissues: Unremarkable. Vasculature: Atherosclerotic changes of the aorta. Lymph nodes: Unremarkable. No enlarged lymph nodes. IMPRESSION: 1. Atrophy of the [place] kidneys. Mass in the RIGHT lower pole measures 2.8 x 2.4 cm, increasing in size when compared to May 27, 2023. Recommend abdominal MRI and urology evaluation. Underlying cancer cannot be excluded. 2. 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 No hydronephrosis. 3. Diverticulosis, without acute diverticulitis. No small bowel obstruction. No free intraperitoneal air. Electronically signed by: Shiva Mcgovern MD 09/12/23 20:42 PM Diagnostic Findings Chest x-ray as per my interpretation cardiomegaly: EKG as per my interpretation : Rate 65, NSR, LAD, LAFB, no ischemia
[2023-09-12] MEDS ORDERED: ACETAMINOPHEN W/CODEINE #3 1 TAB PO PRN (21:37)
[2023-09-12] MEDS ORDERED: PROMETHAZINE HCL 6.25 MG in SODIUM CHLORIDE 0.9% 50 ML IV PRN (21:37)
[2023-09-12] MEDS ORDERED: SODIUM CHLORIDE 0.9% 1,000 ML IV STA (21:41)
--- NOTE | 2023-09-12 21:59 | XRay Report ---
SINGLE VIEW CHEST CLINICAL HISTORY: Renal failure. FINDINGS: An AP, portable, upright chest radiograph is compared to study dated 06/06/2023 and correlate d with chest CT dated 06/30/2020. The patient is status post midline sternotomy. The heart is enlarged noting atherosclerotic calcification of the thoracic aorta. The pulmonary vasculature is noncongeste d. Chronic interstitial thickening is similar to previous. There is chronic elevation of the right he midiaphragm with bibasilar scarring/atelectasis. No airspace consolidation or large pleural effusion is identified. No pneumothorax is seen. The skeletal structures are osteopenic. The bony thorax is gr ossly intact. IMPRESSION: Cardiomegaly with no acute cardiopulmonary abnormality. ACT 112: Negative or not required by law. Electronically signed by: Shaheen Lo M.D. 09/12/2023 9:58 PM
--- NOTE | 2023-09-12 22:53 | Emergency Department Note ---
History of Present Illness General Chief complaint: Diarrhea Stated complaint: AB PAIN Time Seen by Provider: 09/12/23 18:58 History of Present Illness Provider Complaint: + diarrhea Onset (ago): day(s) 2 Description of Diarrhea: no blood-streaked or no bloody (bright red) Associated Abdominal Pain: Yes Location of pain: + diffuse Quality: + cramping and + sharp Pain Consistency: + intermittent Relieved By: + none Exacerbated By: + bowel movement Context: + recent antibiotic use; no foreign travel, no sick contacts, no alcohol abuse, no trauma, no anticoagulant use, no NSAID use, no smoking or no marijuana use Associated symptoms: + cough; no myalgias, no chest pain, no diaphoresis, no fever/chills or no decreased urine output Home Medications Medication Instructions Recorded Confirmed Type acetaminophen 325 mg tablet 650 mg PO Q4H PRN Pain 11/19/22 09/12/23 History (Tylenol) amlodipine 10 mg tablet 10 mg PO QAM 11/19/22 09/12/23 History ascorbic acid (vitamin C) 500 mg 500 mg PO QAM 11/19/22 09/12/23 History tablet (Vitamin C) brimonidine 0.2 %-timolol 0.5 % 1 drp OPL BID 11/19/22 09/12/23 History eye drops (Combigan) chlorthalidone 25 mg tablet 25 mg PO QAM 11/19/22 09/12/23 History cholecalciferol (vitamin D3) 50 50 mcg PO QAM 11/19/22 09/12/23 History mcg (2,000 unit) tablet (Vitamin D3) cyanocobalamin (vitamin B-12) 100 1,000 mcg PO QAM 11/19/22 09/12/23 History mcg tablet (Vitamin B-12) glipizide 2.5 mg tablet, extended 5 mg PO QAM 11/19/22 09/12/23 History release 24 hr metformin 1,000 mg tablet 1,000 mg PO BIDM 11/19/22 09/12/23 History multivitamin 1 tab PO QAM 11/19/22 09/12/23 History netarsudil 0.02 %-latanoprost 1 drp OPB HS 11/19/22 09/12/23 History 0.005 % eye drops (Rocklatan) carvedilol 12.5 mg tablet 12.5 mg PO BID 05/20/23 09/12/23 History oregano oil 1,500 mg capsule 1,500 mg PO DAILY 05/20/23 09/12/23 History benzonatate 100 mg capsule 100 mg PO TID PRN cough #30 caps 06/10/23 09/12/23 Rx atorvastatin 10 mg tablet (Lipitor) 10 mg PO QAM 07/15/23 09/12/23 History lisinopril 40 mg tablet 40 mg PO QAM 07/15/23 09/12/23 History L.acidop,casei,lactis,rham-B.lact,dennys 1 cap PO BID 09/12/23 09/12/23 History 625 mg (10 billion cell) capsule (Advanced Probiotic) ferrous sulfate 325 mg (65 mg 325 mg PO BID 09/12/23 09/12/23 History iron) tablet,delayed release loperamide 2 mg capsule 2 mg PO DIRECTED PRN Diarrhea 09/12/23 09/12/23 History tacrolimus 1 mg oral granules in 1 mg PO AMPM 09/12/23 09/12/23 History packet trazodone 50 mg tablet 50 mg PO HS 09/12/23 09/12/23 History Allergies Allergy/AdvReac Type Severity Reaction Status Date / Time sulfamethoxazole Allergy Intermediate rash Verified 09/12/23 18:55 trimethoprim Allergy Intermediate rash Verified 09/12/23 18:55 promethazine [From Phenergan] AdvReac Intermediate AGITATION/C Verified 09/12/23 18:55 ONFUSION Past Med/Surg History Medical History Postop carotid endarterectomy surveillance, encounter for S/P transesophageal echocardiogram (EILEEN) Hx: recurrent pneumonia last episode ~Fall 2021 History of pneumothorax during his open heart surgery in 2002 at [facility]. will have reoccurring pneumonia since. Bacteremia associated with IV line during patient's inpatient stay at the end of April 2023 due to a severe IV infiltration during inpatient stay. doing okay at this time. no curret infection. GI bleed ~05/26/23 treated at [facility] PAD (peripheral artery disease) S/p right fem/pop artery revascularization with stent placed and angioplasty per records - right tibial/peroneal artery revascularization with angio Hypothyroidism Fistula hx of ---was in right arm and no longer working Skin cancer on ear and head Asthma as child History of COVID-19 06/2022 - resolved Symptomatic carotid artery stenosis with infarction 90% stenosis of the proximal right external carotid artery. There is 30% stenosis of the proximal right internal iliac artery just beyond its origin with a tandem 20% stenosis seen distally within the right ICA at its entrance to carotid siphon; 80% stenosis of the proximal left ICA Acute CVA (cerebrovascular accident) - 05/17/23- started with weakness and discoordination right let and arm. Speech slurred at some points. - Dx'ed with acute CVA 05/20/23- admitted to [facility] until 05/22/23 - Right side weakness is getting better. History of TIA (transient ischemic attack) Unsure of date Diabetes mellitus, type II Hx of severe diabetes- 2003 had pancreas transplant- did not require DM meds until the past four years (had to restart oral DM meds) CAD (coronary artery disease) "s/p CABG x 5 in 2002" [facility] HTN (hypertension) Dyslipidemia CKD (chronic kidney disease), stage III - at this time - Hx of ESRD- on dialysis x one year but had kidney transplant 2003- no dialysis required since that time Surgical History Transplant recipient pancreas and kidney transplants in 2003 S/P PICC central line placement since removed 05/2023 Hx of chest tube placement 2002 for pneumothorax History of esophagogastroduodenoscopy (EGD) for a GI Bleed ~05/26/[address] Fitzpatrick at [facility]. Hx of extremity bypass graft - right fem/pop artery revascularization with stent placed and angioplasty per records - right tibial/peroneal artery revascularization with angio History of open reduction and internal fixation (ORIF) procedure left hip History of pancreas transplant 2003- [facility]- had this at the time of kidney transplant pancreas had abcess and was taken back in to drain it. History of kidney transplant 2003 -[facility] -- ERSD and on dialysis for a year and then had transplant and at this time the doctor is monitoring S/P CABG (coronary artery bypass graft) x 5 -- [facility] 2002 - incidental finding when getting worked up for transplant follows with Medical doctor Family History Mother Breast cancer Father Diabetes Other No family history of adverse response to anesthesia Social History Smoking Status: Unknown if ever smoked Tobacco Type: Smokeless Tobacco (Dip or Chew) Second Hand Exposure: No; Do You Dip or Chew Tobacco: Yes (advised NPO); Hx Alcohol Use: No Hx Substance Use: No Preferred Language: Georgian Communication Ability: Effective Magazine Supervisor Required: No Beliefs That Will Affect Care: None marital status: Current Living Situation: Spouse Assistive Devices: None Physical Exam 2 Vital Signs: Vital Signs - 24 hr 09/12/23 17:53 09/12/23 18:06 09/12/23 18:14 Temperature 36.9 C Temperature Source Oral Pulse Rate 65 66 Respiratory Rate 14 Respiratory Effort / Characteristics Non-Labored Sponta neous Respiratory Depth Normal Respiratory Patter n Regular Blood Pressure 143/69 H Blood Pressure Hanny n 93 Blood Pressure Pos ition Lying Pulse Oximetry 99 Oxygen Delivery Me thod Room Air Room Air Sepsis Recent Feve r Within 48 Hours No Sepsis New/Unexpla ined Change in Men shin Status No Sepsis Action Take n by Nursing No Action Required Physical Exam: Physical Exam GENERAL: She is oriented to person, place, and time. She appears well-developed and well-nourished. She does not appear distressed. HENT: Exam performed. -Head: Normocephalic and atraumatic. -Right Ear: External ear normal. No mastoid erythema -Left Ear: External ear normal. No mastoid erythema -Mouth/Throat: The oropharynx is clear and moist. No trismus in the jaw. No dental abscesses or uvula swelling. No oropharyngeal exudate or tonsillar abscesses. EYES: Conjunctivae and EOM are normal.Right eye exhibits no discharge. Left eye exhibits no discharge. No scleral icterus. NECK: Normal range of motion. Neck supple. No JVD present. No tracheal deviation and normal range of motion present. CV: Normal rate, regular rhythm, normal heart sounds and intact distal pulses. There is no peripheral edema. Palpable radial pulses bue. PULM/CHEST: Effort normal and breath sounds normal. No respiratory distress. No stridor. She has no wheezes. She has no rales. -Chest Wall: She exhibits no tenderness. ABD: The abdomen is soft. Bowel sounds are normal. She has no distension. No mass is present. There is no tenderness. There is no rebound, no guarding, no Price's sign and no tenderness at McBurney's point. Rovsig negative MUSC/SKEL: Normal range of motion. There is no peripheral edema, tenderness or deformity. NEURO: Motor and sensation grossly intact. SKIN: Skin is warm and dry. She is not diaphoretic. PSYCH: She has a normal mood and affect. Behavior is normal. Judgment and thought content normal. Course Course 1857: The patient was evaluated in room C9. A complete history and physical exam was performed Cardiac monitoring: An order was placed for continuous cardiac monitoring. The monitor shows a rate of 70 with sinus rhythm interpreted by mo 2100: Vital signs stable. Labs are significant for creatinine of 2.19 up from 1.[address] scan shows a mass in the right lower pole measuring 2.8 x 2.5 cm increase from May 27, 2023 of the patient's capitan [place] band kidney. The transplanted left kidney is within normal limits. Given the patient's [place] and history of renal transplant patient will be admitted for IV fluids. Stool studies are still pending. [facility] hospitalist Dr. Britt will be made aware of the patient. Administered Medications Sodium Chloride (Nss) 1,000 mls @ 100 mls/hr IV .Q10H STA Stop: 09/13/23 07:40 Last Admin: 09/12/23 22:22 Dose: 100 mls/hr Documented By: CPB Discontinued Medications Sodium Chloride (Nss) 1,000 mls @ 999 mls/hr IV .Q1H1M ONE Stop: 09/12/23 20:00 Last Infusion: 09/12/23 20:37 Dose: Infused Documented By: Admin: 09/12/23 19:06 Dose: 999 mls/hr Documented By: CPB Medical Decision Making Laboratory Data Attestation: I reviewed the patient's lab results. 09/12/23 17:58 09/12/23 17:58 Lab Results 09/12/23 Range/Units 17:58 WBC 6.88 (4.8-10.8) K/ul RBC 4.45 L (4.70-6.10) M/uL Hgb 13.3 L (14.0-18.0) g/dl Hct 38.5 L (42.0-52.0) % MCV 86.5 (80.0-100.0) fL MCH 29.9 (25.0-34.0) pg MCHC 34.5 (32.0-36.0) g/dL RDW Std Deviation 45.2 (36.4-46.3) fL RDW Coeff of Jorden 14.4 (11.5-14.5) % Plt Count 145 (130-400) K/uL MPV 12.1 (9.4-12.4) fL Immature Gran % (Auto) 0.3 % Neut % (Auto) 61.9 % Lymph % (Auto) 18.5 % [place] % (Auto) 6.8 % Eos % (Auto) 12.2 % Baso % (Auto) 0.3 % Neut # (Auto) 4.26 (1.40-6.50) K/uL Lymph # (Auto) 1.27 (1.20-3.40) K/uL [place] # (Auto) 0.47 (0.11-0.59) K/uL Eos # (Auto) 0.84 H (0.00-0.50) K/uL Baso # (Auto) 0.02 (0.00-0.20) K/uL Immature Gran # (Auto) 0.02 (0.01-0.20) K/uL Sodium 132 L (136-145) mmol/L Potassium 4.9 (3.5-5.1) mmol/L Chloride 107 (98-107) mmol/L Carbon Dioxide 17 L (21-32) mmol/L Anion Gap 8 (3-11) BUN 83 H (6-23) mg/dl Creatinine 2.19 H (0.6-1.4) mg/dl Est Cr Clr Drug Dosing 30.6 ml/min Est GFR ( Amer) 33.2 ml/min Est GFR (Non-Af Amer) 28.6 ml/min BUN/Creatinine Ratio 37.9 H (10-20) Glucose 82 (70-99(Fasting)) mg/dl Calcium 9.1 (8.6-10.3) mg/dl Magnesium 1.9 (1.7-2.4) mg/dl Total Bilirubin 0.5 (0.2-1.0) mg/dl AST 13 (13-39) U/L ALT 10 (7-52) U/L Alkaline Phosphatase 76 (34-104) U/L Total Protein 6.5 (6.0-8.3) gm/dl Albumin 3.9 (3.4-5.0) gm/dl Globulin 2.6 (2.5-4.0) gm/dl Albumin/Globulin Ratio 1.5 (0.9-2) Lipase 62 (11-82) U/L Imaging Data Radiologist's Impression: Abdomen/Pelvis CT 09/12/23 19:00 Exam(s): CT ABDOMEN + PELVIS Without Contrast EXAM: CT Abdomen and Pelvis Without Intravenous Contrast CLINICAL HISTORY: Reason for exam: diarreha [place]. TECHNIQUE: Axial computed tomography images of the abdomen and pelvis without intravenous contrast. CTDI is 16.64 mGy and DLP is 951.63 mGy-cm. Automated exposure control was utilized for the study. A dose lowering technique was utilized adhering to the principles of ALARA. COMPARISON: CT abdomen pelvis May 27, 2023. FINDINGS: Lung bases: Atelectasis at the lung bases. Heart: Cardiomegaly. Calcified coronary arteries. ABDOMEN: Liver: Unremarkable. Gallbladder and bile ducts: Cholelithiasis. No ductal dilation. Pancreas: Unremarkable. No ductal dilation. Spleen: Unremarkable. No splenomegaly. Adrenals: Unremarkable. No mass. Kidneys and ureters: Atrophy of the [place] band kidneys. Mass in the RIGHT lower pole measures 2.8 x 2.4 cm, increasing in size when compared to May 27, 2023. Recommend abdominal MRI and urology evaluation. Underlying cancer cannot be excluded. 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 No hydronephrosis. Stomach and bowel: Diverticulosis, without acute diverticulitis. No small bowel obstruction. No free intraperitoneal air. PELVIS: Appendix: No findings to suggest acute appendicitis. Bladder: Unremarkable. No stones. Reproductive: Penile pump. ABDOMEN and PELVIS: Intraperitoneal space: Unremarkable. No free air. No significant fluid collection. Bones/joints: Sternotomy wires. Degenerative changes of the spine. No acute fracture. No dislocation. Soft tissues: Unremarkable. Vasculature: Atherosclerotic changes of the aorta. Lymph nodes: Unremarkable. No enlarged lymph nodes. IMPRESSION: 1. Atrophy of the [place] band kidneys. Mass in the RIGHT lower pole measures 2.8 x 2.4 cm, increasing in size when compared to May 27, 2023. Recommend abdominal MRI and urology evaluation. Underlying cancer cannot be excluded. 2. 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 No hydronephrosis. 3. Diverticulosis, without acute diverticulitis. No small bowel obstruction. No free intraperitoneal air. Electronically signed by: Shiva Mcgovern MD 09/12/23 20:42 PM Chest X-Ray 09/12/23 20:57 SINGLE VIEW CHEST CLINICAL HISTORY: Renal failure. FINDINGS: An AP, portable, upright chest radiograph is compared to study dated 06/06/2023 and correlated with chest CT dated 06/30/2020. The patient is status post midline sternotomy. The heart is enlarged noting atherosclerotic calcification of the thoracic aorta. The pulmonary vasculature is noncongested. Chronic interstitial thickening is similar to previous. There is chronic elevation of the right hemidiaphragm with bibasilar scarring/atelectasis. No airspace consolidation or large pleural effusion is identified. No pneumothorax is seen. The skeletal structures are osteopenic. The bony thorax is grossly intact. IMPRESSION: Cardiomegaly with no acute cardiopulmonary abnormality. ACT 112: Negative or not required by law. Electronically signed by: Shaheen Lo M.D. 09/12/2023 9:58 PM [facility] Narrative 1858: The patient was evaluated in room C9. A complete history and physical exam was performed Cardiac monitoring: An order was placed for continuous cardiac monitoring. The monitor shows a rate of 70 with sinus rhythm interpreted by mo 2100: Vital signs stable. Labs are significant for creatinine of 2.19 up from 1.[address] scan shows a mass in the right lower pole measuring 2.8 x 2.5 cm increase from May 27, 2023 of the patient's [place] kidney. The transplanted left kidney is within normal limits. Given the patient's [place] and history of renal transplant patient will be admitted for IV fluids. Stool studies are still pending. [facility] hospitalist Dr. Britt will be made aware of the patient. Impression & Plan [place] (acute kidney injury), Diarrhea Discharge Plan Visit Data Chief Complaint: Diarrhea Stated Complaint: AB PAIN ED Provider: Peter Reeder Discharge Problem: [place] (acute kidney injury), Diarrhea Patient Disposition: Admitted As Inpatient Forms Stand Alone Forms: [facility] [place] Prescriptions Prescriptions: No Action benzonatate 100 mg Capsule 100 mg PO TID PRN (Reason: cough) Qty: 30 0RF loperamide 2 mg capsule 2 mg PO DIRECTED MDD 4 TABS/24 HOURS PRN (Reason: Diarrhea) Rx Instructions: TAKE 2 TABS AT ONSET OF DIARRHEA, THEN 1 TAB AFTER EACH EPISODE. trazodone 50 mg Tablet 50 mg PO HS Advanced Probiotic 625 mg (10 billion cell) Capsule 1 cap PO BID tacrolimus 1 mg Granules In Packet 1 mg PO AMPM ferrous sulfate 325 mg (65 mg iron) tablet,delayed release (DR/EC) 325 mg PO BID acetaminophen [Tylenol] 325 mg Tablet 650 mg PO Q4H PRN (Reason: Pain) chlorthalidone 25 mg tablet 25 mg PO QAM amlodipine 10 mg tablet 10 mg PO QAM glipizide 2.5 mg tablet extended release 24hr 5 mg PO QAM brimonidine-timolol [Combigan] 0.2-0.5 % drops 1 drp OPL BID multivitamin Tablet 1 tab PO QAM cyanocobalamin (vitamin B-12) [Vitamin B-12] 100 mcg Tablet 1,000 mcg PO QAM Rx Instructions: lozenge ascorbic acid (vitamin C) [Vitamin C] 500 mg Tablet 500 mg PO QAM metformin 1,000 mg tablet 1,000 mg PO BIDM Hold Instructions: Resume on 05/23/23. cholecalciferol (vitamin D3) [Vitamin D3] 50 mcg (2,000 unit) Tablet 50 mcg PO QAM Rocklatan 0.02-0.005 % drops 1 drp OPB HS carvedilol 12.5 mg tablet 12.5 mg PO BID oregano oil 1,500 mg Capsule 1,500 mg PO DAILY atorvastatin [Lipitor] 10 mg Tablet 10 mg PO QAM lisinopril 40 mg Tablet 40 mg PO QAM Referrals Referrals: Jolly Prajapati MD [Primary Care Provider] - Discharge Problem: Diarrhea Qualifiers: Diarrhea type: unspecified type Qualified Code(s): R19.7 - Diarrhea, unspecified
[2023-09-12] MEDS ORDERED: ACETAMINOPHEN 325 MG TAB PO PRN (23:45)
[2023-09-12] MEDS ORDERED: GLUCAGON FOR INJ 1 MG VIAL SQ PRN (23:45)
[2023-09-12] MEDS ORDERED: GLUCOSE 40% GEL 15 GM TUBE PO PRN (23:45)
[2023-09-12] MEDS ORDERED: GLUCOSE 10 TAB/TUBE PO PRN (23:45)
[2023-09-12] MEDS ORDERED: DEXTROSE 50% 50 ML SYRINGE IV PRN (23:45)
[2023-09-13] MEDS: TACROLIMUS 1 MG CAP PO SCH ×3 (00:42→20:28)
[2023-09-13] MEDS: INSULIN ASPART PER UNIT CHARGE SC SCH ×5 (00:44→21:17)
--- OUTSIDE RECORDS SUMMARY | 2023-09-13 04:41 | External Medical Summary | Summary of Care ---
Author Name Unknown Organization [facility] [address] [facility] [address] Phone [phone] Care Team Providers Care Roller Turner Name Role Phone Jt Prajapati MD Primary Care Provide r Reason for Visit * Reason Onset Date Comments Medication Refill 09/11/2023 Encounter Details Date Type Department Care Team (Late st Contact Info) Description 09/11/2023 Refill Family Medicine [address] [place] [address] [place] [address] Chronic diarrhea Allergies Active Allergy Reactions Criticality Noted Date Comments Promethazine Other (Please comment) 07/02/2023 Agitation Sulfa Antibiotics Rash 07/31/2012 documented as of this encounter (statuses as of 09/11/2023) Medications Medication Sig Dispensed Refills Start Date End Date Status VITAMIN B 12 100 MCG PO LOZG two daily 0 Active VITAMIN C 100 MG PO TABS Take 5 Tablets by mouth. 0 Active Vitamin D3 50 MCG (1999 UT) Oral Capsule Take 1 Capsule by mouth in the morning. 0 Active Rocklatan 0.02-0.005 % Ophthalmic Solution (Netarsudil-Latan oprost) Instill 1 Drop into both eyes at bedtime. 0 Active Acetaminophen 325 MG Oral Tablet (Tylenol) Take 2 Tablets by mouth every 4 hours as needed. 0 Active Tacrolimus 1 MG Oral Packet Take by mouth. 1mg in am and 1mg in pm 0 Active Multi-Day Oral Tablet Take 1 Tablet by mouth daily. 0 Active Combigan 0.2-0.5 % Ophthalmic Solution INSTILL ONE DROP IN THE LEFT EYE TWICE DAILY 0 09/02/2021 Active AvaLAN Wireless SystemsTouch UltraSoft Lancets Test Use up to four times a day as directed DxE11.9 400 Each 3 12/28/2021 Active OneTouch Delica Plus Lancing Use once daily to check blood glucose 300 Each 1 01/21/2022 Active Lisinopril 40 MG Oral TabletIndications :Hypertension goal BP (blood pressure) < 140/90 TAKE ONE TABLET BY MOUTH EVERY MORNING 90 Tablet 1 12/26/2022 Active Ferrous Sulfate 325 (65 Fe) MG Oral Tablet (Feosol)Indicatio ns:Iron deficiency anemia, unspecified iron deficiency anemia type Take 1 Tablet by mouth in the morning and 1 Tablet before bedtime. 60 Tablet 11 01/09/2023 Active AvaLAN Wireless SystemsTouch Verio In Vitro Strip (Glucose Blood)Indications :Type 2 diabetes mellitus with diabetic chronic kidney disease (HCC) test once daily 100 Strip 2 05/20/2023 Active Advanced Probiotic Oral Capsule Take 1 Capsule by mouth in the morning and 1 Capsule before bedtime. 0 06/10/2023 Active traZODone HCl 50 MG Oral Tablet (Desyrel)Indicati ons:Insomnia, unspecified type Take 1 Tablet by mouth at bedtime. 30 Tablet 5 06/16/2023 Active Carvedilol 12.5 MG Oral Tablet (Coreg)Indication s:Hypertension goal BP (blood pressure) < 140/90 TAKE ONE TABLET BY MOUTH TWICE DAILY 180 Tablet 1 06/28/2023 Active Oil of Oregano [address] on tongue daily. Oil liquid, several drops in mouth 0 Active Benzonatate 100 MG Oral Capsule (Tessalon Perljanette)Indication s:Allergic rhinitis, unspecified seasonality, unspecified trigger Take 1 Capsule by mouth 3 times a day as needed for Cough. 30 Capsule 1 07/18/2023 Active Pantoprazole Sodium 40 MG Oral Tablet Delayed Release (Protonix)Indicat ions:Upper GI bleed Take 1 Tablet by mouth in the morning and 1 Tablet before bedtime. 60 Tablet 11 07/18/2023 Active Additional Information Patient not taking.Reported on 07/22/2023 Atorvastatin Calcium 10 MG Oral Tablet (Lipitor)Indicati ons:Atheroscleros is of [place] coronary artery of [place] heart without angina pectoris Take 1 Tablet by mouth in the morning. 30 Tablet 11 07/18/2023 Active metFORMIN HCl 1000 MG Oral Tablet (Glucophage) TAKE ONE TABLET BY MOUTH TWICE DAILY WITH MEALS 180 Tablet 1 07/31/2023 Active Chlorthalidone 25 MG Oral Tablet (Hygroton) TAKE ONE TABLET BY MOUTH EVERY DAY 90 Tablet 1 08/04/2023 Active glipiZIDE ER 2.5 MG Oral Tablet Extended Release 24 Hour (Glucotrol XL) TAKE TWO TABLETS BY MOUTH EVERY DAY 180 Tablet 1 08/20/2023 Active amLODIPine Besylate 10 MG Oral Tablet (Norvasc) Take 1 Tablet by mouth in the morning. 90 Tablet 1 09/01/2023 Active Loperamide HCl 2 MG Oral Tablet (Imodium A-D)Indications:C hronic diarrhea 2 pills at onset of diarrhea, then 1 pill after each subsequent episode. No more than 4 pills per day. 120 Tablet 0 09/11/2023 Active Loperamide HCl 2 MG Oral Tablet (Imodium A-D)Indications:C hronic diarrhea 2 pills at onset of diarrhea, then 1 pill after each subsequent episode. No more than 4 pills per day. 120 Tablet 0 02/21/2023 3 Discontinue d(Refill) documented as of this encounter (statuses as of 09/11/2023) Active Problems Problem Noted Date Diagnosed Date S/P carotid endarterectomy 07/22/2023 Protein-calorie malnutrition 07/22/2023 Persistent insomnia 07/26/2022 Acquired hypothyroidism 07/18/2022 PAD (peripheral artery disease) 06/15/2021 Asymptomatic bilateral carotid artery stenosis 0 11/14/2020 Overview: 10/2020 50-69% B/L Renal cyst, right 07/28/2020 Immunocompromised 07/03/2020 S/p left hip fracture 07/03/2020 Type 2 diabetes mellitus wit h stage 3a chronic kidney disease, without long-term current use of insulin 07/23/2018 Urge incontinence 07/23/2018 History of CVA (cerebrovascular accident) 2017 Type 2 diabetes mellitus wit h hemoglobin A1c goal of less than 8.0% 11/18/2016 Dyslipidemia, goal LDL below 100 04/12/2015 History of TIA (transient ischemic attack) 04/14 S/P kidney transplant 12/09/2012 CORONARY ATHEROSCLER. OF [place] CORONARY VESSEL 07/11/2004 Hypertension goal BP (blood pressure) < 140/90 History of Clostridium difficile infection Allergic rhinitis Stage 3a chronic kidney disease H/O pancreas transplant documented as of this encounter (statuses as of 09/11/2023) Resolved Problems Problem Noted Date Diagnosed Date Resolved Date ESRD (end stage renal disease) 07/02/2023 07/22/2023 Overview: diabetic nephropathy s/p kidney/pancreas transplant Type 2 diabetes mellitus wit h stage 3a chronic kidney disease, with long-term current use of insulin 01/04/2022 01/04/2022 Diabetic foot infection 05/25/2021 04/0 04/2022 Obstructive lung disease 11/17/2019 Pre-transplant evaluation fo r ESRD (end stage renal disease) 07/11/2004 06/03/2013 Type 2 diabetes mellitus wit h hemoglobin A1c goal of less than 7.0% 07/11/2004 07/31/2012 Overview: ICD-10 update of inactive term HYPERLIPIDEMIA NEC/NOS 07/11/200404/12 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 Overview: kidney transplant Kidney transplant status documented as of this encounter (statuses as of 09/11/2023) Immunizations Name Administration Dates Next Due Pneumococcal Conjugate Vacc, 13 Valent (Prevnar) 04/12/2015 Pneumococcal Polysaccharide PPV23 (Pneumovax) ,07/31/2012 Seasonal Influenza, Split, IIV3, With Preserve, Inj 08/10/2012 TDAP (age 10 and older)(Boostrix) 05/27/2021,07/2017 Zoster Vaccine Recombinant (Shingrix) 07/26/2020 ,03/28/2020 documented as of this encounter Social History Tobacco Use Types Packs/Day Years Used Date Smoking Tobacco: Never Smokeless Tobacco: Current Snuff Alcohol Use Standard Drinks/Week Comments No 0 (1 standard drink = 0.6 oz pur e alcohol) PHQ-2 Answer Date Recorded PHQ-2 Score -1 06/18/2020 Hunger Vital Sign Answer Date Recorded Within the past 12 months, y ou worried that your food would run out before you got the money to buy more. Never true 07/18/20 23 Within the past 12 months, t he food you bought just didn't last and you didn't have money to get more. Never true 07/18/2023 Sex and Gender Information Value Date Recorded Sex Assigned at Not on file Gender Identity Not on file Sexual Orientation Not on file Job Start Date Occupation Industry Not on file Not on file Not on file documented as of this encounter Functional Status Functional Status Response Date of Assess ment Are you deaf or do you have serious difficulty h earing? No 05/25/2021 Are you blind or do you have serious difficulty seeing, even when wearing glasses? No 05/25/2021 Do you have serious difficul ty walking or climbing stairs? (5 years old or older) No 06/05/2021 Do you have difficulty dress ing or bathing? (5 years old or older) No 05/25/2021 Because of a physical, menta l, or emotional condition, do you have difficulty doing errands alone such as visiting a doctor s office or shopping? (15 years old or older) No 05/25/20 21 Cognitive Status Response Date of Assessm ent Because of a physical, menta l, or emotional condition, do you have serious difficulty concentrating, remembering, or making decisions? (5 years old or older) No 05/25/2021 documented as of this encounter Miscellaneous Notes * Telephone Encounter - Jt Prajapati MD - 09/11/2023 1:53 PM EST Signed Prescriptions: Disp Refills Loperamide HCl 2 MG Oral Tablet (Imodium A*120 Ta*0 Si pills at onset of diarrhea, then 1 pill after each subsequent episode. No more than 4 pills per day. Authorizing Provider: JT PRAJAPATI * Telephone Encounter - Jenny Jamison RN - 09/11/2023 1:21 PM ESTPending Prescriptions: Disp Refills Loperamide HCl 2 MG Oral Tablet (Imodium A*120 Ta*0 Si pills at onset of diarrhea, then 1 pill after each subsequent episode. No more than 4 pills per day. * Telephone Encounter - Danielle Fletcher OSA - 09/11/2023 12:59 PM EST Did you pend patient's preferred pharmacy and medication before forwarding?yes Pharmacy: [facility], [address] [place] Pending Prescriptions: Disp Refills Loperamide HCl 2 MG Oral Tablet (Imodium *120 Ta*0 Si pills at onset of diarrhea, then 1 pill after each subsequent episode. No more than 4 pills per day. Last Visit: 07/22/2023 (in office), Visit date not found (telemedicine) Next Visit: 2024 If no future appointments scheduled, and last appointment is greater than a year ago, please schedule patient for a follow-up appointment Last date the medication was ordered: 02/21/23 Is this request for a controlled substance?No Urine Drug Screen:No results found for this or any previous visit. Patient Phone Numbers Labs: Lab Results Component Value Date/Time CREAT 1.24 08/22/2023 12:00 AM CREAT 1.6 (H) 09/04/2018 07:40 AM CREAT 1.0 08/13/1996 10:10 AM POTASSIUM 4.5 08/22/2023 12:00 AM POTASSIUM 4.2 09/04/2018 07:40 AM POTASSIUM 5.4 (H) 08/13/1996 10:10 AM TSH 6.45 (H) 01/08/2023 10:30 AM TSH 6.53 (H) 01/08/2023 10:30 AM TSH 1.93 07/31/2017 09:20 AM LDLCALC 33.8 08/22/2023 12:00 AM LDLCALC 96 09/04/2018 07:40 AM LDLCHOL 130 12/01/2013 12:00 AM ALT 27 06/24/2023 10:40 AM ALT 13 09/04/2018 07:40 AM HGBA1C 5.9 (A) 08/22/2023 12:00 AM HGBA1C 6.1 (H) 11/12/2022 12:00 AM HGBA1C 6.2 07/31/2017 09:22 AM HGBA1C 10.9 (H) 08/13/1996 10:10 AM documented in this encounter Plan of Treatment Upcoming Encounters Date Type Department Care Team (Late st Contact Info) Description 2024 11:00 AM EDT Office Visit Family Medicine [address] [place] [address] Jt Prajapati MD [address] [place] [address] [place] [phone] Health Maintenance Due Date Last Done Comments COVID-19 Vaccine (#1) 1954 Cologuard 1994 Fecal Occult Blood Test 1994 Sigmoidoscopy 1994 Hepatitis B (1 of 3 - Risk 3-dose series) 2009 Depression Screening 10/19/2020 10/19/2019 Colonoscopy 12/12/2020 12/12/2010 Colorectal Cancer Screening 12/12/2020 Diabetic Eye Exam 01/09/2023 01/09/2022, , 06/15/2008 Influenza Vaccine (FLU shot) (#1) 2023 08/10/2012 Diabetic Foot Exam 07/15/2023 07/15/2022, 0 11/01/2020, 01/24/2020, Additional history exists B-12 01/09/2024 01/08/2023, 07/15/2022 GFR 02/20/2024 08/22/2023, 11/2022, 06/24/2023, Additional history exists HbA1c 02/20/2024 08/22/2023, 05/30, 03/15/2023, Additional history exists Albumin/Creatinine Ratio 08/22/2024 023, 03/15/2023, 11/12/2022, Additional history exists DTaP,Tdap,and Td Vaccines (3 - Td or Tdap) 05/27/2031 05/27/2021, 06/09/2017 Pneumococcal Vaccine: 65+ Years Completed 07/31/2017, 04/12/2015, 07/31/2012 Zoster Vaccines Completed 07/26/2020, 03/28/2020 GARDASIL-HPV IMMUNIZATION SERIES Aged Out No longer eligible based on patient's age to complete this topic MENINGOCOCCAL (MENACTRA/MENVEO) Aged Out No longer eligible based on patient's age to complete this topic documented as of this encounter Medical Devices Implanted Type Area Senior Product Marketing Manager Device Identifier Shelf Expiration Date Model / Serial / Lot Stent Peripheral 6 Diam 150x40 - [id number] Implanted:Qty: 1 on 05/27/2021 by Channing Hess MD at [facility] Right: Popliteal Artery [employer] : VASCULAR [id number] 03/15/2024 [id number] 040-150 / / [id number] documented as of this encounter Visit Diagnoses Diagnosis Chronic diarrhea Diarrhea documented in this encounter Advance Directives Latest Code Status on File Code Status Date Activated Date Inactivated Comments Full Code 05/25/2021 7:10 PM 06/05/2021 8:41 PM This o rder reflects the patients wishes and were consensually agreed upon. Question Answer Comments Discussion of Advance Directives occurred with: Patient Does the patient have a Living Will? No Does the patient have Health Care Power of Apple Sorter? No Care Teams Roller Turner Relationship Specialty Start Date End Date Jt Prajapati MD [address] [place] [address] [place] [phone] PCP - General Family Medicine 07/31/12 documented as of this encounter
--- OUTSIDE RECORDS SUMMARY | 2023-09-13 04:42 | External Medical Summary | Summary of Care ---
Author Name Unknown Organization [facility] Address [address] [place] [address] Phone [phone] Care Team Providers Care Floor Sweeper Name Role Phone Jolly Prajapati MD Primary Care Provide r Reason for Visit * Reason Onset Date Comments case management 09/01/2023 Encounter Details Date Type Department Care Team (Late st Contact Info) Description 09/01/2023 Camera Tuning Engineer Telephone Care Coordination and Integration [address], [place] [phone] Alieen Glasgow RN [address], [place] [phone] case management Allergies Active Allergy Reactions Criticality Noted Date Comments Promethazine Other (Please comment) 07/02/2023 Agitation Sulfa Antibiotics Rash 07/31/2012 documented as of this encounter (statuses as of 09/05/2023) Medications Medication Sig Dispensed Refills Start Date End Date Status VITAMIN B 12 100 MCG PO LOZG two daily 0 Active VITAMIN C 100 MG PO TABS Take 5 Tablets by mouth. 0 Active Vitamin D3 50 MCG (1999 UT) Oral Capsule Take 1 Capsule by mouth in the morning. 0 Active Rocklatan 0.02-0.005 % Ophthalmic Solution (Netarsudil-Latanop nydia) Instill 1 Drop into both eyes at [...] LEFT EYE TWICE DAILY 0 09/02/2021 Active OneTouch UltraSoft Lancets Test Use up to four times a day as directed DxE11.9 400 Each 3 12/28/2021 Active OneTouch Delica Plus Lancing Use once daily to check blood glucose 300 Each 1 01/21/2022 Active Lisinopril 40 MG Oral TabletIndications:H ypertension goal BP (blood pressure) < 140/90 TAKE ONE TABLET BY MOUTH EVERY MORNING 90 Tablet 1 12/26/2022 Active Ferrous Sulfate 325 (65 Fe) MG Oral Tablet (Feosol)Indications :Iron deficiency anemia, unspecified iron deficiency anemia type Take 1 Tablet by mouth in the morning and 1 Tablet before bedtime. 60 Tablet 11 01/09/2023 Active Loperamide HCl 2 MG Oral Tablet (Imodium A-D)Indications:Chr onic diarrhea 2 pills at onset of diarrhea, then 1 pill after each subsequent episode. No more than 4 pills per day. 120 Tablet 0 02/21/2023 Active OneTouch Verio In Vitro Strip (Glucose Blood)Indications:T ype 2 diabetes mellitus with diabetic chronic kidney disease (HCC) test once daily 100 Strip 2 05/20/2023 Active Advanced Probiotic Oral Capsule Take 1 Capsule by mouth in the morning and 1 Capsule before bedtime. 0 06/10/2023 Active traZODone HCl 50 MG Oral Tablet (Desyrel)Indication s:Insomnia, unspecified type Take 1 Tablet by mouth at bedtime. 30 Tablet 5 06/16/2023 Active Carvedilol 12.5 MG Oral Tablet (Coreg)Indications: Hypertension goal BP (blood pressure) < 140/90 TAKE ONE TABLET BY MOUTH TWICE DAILY 180 Tablet 1 06/28/2023 Active Oil of Oregano [address] on tongue daily. Oil liquid, several drops in mouth 0 Active Benzonatate 100 MG Oral Capsule (Tessalmore Harman)Indications: Allergic rhinitis, unspecified seasonality, unspecified trigger Take 1 Capsule by mouth 3 times a day as needed for Cough. 30 Capsule 1 07/18/2023 Active Pantoprazole Sodium 40 MG Oral Tablet Delayed Release (Protonix)Indicatio ns:Upper GI bleed Take 1 Tablet by mouth in the morning and 1 Tablet before bedtime. 60 Tablet 11 07/18/2023 Active Additional Information Patient not taking.Reported on 07/22/2023 Atorvastatin Calcium 10 MG Oral Tablet (Lipitor)Indication s:Atherosclerosis of [place] coronary artery of [place] heart without angina pectoris Take 1 Tablet [...] EVERY DAY 180 Tablet 1 08/20/2023 Active documented as of this encounter (statuses as of 09/05/2023) Active Problems Problem Noted Date Diagnosed Date [...] S/P kidney transplant 12/09/2012 CORONARY ATHEROSCLER. OF [place] CORONARY VESSEL 07/11/2004 Hypertension goal BP (blood pressure) < 140/90 History of Clostridium difficile infection Allergic rhinitis Stage 3a chronic kidney disease H/O pancreas transplant documented as of this encounter (statuses as of 09/05/2023) Resolved Problems Problem Noted Date Diagnosed Date [...] as of this encounter (statuses as of 09/05/2023) Immunizations Name Administration Dates Next Due Pneumococcal [...] (15 years old or older) No 05/25/20 Cognitive Status Response Date of Assessm ent Because of a physical, menta l, or emotional condition, do you have serious difficulty concentrating, remembering, or making decisions? (5 years old or older) No 05/25/2021 documented as of this encounter Miscellaneous Notes * Telephone Encounter - Aileen Glasgow RN - 09/01/2023 9:02 AM EST Please discharge the patient from [facility] Device(s)/IVR to be discontinued: 08/18/23 due to end of MARLO period. Thank you. documented in this encounter Plan of Treatment Upcoming Encounters Date Type Department Care Team (Late st Contact Info) Description 2024 11:00 AM EDT Office Visit Family Medicine [address] [place] [phone] Jolly Prajapati MD [address] [place] [address] [place] [phone] Health Maintenance Due Date Last Done Comments [...] B-12 01/09/2024 01/08/2023, 07/15/2022 GFR 02/20/2024 08/22/2023, 10/0 11/2022, 06/24/2023, Additional history exists HbA1c 02/20/2024 [...] this encounter Medical Devices Implanted Type Area Manager Event Device Identifier Shelf Expiration Date Model / Serial / Lot Stent Peripheral 6 Diam 150x40 - [id number] Implanted:Qty: 1 on 05/27/2021 by Channing Hess MD at [facility] [place] Right: Popliteal Artery [employer] : VASCULAR [id number] 03/15/2024 [id number] 040-150 / / [id number] documented as of this encounter Advance Directives Latest Code Status on File Code Status Date Activated Date Inactivated Comments Full Code 05/25/2021 7:10 PM 06/05/2021 8:41 PM This o rder reflects the patients wishes and were consensually agreed upon. Question Answer Comments Discussion of Advance Directives occurred with: Patient Does the patient have a Living Will? No Does the patient have Health Care Power of Package Crimper? No Care Teams Floor Sweeper Relationship Specialty Start Date End Date Jolly Prajapati MD [address] [place] [address] [place] [id number] PCP - General Family Medicine 07/31/12 documented as of this encounter
--- OUTSIDE RECORDS SUMMARY | 2023-09-13 04:42 | External Medical Summary | Summary of Care ---
Author Name Unknown Organization [facility] Address [address] [facility] [place] [address] Phone [phone] Care Team Providers Care Varnish Finisher Name Role Phone Jolly Prajapati MD Primary Care Provide r Reason for Visit * Reason Onset Date Comments Med Request 08/22/2023 Encounter Details Date Type Department Care Team (Late st Contact Info) Description 08/22/2023 Telephone Family Medicine [address] [phone] Jolly Prajapati MD [address] [place] [address] [place] [address] Med Request Allergies Active Allergy Reactions Criticality Noted Date Comments Promethazine Other (Please comment) 07/02/2023 Agitation Sulfa Antibiotics Rash 07/31/2012 documented as of this encounter (statuses as of 08/22/2023) Medications Medication Sig Dispensed Refills Start Date [...] before bedtime. 60 Tablet 11 01/09/2023 Active amLODIPine Besylate 10 MG Oral Tablet (Norvasc) TAKE ONE TABLET BY MOUTH EVERY DAY 90 Tablet 1 02/13/2023 Active Loperamide HCl 2 MG Oral Tablet [...] 0 Active Benzonatate 100 MG Oral Capsule (Tesjulianna Harman)Indications: Allergic rhinitis, unspecified seasonality, unspecified trigger [...] 10 MG Oral Tablet (Lipitor)Indication s:Atherosclerosis of [place] coronary artery of [place] heart without angina pectoris Take 1 Tablet [...] as of this encounter (statuses as of 08/22/2023) Active Problems Problem Noted Date Diagnosed Date [...] S/P kidney transplant 12/09/2012 CORONARY ATHEROSCLER. OF [place] CORONARY VESSEL 07/11/2004 Hypertension goal BP (blood pressure) < 140/90 History of Clostridium difficile infection Allergic rhinitis Stage 3a chronic kidney disease H/O pancreas transplant documented as of this encounter (statuses as of 08/22/2023) Resolved Problems Problem Noted Date Diagnosed Date [...] as of this encounter (statuses as of 08/22/2023) Immunizations Name Administration Dates Next Due Pneumococcal [...] Answer Date Recorded PHQ-2 Score -1 06/18/2020 Sex and Gender Information Value Date Recorded [...] encounter Miscellaneous Notes * Telephone Encounter - Malgorzata Cook OSA - 08/22/2023 1:19 PM EST calling, states they are enroute to now. FYI * Telephone Encounter - Renu Severino CMA - 08/22/2023 12:47 PM EST There is a nurse triage encounter from today as well. He was advised to go to a local urgent care by the RN and the patient was agreeable. I did try to call him to verify that he went since these encounters were put in around the same time. There was no answer; the phone rang until a record came onto say there was no answer to try again later. No voicemail. * Telephone Encounter - Adrianne Sanchez OSA - 08/22/2023 12:17 PM EST is calling to see if something can be called in for . said he is coughing up greenand short winded. Pt has a bad cold for about a week now. documented in this encounter Plan of Treatment Upcoming Encounters Date Type Department Care Team (Late st Contact Info) Description 11/05/2023 1:00 PM EST Office Visit Gastroenterology, [facility] [address] [place] [address] Elise Abraham CRNP [address] [place] [phone] 11:00 AM EDT Office Visit Family Medicine [address] [place] [phone] Jolly Prajapati MD [address] [place] [address] [place] [id number] Health Maintenance Due Date Last Done Comments [...] 07/15/2022, 0 11/01/2020, 01/24/2020, Additional history exists HbA1c 12/16/2023 06/17/2023, 02/27, 11/12/2022, Additional history exists GFR 12/31/2023 07/01/2023, 05/31, 06/17/2023, Additional history exists B-12 01/09/2024 01/08/2023, 07/15/2022 Albumin/Creatinine Ratio 03/15/2024 023, 11/12/2022, 07/15/2022, Additional history exists DTaP,Tdap,and Td Vaccines (3 [...] this encounter Medical Devices Implanted Type Area Absorption And Adsorption Engineer Device Identifier Shelf Expiration Date Model / Serial / Lot Stent Peripheral 6 Diam 150x40 - [id number] Implanted:Qty: 1 on 05/27/2021 by Channing Hess MD at [facility] Right: Popliteal Artery [employer] : VASCULAR [id number] 03/15/2024 [id number] 040-150 / / [id number] documented as of this encounter Advance Directives [...] the patient have Health Care Power of Medical Care Administrator? No Care Teams Varnish Finisher Relationship Specialty Start Date End Date Jolly Prajapati MD [address] [place] [address] [place] [id number] PCP - General Family Medicine 07/31/12 documented as of this encounter
--- OUTSIDE RECORDS SUMMARY | 2023-09-13 04:42 | External Medical Summary | Summary of Care ---
Author Name Unknown Organization [facility] Address [address] [place] [address] Phone [phone] Care Team Providers Care Clamp Truck Driver Name Role Phone Jolly Prajapati MD Primary Care Provide r Encounter Details Date Type Department Care Team (Late st Contact Info) Description 08/22/2023 Result Scan Unspecified Department <No scans attached> Allergies Active Allergy Reactions Criticality Noted Date Comments Promethazine Other (Please comment) 07/02/2023 Agitation Sulfa Antibiotics Rash 07/31/2012 documented as of this encounter (statuses as of 08/25/2023) Medications Medication Sig Dispensed Refills Start Date [...] Active Benzonatate 100 MG Oral Capsule ([place] Perljanette)Indications: Allergic rhinitis, unspecified seasonality, unspecified trigger Take [...] 10 MG Oral Tablet (Lipitor)Indication s:Atherosclerosis of [place] coronary artery of [place] heart without angina pectoris Take 1 Tablet [...] as of this encounter (statuses as of 08/25/2023) Active Problems Problem Noted Date Diagnosed Date [...] S/P kidney transplant 12/09/2012 CORONARY ATHEROSCLER. OF [place] CORONARY VESSEL 07/11/2004 Hypertension goal BP (blood pressure) < 140/90 History of Clostridium difficile infection Allergic rhinitis Stage 3a chronic kidney disease H/O pancreas transplant documented as of this encounter (statuses as of 08/25/2023) Resolved Problems Problem Noted Date Diagnosed Date [...] as of this encounter (statuses as of 08/25/2023) Immunizations Name Administration Dates Next Due Pneumococcal [...] No 05/25/2021 documented as of this encounter Plan of Treatment Upcoming Encounters Date Type Department Care Team (Late st Contact Info) Description 11/05/2023 1:00 PM EST Office Visit Gastroenterology, [facility] [address] [place] [address] Elise Abraham CRNP [address] [place] [address] 2024 11:00 AM EDT Office Visit Family Medicine [address] [place] [address] Jolly Prajapati MD [address] [place] [address] [place] [address] Health Maintenance Due Date Last Done Comments [...] this encounter Medical Devices Implanted Type Area Station Installer Device Identifier Shelf Expiration Date Model / Serial / Lot Stent Peripheral 6 Diam 150x40 - [id number] Implanted:Qty: 1 on 05/27/2021 by Channing Hess MD at [facility] Right: Popliteal Artery [employer] : VASCULAR [id number] 03/15/2024 [id number]- 040-150 / / [id number] documented as of this encounter Procedures Procedure Name Priority Date/Time Associated Diagnosis Comments OUTSIDE LAB RESULTS 08/22/2023 documented in this encounter Results * OUTSIDE LAB RESULTS (08/22/2023) 08/22/2023 No Physician Data Unknown LABORATORY documented in this encounter Advance Directives Latest [...] the patient have Health Care Power of Staffing Consultant? No Care Teams Clamp Truck Driver Relationship Specialty Start Date End Date Jolly Prajapati MD [address] [place] [address] [place] [phone] PCP - General Family Medicine 07/31/12 documented as of this encounter
--- OUTSIDE RECORDS SUMMARY | 2023-09-13 04:42 | External Medical Summary | Summary of Care ---
Author Name Unknown Organization [facility] Address [address] [facility] [place] [address] Phone [phone] Care Team Providers Care Director Revenue Name Role Phone Jt Prajapati MD Primary Care Provide r Reason for Visit * Reason Onset Date Comments Medication Refill 09/01/2023 Encounter Details Date Type Department Care Team (Late st Contact Info) Description 09/01/2023 Refill Family Medicine [address] [phone] Jt Prajapati MD [address] [place] [address] Allergies Active Allergy Reactions Criticality Noted Date Comments Promethazine Other (Please comment) 07/02/2023 Agitation Sulfa Antibiotics Rash 07/31/2012 documented as of this encounter (statuses as of 09/01/2023) Medications Medication Sig Dispensed Refills Start Date [...] Sulfate 325 (65 Fe) MG Oral Tablet (Feosol)Kaiao ns:Iron deficiency anemia, unspecified iron deficiency anemia [...] Active OneTouch Verio In Vitro Strip (Glucose Blood)Indications :Type 2 diabetes mellitus with diabetic chronic kidney disease (HCC) test once daily 100 Strip 2 05/20/2023 Active Advanced Probiotic Oral Capsule Take 1 Capsule by mouth in the morning and 1 Capsule before bedtime. 0 06/10/2023 Active traZODone HCl 50 MG Oral Tablet (Desyrel)Kaia ons:Insomnia, unspecified type Take 1 Tablet by [...] Active Benzonatate 100 MG Oral Capsule (Tesjulianna Harman)Indication s:Allergic rhinitis, unspecified seasonality, unspecified trigger Take [...] MG Oral Tablet (Lipitor)Indicati ons:Atheroscleros is of [place] coronary artery of [place] heart without angina pectoris Take 1 Tablet [...] the morning. 90 Tablet 1 09/01/2023 Active amLODIPine Besylate 10 MG Oral Tablet (Norvasc) TAKE ONE TABLET BY MOUTH EVERY DAY 90 Tablet 1 02/13/2023 3 Discontinue d(Refill) documented as of this encounter (statuses as of 09/01/2023) Active Problems Problem Noted Date Diagnosed Date [...] S/P kidney transplant 12/09/2012 CORONARY ATHEROSCLER. OF [place] CORONARY VESSEL 07/11/2004 Hypertension goal BP (blood pressure) < 140/90 History of Clostridium difficile infection Allergic rhinitis Stage 3a chronic kidney disease H/O pancreas transplant documented as of this encounter (statuses as of 09/01/2023) Resolved Problems Problem Noted Date Diagnosed Date [...] as of this encounter (statuses as of 09/01/2023) Immunizations Name Administration Dates Next Due Pneumococcal [...] Telephone Encounter - Jt Prajapati MD - 09/01/2023 1:35 PM EST Signed Prescriptions: Disp Refills amLODIPine Besylate 10 MG Oral Tablet (Nor*90 Tab*1 Sig: Take 1 Tablet by mouth in the morning. Authorizing Provider: JT PRAJAPATI * Telephone Encounter - Jenny Jamison RN - 09/01/2023 1:20 PM ESTPending Prescriptions: Disp Refills amLODIPine Besylate 10 MG Oral Tablet (Nor*90 Tab*1 Sig: Take 1 Tablet by mouth in the morning. * Telephone Encounter - Eliana Meehan, LEIGH - 09/01/2023 12:25 PM EST Did you pend patient's preferred pharmacy and medication before forwarding?yes [facility], [address] [place] Pending Prescriptions: Disp Refills amLODIPine Besylate 10 MG Oral Tablet (No*90 Tab*1 Sig: Take 1 Tablet by mouth in the morning. Last Visit: 07/22/2023 (in office), Visit date not found (telemedicine) Next Visit: 2024 If no future appointments scheduled, and last appointment is greater than a year ago, please schedule patient for a follow-up appointment Last date the medication was ordered: 02.13.23 Is this request for a controlled substance?No [...] 11:00 AM EDT Office Visit Family Medicine [address] [place] [phone] Jt Prajapati MD [address] [place] [address] [place] [address] Health Maintenance Due Date Last Done Comments [...] 06/24/2023, Additional history exists HbA1c 02/20/2024 08/22/2023, 09/1 05/2023, 03/15/2023, Additional history exists Albumin/Creatinine Ratio 08/22/2024 [...] this encounter Medical Devices Implanted Type Area Assembler Movement Device Identifier Shelf Expiration Date Model / Serial / Lot Stent Peripheral 6 Diam 150x40 - [id number] Implanted:Qty: 1 on 05/27/2021 by Channing Hess MD at [facility] Right: Popliteal Artery [employer] : VASCULAR [id number] 03/15/2024 [id number] 040-150 / / [id number] documented as of this encounter Advance Directives [...] the patient have Health Care Power of Foot Drill Operator? No Care Teams Director Revenue Relationship Specialty Start Date End Date Jt Prajapati MD [address] [place] [address] [place] [address] PCP - General Family Medicine 07/31/12 documented as of this encounter
--- OUTSIDE RECORDS SUMMARY | 2023-09-13 04:42 | External Medical Summary | Summary of Care ---
Author Name Unknown Organization [facility] [address] [facility] [address] Phone [phone] Care Team Providers Care Nursing Faculty Name Role Phone Jolly Prajapati MD Primary Care Provide r Encounter Details Date Type Department Care Team (Late st Contact Info) Description 08/25/2023 Orders Only Family Medicine [address] [phone] Jolly Prajapati MD [address] [place] [address] [place] [address] Allergies Active Allergy Reactions Criticality Noted [...] mouth. 0 Active Vitamin D3 50 MCG (2000 UT) Oral Capsule Take 1 Capsule by [...] 10 MG Oral Tablet (Lipitor)Indication s:Atherosclerosis of [place] coronary artery of [place] heart without angina pectoris Take 1 Tablet [...] S/P kidney transplant 12/09/2012 CORONARY ATHEROSCLER. OF [place] CORONARY VESSEL 07/11/2004 Hypertension goal BP (blood [...] 11/05/2023 1:00 PM EST Office Visit Gastroenterology, [facility] [address] [place] [address] Elise Abraham CRNP [address] [place] [address] 2024 11:00 AM EDT Office Visit Family Medicine [address] [place] [phone] Jolly Prajapati MD [address] [place] [address] [place] [phone] Health Maintenance Due Date Last Done Comments [...] this encounter Medical Devices Implanted Type Area Marine Specialist Device Identifier Shelf Expiration Date Model / Serial / Lot Stent Peripheral 6 Diam 150x40 - [id number] Implanted:Qty: 1 on 05/27/2021 by Channing Hess MD at [facility] Right: Popliteal Artery [employer] : VASCULAR [id number] 03/15/2024 [id number] 040-150 / / [id number] documented as of this encounter Procedures Procedure Name Priority Date/Time Associated Diagnosis Comments CHEMISTRY-OUTSIDE Routine 08/22/2023 documented in this encounter Results * (ABNORMAL) CHEMISTRY-OUTSIDE (08/22/2023) Not all results display below - see scan for full detail OUTSIDE LAB (SEE SCANNED REPORT) CREATININE-OUTSID E LAB OUTSIDE LAB (SEE SCANNED REPORT) EGFR-OUTSIDE LAB OUT SIDE LAB (SEE SCANNED REPORT) POTASSIUM-OUTSIDE LAB OUTSIDE LAB (SEE SCANNED REPORT) GLUCOSE-OUTSIDE LAB OUTSIDE LAB (SEE SCANNED REPORT) HOURS FASTING OUTSID E LAB (SEE SCANNED REPORT) TRIGLYCERIDES-OUT SIDE LAB OUTSIDE LAB (SEE SCANNED REPORT) CHOLESTEROL-OUTSI DE LAB OUTSIDE LAB (SEE SCANNED REPORT) HDL-OUTSIDE LAB OUTS VEGA LAB (SEE SCANNED REPORT) CHOL/HDL RATIO-OUTSIDE LAB OUTSIDE LA B (SEE SCANNED REPORT) LDL (CALCULATED)-OUTS VEGA LAB OUTSIDE LAB (SEE SCANNED REPORT) LDL (DIRECT MEASURE)-OUTSIDE LAB OUTSIDE LAB (SEE SCANNED REPORT) HEMOGLOBIN, Q6W-EYIOBKC LAB OUTSIDE LAB (SEE SCANNED REPORT) PHOSPHORUS-OUTSID E LAB OUTSIDE LAB (SEE SCANNED REPORT) PTH-OUTSIDE LAB OUTS VEGA LAB (SEE SCANNED REPORT) MICROALBUMIN RATIO-OUTSIDE LAB 78.4(A) 0 - 30 MG/GM OUTSIDE LAB (SEE SCANNED REPORT) PROTEIN, UA-OUTSIDE LAB OUTSIDE LAB (SEE SCANNED REPORT) HEMOGLOBIN-OUTSID E LAB OUTSIDE LAB (SEE SCANNED REPORT) 08/22/2023 History Per Patient LABORATORY OUTSIDE LAB (SEE SCANNED REPORT) documented in this encounter Advance Directives Latest [...] the patient have Health Care Power of Upper Inspector? No Care Teams Nursing Faculty Relationship Specialty Start Date End Date Jolly Prajapati MD [address] [place] [address] [place] [phone] PCP - General Family Medicine 07/31/12 documented as of this encounter
--- OUTSIDE RECORDS SUMMARY | 2023-09-13 04:42 | External Medical Summary | Summary of Care ---
Author Name Unknown Organization [facility] [address] [facility] [address] Phone [phone] Care Team Providers Care External Grinder Name Role Phone Jolly Prajapati MD Primary Care Provide r Encounter Details Date Type Department Care Team (Late st Contact Info) Description 08/25/2023 Orders Only Family Medicine [address] [phone] Jolly Prajapati MD [address] [place] [address] [place] [address] Allergies Active Allergy Reactions Criticality [...] 10 MG Oral Tablet (Lipitor)Indication s:Atherosclerosis of [place] coronary artery of [place] heart without angina pectoris Take 1 Tablet [...] S/P kidney transplant 12/09/2012 CORONARY ATHEROSCLER. OF [place] CORONARY VESSEL 07/11/2004 Hypertension goal BP (blood [...] 11/05/2023 1:00 PM EST Office Visit Gastroenterology, [facility] [address] [place] [address] Elise Abraham CRNP [address] [place] [address] 2024 11:00 AM EDT Office Visit Family Medicine [address] [place] [phone] Jolly Prajapati MD [address] [place] [address] [place] [phone] Health Maintenance Due Date Last Done Comments [...] B-12 01/09/2024 01/08/2023, 07/15/2022 GFR 02/20/2024 08/22/2023, 1011/2022, 06/24/2023, Additional history exists HbA1c 02/20/2024 08/22/2023, 05/30, 03/15/2023, Additional history exists Albumin/Creatinine Ratio 03/15/2024 023, 11/12/2022, 07/15/2022, Additional [...] this encounter Medical Devices Implanted Type Area Community Midwife Device Identifier Shelf Expiration Date Model / Serial / Lot Stent Peripheral 6 Diam 150x40 - [id number] Implanted:Qty: 1 on 05/27/2021 by Channing Hess MD at [facility] Right: Popliteal Artery [employer] : VASCULAR [id number] 03/15/2024 [id number] 040-150 / / [id number] documented as of this encounter Procedures Procedure Name Priority Date/Time Associated Diagnosis Comments CHEMISTRY-OUTSIDE Routine 08/22/2023 documented in this encounter Results * (ABNORMAL) CHEMISTRY-OUTSIDE (08/22/2023) Not all results display below - see scan for full detail OUTSIDE LAB (SEE SCANNED REPORT) Comment:SCAN INCLUDES: CBCD, UA, AMYLASE, BILI DIRECT, CMP, HGB A1C, MG, PHOS, URIC ACIDLIPASE, LIPID PANEL, CREATININE-OUTSI DE LAB 1.24 0.70 - 1.30 MG/DL OUTSIDE LAB (SEE SCANNED REPORT) EGFR-OUTSIDE LAB 61 >=60 ML/MIN O UTSIDE LAB (SEE SCANNED REPORT) POTASSIUM-OUTSID E LAB 4.5 3.5 - 5.1 MMOL/L OUTSIDE LAB (SEE SCANNED REPORT) GLUCOSE-OUTSIDE LAB 132(A) 70 - 110 MG/DL OUTSIDE LAB (SEE SCANNED REPORT) HOURS FASTING OUTSID E LAB (SEE SCANNED REPORT) TRIGLYCERIDES-OU TSIDE LAB 46 30 - 200 MG/DL OUTSIDE LAB (SEE SCANNED REPORT) CHOLESTEROL-OUTS VEGA LAB 86 <=200 MG/DL OUTSIDE LAB (SEE SCANNED REPORT) HDL-OUTSIDE LAB 43 40 - 59 MG/DL OUTSIDE LAB (SEE SCANNED REPORT) CHOL/HDL RATIO-OUTSIDE LAB 2.0(L) 4.0 - 7.0 OUTSIDE LAB (SEE SCANNED REPORT) LDL (CALCULATED)-OUT SIDE LAB 33.8 <=100 MG/DL OUTSIDE LAB (SEE SCANNED REPORT) LDL (DIRECT MEASURE)-OUTSIDE LAB OUTSIDE LAB (SEE SCANNED REPORT) HEMOGLOBIN, O3C-EXALOIM LAB 5.9(A) 3.8 - 5.6 % OUTSIDE LAB (SEE SCANNED REPORT) PHOSPHORUS-OUTSI DE LAB 3.5 2.5 - 4.9 MG/DL OUTSIDE LAB (SEE SCANNED REPORT) PTH-OUTSIDE LAB OUTS VEGA LAB (SEE SCANNED REPORT) MICROALBUMIN RATIO-OUTSIDE LAB OUTSIDE LAB (SEE SCANNED REPORT) PROTEIN, UA-OUTSIDE LAB NEGATIVE NEGATIVE OUTSIDE LAB (SEE SCANNED REPORT) HEMOGLOBIN-OUTSI DE LAB 12.6(A) 13.5 - 18.0 GM/DL OUTSIDE LAB (SEE SCANNED REPORT) 08/22/2023 Carlos Mcgovern MD LABORATORY OUTSIDE LAB (SEE SCANNED REPORT) documented [...] the patient have Health Care Power of Director Semiconductor? No Care Teams External Grinder Relationship Specialty Start Date End Date Jolly Prajapati MD [address] [place] [address] [place] [phone] PCP - General Family Medicine 07/31/12 documented as of this encounter
--- OUTSIDE RECORDS SUMMARY | 2023-09-13 04:43 | External Medical Summary | Continuity of Care Document ---
Author Name Unknown Organization [facility] [address] [facility] Address [address] [place], [place] [id number] Care Team Providers Care Manager [place] Name Role Phone Jolly Prajapati Primary Care Physician [phone] Encounter [facility] FINNBR [id number] Date(s): 07/31/23 - 07/31/23 [facility] [address], [address] [place] [address] [phone] Encounter Diagnosis S/P carotid endarterectomy(Discharge Diagnosis) - 07/31/23 Carotid stenosis, bilateral(Discharge Diagnosis) - 07/31/23 Discharge Disposition: Home or Self Care Attending Physician: MD Link Eugene J Referring Physician: MD Prajapati Doriann L Allergies, Adverse Reactions, Alerts Substance Reaction Severity Status sulfa drugs Hives Active Assessment and Plan Extracted from: Title:Clinical Document Author:CATALINA Piper Lynn Date:07/31/23 I OUTPATIENT NOTE Name: LAW HE Patient Number: [id number] : 1950 Date of Service: 07/31/2023 Chief Complaint: _ s/p CEA HPI: _Mr. He is an elderly male presents to Dr. Link's vascular surgery clinic today for 2-week postop visit after undergoing an uncomplicated left carotid endarterectomy procedure [facility]. Patient states he is doing well postoperatively. He states he continues to bite on his left lower lip occasionally, but that this is improving. He denies any difficulty speaking or swallowing, or choking on food. He denies any other concerning symptoms at this time including dizziness, syncope, difficulty moving arms or legs, vision problems, other complaints. Current Home Meds: (Last Updated 07/31 10:45) amLODIPine (amLODIPine 10 mg oral tablet) 10 mg PO Daily aspirin 325 prn headache bifidobacterium-lactobacillus (Probiotic Formula) brimonidine-timolol ophthalmic (Combigan 0.2%-0.5% ophthalmic solution) Apply 1 drop into both eyes twice a day carvedilol (carvedilol 12.5 mg oral tablet) 12.5 mg PO bid chlorthalidone (chlorthalidone 25 mg oral tablet) 25 mg PO Daily ferrous sulfate (ferrous sulfate 325 mg (65 mg elemental iron) oral tablet) 325 mg PO bid latanoprost-netarsudil ophthalmic (Rocklatan 0.02%-0.005% ophthalmic solution) lisinopril (lisinopril 20 mg oral tablet) TAKE ONE TABLET BY MOUTH TWICE DAILY loperamide (loperamide 2 mg oral capsule) 2 mg PO ONCE metFORMIN (metFORMIN 1000 mg oral tablet) 1,000 mg PO bid traZODone (traZODone 50 mg oral tablet) 50 mg PO qhs Allergies and Sensitivities: sulfa drugs(Hives) Past Medical History: Problems: S/P carotid endarterectomy Tobacco user [place] (acute kidney injury) GI bleed Bacteremia Carotid stenosis, bilateral OBJECTIVE Vitals: Last Updated 07/14/23 13:33 Date Temp BP Location Pulse RR SpO2 Pain 07/14/23 160/62 Right Arm 73 18 97 0 Vital Signs are the last 3 documented. No Orthostatic Data Available Height and Weight: Last Updated 07/14/23 13:33 Date BMI Wt(kg) Wt(lb) Method Ht(cm) (ft-in) Method 07/14/23 61 134 Standing Scale Heights and Weights are the last 3 documented. Physical Exam Constitutional: In general patient is a healthy-appearing well-nourished well-developed elderly male no distress. He is alert and oriented without any focal deficits. His left neck surgical incision is well approximated with sutures and healing appropriately. There is mild local swelling here. There is no erythema ecchymosis tenderness or discharge. His left lower lip does lag when at rest, consistent with marginal mandibular nerve dysfunction. ASSESSMENT: _ PLAN: _ 1 ) _status post left CEA Patient is overall doing well since his procedure 2 weeks ago. He will return here in another 6 weeks for reevaluation with a carotid ultrasound of the surgical site prior to that visit. Patient is advised to call us if he has any questions or concerns prior to that time. He was reassured that his left lower lip dysfunction will likely normalize over the next 2 to 3 months. Patient agreeable this plan. Thank you for letting us participate in the care of this patient. Medications amLODIPine 10 mg oral tablet Start: 07/14/23 13:46:00 EDT, 1 tab, PO, Daily Start Date: 07/14/23 Status: Ordered aspirin Start: 07/31/23 10:45:00 EDT, 325 prn headache Start Date: 07/31/23 Status: Ordered carvedilol 12.5 mg oral tablet Start: 07/14/23 13:46:00 EDT, 1 tab, PO, bid Start Date: 07/14/23 Status: Ordered chlorthalidone 25 mg oral tablet Start: 07/14/23 13:46:00 EDT, 1 tab, PO, Daily Start Date: 07/14/23 Status: Ordered Combigan 0.2%-0.5% ophthalmic solution Apply 1 drop into both eyes twice a day Start Date: 07/14/23 Status: Ordered ferrous sulfate 325 mg (65 mg elemental iron) oral tablet Start: 07/14/23 13:46:00 EDT, 1 tab, PO, bid Start Date: 07/14/23 Status: Ordered lisinopril 20 mg oral tablet TAKE ONE TABLET BY MOUTH TWICE DAILY Start Date: 07/14/23 Status: Ordered loperamide 2 mg oral capsule Start: 07/14/23 13:46:00 EDT, 1 cap, PO, ONCE Start Date: 07/14/23 Status: Ordered metFORMIN 1000 mg oral tablet Start: 07/14/23 13:46:00 EDT, 1 tab, PO, bid Start Date: 07/14/23 Status: Ordered Probiotic Formula Start: 07/14/23 13:47:00 EDT Start Date: 07/14/23 Status: Ordered Rocklatan 0.02%-0.005% ophthalmic solution Start: 07/14/23 13:46:00 EDT Start Date: 07/14/23 Status: Ordered traZODone 50 mg oral tablet Start: 07/14/23 13:46:00 EDT, 1 tab, PO, qhs Start Date: 07/14/23 Status: Ordered Mental Status 07/31/23 Barriers to Learning one year None evide nt Mandatory Health Literacy Documentation Yes Health Literacy Communication Barriers N ever Primary Language Filipino Problem List Condition Confirmation Course Effective Dates Status H ealth Status Informant Bacteremia Confirmed Active Carotid stenosis, bilateral Confirmed Active GI bleed Confirmed Active S/P carotid endarterectomy Confirmed Active [place] (acute kidney injury) Confirmed Active Tobacco user Confirmed Active Diagnosis Diagnosis Type Effective Dates Health Status Clinical Service Informant Carotid stenosis, bilateral Discharge Diagnosis 07/31/23 S/P carotid endarterectomy Discharge Diagnosis 07/31/23 Social History Social History Type Response Smoking Status Never smoked cigaret leilani Sex Male [facility] Outpt Note * CATALINA Piper Lynn: PERFORM Event Display: [facility] Outpt Note Authored Date: [id number] [facility] OUTPATIENT NOTE Name: LAW HE Patient Number: [id number] : 1950 Date of Service: 07/31/2023 Chief Complaint: _ s/p CEA HPI: _Mr. He is an elderly male presents to Dr. Link's vascular surgery clinic today for 2-week postop visit after undergoing an uncomplicated left carotid endarterectomy procedure [facility]. Patient states he is doing well postoperatively. He states he continues to bite on his left lower lip occasionally, but that this is improving. He denies any difficulty speaking orswallowing, or choking on food. He denies any other concerning symptoms at this time including dizziness, syncope, difficulty moving arms or legs, vision problems, other complaints. Current Home Meds: (Last Updated 07/31 10:45) amLODIPine (amLODIPine 10 mg oral tablet) 10 mg PO Daily aspirin 325 prn headache bifidobacterium-lactobacillus (Probiotic Formula) brimonidine-timolol ophthalmic (Combigan 0.2%-0.5% ophthalmic solution) Apply 1 drop into both eyestwice a day carvedilol (carvedilol 12.5 mg oral tablet) 12.5 mg PO bid chlorthalidone (chlorthalidone 25 mg oral tablet) 25 mg PO Daily ferrous sulfate (ferrous sulfate 325 mg (65 mg elemental iron) oral tablet) 325 mg PO bid latanoprost-netarsudil ophthalmic (Rocklatan 0.02%-0.005% ophthalmic solution) lisinopril (lisinopril 20 mg oral tablet) TAKE ONE TABLET BY MOUTH TWICE DAILY loperamide (loperamide 2 mg oral capsule) 2 mg PO ONCE metFORMIN (metFORMIN 1000 mg oral tablet) 1,000 mg PO bid traZODone (traZODone 50 mg oral tablet) 50 mg PO qhs Allergies and Sensitivities: sulfa drugs(Hives) Past Medical History: Problems: S/P carotid endarterectomy Tobacco user [place] (acute kidney injury) GI bleed Bacteremia Carotid stenosis, bilateral OBJECTIVE Vitals: Last Updated 07/14/23 13:33 Date Temp BP Location Pulse RR SpO2 Pain 07/14/23 160/62 Right Arm 73 18 97 0 Vital Signs are the last 3 documented. No Orthostatic Data Available Height and Weight: Last Updated 07/14/23 13:33 Date BMI Wt(kg) Wt(lb) Method Ht(cm) (ft-in) Method 07/14/23 61 134 Standing Scale Heights and Weights are the last 3 documented. Physical Exam Constitutional: In general patient is a healthy-appearing well-nourished well- developed elderly male no distress. He is alert and oriented without any focal deficits. His left neck surgical incision is well approximated with sutures and healing appropriately. There is mild local swelling here. There is no erythema ecchymosis tenderness or discharge. His left lower lip does lag when at rest, consistent with marginal mandibular nerve dysfunction. ASSESSMENT: _ PLAN: _ 1 ) _status post left CEA Patient is overall doing well since his procedure 2 weeks ago. He will return here in another 6 weeks for reevaluation with a carotid ultrasound of the surgical site prior to that visit. Patient is advised to call us if he has any questions or concerns prior to that time. He was reassured that his left lower lip dysfunction will likely normalize over the next 2 to 3 months. Patient agreeable thisplan. Thank you for letting us participate in the care of this patient. Electronic Signature on File CC: Jolly Prajapati MD [address] [place] [phone] * Electronically Reviewed/Signed by: Shazia Piper PA-C Author Signature Dt/Tm:07/31/2023 11:[address] [facility] [place] [address] [facility], [address] [place] [address] LM Patient Care team information Care Team Personnel Name: MD Prajapati Doriann L Position: Referring DIRECT Member Role: Primary Care Provider Address: Address: [address] [place] [id number] Name: CATALINA Piper Lynn Position: Physician Muleser Exempt - Vas Surg Member Role: Lifetime Relationship Address: Address: [address] [place] [address] [place] [address] Care Team Related Persons Name: AAMIR JAQUEZ Address: home [address] [place], [address] Name: ISAURO HE Address: home [address] [facility] [place] [id number]
--- OUTSIDE RECORDS SUMMARY | 2023-09-13 04:43 | External Medical Summary | Summary of Care ---
Author Name Unknown Organization [facility] Address [address] [place] [address] Phone [phone] Care Team Providers Care Adobe Block Maker Name Role Phone Jt Prajapati MD Primary Care Provide r Reason for Visit * Reason Comments eRx-Medication Refill Encounter Details Date Type Department Care Team (Late st Contact Info) Description 08/03/2023 Refill Family Medicine [address] [phone] Jt Prajapati MD [address] [place] [address] [place] [address] Allergies Active Allergy Reactions Criticality Noted Date Comments Promethazine Other (Please comment) 07/02/2023 Agitation Sulfa Antibiotics Rash 07/31/2012 documented as of this encounter (statuses as of 08/04/2023) Medications Medication Sig Dispensed Refills Start Date End Date Status VITAMIN B 12 100 MCG PO LOZG two daily 0 Active VITAMIN C 100 MG PO TABS Take 5 Tablets by mouth. 0 Active Vitamin D3 50 MCG (1999 UT) Oral Capsule Take 1 Capsule by mouth in the morning. 0 Active Rocklatan 0.02-0.005 % Ophthalmic Solution (Netarsudil-Selena noprost) Instill 1 Drop into both eyes at [...] blood glucose 300 Each 1 01/21/2022 Active glipiZIDE ER 2.5 MG Oral Tablet Extended Release 24 Hour (Glucotrol XL) TAKE TWO TABLETS BY MOUTH EVERY DAY 180 Tablet 1 05/14/2022 Active Lisinopril 40 MG Oral TabletIndication s:Hypertension goal BP (blood pressure) < 140/90 TAKE ONE TABLET BY MOUTH EVERY MORNING 90 Tablet 1 12/26/2022 Active Ferrous Sulfate 325 (65 Fe) MG Oral Tablet (Feosol)Indicati ons:Iron deficiency anemia, unspecified iron deficiency anemia type Take 1 Tablet by mouth in the morning and 1 Tablet before bedtime. 60 Tablet 11 01/09/2023 Active amLODIPine Besylate 10 MG Oral Tablet (Norvasc) TAKE ONE TABLET BY MOUTH EVERY DAY 90 Tablet 1 02/13/2023 Active Loperamide HCl 2 MG Oral Tablet (Imodium A-D)Indications: Chronic diarrhea 2 pills at onset of diarrhea, then 1 pill after each subsequent episode. No more than 4 pills per day. 120 Tablet 0 02/21/2023 Active OneTouch Verio In Vitro Strip (Glucose Blood)Indication s:Type 2 diabetes mellitus with diabetic chronic kidney disease (HCC) test once daily 100 Strip 2 05/20/2023 Active Advanced Probiotic Oral Capsule Take 1 Capsule by mouth in the morning and 1 Capsule before bedtime. 0 06/10/2023 Active traZODone HCl 50 MG Oral Tablet (Desyrel)Indicat ions:Insomnia, unspecified type Take 1 Tablet by mouth at bedtime. 30 Tablet 5 06/16/2023 Active Carvedilol 12.5 MG Oral Tablet (Coreg)Indicatio ns:Hypertension goal BP (blood pressure) < 140/90 TAKE ONE TABLET BY MOUTH TWICE DAILY 180 Tablet 1 06/28/2023 Active Oil of Oregano [address] on tongue daily. Oil liquid, several drops in mouth 0 Active Benzonatate 100 MG Oral Capsule (Tessalomre Perljanette)Indicatio ns:Allergic rhinitis, unspecified seasonality, unspecified trigger Take 1 Capsule by mouth 3 times a day as needed for Cough. 30 Capsule 1 07/18/2023 Active Pantoprazole Sodium 40 MG Oral Tablet Delayed Release (Protonix)Indica tions:Upper GI bleed Take 1 Tablet by mouth in the morning and 1 Tablet before bedtime. 60 Tablet 11 07/18/2023 Active Additional Information Patient not taking.Reported on 07/22/2023 Atorvastatin Calcium 10 MG Oral Tablet (Lipitor)Indicat ions:Atheroscler osis of [place] coronary artery of [place] heart without angina pectoris Take 1 Tablet by mouth in the morning. 30 Tablet 11 07/18/2023 Active metFORMIN HCl 1000 MG Oral Tablet (Glucophage) TAKE ONE TABLET BY MOUTH TWICE DAILY WITH MEALS 180 Tablet 1 07/31/2023 Active Chlorthalidone 25 MG Oral Tablet (Hygroton) TAKE ONE TABLET BY MOUTH EVERY DAY 90 Tablet 1 08/04/2023 Active Chlorthalidone 25 MG Oral Tablet (Hygroton) TAKE ONE TABLET BY MOUTH EVERY DAY 90 Tablet 1 01/14/2023 3 Discontinued documented as of this encounter (statuses as of 08/04/2023) Active Problems Problem Noted Date Diagnosed Date [...] S/P kidney transplant 12/09/2012 CORONARY ATHEROSCLER. OF [place] CORONARY VESSEL 07/11/2004 Hypertension goal BP (blood pressure) < 140/90 History of Clostridium difficile infection Allergic rhinitis Stage 3a chronic kidney disease H/O pancreas transplant documented as of this encounter (statuses as of 08/04/2023) Resolved Problems Problem Noted Date Diagnosed Date [...] as of this encounter (statuses as of 08/04/2023) Immunizations Name Administration Dates Next Due Pneumococcal [...] or making decisions? (5 years old or older No 05/25/2021 documented as of this encounter Miscellaneous Notes * Telephone Encounter - Hayden Bruner RP - 08/04/2023 3:08 PM ESTSigned Prescriptions: Disp Refills Chlorthalidone 25 MG Oral Tablet (Hygroton)90 Tab*1 Sig: TAKE ONE TABLET BY MOUTH EVERY DAYAuthorizing Provider: JT PRAJAPATI User: HAYDEN BRUNER documented in this encounter Plan of Treatment Upcoming Encounters Date Type Department Care Team (Late st Contact Info) Description 08/12/2023 9:00 AM EST Office Visit Gastroenterology, [facility] [address] [place] [address] Daisy Zuniga, DO [address] [place] [address] 2024 11:00 AM EDT Office Visit Family Medicine [address] [place] [phone] Jt Prajapati MD [address] [place] [address] [place] [phone] Health Maintenance Due Date Last Done Comments COVID-19 Vaccine (#1) 1954 Cologuard 1994 Fecal Occult Blood Test 1994 Sigmoidoscopy 1994 Hepatitis B (1 of 3 - Risk 3-dose series) 2009 Depression Screening 10/19/2020 10/19/2019 Colonoscopy 12/12/2020 12/12/2010 Colorectal Cancer Screening 12/12/2020 Diabetic Eye Exam 04/04/2022 04/04/2021, 06/15/2008 Influenza Vaccine (FLU shot) (#1) 2023 [...] this encounter Medical Devices Implanted Type Area Heat Treater Device Identifier Shelf Expiration Date Model / Serial / Lot Stent Peripheral 6 Diam [id number] - [id number] Implanted:Qty: 1 on 05/27/2021 by Channing Hess MD at [facility] Right: Popliteal Artery [employer] : VASCULAR [id number] 03/15/2024 [id number] 040-150 / / [id number] documented as of this encounter Advance Directives [...] the patient have Health Care Power of Speed Runner? No Care Teams Adobe Block Maker Relationship Specialty Start Date End Date Jt Prajapati MD [address] [place] [address] [place] [phone] PCP - General Family Medicine 07/31/12 documented as of this encounter
--- OUTSIDE RECORDS SUMMARY | 2023-09-13 04:43 | External Medical Summary | Summary of Care ---
Author Name Unknown Organization [facility] Address [address] [facility] [address] Phone [phone] Care Team Providers Care Computer Assembler Name Role Phone Jolly Prajapati MD Primary Care Provide r Reason for Visit * Reason Onset Date Comments Home Health 08/06/2023 Encounter Details Date Type Department Care Team (Late st Contact Info) Description 08/06/2023 Telephone Family Medicine [address] [phone] Jolly Prajapati MD [address] [place] [address] [place] [address] Home Health Allergies Active Allergy Reactions Criticality Noted Date Comments Promethazine Other (Please comment) 07/02/2023 Agitation Sulfa Antibiotics Rash 07/31/2012 documented as of this encounter (statuses as of 08/06/2023) Medications Medication Sig Dispensed Refills Start Date [...] 1 05/14/2022 Active Lisinopril 40 MG Oral TabletIndications:H ypertension [...] per day. 120 Tablet 0 02/21/2023 Active GadgetATMTouch Verio In Vitro Strip (Glucose Blood)Indications:T ype [...] Active Benzonatate 100 MG Oral Capsule (Tessalon Perles)Indications: Allergic rhinitis, unspecified seasonality, unspecified trigger Take [...] EVERY DAY 90 Tablet 1 08/04/2023 Active documented as of this encounter (statuses as of 08/06/2023) Active Problems Problem Noted Date Diagnosed Date [...] S/P kidney transplant 12/09/2012 CORONARY ATHEROSCLER. OF [place] CORONARY VESSEL 07/11/2004 Hypertension goal BP (blood pressure) < 140/90 History of Clostridium difficile infection Allergic rhinitis Stage 3a chronic kidney disease H/O pancreas transplant documented as of this encounter (statuses as of 08/06/2023) Resolved Problems Problem Noted Date Diagnosed Date [...] as of this encounter (statuses as of 08/06/2023) Immunizations Name Administration Dates Next Due Pneumococcal [...] encounter Miscellaneous Notes * Telephone Encounter - Alma Nicholson LPN - 08/06/2023 3:59 PM EST HH PT/OT/ST Eval Start of Care/Continuation EdPT, Calling from: [facility] Plan of care: 1 times per week for 8 weeks: Focusing on: strengthening, functional mobility and balance Concerns: no Symptoms: none Vitals: T 97.6 P 65 RR 18 BP 138/66 SP O2 98% Room Air Advised that additional visit orders will be signed by Jolly Prajapati MD and to fax to the office for signature documented in this encounter Plan of Treatment Upcoming Encounters Date Type Department Care Team (Late st Contact Info) Description 08/12/2023 9:00 AM EST Office Visit Gastroenterology, [facility] [address] [place] [address] Daisy Zuniga, [address] [place] [address] 2024 11:00 AM EDT Office Visit [address] [phone] Jolly Prajapati MD [address] [place] [address] [place] [address] Health Maintenance Due Date Last Done Comments [...] this encounter Medical Devices Implanted Type Area Board Of Directors Device Identifier Shelf Expiration Date Model / Serial / Lot Stent Peripheral 6 Diam 150x40 - [id number] Implanted:Qty: 1 on 05/27/2021 by Channing Hess MD at [facility] Right: Popliteal Artery [employer] : VASCULAR [id number] 03/15/2024 [id number] 040-150 / / [id number] documented as of this encounter Advance Directives [...] the patient have Health Care Power of Oil Treater? No Care Teams Computer Assembler Relationship Specialty Start Date End Date Jolly Prajapati MD [address] [place] [address] [place] [address] PCP - General Family Medicine 07/31/12 documented as of this encounter
--- OUTSIDE RECORDS SUMMARY | 2023-09-13 04:43 | External Medical Summary | Summary of Care ---
Author Name Unknown Organization [facility] Address [address] [place] [address] Phone [phone] Care Team Providers Care Labeling Associate Name Role Phone Jolly Prajapati MD Primary Care Provide r Encounter Details Date Type Department Care Team (Late st Contact Info) Description 07/18/2023 Population Health External Data Unspecified Department Allergies Active Allergy Reactions Criticality Noted Date Comments Promethazine Other (Please comment) 07/02/2023 Agitation Sulfa Antibiotics Rash 07/31/2012 documented as of this encounter (statuses as of 08/11/2023) Medications Medication Sig Dispensed Refills Start Date [...] 10 MG Oral Tablet (Lipitor)Indication s:Atherosclerosis of [place] coronary artery of [place] heart without angina pectoris Take 1 Tablet by mouth in the morning. 30 Tablet 11 07/18/2023 Active documented as of this encounter (statuses as of 08/11/2023) Active Problems Problem Noted Date Diagnosed Date [...] S/P kidney transplant 12/09/2012 CORONARY ATHEROSCLER. OF [place] CORONARY VESSEL 07/11/2004 Hypertension goal BP (blood pressure) < 140/90 History of Clostridium difficile infection Allergic rhinitis Stage 3a chronic kidney disease H/O pancreas transplant documented as of this encounter (statuses as of 08/11/2023) Resolved Problems Problem Noted Date Diagnosed Date [...] as of this encounter (statuses as of 08/11/2023) Immunizations Name Administration Dates Next Due Pneumococcal [...] 11/05/2023 1:00 PM EST Office Visit Gastroenterology, [facility] [address] [place] [address] Elise Abraham CRNP [address] [place] [address] 2024 11:00 AM EDT Office Visit Family Medicine [address] [place] [phone] Jolly Prajapati MD [address] [place] [address] [place] [address] Health Maintenance Due Date Last Done Comments [...] this encounter Medical Devices Implanted Type Area Road Grader Operator Device Identifier Shelf Expiration Date Model / Serial / Lot Stent Peripheral 6 Diam 150x40 - [id number] Implanted:Qty: 1 on 05/27/2021 by Channing Hess MD at [facility] Right: Popliteal Artery [employer] : VASCULAR [id number] 03/15/2024 [id number] / / [id number] documented as of this encounter Advance Directives [...] the patient have Health Care Power of Repairer Shoe Sticks? No Care Teams Labeling Associate Relationship Specialty Start Date End Date Jolly Prajapati MD [address] [place] [address] [place] [address] PCP - General Family Medicine 07/31/12 documented as of this encounter
--- OUTSIDE RECORDS SUMMARY | 2023-09-13 04:43 | External Medical Summary | Summary of Care ---
Author Name Unknown Organization [facility] Address [address] [facility] [address] Phone [phone] Care Team Providers Care Watershed Manager Name Role Phone Jolly Prajapati MD Primary Care Provide r Reason for Visit * Reason Onset Date Comments Home Health 08/06/2023 Encounter Details Date Type Department Care Team (Late st Contact Info) Description 08/06/2023 Telephone Family Medicine [address] [phone] Jolly Prajapati MD [address] [place] [address] [place] [address] Home Health Allergies Active Allergy Reactions [...] per day. 120 Tablet 0 02/21/2023 Active VigodaTouch Verio In Vitro Strip (Glucose Blood)Indications:T ype [...] 10 MG Oral Tablet (Lipitor)Indication s:Atherosclerosis of [place] coronary artery of [place] heart without angina pectoris Take 1 Tablet [...] S/P kidney transplant 12/09/2012 CORONARY ATHEROSCLER. OF [place] CORONARY VESSEL 07/11/2004 Hypertension goal BP (blood [...] 08/12/2023 9:00 AM EST Office Visit Gastroenterology, [facility] [address] [place] [address] Daisy Zuniga, [address] [place] [address] 2024 11:00 AM EDT Office Visit [address] [phone] Jolly Prajapati MD [address] [place] [address] [place] [address] Health Maintenance Due Date Last Done Comments [...] this encounter Medical Devices Implanted Type Area Computed Tomography Technician Device Identifier Shelf Expiration Date Model / Serial / Lot Stent Peripheral 6 Diam 150x40 - [id number] Implanted:Qty: 1 on 05/27/2021 by Channing Hess MD at [facility] Right: Popliteal Artery [employer] : VASCULAR [id number] 03/15/2024 [id number] 040-150 / / [id number] documented as of this encounter Advance Directives [...] the patient have Health Care Power of Back Digger Operator? No Care Teams Watershed Manager Relationship Specialty Start Date End Date Jolly Prajapati MD [address] [place] [address] [place] [address] PCP - General Family Medicine 07/31/12 documented as of this encounter
--- OUTSIDE RECORDS SUMMARY | 2023-09-13 04:43 | External Medical Summary | Summary of Care ---
Author Name Unknown Organization [facility] Address [address] [place] [place] [address] Phone [phone] Care Team Providers Care Data Processor Name Role Phone Jt Prajapati MD Primary Care Provide r Reason for Visit * Reason Comments eRx-Medication Refill Encounter Details Date Type Department Care Team (Late st Contact Info) Description 07/30/2023 Refill Family Medicine [address] [phone] Jt Prajapati MD [address] [place] [address] [place] [id number] Allergies Active Allergy Reactions Criticality Noted Date Comments Promethazine Other (Please comment) 07/02/2023 Agitation Sulfa Antibiotics Rash 07/31/2012 documented as of this encounter (statuses as of 07/31/2023) Medications Medication Sig Dispensed Refills Start Date [...] before bedtime. 60 Tablet 11 01/09/2023 Active Chlorthalidone 25 MG Oral Tablet (Hygroton) TAKE ONE TABLET BY MOUTH EVERY DAY 90 Tablet 1 01/14/2023 Active amLODIPine Besylate 10 MG Oral Tablet [...] Active Benzonatate 100 MG Oral Capsule (Tessalmore Perljanette)Indicatio ns:Allergic rhinitis, unspecified seasonality, unspecified trigger [...] MG Oral Tablet (Lipitor)Indicat ions:Atheroscler osis of [place] coronary artery of [place] heart without angina pectoris Take 1 Tablet by mouth in the morning. 30 Tablet 11 07/18/2023 Active metFORMIN HCl 1000 MG Oral Tablet (Glucophage) TAKE ONE TABLET BY MOUTH TWICE DAILY WITH MEALS 180 Tablet 1 07/31/2023 Active metFORMIN HCl 1000 MG Oral Tablet (Glucophage) TAKE ONE TABLET BY MOUTH TWICE DAILY WITH MEALS 180 Tablet 1 11/28/2022 3 Discontinued documented as of this encounter (statuses as of 07/31/2023) Active Problems Problem Noted Date Diagnosed Date [...] S/P kidney transplant 12/09/2012 CORONARY ATHEROSCLER. OF [place] CORONARY VESSEL 07/11/2004 Hypertension goal BP (blood pressure) < 140/90 History of Clostridium difficile infection Allergic rhinitis Stage 3a chronic kidney disease H/O pancreas transplant documented as of this encounter (statuses as of 07/31/2023) Resolved Problems Problem Noted Date Diagnosed Date [...] as of this encounter (statuses as of 07/31/2023) Immunizations Name Administration Dates Next Due Pneumococcal [...] encounter Miscellaneous Notes * Telephone Encounter - Nirmala Mcfarlane RPh - 07/31/2023 7:44 AM EDTSigned Prescriptions: Disp Refills metFORMIN HCl 1000 MG Oral Tablet (Glucoph*180 Ta*1 Sig: TAKE ONE TABLET BY MOUTH TWICE DAILY WITH MEALSAuthorizing Provider: JT PRAJAPATI User:NIRMALA MCFARLANE documented in this encounter Plan of Treatment Upcoming Encounters Date Type Department Care Team (Late st Contact Info) Description 08/12/2023 9:00 AM EST Office Visit Gastroenterology, [facility] [address] [place] [address] Daisy Zuniga, DO [address] [place] [address] 2024 11:00 AM EDT Office Visit Family Medicine [address] [place] [phone] Jt Prajapati MD [address] [place] [address] [place] [address] Health Maintenance Due Date Last Done Comments [...] this encounter Medical Devices Implanted Type Area Material Handling Equipment Stevedore Device Identifier Shelf Expiration Date Model / Serial / Lot Stent Peripheral 6 Diam 150x40 - [id number] Implanted:Qty: 1 on 05/27/2021 by Channing Hess MD at [facility] Right: Popliteal Artery [employer] : VASCULAR [id number] 03/15/2024 [id number] 040-150 / / [id number] documented as of this encounter Advance Directives [...] the patient have Health Care Power of Plastic Extrusion Operator? No Care Teams Data Processor Relationship Specialty Start Date End Date Jt Prajapati MD [address] [place] [address] [place] [address] PCP - General Family Medicine 07/31/12 documented as of this encounter
--- OUTSIDE RECORDS SUMMARY | 2023-09-13 04:43 | External Medical Summary | Summary of Care ---
Author Name Unknown Organization [facility] Address [address] [place] [address] Phone [phone] Care Team Providers Care Billet Inspector Name Role Phone Jolly Prajapati MD Primary Care Provide r Reason for Visit * Reason Onset Date Comments case management 07/28/2023 MARLO week #2 Encounter Details Date Type Department Care Team (Latest Contact Info) Description 07/28/2023 Caustic Strength Inspector Telephone Care Coordination [address], [place] [phone] Dennise Merrill RN [address] [place] [address] case management (MARLO week #2) Allergies Active Allergy Reactions Criticality Noted Date Comments Promethazine Other (Please comment) 07/02/2023 Agitation Sulfa Antibiotics Rash 07/31/2012 documented as of this encounter (statuses as of 07/28/2023) Medications Medication Sig Dispensed Refills Start Date [...] EVERY DAY 180 Tablet 1 05/14/2022 Active metFORMIN HCl 1000 MG Oral Tablet (Glucophage) TAKE ONE TABLET BY MOUTH TWICE DAILY WITH MEALS 180 Tablet 1 11/28/2022 Active Lisinopril 40 MG Oral TabletIndications:H ypertension [...] 10 MG Oral Tablet (Lipitor)Indication s:Atherosclerosis of [place] coronary artery of [place] heart without angina pectoris Take 1 Tablet by mouth in the morning. 30 Tablet 11 07/18/2023 Active documented as of this encounter (statuses as of 07/28/2023) Active Problems Problem Noted Date Diagnosed Date [...] S/P kidney transplant 12/09/2012 CORONARY ATHEROSCLER. OF [place] CORONARY VESSEL 07/11/2004 Hypertension goal BP (blood pressure) < 140/90 History of Clostridium difficile infection Allergic rhinitis Stage 3a chronic kidney disease H/O pancreas transplant documented as of this encounter (statuses as of 07/28/2023) Resolved Problems Problem Noted Date Diagnosed Date [...] as of this encounter (statuses as of 07/28/2023) Immunizations Name Administration Dates Next Due Pneumococcal [...] encounter Miscellaneous Notes * Telephone Encounter - Dennise Merrill RN - 07/28/2023 10:34 AM EDT MARLO week #2 Called and spoke with Daniela. She states that Therapy is coming today, she is not sure if it isPT or OT. He is weak on his leg. He does not use any assistive devices, he is unsteady at times. Previous discussion with , patient needed refill of medications, did pick these up. She states that she is going to hold off on giving patient the protonix until he is seen by GI on 08/12. Appetite is good, he is eating 3 meals a day. He is drinking one Boost per day. states that patient is not having any pain sometimes has a headache and his gives him tylenol. He is sleeping well. Blood pressure has been good, has not checked personally because between nursing and therapy someone is in 3 times a week to check, explained it is good to check daily. She said she knows this, she has been busy because she had a birthday democrat at her house for her sister over the weekend. Sheis unable to state what it has been running, she cannot remember off the top of her head. Pulse ox has been running 96-97% on Room Air. His blood sugar was 111, checks once a day. She denies any needs. Reviewed that there is a follow up appointment on 11/6 that was previously scheduled prior to this admission, this can be canceled. understands. She states that they will still need the 6 month follow up scheduled with Dr Prajapati. Patient scheduled with Dr Prajapati on 01/23/24 at 11 am. documented in this encounter Plan of Treatment Upcoming Encounters Date Type Department Care Team (Late st Contact Info) Description 08/12/2023 9:00 AM EST Office Visit Gastroenterology, [facility] [address] [place] [address] Daisy Zuniga, [address] [place] [address] 2024 11:00 AM EDT Office Visit [address] [place] [phone] Jolly Prajapati MD [address] [place] [address] [place] [address] Health Maintenance Due Date Last Done Comments COVID-19 Vaccine (#1) 1954 Cologuard 1994 Fecal Occult Blood Test 1994 Sigmoidoscopy 1994 Hepatitis B (1 of 3 - Risk 3-dose series) 2009 Depression Screening 10/19/2020 10/19/2019 Colonoscopy 12/12/2020 12/12/2010 Colorectal Cancer Screening 12/12/2020 DIABETES-EYE EXAM 04/04/2022 04/04/2021 Influenza Vaccine (FLU shot) (#1) 2023 08/10/2012 [...] this encounter Medical Devices Implanted Type Area Sr Technical Sales Consultant Device Identifier Shelf Expiration Date Model / Serial / Lot Stent Peripheral 6 Diam 150x40 - [id number] Implanted:Qty: 1 on 05/27/2021 by Channing Hess MD at [facility] Right: Popliteal Artery [employer] : VASCULAR [id number] 03/15/2024 [id number]- 040-150 / / [id number] documented as of this encounter Advance Directives [...] the patient have Health Care Power of College Archivist? No Care Teams Billet Inspector Relationship Specialty Start Date End Date Jolly Prajapati MD [address] [place] [address] [place] [address] PCP - General Family Medicine 07/31/12 documented as of this encounter
--- OUTSIDE RECORDS SUMMARY | 2023-09-13 04:43 | External Medical Summary | Summary of Care ---
Author Name Unknown Organization [facility] Address [address] [facility] [address] Phone [phone] Care Team Providers Care [employer] Name Role Phone Jt Prajapati MD Primary Care Provide r Reason for Visit * Reason Comments eRx-Medication Refill Encounter Details Date Type Department Care Team (Late st Contact Info) Description 08/20/2023 Refill Family Medicine [address] [phone] Jt Prajapati MD [address] [place] [address] [place] [address] Allergies Active Allergy Reactions Criticality Noted Date Comments Promethazine Other (Please comment) 07/02/2023 Agitation Sulfa Antibiotics Rash 07/31/2012 documented as of this encounter (statuses as of 08/20/2023) Medications Medication Sig Dispensed Refills Start Date [...] 1 01/21/2022 Active Lisinopril 40 MG Oral TabletIndication s:Hypertension [...] MG Oral Tablet (Lipitor)Indicat ions:Atheroscler osis of [place] coronary artery of [place] heart without angina pectoris Take 1 Tablet [...] EVERY DAY 180 Tablet 1 08/20/2023 Active glipiZIDE ER 2.5 MG Oral Tablet Extended Release 24 Hour (Glucotrol XL) TAKE TWO TABLETS BY MOUTH EVERY DAY 180 Tablet 1 05/14/2022 3 Discontinued documented as of this encounter (statuses as of 08/20/2023) Active Problems Problem Noted Date Diagnosed Date [...] S/P kidney transplant 12/09/2012 CORONARY ATHEROSCLER. OF [place] CORONARY VESSEL 07/11/2004 Hypertension goal BP (blood pressure) < 140/90 History of Clostridium difficile infection Allergic rhinitis Stage 3a chronic kidney disease H/O pancreas transplant documented as of this encounter (statuses as of 08/20/2023) Resolved Problems Problem Noted Date Diagnosed Date [...] as of this encounter (statuses as of 08/20/2023) Immunizations Name Administration Dates Next Due Pneumococcal [...] encounter Miscellaneous Notes * Telephone Encounter - Reed Portillo [facility] - 08/20/2023 3:46 PM ESTSigned Prescriptions: Disp Refills glipiZIDE ER 2.5 MG Oral Tablet Extended R*180 Ta*1 Sig: TAKE TWO TABLETS BY MOUTH EVERY DAYAuthorizing Provider: JT PRAJAPATI User: REED PORTILLO documented in this encounter Plan of Treatment Upcoming Encounters Date Type Department Care Team (Late st Contact Info) Description 11/05/2023 1:00 PM EST Office Visit Gastroenterology, [facility] [address] [place] [address] Elise Abraham CRNP [address] [place] [address] 2024 11:00 AM EDT Office Visit Family Medicine [address] [place] [phone] Jt Prajapati MD [address] [place] [address] [place] [address] Health Maintenance Due Date Last Done Comments [...] this encounter Medical Devices Implanted Type Area Coppersmith Apprentice Device Identifier Shelf Expiration Date Model / Serial / Lot Stent Peripheral 6 Diam 150x40 - [id number] Implanted:Qty: 1 on 05/27/2021 by Channing Hess MD at [facility] Right: Popliteal Artery [employer] : VASCULAR [id number] 03/15/2024 [id number]- 040-150 / / [id number] documented as of this encounter Advance Directives [...] the patient have Health Care Power of Equipment Planner? No Care Teams [employer] Relationship Specialty Start Date End Date Jt Prajapati MD [address] [place] [address] [place] [address] PCP - General Family Medicine 07/31/12 documented as of this encounter
[2023-09-13 06:22] LABS: Basophils # (auto) 0.02 K/uL (0.00-0.20); Basophils % (auto) 0.3 %; Eosinophils % (auto) 16.2 %; Hematocrit (blood only) 36.3 % (42.0-52.0); Hemoglobin 12.5 g/dl (14.0-18.0); Immature Granulocytes # (auto) 0.02 K/uL (0.01-0.20); Immature Granulocytes % (auto) 0.3 %; Lymphocytes # (auto) 1.43 K/uL (1.20-3.40); Lymphocytes % (auto) 19.3 %; Mean Corpuscular Hemoglobin 30.3 pg (25.0-34.0); Mean Corpuscular Hgb Conc 34.4 g/dL (32.0-36.0); Mean Corpuscular Volume 87.9 fL (80.0-100.0); Mean Platelet Volume 11.8 fL (9.4-12.4); Monocytes # (auto) 0.76 K/uL (0.11-0.59); Monocytes % (auto) 10.3 %; Neutrophils # (auto) 3.97 K/uL (1.40-6.50); Neutrophils % (auto) 53.6 %; Platelet Count 125 K/uL (130-400); RDW Coefficient of Variation 14.2 % (11.5-14.5); RDW Standard Deviation 45.6 fL (36.4-46.3); Red Blood Count 4.13 M/uL (4.70-6.10)
[2023-09-13 06:53] LABS: BUN Creatinine Ratio 38.7 (10-20); Calcium 8.5 mg/dl (8.6-10.3); Est GFR (African American) 40.4 ml/min; Est GFR (Non-African American) 34.9 ml/min; Potassium 4.5 mmol/L (3.5-5.1)
--- OUTSIDE RECORDS SUMMARY | 2023-09-13 07:03 | External Medical Summary | Summary of Care ---
Author Name Unknown Organization [facility] Address [address] [facility] [address] Phone [phone] Care Team Providers Care Marine Geologist Name Role Phone Jolly Prajapati MD Primary Care Provide r Reason for Visit * Reason Onset Date Comments Advice 09/12/2023 Encounter Details Date Type Department Care Team (Late st Contact Info) Description 09/12/2023 Telephone Family Medicine [address] [phone] Jolly Prajapati MD [address] [place] [address] [place] [address] Advice Allergies Active Allergy Reactions Criticality Noted Date Comments Promethazine Other (Please comment) 07/02/2023 Agitation Sulfa Antibiotics Rash 07/31/2012 documented as of this encounter (statuses as of 09/12/2023) Medications Medication Sig Dispensed Refills Start Date [...] before bedtime. 60 Tablet 11 01/09/2023 Active OneTouch Verio In Vitro Strip (Glucose [...] 10 MG Oral Tablet (Lipitor)Indication s:Atherosclerosis of [place] coronary artery of [place] heart without angina pectoris Take 1 Tablet [...] per day. 120 Tablet 0 09/11/2023 Active documented as of this encounter (statuses as of 09/12/2023) Active Problems Problem Noted Date Diagnosed Date [...] S/P kidney transplant 12/09/2012 CORONARY ATHEROSCLER. OF [place] CORONARY VESSEL 07/11/2004 Hypertension goal BP (blood pressure) < 140/90 History of Clostridium difficile infection Allergic rhinitis Stage 3a chronic kidney disease H/O pancreas transplant documented as of this encounter (statuses as of 09/12/2023) Resolved Problems Problem Noted Date Diagnosed Date [...] as of this encounter (statuses as of 09/12/2023) Immunizations Name Administration Dates Next Due Pneumococcal [...] encounter Miscellaneous Notes * Telephone Encounter - Rita Gomez MD - 09/12/2023 3:45 PM EST Noted I agree * Telephone Encounter - Renu Severino CMA - 09/12/2023 3:28 PM EST I spoke to Alma on the phone and agreed patient should go to the ED. She was going to tell the patient. * Telephone Encounter - Alma Nicholson LPN - 09/12/2023 3:17 PM EST Patient's calling in stating that he has been sick. Diarrhea started over a week ago. She stated that he is achey all over. She stated that he is so weak that he can barely walk. He is not eating much of anything. He is very nauseous. Stomach cramping started yesterday which he did not initially have. Denies fever. BS was 86 this afternoon Drinking tea, water and pedialyte He ate a half a banana, toast and about a 1/4 cup of applesauce today. He has been taking the Loperamide prescription but has not helped at all. She stated that he is refusing to go to the ER. Spoke with Renu, agreed patient needs to be seen in the ER. She is going to make providers in the office aware. Spoke with and she agreed that he needs to be seen in the ER. She is going to call the ambulance as she is not able to to take him to the ER. documented in this encounter Plan of Treatment Upcoming Encounters Date Type Department Care Team (Late st Contact Info) Description 2024 11:00 AM EDT Office Visit Family Medicine [address] [phone] Jolly Prajapati MD [address] [place] [address] [place] [address] Health Maintenance Due Date Last Done Comments [...] this encounter Medical Devices Implanted Type Area Chlorinator Device Identifier Shelf Expiration Date Model / Serial / Lot Stent Peripheral 6 Diam 150x40 - [id number] Implanted:Qty: 1 on 05/27/2021 by Channing Hses MD at [facility] Right: Popliteal Artery [employer] : VASCULAR [id number] 03/15/2024 [id number]- 040-150 / / [id number] documented as of this encounter Advance Directives [...] the patient have Health Care Power of Fast Food Attendant? No Care Teams Marine Geologist Relationship Specialty Start Date End Date Jolly Prajapati MD [address] [place] [address] [place] [address] PCP - General Family Medicine 07/31/12 documented as of this encounter
[2023-09-13] MEDS: LACTATED RINGER'S 1,000 ML IV SCH ×2 (07:49→23:09)
[2023-09-13] MEDS: CARBOHYDRATES FOR HYPOGLYCEMIA PO PRN ×2 (07:52→08:15)
[2023-09-13] MEDS: carvediloL 12.5 MG TAB PO SCH ×2 (07:56→20:28)
[2023-09-13] MEDS: CYANOCOBALAMIN (B-12) 500 MCG TABLET PO SCH (07:56)
[2023-09-13] MEDS: ATORVASTATIN 10 MG TAB PO SCH (07:56)
[2023-09-13] MEDS: ADVANCED PROBIOTIC 1250 MG CAPSULE PO SCH ×2 (07:56→20:28)
[2023-09-13] MEDS: amLODIPine BESYLATE 5 MG TAB PO SCH (07:56)
[2023-09-13] MEDS: MULTIVITAMIN TAB PO SCH (07:57)
[2023-09-13] MEDS ORDERED: FERROUS SULFATE 325 MG TAB PO SCH (09:00)
[2023-09-13 09:09] LABS: Thyroid Stimulating Hormone 1.695 uIu/ml (0.300-4.500)
--- NOTE | 2023-09-13 10:25 | Urology Consultation ---
Date of Consultation September 13, 2023 Assessment & Plan (1) Renal lesion: (2) History of pancreas transplant: (3) History of kidney transplant: (4) Diabetes mellitus, type II: (5) CAD (coronary artery disease): (6) Acute respiratory distress: (7) ARF (acute renal failure): (8) Diarrhea: Plan Patient with history of renal transplant. Patient is on immunosuppression. Patient also has history of pancreas transplant. Patient has history of end-stage renal disease with previous renal transplant. Has severe atrophy of the [place] kidneys bilaterally. Patient had a small renal mass that was being monitored on the right kidney. Has had an increase in size of renal mass on current imaging. Patient and family were requesting urology assessment. Extensive conversation today about findings. Discussed concerns and issues. Discussed size and potential for malignancy. Discussed need for likely imaging in order to more fully assess the renal mass. Discussed outpatient workup and assessment. Discussed concerns and issues. Discussed different options in light of patient's significant kidney atrophy especially on the right side which is the side with the approximately 2.8 cm mass. Discussed concerns and issues. Discussed potential options. Reviewed extensively options moving forward. Patient is currently undergoing medical management and supportive care for acute renal failure with transplant as well as acute illness. Agree with plans for supportive care IV hydration and close monitoring. Will likely need outpatient workup and assessment. Patient does continue to follow with his transplant center. Did discuss possibly discussing different op tions with him especially in light of his ongoing immunosuppression and possible need for intervention on renal mass. Patient's complicated medical and surgical history was reviewed and summarized above all imaging was reviewed interpreted by myself. CT scan is showing renal mass on the right side per report is increased in size from previous imaging. Patient's labs and vitals were all reviewed currently he is afebrile mild hypertension at 147/64. White count is 7.4 creatinine is 1.86. Hemoglobin 12.5. Extensively reviewed with patient. All labs and vitals were reviewed please see HPI or plan section for further information. Will plan outpatient follow-up. Encourage patient to contact transplant center in order for assessment from their end and discussion of different options in c onsideration of the possible need for intervention as well as his ongoing immunosuppressive therapy. Also discussed with patient and family ongoing issues with diarrhea as well as likely dehydration. Had poor oral intake and was having considerable issues with likely volume loss secondary to the diarrhea. Would recommend continued IV support with hydration and close monitoring. Will await further workup with the primary team for possible sources patient does have likely diverticulosis as well as some distention of the gallbladder on CT imaging. Will plan to continue to monitor for now. Will have patient follow-up as an outpatient for further assessment likely to schedule MRI for better evaluation of the lesion on the [place] kidney. Will then determine different options moving forward we will plan for outpatient follow-up. History of Present Illness Attending Physician: Boni Maxwell MD History of Present Illness New consultation for patient with history of renal transplant. Has end-stage renal disease status post renal transplant. Has been dealing with acute renal injury. Has been monitored closely. Patient had undergone imaging and found to have possibly growing mass of the right [place] kidney. Severe bilateral atrophy. Mass has now measured now up to 2.8 cm. Had previously been visualized. Patient is on immunosuppression with tacrolimus. Concern for possible enlarging mass with suspicion for possible malignancy. Patient is undergoing supportive care with close monitoring by the hospitalist team as well as nephrology. Patient does continue to follow with transplant clinic. No major episodes of pain or considerable discomfort. Did have some distention of gallbladder on imaging as well. With signs of possible diverticulosis. Vitals have been stable. Mild hypertension. No considerable fever. Discussed and reviewed patient's family history for any history of malignancy. Also, discussed patient's medical surgery history especially related to any history of urinary issues or stone disease. Patient was admitted and is undergoing observation. Allergies Allergy/AdvReac Type Severity Reaction Status Date / Time sulfamethoxazole Allergy Intermediate rash Verified 09/12/23 18:55 trimethoprim Allergy Intermediate rash Verified 09/12/23 18:55 promethazine [From Phenergan] AdvReac Intermediate AGITATION/C Verified 09/12/23 18:55 ONFUSION Home Medications Medication Instructions Recorded Confirmed Type acetaminophen 325 mg tablet 650 mg PO Q4H PRN Pain 11/19/22 09/12/23 History (Tylenol) amlodipine 10 mg tablet 10 mg PO QAM 11/19/22 09/12/23 History ascorbic acid (vitamin C) 500 mg 500 mg PO QAM 11/19/22 09/12/23 History tablet (Vitamin C) brimonidine 0.2 %-timolol 0.5 % 1 drp OPL BID 11/19/22 09/12/23 History eye drops (Combigan) chlorthalidone 25 mg tablet 25 mg PO QAM 11/19/22 09/12/23 History cholecalciferol (vitamin D3) 50 50 mcg PO QAM 11/19/22 09/12/23 History mcg (2,000 unit) tablet (Vitamin D3) cyanocobalamin (vitamin B-12) 100 1,000 mcg PO QAM 11/19/22 09/12/23 History mcg tablet (Vitamin B-12) glipizide 2.5 mg tablet, extended 5 mg PO QAM 11/19/22 09/12/23 History release 24 hr metformin 1,000 mg tablet 1,000 mg PO BIDM 11/19/22 09/12/23 History multivitamin 1 tab PO QAM 11/19/22 09/12/23 History netarsudil 0.02 %-latanoprost 1 drp OPB HS 11/19/22 09/12/23 History 0.005 % eye drops (Rocklatan) carvedilol 12.5 mg tablet 12.5 mg PO BID 05/20/23 09/12/23 History oregano oil 1,500 mg capsule 1,500 mg PO DAILY 05/20/23 09/12/23 History benzonatate 100 mg capsule 100 mg PO TID PRN cough #30 caps 06/10/23 09/12/23 Rx atorvastatin 10 mg tablet (Lipitor) 10 mg PO QAM 07/15/23 09/12/23 History lisinopril 40 mg tablet 40 mg PO QAM 07/15/23 09/12/23 History L.acidop,casei,lactis,rham-B.lact,dennys 1 cap PO BID 09/12/23 09/12/23 History 625 mg (10 billion cell) capsule (Advanced Probiotic) ferrous sulfate 325 mg (65 mg 325 mg PO BID 09/12/23 09/12/23 History iron) tablet,delayed release loperamide 2 mg capsule 2 mg PO DIRECTED PRN Diarrhea 09/12/23 09/12/23 History tacrolimus 1 mg oral granules in 1 mg PO AMPM 09/12/23 09/12/23 History packet trazodone 50 mg tablet 50 mg PO HS 09/12/23 09/12/23 History Patient History Medical History Postop carotid endarterectomy surveillance, encounter for S/P transesophageal echocardiogram ([facility]ILE[facility]) Hx: recurrent pneumonia last episode ~Fall 2021 History of pneumothorax during his open heart surgery in 2002 at [facility], [place], operated by [facility]. will have reoccurring pneumonia since. Bacteremia associated with IV line during patient's inpatient stay at the end of April 2023 due to a severe IV infiltration during inpatient stay. doing okay at this time. no curret infection. GI bleed ~05/26/23 treated at [facility] PAD (peripheral artery disease) S/p right fem/pop artery revascularization with stent placed and angioplasty per records - right tibial/peroneal artery revascularization with angio Hypothyroidism Fistula hx of ---was in right arm and no longer working Skin cancer on ear and head Asthma as child History of COVID-19 06/2022 - resolved Symptomatic carotid artery stenosis with infarction 90% stenosis of the proximal right external carotid artery. There is 30% stenosis of the proximal right internal iliac artery just beyond its origin with a tandem 20% stenosis seen distally within the right ICA at its entrance to carotid siphon; 80% stenosis of the proximal left ICA Acute CVA (cerebrovascular accident) - 05/17/23- started with weakness and discoordination right let and arm. Speech slurred at some points. - Dx'ed with acute CVA 05/20/23- admitted to [facility] until 05/22/23 - Right side weakness is getting better. History of TIA (transient ischemic attack) Unsure of date Diabetes mellitus, type II Hx of severe diabetes- 2003 had pancreas transplant- did not require DM meds until the past four years (had to restart oral DM meds) CAD (coronary artery disease) "s/p CABG x 5 in 2002" [facility] HTN (hypertension) Dyslipidemia CKD (chronic kidney disease), stage III - at this time - Hx of ESRD- on dialysis x one year but had kidney transplant 2003- no dialysis required since that time Surgical History Transplant recipient pancreas and kidney transplants in 2003 S/P PICC central line placement since removed 05/2023 Hx of chest tube placement 2002 for pneumothorax History of esophagogastroduodenoscopy (EGD) for a GI Bleed ~05/26/[address] Fitzpatrick at [facility]. Hx of extremity bypass graft - right fem/pop artery revascularization with stent placed and angioplasty per records - right tibial/peroneal artery revascularization with angio History of open reduction and internal fixation (ORIF) procedure left hip History of pancreas transplant 2003- [facility]- had this at the time of kidney transplant pancreas had abcess and was taken back in to drain it. History of kidney transplant 2003 -[facility] -- ERSD and on dialysis for a year and then had transplant and at this time the doctor is monitoring S/P CABG (coronary artery bypass graft) x 5 -- [facility] 2002 - incidental finding when getting worked up for transplant follows with Medical doctor Family History Mother Breast cancer Father Diabetes Other No family history of adverse response to anesthesia Social History Smoking Status: Never smoker Tobacco Type: Smokeless Tobacco (Dip or Chew) Second Hand Exposure: No; Do You Dip or Chew Tobacco: Yes (advised NPO); Hx Alcohol Use: No Hx Substance Use: No Preferred Language: Kiswahili Communication Ability: Effective Breast Trimmer Required: No Beliefs That Will Affect Care: Gnosticist Gnosticist Beliefs: Scientology marital status: Current Living Situation: Spouse Other Information That Helps Us Care for You: No Feels Safe at Home: Yes Safety Concerns: Feels Safe At This Time Assistive Devices: Glasses and Walker Review of Systems Review of Systems: All systems reviewed & are unremarkable except as noted in HPI & below Physical Exam Physical Exam: General: Alert and oriented x 3 in no acute distress. Patient is well nourished and well kept. HEENT: Normocephalic Atraumatic. Inspection normal. Cranial Nerves 2-12 Grossly intact. Nares are clear. Neck is supple. Normal inspection of face. Normal inspection of neck. Neurologic: No deficits on inspection. Baseline for motor function and sensory. Psychologic: Normal affect. Respiratory: Nonlabored. No use of accessory muscles. No tachypnea or dyspnea. Cardiovascular: No tachycardia Skin: [place] and Dry. No rashes or visible lesions. Extremities: Moving without issues. No motor deficits on inspection Lymphatics: No edema Abdomen: Soft Non-distended. No rebound or guarding. Results & Data Vital Signs (Past 12 Hours) Vital Signs Temp Pulse Resp BP Pulse Ox O2 Del Method 09/13/23 08:00 Room Air 09/13/23 07:30 36.5 C 68 15 147/64 H 96 Room Air 09/13/23 00:45 Room Air 09/12/23 23:46 36.3 C L 65 16 137/53 L 97 Room Air PG Care Time/CCT Total # of Minutes Spent Total Time Spent with Patient: Total time spent is greater than 50% in coordination of care (as documented) at patient's floor/unit and/or counseling patient: Coding Level of Care Code 25986 INT INP/OBS CARE 3/75MIN Diagnoses Renal lesion N28.9 History of pancreas transplant Z94.83 History of kidney transplant Z94.0 Diabetes mellitus, type II E11.9 CAD (coronary artery disease) I25.10 Acute respiratory distress R06.03 ARF (acute renal failure) N17.9 Diarrhea R19.7 Diarrhea type: unspecified type (8) Diarrhea Diarrhea type: unspecified type Qualified Code(s): R19.7 - Diarrhea, unspecified
[2023-09-13 13:38] LABS: Adenovirus F 40/41 PCR Not Detected (NotDetected); Astrovirus PCR Not Detected (NotDetected); Campylobacter PCR Not Detected (NotDetected); Cryptosporidium PCR Not Detected (NotDetected); Cyclospora cayetanensis PCR Not Detected (NotDetected); Entamoeba histolytica PCR Not Detected (NotDetected); Enteroaggregative E.coli(EAEC) Not Detected (NotDetected); Enteropathogenic E.coli (EPEC) Not Detected (NotDetected); Enterotoxigenic E.coli (ETEC) Not Detected (NotDetected); Giardia lamblia PCR Not Detected (NotDetected); Norovirus GI/GII PCR Not Detected (NotDetected); Plesiomonas shigelloides PCR Not Detected (NotDetected); Rotavirus A PCR Not Detected (NotDetected); Salmonella PCR Not Detected (NotDetected); Sapovirus PCR Not Detected (NotDetected); Shiga-like Toxin E.coli (STEC) Not Detected (NotDetected); Shigella/Enteroinvasive E.coli Not Detected (NotDetected); Vibrio cholerae PCR Not Detected (NotDetected); Vibrio species PCR Not Detected (NotDetected); Yersinia enterocolitica PCR Not Detected (NotDetected)
[2023-09-13] MEDS: LOPERAMIDE HCL 2 MG CAP PO PRN (14:19)
--- NOTE | 2023-09-13 17:01 | Hospitalist Progress Note ---
Date of Service September 13, 2023 Assessment & Plan (1) ARF (acute renal failure): Plan: [place] CKD III 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 difficile negative Continue IV fluids Avoid nephrotoxic agents as able Hold home diuretics, lisinopril Imodium as needed Will consider nephrology evaluation if no improvement Check tacrolimus levels, hold iron supplement due to ongoing diarrhea Renal mass --CT ABD:Atrophy of the [place] kidneys. Mass in the RIGHT lower pole measures 2.8 x 2.4 cm, increasing in size when compared to May 27, 2023. Recommend abdominal MRI and urology evaluation. Underlying cancer cannot be excluded. 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 No hydronephrosis. -- Appreciate urology input Need workup as outpatient follow-up with transplant center H/O CAD S/P CABG CVA/PVD S/P surgery Valvular heart disease (mild MR, TR) Continue carvedilol, Lipitor Hypertension Continue Coreg, amlodipine Monitor BP closely We will adjust medications as needed Hyperlipidemia on statin DM II Hold oral medications S/P Pancreas transplant on tacrolimus immunosuppression Last HBA1C: 04 Jun 2023 Continue insulin while hospitalized Monitor BGs Hypothyroidism Normal TSH Chronic anemia, Hb at baseline Past tobacco abuse DVT Px: SCDs Re: Recent GI bleed Code Status Full code Admission and Anticipated Discharge Date Admission Date: September 12, 2023 Subjective Patient is seen and examined at bedside States having diarrhea today Also reports vomiting Denies any chest pain, dizziness Reports chronic dyspnea on exertion No other complaints Discussed with patient's family at bedside Review of Systems Review of Systems: All systems reviewed & are unremarkable except as noted in Subjective Physical Exam Physical Exam: Physical Exam: Vitals signs as noted above General Appearance:Moderately built and nourished, no apparent distress Head: normocephalic, Atraumatic Eyes: normal inspection, EOMI Neck: supple, Trachea midline Respiratory/Chest: Normal breath sounds, CTA, No accessory muscle use Cardiovascular: S1, S2, No murmur Abdomen/GI:Soft, Non tender, Bowel sounds present Extremities/Musculoskeletal:normal inspection, no edema Neurologic/Psych:AAOX3, grossly no focal neurological deficits Skin: normal color, warm, +CABG scar Results & Data Results & Data Vital Signs (Past 12 Hours) Vital Signs Temp Pulse Resp BP BP Pulse Ox O2 Del Method 09/13/23 15:39 36.5 C 70 15 167/66 H 98 Room Air 09/13/23 08:00 Room Air 09/13/23 07:30 36.5 C 68 15 147/64 H 96 Room Air Laboratory Results Short CBC 09/12/23 09/13/23 Range/Units 17:58 05:45 WBC 6.88 7.40 (4.8-10.8) K/ul Hgb 13.3 L 12.5 L (14.0-18.0) g/dl Hct 38.5 L 36.3 L (42.0-52.0) % Plt Count 145 125 L (130-400) K/uL BMP 09/12/23 09/13/23 17:58 05:45 Sodium 132 L 138 Potassium 4.9 4.5 Chloride 107 115 H Carbon Dioxide 17 L 16 L BUN 83 H 72 H Creatinine 2.19 H 1.86 H D Glucose 82 75 Calcium 9.1 8.5 L Liver Function 09/12/23 Range/Units 17:58 Total Bilirubin 0.5 (0.2-1.0) mg/dl AST 13 (13-39) U/L ALT 10 (7-52) U/L Alkaline Phosphatase 76 (34-104) U/L Albumin 3.9 (3.4-5.0) gm/dl
[2023-09-13] MEDS: ONDANSETRON INJ 2 MG/ML 2 ML VIAL IV PRN (17:14)
[2023-09-13] MEDS: traZODone HCL 50 MG TAB PO SCH (20:29)
[2023-09-13 21:10] LABS: Appearance Urine Clear (Clear); Bilirubin Urine Negative (Negative); Blood Urine Negative (Negative); Color Urine Yellow; Glucose Urine UA Negative (Negative); Ketones Urine Negative (Negative); Leukocyte Esterase Urine Negative (Negative); Nitrite Urine Negative (Negative); Protein Urine Negative (Negative); Specific Gravity Urine 1.013 (1.000-1.030); Urobilinogen Urine Negative (Negative)
[2023-09-14] MEDS: ONDANSETRON INJ 2 MG/ML 2 ML VIAL IV PRN ×2 (01:03→23:16)
[2023-09-14 05:54] LABS: Hematocrit (blood only) 35.7 % (42.0-52.0); Hemoglobin 12.1 g/dl (14.0-18.0); Mean Corpuscular Hemoglobin 29.8 pg (25.0-34.0); Mean Corpuscular Hgb Conc 33.9 g/dL (32.0-36.0); Mean Corpuscular Volume 87.9 fL (80.0-100.0); Mean Platelet Volume 11.9 fL (9.4-12.4); Platelet Count 125 K/uL (130-400); RDW Coefficient of Variation 14.1 % (11.5-14.5); Red Blood Count 4.06 M/uL (4.70-6.10); White Blood Count 6.82 K/ul (4.8-10.8)
[2023-09-14 06:06] LABS: BUN Creatinine Ratio 34.8 (10-20); Calcium 8.7 mg/dl (8.6-10.3); Creatinine Clr Calc Pharmacy 38.8 ml/min; Est GFR (African American) 49.2 ml/min; Est GFR (Non-African American) 42.5 ml/min; Potassium 4.7 mmol/L (3.5-5.1)
[2023-09-14] MEDS: TACROLIMUS 1 MG CAP PO SCH ×2 (08:19→21:48)
[2023-09-14] MEDS: ATORVASTATIN 10 MG TAB PO SCH (08:19)
[2023-09-14] MEDS: carvediloL 12.5 MG TAB PO SCH ×2 (08:19→21:47)
[2023-09-14] MEDS: CYANOCOBALAMIN (B-12) 500 MCG TABLET PO SCH (08:19)
[2023-09-14] MEDS: ADVANCED PROBIOTIC 1250 MG CAPSULE PO SCH ×2 (08:19→21:47)
[2023-09-14] MEDS: MULTIVITAMIN TAB PO SCH (08:19)
[2023-09-14] MEDS: amLODIPine BESYLATE 5 MG TAB PO SCH (08:19)
[2023-09-14] MEDS: INSULIN ASPART PER UNIT CHARGE SC SCH ×4 (08:38→21:45)
[2023-09-14] MEDS: BRIMONIDINE TARTRATE 0.2% 5ML OPL SCH ×2 (08:39→21:45)
[2023-09-14] MEDS: TIMOLOL MALEATE 0.5% OP SOLN 5 ML BTL OPL SCH ×2 (08:39→21:45)
[2023-09-14] MEDS ORDERED: LACTATED RINGER'S 1,000 ML IV ONE (14:15)
--- NOTE | 2023-09-14 16:32 | Hospitalist Progress Note ---
Date of Service September 14, 2023 Assessment & Plan (1) ARF (acute renal failure): Plan: [place] CKD III 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 difficile negative -- Tacrolimus levels pending Continue IV fluids Avoid nephrotoxic agents as able Hold home diuretics, lisinopril Imodium as needed Will consider nephrology evaluation if no improvement Hold iron supplement due to ongoing diarrhea Acidosis slowly improving Diarrhea slowly improving as well Tolerating current diet Creatinine 1.58 today Renal mass --CT ABD:Atrophy of the [place] kidneys. Mass in the RIGHT lower pole measures 2.8 x 2.4 cm, increasing in size when compared to May 27, 2023. Recommend abdominal MRI and urology evaluation. Underlying cancer cannot be excluded. 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 No hydronephrosis. -- Appreciate urology input Need workup as outpatient follow-up with transplant center H/O CAD S/P CABG CVA/PVD S/P surgery Valvular heart disease (mild MR, TR) Continue carvedilol, Lipitor Hypertension Continue Coreg, amlodipine Monitor BP closely We will adjust medications as needed Hyperlipidemia on statin DM II Hold oral medications S/P Pancreas transplant on tacrolimus immunosuppression Last HBA1C: 04 Jun 2023 Continue insulin while hospitalized Monitor BGs Hypothyroidism Normal TSH Chronic anemia, Hb at baseline Past tobacco abuse DVT Px: SCDs Re: Recent GI bleed Code Status Full code Disposition PT OT prior to discharge Admission and Anticipated Discharge Date Admission Date: September 13, 2023 Subjective Patient is seen and examined at bedside Diarrhea slowly improving Reports intermittent chronic nausea Tolerating current diet No new complaints Denies any chest pain, dizziness, vomiting today Reports chronic dyspnea on exertion Renal function continues to improve Review of Systems Review of Systems: All systems reviewed & are unremarkable except as noted in Subjective Physical Exam Physical Exam: Physical Exam: Vitals signs as noted above General Appearance:Moderately built and nourished, no apparent distress Head: normocephalic, Atraumatic Eyes: normal inspection, EOMI Neck: supple, Trachea midline Respiratory/Chest: Normal breath sounds, CTA, No accessory muscle use Cardiovascular: S1, S2, No murmur Abdomen/GI:Soft, Non tender, Bowel sounds present Extremities/Musculoskeletal:normal inspection, no edema Neurologic/Psych:AAOX3, grossly no focal neurological deficits Skin: normal color, warm, +CABG scar Results & Data Results & Data Vital Signs (Past 12 Hours) Vital Signs Temp Pulse Resp BP Pulse Ox O2 Del Method 09/14/23 15:52 36.5 C 66 18 171/74 H 98 Room Air 09/14/23 09:00 Room Air 09/14/23 07:13 36.2 C L 67 18 159/66 H 98 Room Air Laboratory Results Short CBC 09/14/23 Range/Units 05:27 WBC 6.82 (4.8-10.8) K/ul Hgb 12.1 L (14.0-18.0) g/dl Hct 35.7 L (42.0-52.0) % Plt Count 125 L (130-400) K/uL BMP 09/14/23 05:27 Sodium 139 Potassium 4.7 Chloride 116 H Carbon Dioxide 19 L BUN 55 H Creatinine 1.58 H Glucose 118 H Calcium 8.7 Urine 09/13/23 Range/Units 20:41 Urine Color Yellow Urine Appearance Clear (Clear) Urine pH 5.0 (4.5-7.5) Ur Specific [place] 1.013 (1.000-1.030) Urine Protein Negative (Negative) Urine Glucose (UA) Negative (Negative)
[2023-09-14] MEDS: traZODone HCL 50 MG TAB PO SCH (21:47)
--- NOTE | 2023-09-14 22:38 | Electrocardiogram Report ---
Test Reason : Blood Pressure : / mmHG Vent. Rate : 063 BPM Atrial Rate : 063 BPM P-R Int : 166 ms QRS Dur : 096 ms QT Int : 424 ms P-R-T Axes : 022 -32 023 degrees QTc Int : 433 ms Normal sinus rhythm Left axis deviation Cannot rule out Anterior infarct , age undetermined Abnormal ECG When compared with ECG of 26-MAY-2023 00:26, No significant change was found Confirmed by Maurice Calabrese ([id number]) on 09/14/2023 10:37:54 PM Referred By: REFERRED SELF Confirmed By:Maurice Calabrese
[2023-09-14] MEDS: LOPERAMIDE HCL 2 MG CAP PO PRN (23:16)
[2023-09-15] MEDS: LOPERAMIDE HCL 2 MG CAP PO PRN ×2 (04:22→09:11)
[2023-09-15] MEDS: ONDANSETRON INJ 2 MG/ML 2 ML VIAL IV PRN (04:23)
[2023-09-15 07:29] LABS: BUN Creatinine Ratio 31.9 (10-20); Calcium 8.3 mg/dl (8.6-10.3); Creatinine Clr Calc Pharmacy 38.3 ml/min; Est GFR (African American) 48.5 ml/min; Est GFR (Non-African American) 41.8 ml/min; Potassium 4.3 mmol/L (3.5-5.1)
[2023-09-15] MEDS: INSULIN ASPART PER UNIT CHARGE SC SCH ×4 (09:05→21:27)
[2023-09-15] MEDS: carvediloL 12.5 MG TAB PO SCH ×2 (09:06→21:11)
[2023-09-15] MEDS: MULTIVITAMIN TAB PO SCH (09:06)
[2023-09-15] MEDS: ATORVASTATIN 10 MG TAB PO SCH (09:06)
[2023-09-15] MEDS: amLODIPine BESYLATE 5 MG TAB PO SCH (09:06)
[2023-09-15] MEDS: CYANOCOBALAMIN (B-12) 500 MCG TABLET PO SCH (09:06)
[2023-09-15] MEDS: TACROLIMUS 1 MG CAP PO SCH ×2 (09:06→21:12)
[2023-09-15] MEDS: ADVANCED PROBIOTIC 1250 MG CAPSULE PO SCH ×2 (09:06→21:11)
[2023-09-15] MEDS: BRIMONIDINE TARTRATE 0.2% 5ML OPL SCH ×2 (09:07→21:10)
[2023-09-15] MEDS: TIMOLOL MALEATE 0.5% OP SOLN 5 ML BTL OPL SCH ×2 (09:07→21:13)
--- NOTE | 2023-09-15 16:55 | Hospitalist Progress Note ---
Date of Service September 15, 2023 Assessment & Plan (1) ARF (acute renal failure): Plan: [place] CKD III 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 difficile negative -- Tacrolimus levels pending Received IV fluids Avoid nephrotoxic agents as able Hold home diuretics, lisinopril Imodium as needed Will consider nephrology evaluation if no improvement Hold iron supplement due to ongoing diarrhea Acidosis slowly improving Tolerating current diet Creatinine 1.6 today Continue PT OT Will benefit from rehab placement Will monitor renal function off fluids today Renal mass --CT ABD:Atrophy of the [place] kidneys. Mass in the RIGHT lower pole measures 2.8 x 2.4 cm, increasing in size when compared to May 27, 2023. Recommend abdominal MRI and urology evaluation. Underlying cancer cannot be excluded. 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 No hydronephrosis. -- Appreciate urology input Need workup as outpatient follow-up with transplant center H/O CAD S/P CABG CVA/PVD S/P surgery Valvular heart disease (mild MR, TR) Continue carvedilol, Lipitor Hypertension Continue Coreg, amlodipine Monitor BP closely We will adjust medications as needed Hyperlipidemia on statin DM II Hold oral medications S/P Pancreas transplant on tacrolimus immunosuppression Last HBA1C: 04 Jun 2023 Continue insulin while hospitalized Monitor BGs Hypothyroidism Normal TSH Chronic anemia, Hb at baseline Past tobacco abuse DVT Px: SCDs Re: Recent GI bleed Code Status Full code Disposition PT OT prior to discharge Admission and Anticipated Discharge Date Admission Date: September 13, 2023 Subjective Patient is seen and examined at bedside Reports to have diarrhea overnight but none this morning Renal function fairly stable Tolerating current diet Denies any chest pain, dizziness, vomiting, abdominal pain Review of Systems Review of Systems: All systems reviewed & are unremarkable except as noted in Subjective Physical Exam Physical Exam: Physical Exam: Vitals signs as noted above General Appearance:Moderately built and nourished, no apparent distress Head: normocephalic, Atraumatic Eyes: normal inspection, EOMI Neck: supple, Trachea midline Respiratory/Chest: Normal breath sounds, CTA, No accessory muscle use Cardiovascular: S1, S2, No murmur Abdomen/GI:Soft, Non tender, Bowel sounds present Extremities/Musculoskeletal:normal inspection, no edema Neurologic/Psych:AAOX3, grossly no focal neurological deficits Skin: normal color, warm, +CABG scar Results & Data Results & Data Vital Signs (Past 12 Hours) Vital Signs Temp Pulse Resp BP Pulse Ox O2 Del Method 09/15/23 16:27 36.6 C 61 16 178/74 H 98 Room Air 09/15/23 09:01 36.6 C 67 16 173/76 H 97 Room Air Laboratory Results [facility] 09/15/23 06:38 Sodium 138 Potassium 4.3 Chloride 115 H Carbon Dioxide 19 L BUN 51 H Creatinine 1.60 H Glucose 118 H Calcium 8.3 L
[2023-09-15] MEDS: traZODone HCL 50 MG TAB PO SCH (21:16)
[2023-09-16 06:58] LABS: Hematocrit (blood only) 38.3 % (42.0-52.0); Hemoglobin 13.1 g/dl (14.0-18.0); Mean Corpuscular Hemoglobin 29.9 pg (25.0-34.0); Mean Corpuscular Hgb Conc 34.2 g/dL (32.0-36.0); Mean Corpuscular Volume 87.4 fL (80.0-100.0); Mean Platelet Volume 11.5 fL (9.4-12.4); Platelet Count 115 K/uL (130-400); RDW Coefficient of Variation 14.1 % (11.5-14.5); RDW Standard Deviation 44.9 fL (36.4-46.3); Red Blood Count 4.38 M/uL (4.70-6.10); White Blood Count 8.68 K/ul (4.8-10.8)
[2023-09-16 07:26] LABS: BUN Creatinine Ratio 27.6 (10-20); Calcium 8.6 mg/dl (8.6-10.3); Creatinine Clr Calc Pharmacy 42.3 ml/min; Est GFR (African American) 54.6 ml/min; Est GFR (Non-African American) 47.1 ml/min; Potassium 4.5 mmol/L (3.5-5.1)
[2023-09-16] MEDS: carvediloL 12.5 MG TAB PO SCH ×2 (08:22→21:16)
[2023-09-16] MEDS: TACROLIMUS 1 MG CAP PO SCH ×2 (08:22→21:16)
[2023-09-16] MEDS: BRIMONIDINE TARTRATE 0.2% 5ML OPL SCH ×2 (08:22→21:16)
[2023-09-16] MEDS: ATORVASTATIN 10 MG TAB PO SCH (08:22)
[2023-09-16] MEDS: TIMOLOL MALEATE 0.5% OP SOLN 5 ML BTL OPL SCH ×2 (08:22→21:16)
[2023-09-16] MEDS: ADVANCED PROBIOTIC 1250 MG CAPSULE PO SCH ×2 (08:22→21:16)
[2023-09-16] MEDS: MULTIVITAMIN TAB PO SCH (08:23)
[2023-09-16] MEDS: amLODIPine BESYLATE 5 MG TAB PO SCH (08:23)
[2023-09-16] MEDS: CYANOCOBALAMIN (B-12) 500 MCG TABLET PO SCH (08:23)
[2023-09-16] MEDS: INSULIN ASPART PER UNIT CHARGE SC SCH ×4 (08:24→21:39)
[2023-09-16] MEDS: NICOTINE 14 MG/24 HR PATCH TD SCH (12:47)
--- NOTE | 2023-09-16 16:57 | Hospitalist Progress Note ---
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 difficile negative -- Tacrolimus levels pending Received IV fluids Avoid nephrotoxic agents as able Hold home diuretics, lisinopril Imodium as needed Will consider nephrology evaluation if no improvement Hold iron supplement due to ongoing diarrhea Acidosis slowly improving Tolerating current diet Creatinine 1.4 today Continue PT OT Will benefit from rehab placement but patient refused Plan to discharge home tomorrow Renal mass --CT ABD:Atrophy of the [place] kidneys. Mass in the RIGHT lower pole measures 2.8 x 2.4 cm, increasing in size when compared to May 27, 2023. Recommend abdominal MRI and urology evaluation. Underlying cancer cannot be excluded. 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 No hydronephrosis. -- Appreciate urology input Need workup as outpatient follow-up with transplant center H/O CAD S/P CABG CVA/PVD S/P surgery Valvular heart disease (mild MR, TR) Continue carvedilol, Lipitor Hypertension Continue Coreg, amlodipine Monitor BP closely Resume lisinopril tomorrow Hydralazine as needed for now Hyperlipidemia on statin DM II Hold oral medications S/P Pancreas transplant on tacrolimus immunosuppression Last HBA1C: 04 Jun 2023 Continue insulin while hospitalized Monitor BGs Hypothyroidism Normal TSH Chronic anemia, Hb at baseline Past tobacco abuse DVT Px: SCDs Re: Recent GI bleed Code Status Full code Disposition Refused rehab placement Admission and Anticipated Discharge Date Admission Date: September 13, 2023 Subjective Patient is seen and examined at bedside No diarrhea today No new complaints Renal function better today Denies any chest pain, dizziness, vomiting, abdominal pain Refuses rehab placement Review of Systems Review of Systems: All systems reviewed & are unremarkable except as noted in Subjective Physical Exam Physical Exam: Physical Exam: Vitals signs as noted above General Appearance:Moderately built and nourished, no apparent distress Head: normocephalic, Atraumatic Eyes: normal inspection, EOMI Neck: supple, Trachea midline Respiratory/Chest: Normal breath sounds, CTA, No accessory muscle use Cardiovascular: S1, S2, No murmur Abdomen/GI:Soft, Non tender, Bowel sounds present Extremities/Musculoskeletal:normal inspection, no edema Neurologic/Psych:AAOX3, grossly no focal neurological deficits Skin: normal color, warm, +CABG scar Results & Data Results & Data Vital Signs (Past 12 Hours) Vital Signs Temp Pulse Resp BP Pulse Ox O2 Del Method 09/16/23 16:41 65 184/71 H 09/16/23 16:03 36.7 C 49 L 18 180/78 H 97 Room Air 09/16/23 07:14 36.7 C 70 16 171/69 H 97 Room Air Laboratory Results Short CBC 09/16/23 Range/Units 06:30 WBC 8.68 (4.8-10.8) K/ul Hgb 13.1 L (14.0-18.0) g/dl Hct 38.3 L (42.0-52.0) % Plt Count 115 L (130-400) K/uL BMP 09/16/23 06:30 Sodium 139 Potassium 4.5 Chloride 114 H Carbon Dioxide 20 L BUN 40 H Creatinine 1.45 H Glucose 103 H Calcium 8.6
[2023-09-16] MEDS: hydrALAZINE 10 MG TAB PO PRN (17:05)
[2023-09-16] MEDS: traZODone HCL 50 MG TAB PO SCH (21:16)
[2023-09-17] MEDS: MELATONIN 3 MG TAB PO PRN ×2 (01:47→21:48)
[2023-09-17 08:24] LABS: BUN Creatinine Ratio 25.9 (10-20); Calcium 8.5 mg/dl (8.6-10.3); Creatinine Clr Calc Pharmacy 45.4 ml/min; Est GFR (African American) 59.5 ml/min; Est GFR (Non-African American) 51.4 ml/min; Potassium 4.3 mmol/L (3.5-5.1)
[2023-09-17] MEDS: BRIMONIDINE TARTRATE 0.2% 5ML OPL SCH ×2 (09:03→21:02)
[2023-09-17] MEDS: ATORVASTATIN 10 MG TAB PO SCH (09:04)
[2023-09-17] MEDS: carvediloL 12.5 MG TAB PO SCH ×2 (09:04→21:02)
[2023-09-17] MEDS: TACROLIMUS 1 MG CAP PO SCH (09:04)
[2023-09-17] MEDS: MULTIVITAMIN TAB PO SCH (09:04)
[2023-09-17] MEDS: amLODIPine BESYLATE 5 MG TAB PO SCH (09:04)
[2023-09-17] MEDS: TIMOLOL MALEATE 0.5% OP SOLN 5 ML BTL OPL SCH ×2 (09:04→21:02)
[2023-09-17] MEDS: CYANOCOBALAMIN (B-12) 500 MCG TABLET PO SCH (09:04)
[2023-09-17] MEDS: NICOTINE 14 MG/24 HR PATCH TD SCH (09:04)
[2023-09-17] MEDS: ADVANCED PROBIOTIC 1250 MG CAPSULE PO SCH ×2 (09:04→21:02)
[2023-09-17] MEDS: INSULIN ASPART PER UNIT CHARGE SC SCH ×4 (09:08→21:05)
[2023-09-17] MEDS: lisinopril 40 MG TAB PO SCH (09:10)
--- NOTE | 2023-09-17 15:31 | Hospitalist Progress Note ---
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 difficile negative Hold home diuretics, lisinopril -> Cr improving to 1.35 today (from 1.4) Imodium as needed Hold iron supplement due to ongoing diarrhea Tacrolimus level resulted today from 09/13 and is elevated at 21.2 (see below) Tolerating current diet PT/ OT recommending rehab but patient refused Elevated tacrolimus level Tacro trough 21.[address] Zarate of [facility] transplant who confirmed accurately timed trough - recommending holding tonight's tacro dose, redrawing trough level in AM and reducing daily dose to 0.5mg BID Feels patient should be transferred to a facility that can more readily obtain tacro results (our lab is a send out that can take 24-48 hours minimum) Awaiting returned call from transfer center Renal mass CT ABD:Atrophy of the tribe kidneys. Mass in the RIGHT lower pole measures 2.8 x 2.4 cm, increasing in size when compared to May 27, 2023. Recommend abdominal MRI and urology evaluation. Underlying cancer cannot be excluded. 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 No hydronephrosis. Appreciate urology input Need workup as outpatient follow-up with transplant center H/O CAD S/P CABG CVA/PVD S/P surgery Valvular heart disease (mild MR, TR) Continue carvedilol, Lipitor Hypertension Continue Coreg, amlodipine Monitor BP closely Resume lisinopril tomorrow Hydralazine as needed for now Hyperlipidemia Continue statin DM II Hold oral medications S/P Pancreas transplant on tacrolimus immunosuppression Last HBA1C: 04 Jun 2023 Continue insulin while hospitalized Monitor BGs Hypothyroidism Normal TSH Chronic anemia, Hb at baseline Past tobacco abuse DVT Px: SCDs Re: Recent GI bleed Code Status Full code Patient requesting updates providers. Ms. Daniela Brock, contact #[phone]. Patient seen in collaboration with Dr. Maxwell. Please see addendum. Admission and Anticipated Discharge Date Admission Date: September 13, 2023 Supervising Physician Co-Signing Physician Notes Patient is seen and examined at bedside. Reports that having chronic diarrhea. Denies any nausea, vomiting. Has some abdominal discomfort. Tacrolimus levels elevated. Discussed with transplant team. Will hold tacrolimus today. Physical exam unchanged from yesterday. Reviewed blood work. Given complexity of patient's condition, history of transplant--may need to be transferred to tertiary facility for further management. Will recheck tacrolimus levels tomorrow. I personally reviewed the record. Patient is interviewed and examined at bedside. Patient's care is coordinated with Kiley Hammonds PA-C. Please refer to the documentation above for details of patient's presentation and for discussion of other issues. Subjective Patient is seen and examined at bedside in follow-up for diarrhea, [place]. Lab work improving and patient tolerating more fluids but still having multiple episodes of diarrhea overnight. Frustrated that there does not seem to be an explanation for what is causing it but does admit he has had it intermittently ever since his kidney transplant. Denies any chest pain, dizziness, vomiting, abdominal pain. Refusing rehab transplant would like to be discharged home with PT/OT. Review of Systems Review of Systems: At least ten systems reviewed and negative except as noted in the HPI. Physical Exam Physical Exam: Gen: WD/WN, NAD, elderly male, appears chronically ill, sitting at side of bed, A&Ox3 HEENT: Normocephalic, atraumatic, conjunctivae moist, sclerae anicteric, dry mucous membranes Lung: Clear to Auscultation bilaterally, no wheezes/rales/rhonchi Heart: Regular rate, regular rhythm, no murmurs, rubs, or gallops Abdomen: Soft, NT, ND +BS x 4 Extremities: no edema Skin: Warm, no rash Results & Data Results & Data Vital Signs (Past 12 Hours) Vital Signs Temp Pulse Resp BP Pulse Ox O2 Del Method 09/17/23 07:31 36.5 C 68 16 174/76 H 97 Room Air Laboratory Results [facility] 09/17/23 07:47 Sodium 138 Potassium 4.3 Chloride 113 H Carbon Dioxide 20 L BUN 35 H Creatinine 1.35 Glucose 102 H Calcium 8.5 L Diagnostic Findings Abdomen/Pelvis CT 09/12/23 19:00 Exam(s): CT ABDOMEN + PELVIS Without Contrast EXAM: CT Abdomen and Pelvis Without Intravenous Contrast CLINICAL HISTORY: Reason for exam: diarreha [place]. TECHNIQUE: Axial computed tomography images of the abdomen and pelvis without intravenous contrast. CTDI is 16.64 mGy and DLP is 951.63 mGy-cm. Automated exposure control was utilized for the study. A dose lowering technique was utilized adhering to the principles of ALARA. COMPARISON: CT abdomen pelvis May 27, 2023. FINDINGS: Lung bases: Atelectasis at the lung bases. Heart: Cardiomegaly. Calcified coronary arteries. ABDOMEN: Liver: Unremarkable. Gallbladder and bile ducts: Cholelithiasis. No ductal dilation. Pancreas: Unremarkable. No ductal dilation. Spleen: Unremarkable. No splenomegaly. Adrenals: Unremarkable. No mass. Kidneys and ureters: Atrophy of the tribe kidneys. Mass in the RIGHT lower pole measures 2.8 x 2.4 cm, increasing in size when compared to May 27, 2023. Recommend abdominal MRI and urology evaluation. Underlying cancer cannot be excluded. 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 No hydronephrosis. Stomach and bowel: Diverticulosis, without acute diverticulitis. No small bowel obstruction. No free intraperitoneal air. PELVIS: Appendix: No findings to suggest acute appendicitis. Bladder: Unremarkable. No stones. Reproductive: Penile pump. ABDOMEN and PELVIS: Intraperitoneal space: Unremarkable. No free air. No significant fluid collection. Bones/joints: Sternotomy wires. Degenerative changes of the spine. No acute fracture. No dislocation. Soft tissues: Unremarkable. Vasculature: Atherosclerotic changes of the aorta. Lymph nodes: Unremarkable. No enlarged lymph nodes. IMPRESSION: 1. Atrophy of the tribe kidneys. Mass in the RIGHT lower pole measures 2.8 x 2.4 cm, increasing in size when compared to May 27, 2023. Recommend abdominal MRI and urology evaluation. Underlying cancer cannot be excluded. 2. 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 No hydronephrosis. 3. Diverticulosis, without acute diverticulitis. No small bowel obstruction. No free intraperitoneal air. Electronically signed by: Shiva Mcgovern MD 09/12/23 20:42 PM Chest X-Ray 09/12/23 20:57 SINGLE VIEW CHEST CLINICAL HISTORY: Renal failure. FINDINGS: An AP, portable, upright chest radiograph is compared to study dated 06/06/2023 and correlated with chest CT dated 06/30/2020. The patient is status post midline sternotomy. The heart is enlarged noting atherosclerotic calcification of the thoracic aorta. The pulmonary vasculature is noncongested. Chronic interstitial thickening is similar to previous. There is chronic elevation of the right hemidiaphragm with bibasilar scarring/atelectasis. No airspace consolidation or large pleural effusion is identified. No pneumothorax is seen. The skeletal structures are osteopenic. The bony thorax is grossly intact. IMPRESSION: Cardiomegaly with no acute cardiopulmonary abnormality. ACT 112: Negative or not required by law. Electronically signed by: Shaheen Lo M.D. 09/12/2023 9:58 PM
[2023-09-17] MEDS: hydrALAZINE 10 MG TAB PO PRN (17:27)
--- NOTE | 2023-09-17 17:48 | Discharge Summary ---
Date of Service September 17, 2023 Admission HPI Per Admitting Provider History obtained from patient, family, and records. 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 difficile, chronic anemia (baseline hemoglobin 12) Last confinement June 2023 under Vascular Surgery service for elective left carotid endarterectomy for left ICA stenosis. Procedure has been delayed by almost months due to [facility] admission last April 2023 for recurrent GI bleed secondary to gastric ulcer. Antiplatelet Rx on hold indefinitely. 1 week history of increasing weakness and diarrhea symptoms, dark brown stools. No chest pain, no SOB. Antibiotic Rx last month for some respiratory tract infection as per . Salad consumption at a local diner. Poor appetite. Increased abdominal cramping noted the last couple of days. Patient directed to ER by outpatient provider. 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 Admission Exam Per Admitting Provider GENERAL: Slightly uncomfortable, slightly hard of hearing, pleasant, no respiratory distress SKIN: Pallor, warm HEENT: Pale palpebral conjunctivae, no ptosis, dry buccal mucosa NECK : Supple, no tenderness CHEST : CTA, no tenderness HEART : RRR, no obvious murmurs ABDOMEN: Some distention, nontender EXTREMITIES : No LE swelling/tenderness, no other conspicuous deformities noted NEUROLOGIC : Coherent, no facial asymmetry, slightly hard of hearing, no other gross focality Principal Diagnosis Acute kidney injury--Resolved Concern for tacrolimus toxicity Renal mass--concern for malignancy H/O kidney and pancreas transplant on immunosuppression Hypertension Discharge Data Allergies Allergy/AdvReac Type Severity Reaction Status Date / Time sulfamethoxazole Allergy Intermediate rash Verified 09/12/23 18:55 trimethoprim Allergy Intermediate rash Verified 09/12/23 18:55 promethazine [From Phenergan] AdvReac Intermediate AGITATION/C Verified 09/12/23 18:55 ONFUSION Consultations 09/12/23 21:01 ED Decision to Admit Stat 09/12/23 21:39 Consult Urology Routine 09/17/23 17:35 Burn CD for patient Routine Procedures Performed Laboratory Results WBC 8.68 K/ul (4.8-10.8) 09/16/23 06:30 RBC 4.38 M/uL (4.70-6.10) L 09/16/23 06:30 Hgb 13.1 g/dl (14.0-18.0) L 09/16/23 06:30 Hct 38.3 % (42.0-52.0) L 09/16/23 06:30 MCV 87.4 fL (80.0-100.0) 09/16/23 06:30 MCH 29.9 pg (25.0-34.0) 09/16/23 06:30 MCHC 34.2 g/dL (32.0-36.0) 09/16/23 06:30 RDW Std Deviation 44.9 fL (36.4-46.3) 09/16/23 06:30 RDW Coeff of Jorden 14.1 % (11.5-14.5) 09/16/23 06:30 Plt Count 115 K/uL (130-400) L 09/16/23 06:30 MPV 11.5 fL (9.4-12.4) 09/16/23 06:30 Immature Gran % (Auto) 0.3 % 09/13/23 05:45 Neut % (Auto) 53.6 % 09/13/23 05:45 Lymph % (Auto) 19.3 % 09/13/23 05:45 Boyd % (Auto) 10.3 % 09/13/23 05:45 Eos % (Auto) 16.2 % 09/13/23 05:45 Baso % (Auto) 0.3 % 09/13/23 05:45 Neut # (Auto) 3.97 K/uL (1.40-6.50) 09/13/23 05:45 Lymph # (Auto) 1.43 K/uL (1.20-3.40) 09/13/23 05:45 Boyd # (Auto) 0.76 K/uL (0.11-0.59) H 09/13/23 05:45 Eos # (Auto) 1.20 K/uL (0.00-0.50) H 09/13/23 05:45 Baso # (Auto) 0.02 K/uL (0.00-0.20) 09/13/23 05:45 Immature Gran # (Auto) 0.02 K/uL (0.01-0.20) 09/13/23 05:45 Sodium 138 mmol/L (136-145) 09/17/23 07:47 Potassium 4.3 mmol/L (3.5-5.1) 09/17/23 07:47 Chloride 113 mmol/L (98-107) H 09/17/23 07:47 Carbon Dioxide 20 mmol/L (21-32) L 09/17/23 07:47 Anion Gap 5 (3-11) 09/17/23 07:47 BUN 35 mg/dl (6-23) H 09/17/23 07:47 Creatinine 1.35 mg/dl (0.6-1.4) 09/17/23 07:47 Est Cr Clr Drug Dosing 45.4 ml/min 09/17/23 07:47 Est GFR ( Amer) 59.5 ml/min 09/17/23 07:47 Est GFR (Non-Af Amer) 51.4 ml/min 09/17/23 07:47 BUN/Creatinine Ratio 25.9 (10-20) H 09/17/23 07:47 Glucose 102 mg/dl (70-99(Fasting)) H 09/17/23 07:47 POC Glucose 165 mg/dl (70-99) H 09/17/23 16:48 Calcium 8.5 mg/dl (8.6-10.3) L 09/17/23 07:47 Magnesium 1.9 mg/dl (1.7-2.4) 09/12/23 17:58 Total Bilirubin 0.5 mg/dl (0.2-1.0) 09/12/23 17:58 AST 13 U/L (13-39) 09/12/23 17:58 ALT 10 U/L (7-52) 09/12/23 17:58 Alkaline Phosphatase 76 U/L (34-104) 09/12/23 17:58 Total Protein 6.5 gm/dl (6.0-8.3) 09/12/23 17:58 Albumin 3.9 gm/dl (3.4-5.0) 09/12/23 17:58 Globulin 2.6 gm/dl (2.5-4.0) 09/12/23 17:58 Albumin/Globulin Ratio 1.5 (0.9-2) 09/12/23 17:58 Lipase 62 U/L (11-82) 09/12/23 17:58 TSH 1.695 uIu/ml (0.300-4.500) 09/13/23 05:45 Urine Color Yellow 09/13/23 20:41 Urine Appearance Clear (Clear) 09/13/23 20:41 Urine pH 5.0 (4.5-7.5) 09/13/23 20:41 Ur Specific Wil[place] 1.013 (1.000-1.030) 09/13/23 20:41 Urine Protein Negative (Negative) 09/13/23 20:41 Urine Glucose (UA) Negative (Negative) 09/13/23 20:41 Urine Ketones Negative (Negative) 09/13/23 20:41 Urine Blood Negative (Negative) 09/13/23 20:41 Urine Nitrite Negative (Negative) 09/13/23 20:41 Urine Bilirubin Negative (Negative) 09/13/23 20:41 Urine Urobilinogen Negative (Negative) 09/13/23 20:41 Ur Leukocyte Esterase Negative (Negative) 09/13/23 20:41 Stl C. cayetanensis PCR Not Detected (NotDetected) 09/13/23 11:42 Stool Rotavirus A PCR Not Detected (NotDetected) 09/13/23 11:42 Stl Adenov F / PCR Not Detected (NotDetected) 09/13/23 11:42 Stool Astrovirus (PCR) Not Detected (NotDetected) 09/13/23 11:42 Stool Campylobacter PCR Not Detected (NotDetected) 09/13/23 11:42 Stl C. diff Tox B Gene Negative Cdiff Gene (Neg) 09/13/23 11:42 Stool Cryptosporidium PCR Not Detected (NotDetected) 09/13/23 11:42 Stl E.coli Shiga Tox PCR Not Detected (NotDetected) 09/13/23 11:42 Stl Enterotoxigenic E PCR Not Detected (NotDetected) 09/13/23 11:42 Stool EPEC (PCR) Not Detected (NotDetected) 09/13/23 11:42 Stool EAEC (PCR) Not Detected (NotDetected) 09/13/23 11:42 Stl E. histolytica PCR Not Detected (NotDetected) 09/13/23 11:42 Stool Giardia Lamblia PCR Not Detected (NotDetected) 09/13/23 11:42 Stool Salmonella PCR Not Detected (NotDetected) 09/13/23 11:42 Stool Sapovirus (PCR) Not Detected (NotDetected) 09/13/23 11:42 Stl P. shigelloides PCR Not Detected (NotDetected) 09/13/23 11:42 Stl Shigella/EIEC PCR Not Detected (NotDetected) 09/13/23 11:42 St Y.enterocolitica PCR Not Detected (NotDetected) 09/13/23 11:42 Stool Vibrio (PCR) Not Detected (NotDetected) 09/13/23 11:42 Stl Vibrio cholerae PCR Not Detected (NotDetected) 09/13/23 11:42 Stl Norovirus GI/GII PCR Not Detected (NotDetected) 09/13/23 11:42 Tacrolimus 21.2 mcg/L H 09/13/23 17:49 Impressions Abdomen/Pelvis CT 09/12/23 19:00 Exam(s): CT ABDOMEN + PELVIS Without Contrast EXAM: CT Abdomen and Pelvis Without Intravenous Contrast CLINICAL HISTORY: Reason for exam: diarreha berlin. TECHNIQUE: Axial computed tomography images of the abdomen and pelvis without intravenous contrast. CTDI is 16.64 mGy and DLP is 951.63 mGy-cm. Automated exposure control was utilized for the study. A dose lowering technique was utilized adhering to the principles of ALARA. COMPARISON: CT abdomen pelvis May 27, 2023. FINDINGS: Lung bases: Atelectasis at the lung bases. Heart: Cardiomegaly. Calcified coronary arteries. ABDOMEN: Liver: Unremarkable. Gallbladder and bile ducts: Cholelithiasis. No ductal dilation. Pancreas: Unremarkable. No ductal dilation. Spleen: Unremarkable. No splenomegaly. Adrenals: Unremarkable. No mass. Kidneys and ureters: Atrophy of the [place] kidneys. Mass in the RIGHT lower pole measures 2.8 x 2.4 cm, increasing in size when compared to May 27, 2023. Recommend abdominal MRI and urology evaluation. Underlying cancer cannot be excluded. 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 No hydronephrosis. Stomach and bowel: Diverticulosis, without acute diverticulitis. No small bowel obstruction. No free intraperitoneal air. PELVIS: Appendix: No findings to suggest acute appendicitis. Bladder: Unremarkable. No stones. Reproductive: Penile pump. ABDOMEN and PELVIS: Intraperitoneal space: Unremarkable. No free air. No significant fluid collection. Bones/joints: Sternotomy wires. Degenerative changes of the spine. No acute fracture. No dislocation. Soft tissues: Unremarkable. Vasculature: Atherosclerotic changes of the aorta. Lymph nodes: Unremarkable. No enlarged lymph nodes. IMPRESSION: 1. Atrophy of the [place] kidneys. Mass in the RIGHT lower pole measures 2.8 x 2.4 cm, increasing in size when compared to May 27, 2023. Recommend abdominal MRI and urology evaluation. Underlying cancer cannot be excluded. 2. 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 No hydronephrosis. 3. Diverticulosis, without acute diverticulitis. No small bowel obstruction. No free intraperitoneal air. Electronically signed by: Shiva Mcgovern MD 09/12/23 20:42 PM Chest X-Ray 09/12/23 20:57 SINGLE VIEW CHEST CLINICAL HISTORY: Renal failure. FINDINGS: An AP, portable, upright chest radiograph is compared to study dated 06/06/2023 and correlated with chest CT dated 06/30/2020. The patient is status post midline sternotomy. The heart is enlarged noting atherosclerotic calcification of the thoracic aorta. The pulmonary vasculature is noncongested. Chronic interstitial thickening is similar to previous. There is chronic elevation of the right hemidiaphragm with bibasilar scarring/atelectasis. No airspace consolidation or large pleural effusion is identified. No pneumothorax is seen. The skeletal structures are osteopenic. The bony thorax is grossly intact. IMPRESSION: Cardiomegaly with no acute cardiopulmonary abnormality. ACT 112: Negative or not required by law. Electronically signed by: Shaheen Lo M.D. 09/12/2023 9:58 PM Ordered Studies 09/12/23 19:00 CT abd pelvis wo con Stat Hospital Course (1) ARF (acute renal failure): 1) ARF (acute renal failure): [place] ON CKD III 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 difficile negative Hold home diuretics, lisinopril -> Cr improving to 1.35 today (from 1.4) Imodium as needed Hold iron supplement due to ongoing diarrhea Tacrolimus level resulted today from 09/13 and is elevated at 21.2 (see below) Tolerating current diet PT/ OT recommending rehab but patient refused Elevated tacrolimus level Concern for toxicity Tacro trough 21.[address] Zarate of [facility] transplant who confirmed accurately timed trough - recommending holding tonight's tacro dose, redrawing trough level in AM and reducing daily dose to 0.5mg BID Feels patient should be transferred to a facility that can more readily obtain tacro results (our lab is a send out that can take 24-48 hours minimum) Patient is accepted at [facility] by Dr. Sharyn Casas for further evaluation and management by transplant team. Patient understands and agrees with transfer. Patient will be transferred to [facility] when bed available. Renal mass Concern for malignancy CT ABD:Atrophy of the [place] kidneys. Mass in the RIGHT lower pole measures 2.8 x 2.4 cm, increasing in size when compared to May 27, 2023. Recommend abdominal MRI and urology evaluation. Underlying cancer cannot be excluded. 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 No hydronephrosis. Appreciate urology input Need workup as outpatient follow-up with transplant center H/O CAD S/P CABG CVA/PVD S/P surgery Valvular heart disease (mild MR, TR) Continue carvedilol, Lipitor Hypertension Continue Coreg, amlodipine Monitor BP closely Resume lisinopril tomorrow Hydralazine as needed for now Hyperlipidemia Continue statin DM II Hold oral medications S/P Pancreas transplant on tacrolimus immunosuppression Last HBA1C: 04 Jun 2023 Continue insulin while hospitalized Monitor BGs Hypothyroidism Normal TSH Chronic anemia, Hb at baseline Past tobacco abuse DVT Px: SCDs Re: Recent GI bleed Code Status Full code Patient requesting updates providers. Ms. Daniela Brock, contact #[phone]. Disposition [facility] Total Time Total Time Spent Total Time Spent (In Minutes): 75 minutes Discharge Plan Discharge Items Patient Disposition: Transfer Acute Care Hospital Reason For Visit: ARF Discharge Diagnosis: Acute kidney injury--Resolved Concern for tacrolimus toxicity Renal mass--concern for malignancy H/O kidney and pancreas transplant on immunosuppression Hypertension Activity: Per Instructions section Exercise/Sports: Wait until after follow-up appointment Non-emergency contact: Primary Care Provider, Surgeon and Specialist Call non-emergency contact if: you have any medication questions, your symptoms worsen, your pain is concerning for you and you have a fever Follow-up/Referrals: Jolly Prajapati MD [Primary Care Provider] - (Date & Time 09/23/2023 11:00 Shaista Sutherland PA-[facility] ) Diet: Carb Consistent or DM2 and Heart Healthy Add Attending Provider Instructions: Follow-up with Dr. Sharyn Casas at [facility] and transplant team for further evaluation and management. Follow-up with your urologist for further evaluation of kidney mass as advised. --- Please review current hospital medications as below. (Lisinopril restarted today given persistent hypotension) Seek immediate medical attention if your symptoms reoccur or worsen Please take all medications as instructed on discharge list below. Please call if you have any questions or problems. You can reach a [facility] hospitalist on duty at [facility] 24 hours a day by calling [phone] Add [place] Provider Instructions: Current Inpatient Medications Acetaminophen (Acetaminophen 325 Mg Tab) 650 mg PO Q4H PRN PRN Reason: Pain Stop: 10/12/23 23:44 Last Admin: 09/14/23 21:52 Dose: 650 mg Acetaminophen/Codeine Phosphate (Acetaminophen W/Codeine #3 1 Tab) 1 tab PO QID PRN PRN Reason: pain not relieved by tylenol Stop: 10/12/23 21:36 Amlodipine Besylate (Amlodipine Besylate 5 Mg Tab) 10 mg PO QAM [facility] Stop: 10/13/23 08:59 Last Admin: 09/17/23 09:04 Dose: 10 mg Atorvastatin Calcium (Atorvastatin 10 Mg Tab) 10 mg PO QAM [facility] Stop: 10/13/23 08:59 Last Admin: 09/17/23 09:04 Dose: 10 mg Brimonidine Tartrate (Brimonidine Tartrate 0.2% 5ml) 1 drops OPL BID [facility] Stop: 10/14/23 08:59 Last Admin: 09/17/23 09:03 Dose: 1 drops Carvedilol (Carvedilol 12.5 Mg Tab) 12.5 mg PO BID [facility] Stop: 10/13/23 08:59 Last Admin: 09/17/23 09:04 Dose: 12.5 mg Cyanocobalamin (Cyanocobalamin (B-12) 500 Mcg Tablet) 1,000 mcg PO QAM [facility] Stop: 10/13/23 08:59 Last Admin: 09/17/23 09:04 Dose: 1,000 mcg Dextrose (Dextrose 50% 50 Ml Syringe) 25 - 50 ml IV UD PRN; Protocol PRN Reason: Hypoglycemia Protocol Stop: 10/12/23 23:44 Ferrous Sulfate (Ferrous Sulfate 325 Mg Tab) 325 mg PO BID [facility] Stop: 10/13/23 08:59 Last Admin: 09/13/23 07:56 Dose: 325 mg Glucagon (Glucagon For Inj 1 Mg Vial) 1 mg SQ UD PRN; Protocol PRN Reason: Hypoglycemia Protocol Stop: 10/12/23 23:44 Glucose (Glucose 10 Tab/Tube) 4 - 8 tab PO UD PRN; Protocol PRN Reason: Hypoglycemia Treatment Stop: 10/12/23 23:44 Glucose (Glucose 40% Gel 15 Gm Tube) 15 - 30 gm PO UD PRN; Protocol PRN Reason: Hypoglycemia Protocol Stop: 10/12/23 23:44 Hydralazine HCl (Hydralazine 10 Mg Tab) 10 mg PO Q6H PRN PRN Reason: HypertensionSBP>180orDBP>100 Stop: 10/16/23 16:44 Last Admin: 09/17/23 17:27 Dose: 10 mg Insulin Aspart (Insulin Aspart Per Unit Charge) 0 units SC ACHS [facility] Stop: 10/12/23 23:44 Last Admin: 09/17/23 12:30 Dose: 1 units Lactobacillus Acidophilus (Advanced Probiotic 1250 Mg Capsule) 1 cap PO BID [facility] Stop: 10/13/23 08:59 Last Admin: 09/17/23 09:04 Dose: 1 cap Lisinopril (Lisinopril 40 Mg Tab) 40 mg PO QAM [facility] Stop: 10/17/23 08:59 Last Admin: 09/17/23 09:10 Dose: 40 mg Loperamide HCl (Loperamide Hcl 2 Mg Cap) 2 mg PO UD PRN PRN Reason: Diarrhea Stop: 10/13/23 14:14 Last Admin: 09/15/23 09:11 Dose: 2 mg Melatonin (Melatonin 3 Mg Tab) 9 mg PO HS PRN PRN Reason: Sleep Stop: 10/13/23 20:17 Last Admin: 09/17/23 01:47 Dose: 9 mg Miscellaneous (Rocklatan~Order Awaiting Action) 1 each N/A QS [facility] Stop: 10/13/23 00:00 Last Admin: 09/17/23 15:36 Dose: Not Given Miscellaneous (Carbohydrates For Hypoglycemia ) 15 - 30 gm PO UD PRN PRN Reason: Hypoglycemia Protocol Stop: 10/12/23 23:44 Last Admin: 09/13/23 08:15 Dose: 15 gm Miscellaneous (Remove Nicoderm Patch) 1 each N/A DAILY@0859 [facility] Stop: 10/17/23 08:58 Last Admin: 09/17/23 09:04 Dose: 1 each Multivitamins (Multivitamin Tab) 1 tab PO QAM [facility] Stop: 10/13/23 08:59 Last Admin: 09/17/23 09:04 Dose: 1 tab Nicotine (Nicotine 14 Mg/24 Hr Patch) 14 mg TD QAM [facility] Stop: 10/16/23 12:14 Last Admin: 09/17/23 09:04 Dose: 14 mg Ondansetron HCl (Ondansetron Inj 2 Mg/Ml 2 Ml Vial) 4 mg IV Q4H PRN PRN Reason: Nausea Stop: 10/13/23 00:54 Last Admin: 09/15/23 04:23 Dose: 4 mg Tacrolimus (Tacrolimus 0.5 Mg Cap) 0.5 mg PO BID [facility] Stop: 10/18/23 08:59 Timolol Maleate (Timolol Maleate 0.5% Op Soln 5 Ml Btl) 1 drops OPL BID [facility] Stop: 10/14/23 08:59 Last Admin: 09/17/23 09:04 Dose: 1 drops Trazodone HCl (Trazodone Hcl 50 Mg Tab) 50 mg PO HS [facility] Stop: 10/13/23 20:59 Last Admin: 09/16/23 21:16 Dose: 50 mg Pending Studies at Discharge: No Stand-Alone Forms: [facility] Skilled Items Patient informed of condition?: Yes DNR: No Discharge Level of Care: Other Communicable Disease: No Discharge Prognosis: Stable Lines: Peripheral IV Urinary Catheter: No Medications and DC Order Prescriptions: Continued benzonatate 100 mg Capsule 100 mg PO TID PRN (Reason: cough) Qty: 30 0RF loperamide 2 mg capsule 2 mg PO DIRECTED MDD 4 TABS/24 HOURS PRN (Reason: Diarrhea) Rx Instructions: TAKE 2 TABS AT ONSET OF DIARRHEA, THEN 1 TAB AFTER EACH EPISODE. trazodone 50 mg Tablet 50 mg PO HS Advanced Probiotic 625 mg (10 billion cell) Capsule 1 cap PO BID tacrolimus 1 mg Granules In Packet 1 mg PO AMPM ferrous sulfate 325 mg (65 mg iron) tablet,delayed release (DR/EC) 325 mg PO BID acetaminophen [Tylenol] 325 mg Tablet 650 mg PO Q4H PRN (Reason: Pain) chlorthalidone 25 mg tablet 25 mg PO QAM amlodipine 10 mg tablet 10 mg PO QAM glipizide 2.5 mg tablet extended release 24hr 5 mg PO QAM brimonidine-timolol [Combigan] 0.2-0.5 % drops 1 drp OPL BID multivitamin Tablet 1 tab PO QAM cyanocobalamin (vitamin B-12) [Vitamin B-12] 100 mcg Tablet 1,000 mcg PO QAM Rx Instructions: lozenge ascorbic acid (vitamin C) [Vitamin C] 500 mg Tablet 500 mg PO QAM metformin 1,000 mg tablet 1,000 mg PO BIDM Hold Instructions: Resume on 05/23/23. cholecalciferol (vitamin D3) [Vitamin D3] 50 mcg (2,000 unit) Tablet 50 mcg PO QAM Rocklatan 0.02-0.005 % drops 1 drp OPB HS carvedilol 12.5 mg tablet 12.5 mg PO BID oregano oil 1,500 mg Capsule 1,500 mg PO DAILY atorvastatin [Lipitor] 10 mg Tablet 10 mg PO QAM lisinopril 40 mg Tablet 40 mg PO QAM Discharge Orders: Discharge Order (Routine); Ordered 09/17/23 Ordered By: Boni Maxwell Admission Data Admit Date/Time: 09/13/23 18:48 Attending Provider: Boni Maxwell Admit Provider: Boni Maxwell Primary Care Provider: Jolly Prajapati Other Providers: Ayaan Fernandez; Giancarlo Bray; Ezequiel Kelly; Jamshid Darnell; Adrianne Sterling; Kike Neumann; Carolann Hewitt; Dia Man; Wilson Segovia; Anjali Oreilly; Yoan De Jesus; Truman Thao.; [facility]; Kiley Hammonds; Sean Cha [facility]
[2023-09-17] MEDS: traZODone HCL 50 MG TAB PO SCH (21:02)
[2023-09-18 07:39] LABS: Hematocrit (blood only) 39.5 % (42.0-52.0); Hemoglobin 13.4 g/dl (14.0-18.0); Mean Corpuscular Hemoglobin 29.8 pg (25.0-34.0); Mean Corpuscular Hgb Conc 33.9 g/dL (32.0-36.0); Mean Corpuscular Volume 87.8 fL (80.0-100.0); Mean Platelet Volume 11.8 fL (9.4-12.4); Platelet Count 98 K/uL (130-400); RDW Coefficient of Variation 14.1 % (11.5-14.5); RDW Standard Deviation 45.1 fL (36.4-46.3); White Blood Count 8.03 K/ul (4.8-10.8)
[2023-09-18 07:59] LABS: BUN Creatinine Ratio 27.9 (10-20); Calcium 8.6 mg/dl (8.6-10.3); Creatinine Clr Calc Pharmacy 47.5 ml/min; Est GFR (African American) 62.9 ml/min; Est GFR (Non-African American) 54.3 ml/min; Potassium 4.1 mmol/L (3.5-5.1)
[2023-09-18] MEDS: NICOTINE 14 MG/24 HR PATCH TD SCH (08:49)
[2023-09-18] MEDS: carvediloL 12.5 MG TAB PO SCH (08:49)
[2023-09-18] MEDS: ADVANCED PROBIOTIC 1250 MG CAPSULE PO SCH ×2 (08:49→19:38)
[2023-09-18] MEDS: MULTIVITAMIN TAB PO SCH (08:49)
[2023-09-18] MEDS: TACROLIMUS 0.5 MG CAP PO SCH ×2 (08:50→19:39)
[2023-09-18] MEDS: amLODIPine BESYLATE 5 MG TAB PO SCH (08:50)
[2023-09-18] MEDS: CYANOCOBALAMIN (B-12) 500 MCG TABLET PO SCH (08:50)
[2023-09-18] MEDS: lisinopril 40 MG TAB PO SCH (08:50)
[2023-09-18] MEDS: BRIMONIDINE TARTRATE 0.2% 5ML OPL SCH (08:50)
[2023-09-18] MEDS: ATORVASTATIN 10 MG TAB PO SCH (08:50)
[2023-09-18] MEDS: TIMOLOL MALEATE 0.5% OP SOLN 5 ML BTL OPL SCH (08:51)
[2023-09-18] MEDS: INSULIN ASPART PER UNIT CHARGE SC SCH ×4 (08:57→19:35)
[2023-09-18] MEDS ORDERED: CHLORTHALIDONE 25 MG TAB PO SCH (09:15)
--- NOTE | 2023-09-18 16:09 | Hospitalist Progress Note ---
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 difficile negative Hold home diuretics, lisinopril -> Cr improving from 2.19 on admission back to baseline ~ 1.29 today Imodium as needed Hold iron supplement due to ongoing diarrhea Tacrolimus level resulted today from 09/13 and is elevated at 21.2 (see below) Tolerating current diet PT/ OT recommending rehab Elevated tacrolimus level Concern for toxicity Tacro trough 21.2 from 09/12 (resulted on 09/17) Discussed with Dr. Zarate of [facility] transplant who confirmed accurately timed trough Feels patient should be transferred to a facility that can more readily obtain tacro results (our lab is a send out that can take 24-48 hours minimum) Patient is accepted at [facility] by Dr. Sharyn Casas for further evaluat ion and management by transplant team. Patient understands and agrees with transfer. Patient will be transferred to [facility] when bed available. Repeat Tacro level drawn this AM and pending - continue reduced Tacro dose at 0.5mg BID as per Dr. Zarate's recommendation Renal mass Concern for malignancy CT ABD:Atrophy of the [place] kidneys. Mass in the RIGHT lower pole measures 2.8 x 2.4 cm, increasing in size when compared to May 27, 2023. Recommend abdominal MRI and urology evaluation. Underlying cancer cannot be excluded. 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 No hydronephrosis. Appreciate urology input Need workup as outpatient follow-up with transplant center H/O CAD S/P CABG CVA/PVD S/P surgery Valvular heart disease (mild MR, TR) Continue carvedilol, Lipitor Hypertension Continue Coreg, amlodipine, lisinopril, resumed chlorthalidone this AM as BP elevated Monitor BP closely Hydralazine as needed for now Hyperlipidemia Continue statin DM II Hold oral medications S/P Pancreas transplant on tacrolimus immunosuppression Last HBA1C: 04 Jun 2023 Continue insulin while hospitalized Monitor BGs Hypothyroidism Normal TSH Chronic anemia, Hb at baseline Past tobacco abuse DVT Px: SCDs Re: Recent GI bleed Code Status Full code Patient requesting updates providers. Ms. Daniela Brock, contact #[phone]. Disposition [facility] Patient seen in collaboration with Dr. Maxwell. Please see addendum. Admission and Anticipated Discharge Date Admission Date: September 13, 2023 Supervising Physician Co-Signing Physician Notes Patient is seen and examined at bedside. Offers no new complaints. Still has some diarrhea. BP elevated today. Denies any nausea, vomiting, dizziness, headache, change in vision, chest pain, dyspnea. No abd pain today. Tacrolimus levels elevated. Discussed with transplant team on 09/17/23. Physical exam unchanged from yesterday. Reviewed blood work. Given complexity of patient's condition, history of transplant--Patient will be transferred to [facility] for further management when bed available. Agree with increase in coreg dose to 25mg BID for better BP control. Repeat tacrolimus levels pending. Tacrolimus dose decreased to 2.5 mg twice a day as recommended by transplant team. I personally reviewed the record. Patient is interviewed and examined at bedside. Patient's care is coordinated with Kiley Hammonds PA-C. Please refer to the documentation above for details of patient's presentation and for discussion of other issues. Subjective Patient is seen and examined at bedside in follow-up for diarrhea, BERLIN. Lab work improving and patient tolerating more fluids but still having multiple episodes of diarrhea overnight. Spoke with transplant team at [facility] yesterday and due to elevated tacro levels they were recommending transfer and patient was accepted to medical service. Awaiting bed assignment and transfer. Denies any chest pain, dizziness, vomiting, abdominal pain. Slept well overnight but last diarrhea episode this morning. No acute changes overnight. Review of Systems Review of Systems: At least ten systems reviewed and negative except as noted in the HPI. Physical Exam Physical Exam: Gen: WD/WN, NAD, elderly male, appears chronically ill, resting comfortably in bed, A&Ox3 HEENT: Normocephalic, atraumatic, conjunctivae moist, sclerae anicteric, dry mucous membranes Lung: Clear to Auscultation bilaterally, no wheezes/rales/rhonchi Heart: Regular rate, regular rhythm, no murmurs, rubs, or gallops Abdomen: Soft, NT, ND +BS x 4 Extremities: no edema Skin: Warm, no rash Results & Data Results & Data Vital Signs (Past 12 Hours) Vital Signs Temp Pulse Pulse Resp BP Pulse Ox O2 Del Method 09/18/23 16:01 36.9 C 70 16 184/76 H 98 Room Air 09/18/23 07:18 36.7 C 68 16 186/82 H 98 Room Air 09/18/23 04:54 68 164/74 H Laboratory Results Short CBC 09/18/23 Range/Units 06:41 WBC 8.03 (4.8-10.8) K/ul Hgb 13.4 L (14.0-18.0) g/dl Hct 39.5 L (42.0-52.0) % Plt Count 98 L (130-400) K/uL BMP 09/18/23 06:41 Sodium 140 Potassium 4.1 Chloride 112 H Carbon Dioxide 21 BUN 36 H Creatinine 1.29 Glucose 107 H Calcium 8.6 Diagnostic Findings Abdomen/Pelvis CT 09/12/23 19:00 Exam(s): CT ABDOMEN + PELVIS Without Contrast EXAM: CT Abdomen and Pelvis Without Intravenous Contrast CLINICAL HISTORY: Reason for exam: diarreha [place]. TECHNIQUE: Axial computed tomography images of the abdomen and pelvis without intravenous contrast. CTDI is 16.64 mGy and DLP is 951.63 mGy-cm. Automated exposure control was utilized for the study. A dose lowering technique was utilized adhering to the principles of ALARA. COMPARISON: CT abdomen pelvis May 27, 2023. FINDINGS: Lung bases: Atelectasis at the lung bases. Heart: Cardiomegaly. Calcified coronary arteries. ABDOMEN: Liver: Unremarkable. Gallbladder and bile ducts: Cholelithiasis. No ductal dilation. Pancreas: Unremarkable. No ductal dilation. Spleen: Unremarkable. No splenomegaly. Adrenals: Unremarkable. No mass. Kidneys and ureters: Atrophy of the [place] kidneys. Mass in the RIGHT lower pole measures 2.8 x 2.4 cm, increasing in size when compared to May 27, 2023. Recommend abdominal MRI and urology evaluation. Underlying cancer cannot be excluded. 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 No hydronephrosis. Stomach and bowel: Diverticulosis, without acute diverticulitis. No small bowel obstruction. No free intraperitoneal air. PELVIS: Appendix: No findings to suggest acute appendicitis. Bladder: Unremarkable. No stones. Reproductive: Penile pump. ABDOMEN and PELVIS: Intraperitoneal space: Unremarkable. No free air. No significant fluid collection. Bones/joints: Sternotomy wires. Degenerative changes of the spine. No acute fracture. No dislocation. Soft tissues: Unremarkable. Vasculature: Atherosclerotic changes of the aorta. Lymph nodes: Unremarkable. No enlarged lymph nodes. IMPRESSION: 1. Atrophy of the [place] kidneys. Mass in the RIGHT lower pole measures 2.8 x 2.4 cm, increasing in size when compared to May 27, 2023. Recommend abdominal MRI and urology evaluation. Underlying cancer cannot be excluded. 2. 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 No hydronephrosis. 3. Diverticulosis, without acute diverticulitis. No small bowel obstruction. No free intraperitoneal air. Electronically signed by: Shiva Mcgovern MD 09/12/23 20:42 PM Chest X-Ray 09/12/23 20:57 SINGLE VIEW CHEST CLINICAL HISTORY: Renal failure. FINDINGS: An AP, portable, upright chest radiograph is compared to study dated 06/06/2023 and correlated with chest CT dated 06/30/2020. The patient is status post midline sternotomy. The heart is enlarged noting atherosclerotic calcification of the thoracic aorta. The pulmonary vasculature is noncongested. Chronic interstitial thickening is similar to previous. There is chronic elevation of the right hemidiaphragm with bibasilar scarring/atelectasis. No airspace consolidation or large pleural effusion is identified. No pneumothorax is seen. The skeletal structures are osteopenic. The bony thorax is grossly intact. IMPRESSION: Cardiomegaly with no acute cardiopulmonary abnormality. ACT 112: Negative or not required by law. Electronically signed by: Shaheen Lo M.D. 09/12/2023 9:58 PM
[2023-09-18] MEDS ORDERED: carvediloL 25 MG TAB PO SCH (21:00)
--- NOTE | 2023-09-19 21:06 | Discharge Summary ---
Discharge Summary Date of Service (date of discharge 09/18/23) Notes For Next Care Provider Elevated tacrolimus level Concern for toxicity [place] Medication Changes From Visit Tacrolimus decreased to 0.5mg BID per transplant service prior to transfer, resumed all home BP meds and increased carvedilol to 25mg BID Admission HPI Per Admitting Provider History obtained from patient, family, and records. 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 difficile, chronic anemia (baseline hemoglobin 12) Last confinement June 2023 under Vascular Surgery service for elective left carotid endarterectomy for left ICA stenosis. Procedure has been delayed by almost months due to [facility] admission last April 2023 for recurrent GI bleed secondary to gastric ulcer. Antiplatelet Rx on hold indefinitely. 1 week history of increasing weakness and diarrhea symptoms, dark brown stools. No chest pain, no SOB. Antibiotic Rx last month for some respiratory tract infection as per . Salad consumption at a local diner. Poor appetite. Increased abdominal cramping noted the last couple of days. Patient directed to ER by outpatient provider. 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 Admission Exam Per Admitting Provider GENERAL: Slightly uncomfortable, slightly hard of hearing, pleasant, no respiratory distress SKIN: Pallor, warm HEENT: Pale palpebral conjunctivae, no ptosis, dry buccal mucosa NECK : Supple, no tenderness CHEST : CTA, no tenderness HEART : RRR, no obvious murmurs ABDOMEN: Some distention, nontender EXTREMITIES : No LE swelling/tenderness, no other conspicuous deformities noted NEUROLOGIC : Coherent, no facial asymmetry, slightly hard of hearing, no other gross focality Principal Dx & Hospital Course #1 = Principal Diagnosis (1) ARF (acute renal failure): [place] ON CKD III 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 difficile negative Hold home diuretics, lisinopril -> Cr improving to 1.35 today (from 1.4) Imodium as needed Hold iron supplement due to ongoing diarrhea Tacrolimus level resulted today from 09/13 and is elevated at 21.2 (see below) Tolerating current diet PT/ OT recommending rehab but patient refused Elevated tacrolimus level Concern for toxicity Tacro trough 21.2 from 09/12 (resulted on 09/17) Discussed with Dr. Zarate of [facility] transplant who confirmed accurately timed trough Feels patient should be transferred to a facility that can more readily obtain tacro results (our lab is a send out that can take 24-48 hours minimum) Patient is accepted at [facility] by Dr. Sharyn Casas for further evaluation and management by transplant team. Patient understands and agrees with transfer. Patient will be transferred to [facility] when bed available. Repeat Tacro level drawn this AM and pending - continue reduced Tacro dose at 0 .5mg BID as per Dr. Zarate's recommendation Renal mass Concern for malignancy CT ABD:Atrophy of the [place] kidneys. Mass in the RIGHT lower pole measures 2.8 x 2.4 cm, increasing in size when compared to May 27, 2023. Recommend abdominal MRI and urology evaluation. Underlying cancer cannot be excluded. 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 No hydronephrosis. Appreciate urology input Need workup as outpatient follow-up with transplant center H/O CAD S/P CABG CVA/PVD S/P surgery Valvular heart disease (mild MR, TR) Continue carvedilol, Lipitor Hypertension Continue amlodipine, lisinopril, resumed chlorthalidone and increased Coreg to 25mg BID as BP elevated Monitor BP closely Hydralazine as needed for now Hyperlipidemia Continue statin DM II Hold oral medications S/P Pancreas transplant on tacrolimus immunosuppression Last HBA1C: 04 Jun 2023 Continue insulin while hospitalized Monitor BGs Hypothyroidism Normal TSH Chronic anemia, Hb at baseline Past tobacco abuse DVT Px: SCDs Re: Recent GI bleed Code Status Full code Patient requesting updates providers. Ms. Daniela Brock, contact #[phone]. Patient seen in collaboration with Dr. Maxwell. Please see addendum. Discharge Exam Gen: WD/WN, NAD, elderly male, appears chronically ill, resting comfortably in bed, A&Ox3 HEENT: Normocephalic, atraumatic, conjunctivae moist, sclerae anicteric, dry mucous membranes Lung: Clear to Auscultation bilaterally, no wheezes/rales/rhonchi Heart: Regular rate, regular rhythm, no murmurs, rubs, or gallops Abdomen: Soft, NT, ND +BS x 4 Extremities: no edema Skin: Warm, no rash Updated Medication List Medication Instructions Recorded Confirmed Type acetaminophen 325 mg tablet 650 mg PO Q4H PRN Pain 11/19/22 09/12/23 History (Tylenol) amlodipine 10 mg tablet 10 mg PO QAM 11/19/22 09/12/23 History ascorbic acid (vitamin C) 500 mg 500 mg PO QAM 11/19/22 09/12/23 History tablet (Vitamin C) brimonidine 0.2 %-timolol 0.5 % 1 drp OPL BID 11/19/22 09/12/23 History eye drops (Combigan) chlorthalidone 25 mg tablet 25 mg PO QAM 11/19/22 09/12/23 History cholecalciferol (vitamin D3) 50 50 mcg PO QAM 11/19/22 09/12/23 History mcg (2,000 unit) tablet (Vitamin D3) cyanocobalamin (vitamin B-12) 100 1,000 mcg PO QAM 11/19/22 09/12/23 History mcg tablet (Vitamin B-12) glipizide 2.5 mg tablet, extended 5 mg PO QAM 11/19/22 09/12/23 History release 24 hr metformin 1,000 mg tablet 1,000 mg PO BIDM 11/19/22 09/12/23 History multivitamin 1 tab PO QAM 11/19/22 09/12/23 History netarsudil 0.02 %-latanoprost 1 drp OPB HS 11/19/22 09/12/23 History 0.005 % eye drops (Rocklatan) carvedilol 12.5 mg tablet 12.5 mg PO BID 05/20/23 09/12/23 History oregano oil 1,500 mg capsule 1,500 mg PO DAILY 05/20/23 09/12/23 History benzonatate 100 mg capsule 100 mg PO TID PRN cough #30 caps 06/10/23 09/12/23 Rx atorvastatin 10 mg tablet (Lipitor) 10 mg PO QAM 07/15/23 09/12/23 History lisinopril 40 mg tablet 40 mg PO QAM 07/15/23 09/12/23 History L.acidop,casei,lactis,rham-B.lact,dennys 1 cap PO BID 09/12/23 09/12/23 History 625 mg (10 billion cell) capsule (Advanced Probiotic) ferrous sulfate 325 mg (65 mg 325 mg PO BID 09/12/23 09/12/23 History iron) tablet,delayed release loperamide 2 mg capsule 2 mg PO DIRECTED PRN Diarrhea 09/12/23 09/12/23 History tacrolimus 1 mg oral granules in 1 mg PO AMPM 09/12/23 09/12/23 History packet trazodone 50 mg tablet 50 mg PO HS 09/12/23 09/12/23 History Hospital Stay Data Consultations 09/12/23 21:01 ED Decision to Admit Stat 09/12/23 21:39 Consult Urology Routine 09/17/23 17:35 Burn CD for patient Routine Diagnostic Imagining Performed 09/12/23 19:00 CT abd pelvis wo con Stat Pending Results Patient Have Any Pending Studies at Discharge: No Discharge Instructions Given to Patient (Per Discharging Provider) Follow-up with Dr. Sharyn Casas at [facility] and transplant team for further evaluation and management. Follow-up with your urologist for further evaluation of kidney mass as advised. --- Please review current hospital medications as below. (Lisinopril restarted today given persistent hypertension) Seek immediate medical attention if your symptoms reoccur or worsen Please take all medications as instructed on discharge list below. Please call if you have any questions or problems. You can reach a [facility] hospitalist on duty at [facility] 24 hours a day by calling [phone] Total Time Total Time Spent Total Time Spent (In Minutes): 50
== END 2023-09-18 19:45 | disposition short-term general hospital (02) | DRG 683 ==
LOC: ED 17:33 → 3N 17:33

== ENCOUNTER 2023-10-05 23:22 | Inpatient (IN) ==
--- NOTE | 2023-10-05 23:39 | Emergency Department Note ---
Impression & Plan Abdominal pain, Dyspnea, BERLIN (acute kidney injury), Partial small bowel obstruction, Elevated lipase ED Provider Note ED Provider Note NAME: LAW HE AGE:73 SEX: Male : 1950 ARRIVES VIA: EMS INFORMANT: Patient ED PROVIDER(s): Amada Hurtado DO CHIEF COMPLAINT: Abdominal pain, shortness of breath HPI: This is a 73-year-old male brought in by EMS due to concern for worsening left sided abdominal pain. Patient just discharged from [facility] facility earlier today. Patient with prior pancreas transplant in 2003. Patient states pain began just after discharge. Patient states he now feels short of breath additionally, was nauseated but did not vomit. He states several medications were changed and new ones added while he was hospitalized. He denies fevers. Patient has had multiple abdominal surgeries. He denies any recent URI symptoms. PAST MEDICAL HISTORY:See Below PAST SURGICAL HISTORY:See Below FAMILY HISTORY:See Below SOCIAL HISTORY:See Below HOME MEDICATIONS:See Below ALLERGIES:See Below VITALS:See Below PHYSICAL EXAMINATION: GENERAL: alert, uncomfortable appearing, well nourished, moderate distress, asking to hang legs off of bed EYE EXAM: normal conjunctiva, PERRL and EOM's grossly intact OROPHARYNX: no exudate, no erythema, lips, buccal mucosa, and tongue normal and mucous membranes are mildly dry NECK: supple, no nuchal rigidity, no adenopathy, non-tender LUNGS: Decreased to auscultation. Normal chest wall mechanics, no w/r/r, tachypnea HEART: no murmurs, S1 normal and S2 normal ABDOMEN: Abdomen firm, distended, tympanitic to percussion, with predominant left-sided abdominal pain, no palpable mass, multiple well healed surgical scars BACK: Back is symmetrical on inspection and there is no deformity, no midline tenderness, no CVA tenderness. SKIN: no rashes, petechiae, orbruising UPPER EXTREMITIES: upper extremities are grossly normal. FROM, nml pulses b/l. LOWER EXTREMITIES: No pitting edema. FROM, nml pulses b/l. NEURO EXAM: Normal sensorium, cranial nerves II-XII grossly intact, normal speech, no facial droop,nogross weakness of arms, no gross weakness of legs. Gross sensation intact. No ataxia. Vital Signs: reviewed and remarkable Differential Diagnosis: Perforation, bowel obstruction, mesenteric ischemia, GI bleed, bacteremia/sepsis, BERLIN, pneumonia, medication ADR, gastroparesis, ileus, as well as others were considered MEDICAL DECISION MAKING: This is a 73 yo male who presents to the ER due to increasing abdominal pain. VS stable. Patient with markedly distended abdomen and diffuse pain. Labs drawn and sent, IV established, EKG and CXR performed and interpreted at bedside, and patient placed on telemetry. He was sent urgently for CT a/p. He was started on low maintenance IVF, given IV tylenol and IV fentanyl for pain. CT with pSBO vs ileus, however worsening lab values also noted. We attempted to obtain records from [facility] regarding recent admission including labs for comparison, but these were never faxed to us. Given distention and pain in light of CT findings, NG tube placed with improvement in his distention and pain. I discussed the case with the front clerk transplant attending who agreed with need for transfer back to [facility]. He requested cultures be added additionally. I then spoke with the hospitalist at [facility] who accepted the patient in transfer. Repeat POC BMP in the morning with improvement in patient's creatinine and potassium as well as improved hyperglycemia. Consultation(s): 0308: Discussed with Dr. Rowell, transplant attending at [facility]. He requested cultures be added, no additional orders. Recommends patient to be transferred back to [facility] for additional evaluation. 0345: Discussed with Dr. Snyder, hospitalist at [facility], will accept to medicine service. ER Treatment Provided: See below 0215: Patient states he is feeling improved after placement of NG with return of fluid already. 0422: Patient states distention and pain is improving. VS stable. 0647: Patient continues to report feeling improved, still with generalized discomfort of the abdomen. NG with continued output. 0800: Case signed out to Dr. Pacheco awaiting bed assisgnment and transportation to [facility] [place]. Diagnostics Interpreted By Me: -ECG: Normal sinus at 67, normal axis, normal intervals, peaked T waves noted V2 through V6, no significant change in morphology compared to September 12, 2023, peaked T waves seen previously although today more pronounced -Cardiac Monitoring: An order was placed for continuous cardiac monitoring. The monitor shows a rate of 70 with normal sinus rhythm. -Laboratory studies: As stated above and show below. -Imaging studies: X-ray Chest: A single view study of the chest was reviewed and was negative for cardiomegaly, focal infiltrate, effusion, pulmonary edema, or wide mediastinum. Dilated loops of bowel noted. Triage Nursing Note Reviewed Prior/Outside Records Reviewed Critical Care: Critical care of 56 min performed to assess and manage high likelihood of life- threatening abd pain in a transplant patient, involving labs and imaging performed with assessment to evaluate abdominal pain diagnosis with frequent reassessment. This time includes bedside time, treatment discussions with patient/family/consultants, documentation time and excludes procedure time. Past Med/Surg History Medical History Postop carotid endarterectomy surveillance, encounter for S/P transesophageal echocardiogram (EILEEN) Hx: recurrent pneumonia last episode ~Fall 2021 History of pneumothorax during his open heart surgery in 2002 at [facility]. will have reoccurring pneumonia since. Bacteremia associated with IV line during patient's inpatient stay at the end of April 2023 due to a severe IV infiltration during inpatient stay. doing okay at this time. no curret infection. GI bleed ~05/26/23 treated at [facility] PAD (peripheral artery disease) S/p right fem/pop artery revascularization with stent placed and angioplasty per records - right tibial/peroneal artery revascularization with angio Hypothyroidism Fistula hx of ---was in right arm and no longer working Skin cancer on ear and head Asthma as child History of COVID-19 06/2022 - resolved Symptomatic carotid artery stenosis with infarction 90% stenosis of the proximal right external carotid artery. There is 30% stenosis of the proximal right internal iliac artery just beyond its origin with a tandem 20% stenosis seen distally within the right ICA at its entrance to carotid siphon; 80% stenosis of the proximal left ICA Acute CVA (cerebrovascular accident) - 05/17/23- started with weakness and discoordination right let and arm. Speech slurred at some points. - Dx'ed with acute CVA 05/20/23- admitted to [facility] until 05/22/23 - Right side weakness is getting better. History of TIA (transient ischemic attack) Unsure of date Diabetes mellitus, type II Hx of severe diabetes- 2003 had pancreas transplant- did not require DM meds until the past four years (had to restart oral DM meds) CAD (coronary artery disease) "s/p CABG x 5 in 2002" [facility] HTN (hypertension) Dyslipidemia CKD (chronic kidney disease), stage III - at this time - Hx of ESRD- on dialysis x one year but had kidney transplant 2003- no dialysis required since that time Surgical History Transplant recipient pancreas and kidney transplants in 2003 S/P PICC central line placement since removed 05/2023 Hx of chest tube placement 2002 for pneumothorax History of esophagogastroduodenoscopy (EGD) for a GI Bleed ~05/26/[address] Fitzpatrick at [facility]. Hx of extremity bypass graft - right fem/pop artery revascularization with stent placed and angioplasty per records - right tibial/peroneal artery revascularization with angio History of open reduction and internal fixation (ORIF) procedure left hip History of pancreas transplant 2003- [facility]- had this at the time of kidney transplant pancreas had abcess and was taken back in to drain it. History of kidney transplant 2003 -[facility] -- ERSD and on dialysis for a year and then had transplant and at this time the doctor is monitoring S/P CABG (coronary artery bypass graft) x 5 -- [facility] 2002 - incidental finding when getting worked up for transplant follows with Medical doctor Family History Mother Breast cancer Father Diabetes Other No family history of adverse response to anesthesia Social History Smoking Status: Never smoker Tobacco Type: Smokeless Tobacco (Dip or Chew) Second Hand Exposure: No; Do You Dip or Chew Tobacco: Yes (advised NPO); Hx Alcohol Use: No Hx Substance Use: No Preferred Language: Venezuelan Communication Ability: Impaired Event Manager Required: No Beliefs That Will Affect Care: Church Church Beliefs: Sikh marital status: Current Living Situation: Spouse Feels Safe at Home: Yes Assistive Devices: Walker Allergies Allergies Allergy/AdvReac Type Severity Reaction Status Date / Time sulfamethoxazole Allergy Intermediate rash Verified 10/06/23 00:47 trimethoprim Allergy Intermediate rash Verified 10/06/23 00:47 promethazine [From Phenergan] AdvReac Intermediate AGITATION/C Verified 10/06/23 00:47 ONFUSION Home Meds Home Medications Medication Instructions Recorded Confirmed amlodipine 10 mg tablet 10 mg PO QAM 11/19/22 10/06/23 brimonidine 0.2 %-timolol 0.5 % 1 drp OPL Q12 11/19/22 10/06/23 eye drops ([place]) chlorthalidone 25 mg tablet 25 mg PO QAM 11/19/22 10/06/23 glipizide 2.5 mg tablet, extended 2.5 mg PO BIDM 11/19/22 10/06/23 release 24 hr metformin 1,000 mg tablet 1,000 mg PO BIDM 11/19/22 10/06/23 multivitamin 1 tab PO BID 11/19/22 10/06/23 netarsudil 0.02 %-latanoprost 1 drp OPB HS 11/19/22 10/06/23 0.005 % eye drops ([place]) carvedilol 12.5 mg tablet 12.5 mg PO BID 05/20/23 10/06/23 atorvastatin 10 mg tablet (Lipitor) 10 mg PO QAM 07/15/23 10/06/23 ferrous sulfate 325 mg (65 mg 325 mg PO BID 09/12/23 10/06/23 iron) tablet,delayed release tacrolimus 1 mg oral granules in 1 mg PO Q12 09/12/23 10/06/23 packet trazodone 50 mg tablet 50 mg PO HS 09/12/23 10/06/23 Bifidobacterium-Lactobacillus 1 tab PO QPM 10/06/23 10/06/23 Oil Of Oregano 150 mg PO BID 10/06/23 10/06/23 Vitamin B12, 3000mcg/Ml 1 ml sublingual QPM 10/06/23 10/06/23 ascorbic acid (vitamin C) 1,000 mg 1 g PO QPM 10/06/23 10/06/23 tablet (Vitamin C) aspirin 81 mg tablet,delayed 81 mg PO DAILY 10/06/23 10/06/23 release astragalus root 250 mg capsule 500 mg PO TID 10/06/23 10/06/23 cholecalciferol (vitamin D3) 125 125 mcg PO QAM 10/06/23 10/06/23 mcg (5,000 unit) tablet (Vitamin D3) coQ10 (ubiquinol) 100 mg capsule 100 mg PO BID 10/06/23 10/06/23 ovvdlc-olnlbenv-gbcxkyw 1 cap PO TID 10/06/23 10/06/23 24,000-76,000-120,000 unit capsule,delayed rel (Creon) lisinopril 20 mg tablet 20 mg PO BID 10/06/23 10/06/23 mycophenolate sodium 180 mg 360 mg PO .AC BID 10/06/23 10/06/23 tablet,delayed release (Myfortic) mycophenolate sodium 360 mg 720 mg PO BID 10/06/23 10/06/23 tablet,delayed release (Myfortic) pantoprazole 40 mg tablet,delayed 40 mg PO BID 10/06/23 10/06/23 release tamsulosin 0.4 mg capsule 0.8 mg PO DAILY 10/06/23 10/06/23 Results & Data (ED) Vital Signs Vital Signs - 24 hr 10/05/23 23:30 10/05/23 23:41 10/06/23 01:27 Temperature 35.3 C L Temperature Source Rectal Pulse Rate 69 73 Pulse Rate [Apical] 69 Pulse Rhythm [Apical] Pulse Strength [Apical] Respiratory Rate 22 24 Respiratory Effort / Characteristics Non-Labored Spontaneous Non-Labored Spontaneous Respiratory Depth Normal Normal Respiratory Pattern Regular Regular Blood Pressure 137/84 Blood Pressure [Right Arm] 134/74 Blood Pressure Mean 101 Blood Pressure Mean [Right Arm] 94 Blood Pressure Position Lying Blood Pressure Position [Right Arm] Lying Pulse Oximetry 96 95 Oxygen Delivery Method Nasal Cannula Room Air Oxygen Flow Rate 2 Sepsis Recent Fever Within 48 Hours No Sepsis New/Unexplained Change in Mental Status No Sepsis Action Taken by Nursing Physician Notified 10/06/23 03:00 10/06/23 03:30 10/06/23 05:00 Temperature 35.3 C L 37.1 C Temperature Source Oral Oral Pulse Rate 64 Pulse Rate [Apical] 72 71 Pulse Rhythm [Apical] Regular Pulse Strength [Apical] Normal Respiratory Rate 16 14 Respiratory Effort / Characteristics Non-Labored Non-Labored Respiratory Depth Normal Normal Respiratory Pattern Regular Regular Blood Pressure Blood Pressure [Right Arm] 147/77 H 161/75 H Blood Pressure Mean Blood Pressure Mean [Right Arm] 100 103 Blood Pressure Position Blood Pressure Position [Right Arm] Sitting Sitting Pulse Oximetry 99 99 Oxygen Delivery Method Nasal Cannula Nasal Cannula Oxygen Flow Rate 2 2 Sepsis Recent Fever Within 48 Hours Sepsis New/Unexplained Change in Mental Status Sepsis Action Taken by Nursing Laboratory Data 10/06/23 17:28 10/06/23 17:28 Lab Results 10/05/23 10/05/23 10/05/23 Range/Units 23:35 23:40 23:58 WBC 12.94 H (4.8-10.8) K/ul RBC 4.06 L (4.70-6.10) M/uL Hgb 12.0 L (14.0-18.0) g/dl POC Hgb 12.6 L (14.0-18.0) g/dl Hct 35.9 L (42.0-52.0) % POC Hct 37 L (42-52) % MCV 88.4 (80.0-100.0) fL MCH 29.6 (25.0-34.0) pg MCHC 33.4 (32.0-36.0) g/dL RDW Std Deviation 46.5 H (36.4-46.3) fL RDW Coeff of Jorden 14.4 (11.5-14.5) % Plt Count 214 (130-400) K/uL MPV 10.9 (9.4-12.4) fL Immature Gran % (Auto) 0.8 % Neut % (Auto) 83.5 % Lymph % (Auto) 7.7 % [place] % (Auto) 7.3 % Eos % (Auto) 0.5 % Baso % (Auto) 0.2 % Neut # (Auto) 10.81 H (1.40-6.50) K/uL Lymph # (Auto) 0.99 L (1.20-3.40) K/uL [place] # (Auto) 0.95 H (0.11-0.59) K/uL Eos # (Auto) 0.06 (0.00-0.50) K/uL Baso # (Auto) 0.03 (0.00-0.20) K/uL Immature Gran # (Auto) 0.10 (0.01-0.20) K/uL PT 11.7 (9.0-12.0) Seconds INR 1.1 (0.9-1.1) POC Sodium 130 L (135-144) mmol/L Sodium 129 L (136-145) mmol/L POC Potassium 5.7 H (3.3-5.0) mmol/L Potassium 5.6 H (3.5-5.1) mmol/L POC Chloride 95 L (101-112) mmol/L Chloride 95 L (98-107) mmol/L Carbon Dioxide 26 (21-32) mmol/L POC Total CO2 26 (24-31) mmol/L Anion Gap 8 (3-11) POC Anion Gap 16.0 (16-25) mmol/L POC BUN 66 H (7-18) mg/dl BUN 78 H (6-23) mg/dl Creatinine 1.85 H (0.6-1.4) mg/dl POC Creatinine 1.9 H (0.6-1.3) mg/dl Est Cr Clr Drug Dosing 36.2 ml/min Est GFR ( Amer) 40.7 ml/min Est GFR (Non-Af Amer) 35.1 ml/min BUN/Creatinine Ratio 42.2 H (10-20) Glucose 246 H (70-99(Fasting)) mg/dl POC Glucose (other) 241 H (70-99) mg/dl Lactate 1.9 (0.4-2.0) mmol/L Calcium 8.6 (8.6-10.3) mg/dl POC Ioniz Calcium Juan 1.16 (1.12-1.32) mmol/l Magnesium 1.9 (1.7-2.4) mg/dl Total Bilirubin 0.4 (0.2-1.0) mg/dl Direct Bilirubin (0-0.2) mg/dl AST 25 (13-39) U/L ALT 23 (7-52) U/L Alkaline Phosphatase 74 (34-104) U/L Lactate Dehydrogenase (86-244) U/L Troponin I High Sens 12.8 (0-20) pg/ml Total Protein 6.3 (6.0-8.3) gm/dl Albumin 3.5 (3.4-5.0) gm/dl Globulin 2.8 (2.5-4.0) gm/dl Albumin/Globulin Ratio 1.3 (0.9-2) Lipase 565 H (11-82) U/L Procalcitonin < 0.05 (0-0.5) ng/ml Adenovirus (PCR) (NotDetected) B. pertussis DNA (PCR) (NotDetected) B.parapertussis DNA PCR (NotDetected) C. pneumoniae DNA (PCR) (NotDetected) Coronavirus OC43 (PCR) (NotDetected) Coronavirus HKU1 (PCR) (NotDetected) Coronavirus 229E (PCR) (NotDetected) SARS-CoV-2 (PCR) (NotDetected) Coronavirus NL63 (PCR) (NotDetected) Human Metapneumovir PCR (NotDetected) Influenza Type A (PCR) (NotDetected) Influenza Type B (PCR) (NotDetected) M. pneumoniae (PCR) (NotDetected) Parainfluenza 1 (PCR) (NotDetected) Parainfluenza 2 (PCR) (NotDetected) Parainfluenza 3 (PCR) (NotDetected) Parainfluenza 4 (PCR) (NotDetected) RSV (PCR) (NotDetected) Entero/Rhino (PCR) (NotDetected) 10/06/23 10/06/23 10/06/23 Range/Units 00:00 03:13 03:58 WBC (4.8-10.8) K/ul RBC (4.70-6.10) M/uL Hgb (14.0-18.0) g/dl POC Hgb 11.2 L (14.0-18.0) g/dl Hct (42.0-52.0) % POC Hct 33 L (42-52) % MCV (80.0-100.0) fL MCH (25.0-34.0) pg MCHC (32.0-36.0) g/dL RDW Std Deviation (36.4-46.3) fL RDW Coeff of Jorden (11.5-14.5) % Plt Count (130-400) K/uL MPV (9.4-12.4) fL Immature Gran % (Auto) % Neut % (Auto) % Lymph % (Auto) % [place] % (Auto) % Eos % (Auto) % Baso % (Auto) % Neut # (Auto) (1.40-6.50) K/uL Lymph # (Auto) (1.20-3.40) K/uL [place] # (Auto) (0.11-0.59) K/uL Eos # (Auto) (0.00-0.50) K/uL Baso # (Auto) (0.00-0.20) K/uL Immature Gran # (Auto) (0.01-0.20) K/uL PT (9.0-12.0) Seconds INR (0.9-1.1) POC Sodium 132 L (135-144) mmol/L Sodium 130 L (136-145) mmol/L POC Potassium 5.7 H (3.3-5.0) mmol/L Potassium 5.9 H (3.5-5.1) mmol/L POC Chloride 100 L (101-112) mmol/L Chloride 95 L (98-107) mmol/L Carbon Dioxide 27 (21-32) mmol/L POC Total CO2 24 (24-31) mmol/L Anion Gap 8 (3-11) POC Anion Gap 15.0 L (16-25) mmol/L POC BUN 72 H (7-18) mg/dl BUN 79 H (6-23) mg/dl Creatinine 2.02 H (0.6-1.4) mg/dl POC Creatinine 1.9 H (0.6-1.3) mg/dl Est Cr Clr Drug Dosing 33.1 ml/min Est GFR ( Amer) 36.6 ml/min Est GFR (Non-Af Amer) 31.5 ml/min BUN/Creatinine Ratio 39.1 H (10-20) Glucose 215 H (70-99(Fasting)) mg/dl POC Glucose (other) 205 H (70-99) mg/dl Lactate (0.4-2.0) mmol/L Calcium 8.9 (8.6-10.3) mg/dl POC Ioniz Calcium Juan 1.05 L (1.12-1.32) mmol/l Magnesium (1.7-2.4) mg/dl Total Bilirubin 0.5 (0.2-1.0) mg/dl Direct Bilirubin 0.1 (0-0.2) mg/dl AST 32 (13-39) U/L ALT 27 (7-52) U/L Alkaline Phosphatase 76 (34-104) U/L Lactate Dehydrogenase (86-244) U/L Troponin I High Sens (0-20) pg/ml Total Protein 6.5 (6.0-8.3) gm/dl Albumin 3.5 (3.4-5.0) gm/dl Globulin 3.0 (2.5-4.0) gm/dl Albumin/Globulin Ratio 1.2 (0.9-2) Lipase 513 H (11-82) U/L Procalcitonin (0-0.5) ng/ml Adenovirus (PCR) Not Detected (NotDetected) B. pertussis DNA (PCR) Not Detected (NotDetected) B.parapertussis DNA PCR Not Detected (NotDetected) C. pneumoniae DNA (PCR) Not Detected (NotDetected) Coronavirus OC43 (PCR) Not Detected (NotDetected) Coronavirus HKU1 (PCR) Not Detected (NotDetected) Coronavirus 229E (PCR) Not Detected (NotDetected) SARS-CoV-2 (PCR) Not Detected (NotDetected) Coronavirus NL63 (PCR) Not Detected (NotDetected) Human Metapneumovir PCR Not Detected (NotDetected) Influenza Type A (PCR) Not Detected (NotDetected) Influenza Type B (PCR) Not Detected (NotDetected) M. pneumoniae (PCR) Not Detected (NotDetected) Parainfluenza 1 (PCR) Not Detected (NotDetected) Parainfluenza 2 (PCR) Not Detected (NotDetected) Parainfluenza 3 (PCR) Not Detected (NotDetected) Parainfluenza 4 (PCR) Not Detected (NotDetected) RSV (PCR) Not Detected (NotDetected) Entero/Rhino (PCR) Not Detected (NotDetected) 10/06/23 10/06/23 Range/Units 07:54 12:15 WBC 8.60 (4.8-10.8) K/ul RBC 3.92 L (4.70-6.10) M/uL Hgb 11.7 L (14.0-18.0) g/dl POC Hgb 9.5 L (14.0-18.0) g/dl Hct 34.5 L (42.0-52.0) % POC Hct 28 L (42-52) % MCV 88.0 (80.0-100.0) fL MCH 29.8 (25.0-34.0) pg MCHC 33.9 (32.0-36.0) g/dL RDW Std Deviation 46.3 (36.4-46.3) fL RDW Coeff of Jorden 14.5 (11.5-14.5) % Plt Count 147 (130-400) K/uL MPV 10.8 (9.4-12.4) fL Immature Gran % (Auto) % Neut % (Auto) % Lymph % (Auto) % [place] % (Auto) % Eos % (Auto) % Baso % (Auto) % Neut # (Auto) (1.40-6.50) K/uL Lymph # (Auto) (1.20-3.40) K/uL [place] # (Auto) (0.11-0.59) K/uL Eos # (Auto) (0.00-0.50) K/uL Baso # (Auto) (0.00-0.20) K/uL Immature Gran # (Auto) (0.01-0.20) K/uL PT (9.0-12.0) Seconds INR (0.9-1.1) POC Sodium 136 (135-144) mmol/L Sodium (136-145) mmol/L POC Potassium 4.4 (3.3-5.0) mmol/L Potassium (3.5-5.1) mmol/L POC Chloride 103 (101-112) mmol/L Chloride (98-107) mmol/L Carbon Dioxide (21-32) mmol/L POC Total CO2 20 L (24-31) mmol/L Anion Gap (3-11) POC Anion Gap 18.0 (16-25) mmol/L POC BUN 55 H (7-18) mg/dl BUN (6-23) mg/dl Creatinine (0.6-1.4) mg/dl POC Creatinine 1.6 H (0.6-1.3) mg/dl Est Cr Clr Drug Dosing ml/min Est GFR ( Amer) ml/min Est GFR (Non-Af Amer) ml/min BUN/Creatinine Ratio (10-20) Glucose (70-99(Fasting)) mg/dl POC Glucose (other) 180 H (70-99) mg/dl Lactate (0.4-2.0) mmol/L Calcium (8.6-10.3) mg/dl POC Ioniz Calcium Juan 0.98 L (1.12-1.32) mmol/l Magnesium (1.7-2.4) mg/dl Total Bilirubin (0.2-1.0) mg/dl Direct Bilirubin (0-0.2) mg/dl AST (13-39) U/L ALT (7-52) U/L Alkaline Phosphatase (34-104) U/L Lactate Dehydrogenase 177 (86-244) U/L Troponin I High Sens (0-20) pg/ml Total Protein (6.0-8.3) gm/dl Albumin (3.4-5.0) gm/dl Globulin (2.5-4.0) gm/dl Albumin/Globulin Ratio (0.9-2) Lipase (11-82) U/L Procalcitonin (0-0.5) ng/ml Adenovirus (PCR) (NotDetected) B. pertussis DNA (PCR) (NotDetected) B.parapertussis DNA PCR (NotDetected) C. pneumoniae DNA (PCR) (NotDetected) Coronavirus OC43 (PCR) (NotDetected) Coronavirus HKU1 (PCR) (NotDetected) Coronavirus 229E (PCR) (NotDetected) SARS-CoV-2 (PCR) (NotDetected) Coronavirus NL63 (PCR) (NotDetected) Human Metapneumovir PCR (NotDetected) Influenza Type A (PCR) (NotDetected) Influenza Type B (PCR) (NotDetected) M. pneumoniae (PCR) (NotDetected) Parainfluenza 1 (PCR) (NotDetected) Parainfluenza 2 (PCR) (NotDetected) Parainfluenza 3 (PCR) (NotDetected) Parainfluenza 4 (PCR) (NotDetected) RSV (PCR) (NotDetected) Entero/Rhino (PCR) (NotDetected) Administered Medications Discontinued Medications Lipase/Protease/Amylase (Lipase/Protease/Amylase (24,000units Lipase Per Capsule)) 1 each PO TIDM RUBY Stop: 11/05/23 16:59 Last Admin: 10/06/23 17:46 Dose: Not Given Documented By: EDWARD Brimonidine/Timolol (Brimonidine Tartrate/Timolol Ophthalmic) 1 drops OPB BID [facility] Stop: 11/05/23 20:59 Last Admin: 10/06/23 22:14 Dose: 1 drops Documented By: LEFTY Carvedilol (Carvedilol 12.5 Mg Tab) 12.5 mg PO BIDM [facility] Stop: 11/05/23 17:14 Last Admin: 10/06/23 17:46 Dose: Not Given Documented By: EDWARD Fentanyl Citrate (Fentanyl Citrate Pf 100 Mcg/2 Ml Vial) 50 mcg IV Q15M PRN PRN Reason: Pain Stop: 10/19/23 23:36 Last Admin: 10/06/23 04:49 Dose: 50 mcg Documented By: Admin: 10/06/23 01:20 Dose: 50 mcg Documented By: MELONIE Sodium Chloride (Nss) 500 mls @ 80 mls/hr IV .Q6H15M [facility] Stop: 11/04/23 23:44 Last Admin: 10/06/23 20:40 Dose: Not Given Documented By: Admin: 10/06/23 13:43 Dose: 8 mls/hr Documented By: Infusion: 10/06/23 13:43 Dose: Infused Documented By: Admin: 10/06/23 08:05 Dose: 8 mls/hr Documented By: Infusion: 10/06/23 08:01 Dose: Infused Documented By: Admin: 10/05/23 23:59 Dose: 80 mls/hr Documented By: JOSE Pantoprazole Sodium 40 mg/ (Syringe) 10 mls @ 5 mls/min IV NOW ONE Stop: 10/06/23 00:00 Last Admin: 10/06/23 00:21 Dose: 5 mls/min Documented By: MELONIE Acetaminophen (Ofirmev) 1,000 mg in 100 mls @ 400 mls/hr IV NOW STA Stop: 10/06/23 00:13 Last Infusion: 10/06/23 01:16 Dose: Infused Documented By: Admin: 10/06/23 00:13 Dose: 400 mls/hr Documented By: MELONIE Piperacillin Sod/Tazobactam Sod (Zosyn) 4.5 gm in 100 mls @ 200 mls/hr IV NOW ONE Stop: 10/06/23 00:28 Last Infusion: 10/06/23 01:28 Dose: Infused Documented By: Admin: 10/06/23 00:13 Dose: 200 mls/hr Documented By: MELONIE Piperacillin Sod/Tazobactam Sod (Zosyn) 4.5 gm in 100 mls @ 200 mls/hr IV NOW ONE Stop: 10/06/23 07:39 Last Infusion: 10/06/23 08:45 Dose: Infused Documented By: Admin: 10/06/23 08:01 Dose: 200 mls/hr Documented By: MICKIE Pantoprazole Sodium 40 mg/ (Syringe) 10 mls @ 5 mls/min IV BID RUBY Stop: 11/05/23 20:59 Last Admin: 10/06/23 23:00 Dose: 5 mls/min Documented By: LEFTY Piperacillin Sod/Tazobactam (Sod 4.5 gm/ Dextrose) 100 mls @ 25 mls/hr IV Q8H RUBY; Protocol Stop: 10/16/23 17:07 Last Infusion: 10/06/23 22:50 Dose: Infused Documented By: Admin: 10/06/23 18:44 Dose: 25 mls/hr Documented By: EDWARD Insulin Aspart (Insulin Aspart Per Unit Charge) 0 units SC Q6 RUBY Stop: 11/05/23 07:29 Last Admin: 10/06/23 23:53 Dose: Not Given Documented By: Admin: 10/06/23 20:39 Dose: Not Given Documented By: Admin: 10/06/23 14:27 Dose: 2 units Documented By: DARREN Co-signed By: HALI Admin: 10/06/23 10:47 Dose: Not Given Documented By: MICKIE Insulin Human Regular (Novolin-R Insulin Per Unit Charge) 4 units IV NOW STA Stop: 10/06/23 00:40 Last Admin: 10/06/23 01:16 Dose: 4 units Documented By: MELONIE Co-signed By: LIANNE Labetalol HCl (Labetalol Hcl Iv 5 Mg/Ml 20ml) 10 mg IV Q6H PRN PRN Reason: hypertension, Systolic > 175 Stop: 11/05/23 16:59 Last Admin: 10/06/23 17:22 Dose: 10 mg Documented By: EDWARD Co-signed By: RAFA Labetalol HCl (Labetalol Hcl Iv 5 Mg/Ml 20ml) 10 mg IV NOW STA Stop: 10/06/23 19:16 Last Admin: 10/06/23 19:19 Dose: 10 mg Documented By: LEFTY Co-signed By: CORNELL Lisinopril (Lisinopril 20 Mg Tab) 20 mg PO BID [facility] Stop: 11/05/23 20:59 Last Admin: 10/06/23 22:13 Dose: 20 mg Documented By: LEFTY Misjayaneous (Mycophenolate Sodium [Myfortic] ~ Order Awaiting Action) 1 each N/A QS [facility] Stop: 11/06/23 00:00 Last Admin: 10/06/23 23:55 Dose: Not Given Documented By: LEFTY Rai (Netarsudil-Latanoprost [Rocklatan] ~ Order Awaiting Action) 1 each N/A QS [facility] Stop: 11/06/23 00:00 Last Admin: 10/06/23 23:55 Dose: Not Given Documented By: LEFTY Rai (Tacrolimus ~ Order Awaiting Action) 1 each N/A QS [facility] Stop: 11/06/23 00:00 Last Admin: 10/06/23 23:55 Dose: Not Given Documented By: LEFTY Mycophenolate Sodium (Mycophenolate Sodium 180 Mg Tab) 360 mg PO 0700,1600 [facility] Stop: 11/05/23 17:29 Last Admin: 10/06/23 17:46 Dose: Not Given Documented By: EDWARD Tamsulosin HCl (Tamsulosin Hcl 0.4 Mg Cap) 0.8 mg PO DAILY@1630 [facility] Stop: 11/05/23 16:29 Last Admin: 10/06/23 17:46 Dose: Not Given Documented By: EDWARD Trazodone HCl (Trazodone Hcl 50 Mg Tab) 50 mg PO HS [facility] Stop: 11/05/23 20:59 Last Admin: 10/06/23 22:14 Dose: 50 mg Documented By: LEFTY Imaging Data Radiologist's Impression: Abdomen/Pelvis CT 10/05/23 23:35 Exam(s): CT ABDOMEN + PELVIS Without Contrast EXAM: CT Abdomen and Pelvis Without Intravenous Contrast CLINICAL HISTORY: Reason for exam: abd pain, tympanitic, sob. TECHNIQUE: Axial computed tomography images of the abdomen and pelvis without intravenous contrast. CTDI is 17.32 mGy and DLP is 983.66 mGy-cm. Automated exposure control was utilized for the study. A dose lowering technique was utilized adhering to the principles of ALARA. COMPARISON: 09/12/2023. FINDINGS: Lung bases: Coarse consolidation within the left lower lobe most compatible with residual infiltrate. Mild right lower lobe atelectasis versus infiltrate. Heart: Mild cardiomegaly with coronary artery calcifications. ABDOMEN: Liver: Unremarkable. Gallbladder and bile ducts: Ovoid distended gallbladder with multiple small stones near the gallbladder neck. No ductal dilation. Pancreas: Unremarkable. No ductal dilation. Spleen: Unremarkable. No splenomegaly. Adrenals: Unremarkable. No mass. Kidneys and ureters: Severe bilateral renal atrophy. There is a left- sided transplanted kidney, unremarkable with no hydronephrosis or stone. Stomach and bowel: Significant dilatation of the stomach and small bowel concerning with air-fluid level throughout the small bowel concerning for diffuse ileus versus partial obstruction. No distinct zone of transition seen. Moderate to abundant fecal debris within the colon which may indicate underlying constipation. No mucosal thickening. PELVIS: Appendix: No findings to suggest acute appendicitis. Bladder: Unremarkable. No stones. Reproductive: Postoperative penile surgical changes. ABDOMEN and PELVIS: Intraperitoneal space: Mild free fluid within the posterior pelvis. No free air. Bones/joints: Midline sternotomy wires. Osteopenia with degenerative disease of the spine. Status post ORIF surgery with 3 fixation screws in the left femoral neck. No acute fracture. No dislocation. Soft tissues: Mild fluid infiltration of subcutaneous fat suggestive of anasarca. Vasculature: Calcified atherosclerotic disease of aorta with no aneurysm. Lymph nodes: Unremarkable. No enlarged lymph nodes. IMPRESSION: 1. Findings concerning for diffuse ileus versus partial small bowel obstruction with indeterminate zone of transition. Possible underlying constipation. 2. Mild free fluid within the posterior pelvis, etiology indeterminate. Mild diffuse anasarca. 3. Ovoid distended gallbladder with multiple small gallstones. 4. Bilateral severe renal atrophy. 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 Electronically signed by: Rekha Jaime MD 10/06/23 00:30 AM KUB X-Ray 10/06/23 02:05 XR KUB/Abdomen 1 view CLINICAL HISTORY: NG placement TECHNIQUE: 1 view of the abdomen was obtained. Comparison: Comparison is made to CT abdomen pelvis 10/05/2023 FINDINGS: Enteric tube terminates in the stomach. The osseous structures are grossly unremarkable. Multiple gas-distended loops of bowel are seen compatible with known ileus versus small bowel obstruction. Stool and gas noted within the colon. IMPRESSION: Satisfactory position of enteric tube. Redemonstration of dilated small bowel loops. ACT 112: Negative or not required by law. Electronically signed by: Vitaliy Naidu M.D. 10/06/2023 6:57 AM Discharge Plan Visit Data Chief Complaint: Abdominal Pain Stated Complaint: ABDOMINAL PAIN ED Provider: Petra Pacheco Discharge Problem: Abdominal pain, Dyspnea, [place] (acute kidney injury), Partial small bowel obstruction, Elevated lipase Patient Disposition: Admitted As Inpatient Discharge Instructions Interventions: ED Discharge Assessment Last Done: 10/06/23 17:09
[2023-10-05 23:46] LABS: Basophils # (auto) 0.03 K/uL (0.00-0.20); Basophils % (auto) 0.2 %; Eosinophils # (auto) 0.06 K/uL (0.00-0.50); Eosinophils % (auto) 0.5 %; Hematocrit (blood only) 35.9 % (42.0-52.0); Immature Granulocytes % (auto) 0.8 %; Lymphocytes # (auto) 0.99 K/uL (1.20-3.40); Lymphocytes % (auto) 7.7 %; Mean Corpuscular Hemoglobin 29.6 pg (25.0-34.0); Mean Corpuscular Hgb Conc 33.4 g/dL (32.0-36.0); Mean Corpuscular Volume 88.4 fL (80.0-100.0); Mean Platelet Volume 10.9 fL (9.4-12.4); Monocytes # (auto) 0.95 K/uL (0.11-0.59); Monocytes % (auto) 7.3 %; Neutrophils # (auto) 10.81 K/uL (1.40-6.50); Neutrophils % (auto) 83.5 %; Platelet Count 214 K/uL (130-400); RDW Coefficient of Variation 14.4 % (11.5-14.5); RDW Standard Deviation 46.5 fL (36.4-46.3); Red Blood Count 4.06 M/uL (4.70-6.10); White Blood Count 12.94 K/ul (4.8-10.8)
[2023-10-05 23:53] LABS: iSTAT Creatinine 1.9 mg/dl (0.6-1.3); iSTAT Hemoglobin 12.6 g/dl (14.0-18.0); iSTAT Ionized Calcium 1.16 mmol/l (1.12-1.32); iSTAT Potassium 5.7 mmol/L (3.3-5.0)
[2023-10-05] MEDS ORDERED: PANTOprazole 40 MG in SYRINGE 0 ML IV ONE (23:59)
[2023-10-05] MEDS: SODIUM CHLORIDE 0.9% 500 ML IV SCH (23:59)
[2023-10-05] MEDS ORDERED: PIPERACILLIN/TAZOBACTAM 4.5 GM/100 ML BAG IV ONE (23:59)
[2023-10-05] MEDS ORDERED: ACETAMINOPHEN 1,000 MG/100 ML VIAL IV STA (23:59)
[2023-10-06 00:05] LABS: Albumin Globulin Ratio 1.3 (0.9-2); Albumin Level 3.5 gm/dl (3.4-5.0); BUN Creatinine Ratio 42.2 (10-20); Bilirubin,Total 0.4 mg/dl (0.2-1.0); Calcium 8.6 mg/dl (8.6-10.3); Creatinine Clr Calc Pharmacy 36.2 ml/min; Est GFR (African American) 40.7 ml/min; Est GFR (Non-African American) 35.1 ml/min; Globulin 2.8 gm/dl (2.5-4.0); Magnesium 1.9 mg/dl (1.7-2.4); Potassium 5.6 mmol/L (3.5-5.1); Total Protein 6.3 gm/dl (6.0-8.3)
[2023-10-06 00:12] LABS: Troponin I High Sensitivity 12.8 pg/ml (0-20)
[2023-10-06 00:16] LABS: INR 1.1 (0.9-1.1); Prothrombin Time 11.7 Seconds (9.0-12.0)
--- NOTE | 2023-10-06 00:31 | CT Scan Report ---
Exam(s): CT ABDOMEN + PELVIS Without Contrast EXAM: CT Abdomen and Pelvis Without Intravenous Contrast CLINICAL HISTORY: Reason for exam: abd pain, tympanitic, sob. TECHNIQUE: Axial computed tomography images of the abdomen and pelvis without intravenous contrast. CTDI is 17.32 mGy and DLP is 983.66 mGy-cm. Automated exposure control was utilized for the study. A dose lowering technique was utilized adhering to the principles of ALARA. COMPARISON: 09/12/2023. FINDINGS: Lung bases: Coarse consolidation within the left lower lobe most compatible with residual infiltrate. Mild right lower lobe atelectasis versus infiltrate. Heart: Mild cardiomegaly with coronary artery calcifications. ABDOMEN: Liver: Unremarkable. Gallbladder and bile ducts: Ovoid distended gallbladder with multiple small stones near the gallbladder neck. No ductal dilation. Pancreas: Unremarkable. No ductal dilation. Spleen: Unremarkable. No splenomegaly. Adrenals: Unremarkable. No mass. Kidneys and ureters: Severe bilateral renal atrophy. There is a left- sided transplanted kidney, unremarkable with no hydronephrosis or stone. Stomach and bowel: Significant dilatation of the stomach and small bowel concerning with air-fluid level throughout the small bowel concerning for diffuse ileus versus partial obstruction. No distinct zone of transition seen. Moderate to abundant fecal debris within the colon which may indicate underlying constipation. No mucosal thickening. PELVIS: Appendix: No findings to suggest acute appendicitis. Bladder: Unremarkable. No stones. Reproductive: Postoperative penile surgical changes. ABDOMEN and PELVIS: Intraperitoneal space: Mild free fluid within the posterior pelvis. No free air. Bones/joints: Midline sternotomy wires. Osteopenia with degenerative disease of the spine. Status post ORIF surgery with 3 fixation screws in the left femoral neck. No acute fracture. No dislocation. Soft tissues: Mild fluid infiltration of subcutaneous fat suggestive of anasarca. Vasculature: Calcified atherosclerotic disease of aorta with no aneurysm. Lymph nodes: Unremarkable. No enlarged lymph nodes. IMPRESSION: 1. Findings concerning for diffuse ileus versus partial small bowel obstruction with indeterminate zone of transition. Possible underlying constipation. 2. Mild free fluid within the posterior pelvis, etiology indeterminate. Mild diffuse anasarca. 3. Ovoid distended gallbladder with multiple small gallstones. 4. Bilateral severe renal atrophy. 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 Electronically signed by: Rekha Jaime MD 10/06/23 00:30 AM
[2023-10-06] MEDS ORDERED: NovoLIN-R INSULIN PER UNIT CHARGE IV STA (00:39)
[2023-10-06 00:56] LABS: Adenovirus PCR Not Detected (NotDetected); Bordetella parapertussis PCR Not Detected (NotDetected); Bordetella pertussis PCR Not Detected (NotDetected); Chlamydia pneumoniae PCR Not Detected (NotDetected); Coronavirus 229E PCR Not Detected (NotDetected); Coronavirus CoV-2 (COVID19)PCR Not Detected (NotDetected); Coronavirus HKU1 PCR Not Detected (NotDetected); Coronavirus NL63 PCR Not Detected (NotDetected); Coronavirus OC43PCR Not Detected (NotDetected); Human Metapneumovirus PCR Not Detected (NotDetected); Influenza A PCR Not Detected (NotDetected); Influenza B PCR Not Detected (NotDetected); Mycoplasma pneumoniae PCR Not Detected (NotDetected); Parainfluenza Virus 1 PCR Not Detected (NotDetected); Parainfluenza Virus 2 PCR Not Detected (NotDetected); Parainfluenza Virus 3 PCR Not Detected (NotDetected); Parainfluenza Virus 4 PCR Not Detected (NotDetected); Respiratory Syncytial VirusPCR Not Detected (NotDetected); Rhinovirus/Enterovirus PCR Not Detected (NotDetected)
[2023-10-06] MEDS: fentaNYL citrate PF 100 MCG/2 ML VIAL IV PRN ×2 (01:20→04:49)
[2023-10-06 03:26] LABS: iSTAT Creatinine 1.9 mg/dl (0.6-1.3); iSTAT Hemoglobin 11.2 g/dl (14.0-18.0); iSTAT Ionized Calcium 1.05 mmol/l (1.12-1.32); iSTAT Potassium 5.7 mmol/L (3.3-5.0)
--- NOTE | 2023-10-06 06:59 | XRay Report ---
XR KUB/Abdomen 1 view CLINICAL HISTORY: NG placement TECHNIQUE: 1 view of the abdomen was obtained. Comparison: Comparison is made to CT abdomen pelvis 10/05/2023 FINDINGS: Enteric tube terminates in the stomach. The osseous structures are grossly unremarkable. Multiple gas -distended loops of bowel are seen compatible with known ileus versus small bowel obstruction. Stool and gas noted within the colon. IMPRESSION: Satisfactory position of enteric tube. Redemonstration of dilated small bowel loops. ACT 112: Negative or not required by law. Electronically signed by: Vitaliy Naidu M.D. 10/06/2023 6:57 AM
[2023-10-06] MEDS ORDERED: PIPERACILLIN/TAZOBACTAM 4.5 GM/100 ML BAG IV ONE (07:10)
--- NOTE | 2023-10-06 07:19 | XRay Report ---
XR chest 1V portable CLINICAL HISTORY: sob TECHNIQUE: Single frontal radiograph of the chest was obtained. Comparison: Comparison is made to chest radiograph 09/12/2023 FINDINGS: Median sternotomy wires are unchanged. Cardiomegaly is noted. Lungs are underinflated. No definite ai rspace opacities are seen. No evidence of pleural effusion or pneumothorax. IMPRESSION: Underinflated lungs. No definite airspace opacities. ACT 112: Negative or not required by law. Electronically signed by: Vitaliy Naidu M.D. 10/06/2023 7:18 AM
[2023-10-06] MEDS ORDERED: CARBOHYDRATES FOR HYPOGLYCEMIA PO PRN (07:30)
[2023-10-06] MEDS ORDERED: GLUCOSE 40% GEL 15 GM TUBE PO PRN (07:30)
[2023-10-06] MEDS ORDERED: DEXTROSE 50% 50 ML SYRINGE IV PRN (07:30)
[2023-10-06] MEDS ORDERED: GLUCAGON FOR INJ 1 MG VIAL IM PRN (07:30)
[2023-10-06] MEDS ORDERED: GLUCOSE 10 TAB/TUBE PO PRN (07:30)
[2023-10-06 08:05] LABS: iSTAT Creatinine 1.6 mg/dl (0.6-1.3); iSTAT Hemoglobin 9.5 g/dl (14.0-18.0); iSTAT Ionized Calcium 0.98 mmol/l (1.12-1.32); iSTAT Potassium 4.4 mmol/L (3.3-5.0)
[2023-10-06] MEDS: SODIUM CHLORIDE 0.9% 500 ML IV SCH ×3 (08:05→20:40)
--- NOTE | 2023-10-06 09:21 | Electrocardiogram Report ---
Test Reason : Blood Pressure : / mmHG Vent. Rate : 067 BPM Atrial Rate : 067 BPM P-R Int : 166 ms QRS Dur : 100 ms QT Int : 436 ms P-R-T Axes : 035 -28 030 degrees QTc Int : 460 ms Normal sinus rhythm Normal ECG When compared with ECG of 12-SEP-2023 17:42, No significant change was found Confirmed by Channing Garza ([id number]) on 10/06/2023 9:21:32 AM Referred By: REFERRED SELF Confirmed By:Channing Garza
--- NOTE | 2023-10-06 09:22 | Electrocardiogram Report ---
Test Reason : Blood Pressure : / mmHG Vent. Rate : 073 BPM Atrial Rate : 073 BPM P-R Int : 158 ms QRS Dur : 098 ms QT Int : 430 ms P-R-T Axes : 045 -20 010 degrees QTc Int : 473 ms Normal sinus rhythm Normal ECG When compared with ECG of 05-OCT-2023 23:29, No significant change was found Confirmed by Channing Garza ([id number]) on 10/06/2023 9:22:26 AM Referred By: REFERRED SELF Confirmed By:Channing Garza
[2023-10-06] MEDS: INSULIN ASPART PER UNIT CHARGE SC SCH ×4 (10:47→23:53)
--- NOTE | 2023-10-06 12:01 | History & Physical Report ---
Date of Service October 06, 2023 Assessment & Plan (1) Partial small bowel obstruction: Plan: This is a 73 y/o male with hx CAD s/p CABG, prior CVA, PAD s/p fem/pop angio and stent, s/p rib tib/peroneal angio revascularization, mild MR/TR, HTN, DM2, hypothyroidism, ESRD s/p kidney and pancreas transplant in 2003, on chronic immunosuppression (tacrolimus and CellCept), dyslipidemia, and other medical history as outlined below who presented to the ED last night with worsening abdominal pain. Work-up here consistent with partial SBO, elevated lipase c/w pancreatitis. ED attempted to initiate transfer back to [facility] directly from the ED but no beds available so referred for admission. - Admit to PCU until bed available at [facility] - Consult surgery for recommendations while awaiting transfer - pt currently has NGT with suction - Holding oral meds while NGT hooked up to suction - no IV versions of pt's immunosuppressants on formulary here so will have to hold for now. Will resume as soon as able to d/c suction. - IV Labetalol prn for BP - Insulin sliding scale - Continue Zosyn empirically for now (2) Pancreatitis: (3) BERLIN (acute kidney injury): (4) CAD (coronary artery disease): (5) Diabetes mellitus, type II: (6) HTN (hypertension): (7) Dyslipidemia: (8) History of kidney transplant: (9) History of pancreas transplant: Plan Received recommendations from pharmacy for pt's immunosuppression regimen once able to hold suction on NGT: "His anti-rejection drugs (tacrolimus and mycofenolate SODIUM) were of the greatest concern. As far as the tacrolimus goes, the capsules can be opened and mixed with water prior to NG administration, however the transplant team may want to weigh in on the dosage if he has BERLIN. The mycofenolate SODIUM (Myfortic) tablets we have cannot be crushed. We do have mycofenolate mofetil (Cellcept) suspension; however this would also require input from the transplant team as these meds are not equivalent --- but this is the closest alternative we have." Pt seen and reviewed with attending physician, Dr. Laboy. Plan of care discussed and as outline above. Debi Valle PA-C History of Present Illness Chief Complaint: abdominal pain Primary Care Provider: Jolly Prajapati MD This is a 73 y/o male with hx CAD s/p CABG, prior CVA, PAD s/p fem/pop angio and stent, s/p rib tib/peroneal angio revascularization, mild MR/TR, HTN, DM2, hypothyroidism, ESRD s/p kidney and pancreas transplant in 2003, on chronic immunosuppression (tacrolimus and CellCept), dyslipidemia, and other medical history as outlined below who presented to the ED last night with worsening abdominal pain. He reports that he was discharged from [facility] yesterday after a two week hospitalization. He reports that during that admission, he was having abdominal pain that was severe at times and had not completely resolved at the time of discharge. He reports multiple medication changes were made during that admission but is unsure exactly what they were and unclear on exactly what transpired during that admission. His pain seems worse with constipation but got somewhat better with a BM. Reports that he had a BM yesterday and then again this morning, which gave him some relief of the pain. He and his not that his abdomen last night was very distended, not much improvement in the bloating this morning even with the bowel movement. Reports his baseline bowel pattern is diarrhea for 3-4 days then no BM for 3-4 days then cycle seems to repeat - ongoing issue. He denies documented fevers but has felt like he has had a hard time getting warm. No night sweats. No chest pain, changes in urination. Does have some chronic urinary urgency that is no worse than usual. Allergies Allergy/AdvReac Type Severity Reaction Status Date / Time sulfamethoxazole Allergy Intermediate rash Verified 10/06/23 00:47 trimethoprim Allergy Intermediate rash Verified 10/06/23 00:47 promethazine [From Phenergan] AdvReac Intermediate AGITATION/C Verified 10/06/23 00:47 ONFUSION Home Medications Medication Instructions Recorded Confirmed Type amlodipine 10 mg tablet 10 mg PO QAM 11/19/22 10/06/23 History brimonidine 0.2 %-timolol 0.5 % 1 drp OPL Q12 11/19/22 10/06/23 History eye drops (Combigan) chlorthalidone 25 mg tablet 25 mg PO QAM 11/19/22 10/06/23 History glipizide 2.5 mg tablet, extended 2.5 mg PO BIDM 11/19/22 10/06/23 History release 24 hr metformin 1,000 mg tablet 1,000 mg PO BIDM 11/19/22 10/06/23 History multivitamin 1 tab PO BID 11/19/22 10/06/23 History netarsudil 0.02 %-latanoprost 1 drp OPB HS 11/19/22 10/06/23 History 0.005 % eye drops (Rocklatan) carvedilol 12.5 mg tablet 12.5 mg PO BID 05/20/23 10/06/23 History atorvastatin 10 mg tablet (Lipitor) 10 mg PO QAM 07/15/23 10/06/23 History ferrous sulfate 325 mg (65 mg 325 mg PO BID 09/12/23 10/06/23 History iron) tablet,delayed release tacrolimus 1 mg oral granules in 1 mg PO Q12 09/12/23 10/06/23 History packet trazodone 50 mg tablet 50 mg PO HS 09/12/23 10/06/23 History Bifidobacterium-Lactobacillus 1 tab PO QPM 10/06/23 10/06/23 History Oil Of Oregano 150 mg PO BID 10/06/23 10/06/23 History Vitamin B12, 3000mcg/Ml 1 ml sublingual QPM 10/06/23 10/06/23 History ascorbic acid (vitamin C) 1,000 mg 1 g PO QPM 10/06/23 10/06/23 History tablet (Vitamin C) aspirin 81 mg tablet,delayed 81 mg PO DAILY 10/06/23 10/06/23 History release astragalus root 250 mg capsule 500 mg PO TID 10/06/23 10/06/23 History cholecalciferol (vitamin D3) 125 125 mcg PO QAM 10/06/23 10/06/23 History mcg (5,000 unit) tablet (Vitamin D3) coQ10 (ubiquinol) 100 mg capsule 100 mg PO BID 10/06/23 10/06/23 History zewxnx-mynhljxv-vazrhmn 1 cap PO TID 10/06/23 10/06/23 History 24,000-76,000-120,000 unit capsule,delayed rel (Creon) lisinopril 20 mg tablet 20 mg PO BID 10/06/23 10/06/23 History mycophenolate sodium 180 mg 360 mg PO .AC BID 10/06/23 10/06/23 History tablet,delayed release (Myfortic) mycophenolate sodium 360 mg 720 mg PO BID 10/06/23 10/06/23 History tablet,delayed release (Myfortic) pantoprazole 40 mg tablet,delayed 40 mg PO BID 10/06/23 10/06/23 History release tamsulosin 0.4 mg capsule 0.8 mg PO DAILY 10/06/23 10/06/23 History Past Med/Surg History Medical History Postop carotid endarterectomy surveillance, encounter for S/P transesophageal echocardiogram (EILEEN) Hx: recurrent pneumonia last episode ~Fall 2021 History of pneumothorax during his open heart surgery in 2002 at [facility]. will have reoccurring pneumonia since. Bacteremia associated with IV line during patient's inpatient stay at the end of April 2023 due to a severe IV infiltration during inpatient stay. doing okay at this time. no curret infection. GI bleed ~05/26/23 treated at [facility] PAD (peripheral artery disease) S/p right fem/pop artery revascularization with stent placed and angioplasty per records - right tibial/peroneal artery revascularization with angio Hypothyroidism Fistula hx of ---was in right arm and no longer working Skin cancer on ear and head Asthma as child History of COVID-19 06/2022 - resolved Symptomatic carotid artery stenosis with infarction 90% stenosis of the proximal right external carotid artery. There is 30% stenosis of the proximal right internal iliac artery just beyond its origin with a tandem 20% stenosis seen distally within the right ICA at its entrance to carotid siphon; 80% stenosis of the proximal left ICA Acute CVA (cerebrovascular accident) - 05/17/23- started with weakness and discoordination right let and arm. Speech slurred at some points. - Dx'ed with acute CVA 05/20/23- admitted to [facility] until 05/22/23 - Right side weakness is getting better. History of TIA (transient ischemic attack) Unsure of date Diabetes mellitus, type II Hx of severe diabetes- 2003 had pancreas transplant- did not require DM meds until the past four years (had to restart oral DM meds) CAD (coronary artery disease) "s/p CABG x 5 in 2002" [facility] HTN (hypertension) Dyslipidemia CKD (chronic kidney disease), stage III - at this time - Hx of ESRD- on dialysis x one year but had kidney transplant 2003- no dialysis required since that time Surgical History Transplant recipient pancreas and kidney transplants in 2003 S/P PICC central line placement since removed 05/2023 Hx of chest tube placement 2002 for pneumothorax History of esophagogastroduodenoscopy (EGD) for a GI Bleed ~05/26/[address] Fitzpatrick at [facility]. Hx of extremity bypass graft - right fem/pop artery revascularization with stent placed and angioplasty per records - right tibial/peroneal artery revascularization with angio History of open reduction and internal fixation (ORIF) procedure left hip History of pancreas transplant 2003- [facility]- had this at the time of kidney transplant pancreas had abcess and was taken back in to drain it. History of kidney transplant 2003 -[facility] -- ERSD and on dialysis for a year and then had transplant and at this time the doctor is monitoring S/P CABG (coronary artery bypass graft) x 5 -- [facility] 2002 - incidental finding when getting worked up for transplant follows with Medical doctor Family History Mother Breast cancer Father Diabetes Other No family history of adverse response to anesthesia Social History Smoking Status: Never smoker Tobacco Type: Smokeless Tobacco (Dip or Chew) Second Hand Exposure: No; Do You Dip or Chew Tobacco: Yes (advised NPO); Hx Alcohol Use: No Hx Substance Use: No Preferred Language: Mosotho Communication Ability: Impaired Telephone Station Repairer Required: No Beliefs That Will Affect Care: Anabaptist Anabaptist Beliefs: Druze marital status: Current Living Situation: Spouse Feels Safe at Home: Yes Assistive Devices: Walker Review of Systems Review of Systems: All systems reviewed & are unremarkable except as noted in Subjective Physical Exam Physical Exam: For details of the physical exam, please see physician addendum. Results & Data Results & Data Vital Signs (Past 12 Hours) Vital Signs Temp Pulse Pulse Resp BP BP Pulse Ox 10/06/23 11:30 78 19 158/71 H 98 10/06/23 11:00 82 21 162/89 H 98 10/06/23 10:00 81 24 164/77 H 100 10/06/23 09:30 78 18 157/88 H 100 10/06/23 09:00 84 23 166/78 H 100 10/06/23 07:39 78 19 168/77 H 99 10/06/23 05:00 37.1 C 71 14 161/75 H 99 10/06/23 03:30 64 10/06/23 03:00 35.3 C L 72 16 147/77 H 99 10/06/23 01:27 69 24 134/74 95 O2 Del Method O2 Flow Rate 10/06/23 11:30 10/06/23 11:00 10/06/23 10:00 10/06/23 09:30 10/06/23 09:00 10/06/23 07:39 Nasal Cannula 2 10/06/23 05:00 Nasal Cannula 2 10/06/23 03:30 10/06/23 03:00 Nasal Cannula 2 10/06/23 01:27 Room Air Laboratory Results Laboratory Results - last 24 hr 10/05/23 10/05/23 10/05/23 23:35 23:40 23:58 WBC 12.94 H RBC 4.06 L Hgb 12.0 L POC Hgb 12.6 L Hct 35.9 L POC Hct 37 L MCV 88.4 MCH 29.6 MCHC 33.4 RDW Std Deviation 46.5 H RDW Coeff of Jorden 14.4 Plt Count 214 MPV 10.9 Immature Gran % (Auto) 0.8 Neut % (Auto) 83.5 Lymph % (Auto) 7.7 [place] % (Auto) 7.3 Eos % (Auto) 0.5 Baso % (Auto) 0.2 Neut # (Auto) 10.81 H Lymph # (Auto) 0.99 L [place] # (Auto) 0.95 H Eos # (Auto) 0.06 Baso # (Auto) 0.03 Immature Gran # (Auto) 0.10 PT 11.7 INR 1.1 POC Sodium 130 L Sodium 129 L POC Potassium 5.7 H Potassium 5.6 H POC Chloride 95 L Chloride 95 L Carbon Dioxide 26 POC Total CO2 26 Anion Gap 8 POC Anion Gap 16.0 POC BUN 66 H BUN 78 H Creatinine 1.85 H POC Creatinine 1.9 H Est Cr Clr Drug Dosing 36.2 Est GFR ( Amer) 40.7 Est GFR (Non-Af Amer) 35.1 BUN/Creatinine Ratio 42.2 H Glucose 246 H POC Glucose (other) 241 H Lactate 1.9 Calcium 8.6 POC Ioniz Calcium Juan 1.16 Magnesium 1.9 Total Bilirubin 0.4 Direct Bilirubin AST 25 ALT 23 Alkaline Phosphatase 74 Troponin I High Sens 12.8 Total Protein 6.3 Albumin 3.5 Globulin 2.8 Albumin/Globulin Ratio 1.3 Lipase 565 H Procalcitonin < 0.05 Adenovirus (PCR) B. pertussis DNA (PCR) B.parapertussis DNA PCR C. pneumoniae DNA (PCR) Coronavirus OC43 (PCR) Coronavirus HKU1 (PCR) Coronavirus 229E (PCR) SARS-CoV-2 (PCR) Coronavirus NL63 (PCR) Human Metapneumovir PCR Influenza Type A (PCR) Influenza Type B (PCR) M. pneumoniae (PCR) Parainfluenza 1 (PCR) Parainfluenza 2 (PCR) Parainfluenza 3 (PCR) Parainfluenza 4 (PCR) RSV (PCR) Entero/Rhino (PCR) 10/06/23 10/06/23 10/06/23 00:00 03:13 03:58 WBC RBC Hgb POC Hgb 11.2 L Hct POC Hct 33 L MCV MCH MCHC RDW Std Deviation RDW Coeff of Jorden Plt Count MPV Immature Gran % (Auto) Neut % (Auto) Lymph % (Auto) [place] % (Auto) Eos % (Auto) Baso % (Auto) Neut # (Auto) Lymph # (Auto) [place] # (Auto) Eos # (Auto) Baso # (Auto) Immature Gran # (Auto) PT INR POC Sodium 132 L Sodium Pending POC Potassium 5.7 H Potassium Pending POC Chloride 100 L Chloride Pending Carbon Dioxide Pending POC Total CO2 24 Anion Gap Pending POC Anion Gap 15.0 L POC BUN 72 H BUN Pending Creatinine Pending POC Creatinine 1.9 H Est Cr Clr Drug Dosing Pending Est GFR ( Amer) Pending Est GFR (Non-Af Amer) Pending BUN/Creatinine Ratio Pending Glucose Pending POC Glucose (other) 205 H Lactate Calcium Pending POC Ioniz Calcium Juan 1.05 L Magnesium Total Bilirubin Pending Direct Bilirubin Pending AST Pending ALT Pending Alkaline Phosphatase Pending Troponin I High Sens Total Protein Pending Albumin Pending Globulin Pending Albumin/Globulin Ratio Pending Lipase Pending Procalcitonin Adenovirus (PCR) Not Detected B. pertussis DNA (PCR) Not Detected B.parapertussis DNA PCR Not Detected C. pneumoniae DNA (PCR) Not Detected Coronavirus OC43 (PCR) Not Detected Coronavirus HKU1 (PCR) Not Detected Coronavirus 229E (PCR) Not Detected SARS-CoV-2 (PCR) Not Detected Coronavirus NL63 (PCR) Not Detected Human Metapneumovir PCR Not Detected Influenza Type A (PCR) Not Detected Influenza Type B (PCR) Not Detected M. pneumoniae (PCR) Not Detected Parainfluenza 1 (PCR) Not Detected Parainfluenza 2 (PCR) Not Detected Parainfluenza 3 (PCR) Not Detected Parainfluenza 4 (PCR) Not Detected RSV (PCR) Not Detected Entero/Rhino (PCR) Not Detected 10/06/23 07:54 WBC RBC Hgb POC Hgb 9.5 L Hct POC Hct 28 L MCV MCH MCHC RDW Std Deviation RDW Coeff of Jorden Plt Count MPV Immature Gran % (Auto) Neut % (Auto) Lymph % (Auto) [place] % (Auto) Eos % (Auto) Baso % (Auto) Neut # (Auto) Lymph # (Auto) [place] # (Auto) Eos # (Auto) Baso # (Auto) Immature Gran # (Auto) PT INR POC Sodium 136 Sodium POC Potassium 4.4 Potassium POC Chloride 103 Chloride Carbon Dioxide POC Total CO2 20 L Anion Gap POC Anion Gap 18.0 POC BUN 55 H BUN Creatinine POC Creatinine 1.6 H Est Cr Clr Drug Dosing Est GFR ( Amer) Est GFR (Non-Af Amer) BUN/Creatinine Ratio Glucose POC Glucose (other) 180 H Lactate Calcium POC Ioniz Calcium Juan 0.98 L Magnesium Total Bilirubin Direct Bilirubin AST ALT Alkaline Phosphatase Troponin I High Sens Total Protein Albumin Globulin Albumin/Globulin Ratio Lipase Procalcitonin Adenovirus (PCR) B. pertussis DNA (PCR) B.parapertussis DNA PCR C. pneumoniae DNA (PCR) Coronavirus OC43 (PCR) Coronavirus HKU1 (PCR) Coronavirus 229E (PCR) SARS-CoV-2 (PCR) Coronavirus NL63 (PCR) Human Metapneumovir PCR Influenza Type A (PCR) Influenza Type B (PCR) M. pneumoniae (PCR) Parainfluenza 1 (PCR) Parainfluenza 2 (PCR) Parainfluenza 3 (PCR) Parainfluenza 4 (PCR) RSV (PCR) Entero/Rhino (PCR) Diagnostic Findings Abdomen/Pelvis CT 10/05/23 23:35 Exam(s): CT ABDOMEN + PELVIS Without Contrast EXAM: CT Abdomen and Pelvis Without Intravenous Contrast CLINICAL HISTORY: Reason for exam: abd pain, tympanitic, sob. TECHNIQUE: Axial computed tomography images of the abdomen and pelvis without intravenous contrast. CTDI is 17.32 mGy and DLP is 983.66 mGy-cm. Automated exposure control was utilized for the study. A dose lowering technique was utilized adhering to the principles of ALARA. COMPARISON: 09/12/2023. FINDINGS: Lung bases: Coarse consolidation within the left lower lobe most compatible with residual infiltrate. Mild right lower lobe atelectasis versus infiltrate. Heart: Mild cardiomegaly with coronary artery calcifications. ABDOMEN: Liver: Unremarkable. Gallbladder and bile ducts: Ovoid distended gallbladder with multiple small stones near the gallbladder neck. No ductal dilation. Pancreas: Unremarkable. No ductal dilation. Spleen: Unremarkable. No splenomegaly. Adrenals: Unremarkable. No mass. Kidneys and ureters: Severe bilateral renal atrophy. There is a left- sided transplanted kidney, unremarkable with no hydronephrosis or stone. Stomach and bowel: Significant dilatation of the stomach and small bowel concerning with air-fluid level throughout the small bowel concerning for diffuse ileus versus partial obstruction. No distinct zone of transition seen. Moderate to abundant fecal debris within the colon which may indicate underlying constipation. No mucosal thickening. PELVIS: Appendix: No findings to suggest acute appendicitis. Bladder: Unremarkable. No stones. Reproductive: Postoperative penile surgical changes. ABDOMEN and PELVIS: Intraperitoneal space: Mild free fluid within the posterior pelvis. No free air. Bones/joints: Midline sternotomy wires. Osteopenia with degenerative disease of the spine. Status post ORIF surgery with 3 fixation screws in the left femoral neck. No acute fracture. No dislocation. Soft tissues: Mild fluid infiltration of subcutaneous fat suggestive of anasarca. Vasculature: Calcified atherosclerotic disease of aorta with no aneurysm. Lymph nodes: Unremarkable. No enlarged lymph nodes. IMPRESSION: 1. Findings concerning for diffuse ileus versus partial small bowel obstruction with indeterminate zone of transition. Possible underlying constipation. 2. Mild free fluid within the posterior pelvis, etiology indeterminate. Mild diffuse anasarca. 3. Ovoid distended gallbladder with multiple small gallstones. 4. Bilateral severe renal atrophy. 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 Electronically signed by: Rekha Jaime MD 10/06/23 00:30 AM Chest X-Ray 10/05/23 23:35 XR chest 1V portable CLINICAL HISTORY: sob TECHNIQUE: Single frontal radiograph of the chest was obtained. Comparison: Comparison is made to chest radiograph 09/12/2023 FINDINGS: Median sternotomy wires are unchanged. Cardiomegaly is noted. Lungs are underinflated. No definite airspace opacities are seen. No evidence of pleural effusion or pneumothorax. IMPRESSION: Underinflated lungs. No definite airspace opacities. ACT 112: Negative or not required by law. Electronically signed by: Vitaliy Naidu M.D. 10/06/2023 7:18 AM KUB X-Ray 10/06/23 02:05 XR KUB/Abdomen 1 view CLINICAL HISTORY: NG placement TECHNIQUE: 1 view of the abdomen was obtained. Comparison: Comparison is made to CT abdomen pelvis 10/05/2023 FINDINGS: Enteric tube terminates in the stomach. The osseous structures are grossly unremarkable. Multiple gas-distended loops of bowel are seen compatible with known ileus versus small bowel obstruction. Stool and gas noted within the colon. IMPRESSION: Satisfactory position of enteric tube. Redemonstration of dilated small bowel loops. ACT 112: Negative or not required by law. Electronically signed by: Vitaliy Naidu M.D. 10/06/2023 6:57 AM Medications Administered Fentanyl Citrate (Fentanyl Citrate Pf 100 Mcg/2 Ml Vial) 50 mcg IV Q15M PRN PRN Reason: Pain Stop: 10/19/23 23:36 Last Admin: 10/06/23 04:49 Dose: 50 mcg Documented By: Admin: 10/06/23 01:20 Dose: 50 mcg Documented By: MELONIE Sodium Chloride (Nss) 500 mls @ 80 mls/hr IV .Q6H15M RUBY Stop: 11/04/23 23:44 Last Admin: 10/06/23 08:05 Dose: 8 mls/hr Documented By: Infusion: 10/06/23 08:01 Dose: Infused Documented By: Admin: 10/05/23 23:59 Dose: 80 mls/hr Documented By: JOSE Insulin Aspart (Insulin Aspart Per Unit Charge) 0 units SC Q6 RUBY Stop: 11/05/23 07:29 Last Admin: 10/06/23 10:47 Dose: Not Given Documented By: MICKIE Discontinued Medications Pantoprazole Sodium 40 mg/ (Syringe) 10 mls @ 5 mls/min IV NOW ONE Stop: 10/06/23 00:00 Last Admin: 10/06/23 00:21 Dose: 5 mls/min Documented By: MELONIE Acetaminophen (Ofirmev) 1,000 mg in 100 mls @ 400 mls/hr IV NOW STA Stop: 10/06/23 00:13 Last Infusion: 10/06/23 01:16 Dose: Infused Documented By: Admin: 10/06/23 00:13 Dose: 400 mls/hr Documented By: MELONIE Piperacillin Sod/Tazobactam Sod (Zosyn) 4.5 gm in 100 mls @ 200 mls/hr IV NOW ONE Stop: 10/06/23 00:28 Last Infusion: 10/06/23 01:28 Dose: Infused Documented By: Admin: 10/06/23 00:13 Dose: 200 mls/hr Documented By: MELONIE Piperacillin Sod/Tazobactam Sod (Zosyn) 4.5 gm in 100 mls @ 200 mls/hr IV NOW ONE Stop: 10/06/23 07:39 Last Infusion: 10/06/23 08:45 Dose: Infused Documented By: Admin: 10/06/23 08:01 Dose: 200 mls/hr Documented By: MICKIE Insulin Human Regular (Novolin-R Insulin Per Unit Charge) 4 units IV NOW STA Stop: 10/06/23 00:40 Last Admin: 10/06/23 01:16 Dose: 4 units Documented By: MELONIE Co-signed By: SARTHAKW Supervising Physician Co-Signing Physician Notes I have seen and discussed the case with the collaborating CATALINA. I agree with the above H&P. I have reviewed and confirmed the patients medical history, the findings on physical examination, and the patients diagnosis and treatment plan with Leonard ARNOLD and agree with the information documented. In short, Mr. Brock is a 73 year old gentleman with history of CAD s/p CABG, prior CVA 2022, PVD, Carotid stenosis s/p left endarterectomy, HLD, hypothyroidism, DMTII, HTN, renal transplant 2003, CKD III, pancreatic transplant 2003 on chronic immunosuppressants (MMF, Tacro) who is admitted due to abdominal pain that started on 10/05 shortly after discharge from [facility]. Patient was recently admitted to [facility] on 09/12-09/18 due to BERLIN on CKD. Patient was continued on home Tacro, when level resulted back at 21.2 prompting transfer to [facility] given inability to monitor appropriate troughs/levels while admitted here as labs take 24-48 hours to return with a level. Patient remained admitted to [facility] , however, patient is unsure why--he reports receiving antibiotics, steroids. He notes he doesn't recall having a bowel movement while admitted. He states that they said maybe a "pancreas infections" was going on, but ultimately he is unsure of his course from 09/18-10/05. He notes he experienced two types of abdominal pain, one similar to prior episodes of pancreatitis, which he has experienced multiple times, as well as bloating and discomfort in his abdomen. In the ED, imaging revealed concerns for SBO. Patient had NGT placed. Patient started moving bowels with some relief. VS stable, more hypertensive 150s-170s. Labs revealed stable anemia, BERLIN to 2.02, lipase to 565, negative biofire. Blood culture pending Physical exam General: Tired, ill looking gentleman CV:RRR, no murmurs appreciated, Resp: diminished breathsounds, dry cough on deep inhalation MSK moving all extremities, GI: distended abdomen, firm, no tenderness on palpation Imaging reviewed. Plan Mr. Brock is a gentleman who is admitted due to lack of bed for transport iso pancreatitis/SBO in a pancreatic/kidney transplant patient. NG inplace on suction--unable to take immunosuppressants. #Pancreatitis #SBO #History of pancreatic and kidney transplant #BERLIN on CKD III #Chronic immunosuppression -Remains NPO with NGT on suction -IV antiemetics, and analgesic -IVF -Surgery and GI: recommend transfer -Transfer to [facility] for management of pancreatitis iso of chronic immunosuppression given kidney/pancreas #HTN -IV labetolol Transfer tentative for 1930 (2) Pancreatitis Acute pancreatitis complication: unspecified Chronicity: acute Pancreatitis type: unspecified pancreatitis type Qualified Code(s): K85.90 - Acute pancreatitis without necrosis or infection, unspecified (4) CAD (coronary artery disease) Associated angina: without angina Coronary Disease-Associated Artery/Lesion type: [place] artery [place] vs. 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
[2023-10-06 12:11] LABS: Albumin Globulin Ratio 1.2 (0.9-2); Albumin Level 3.5 gm/dl (3.4-5.0); BUN Creatinine Ratio 39.1 (10-20); Bilirubin Direct 0.1 mg/dl (0-0.2); Bilirubin,Total 0.5 mg/dl (0.2-1.0); Calcium 8.9 mg/dl (8.6-10.3); Creatinine Clr Calc Pharmacy 33.1 ml/min; Est GFR (African American) 36.6 ml/min; Est GFR (Non-African American) 31.5 ml/min; Potassium 5.9 mmol/L (3.5-5.1); Total Protein 6.5 gm/dl (6.0-8.3)
[2023-10-06 12:34] LABS: Hematocrit (blood only) 34.5 % (42.0-52.0); Hemoglobin 11.7 g/dl (14.0-18.0); Mean Corpuscular Hemoglobin 29.8 pg (25.0-34.0); Mean Corpuscular Hgb Conc 33.9 g/dL (32.0-36.0); Mean Platelet Volume 10.8 fL (9.4-12.4); Platelet Count 147 K/uL (130-400); RDW Coefficient of Variation 14.5 % (11.5-14.5); RDW Standard Deviation 46.3 fL (36.4-46.3); Red Blood Count 3.92 M/uL (4.70-6.10)
--- NOTE | 2023-10-06 13:20 | Surgery Consultation ---
Date of Consultation October 06, 2023 Assessment & Plan (1) Elevated lipase: (2) Partial small bowel obstruction: Patient is a 73 yo male with PMH of Postop carotid endarterectomy surveillance, Hx: recurrent pneumonia, History of pneumothorax Bacteremia associated with IV line, GI bleed, PAD (peripheral artery disease), Hypothyroidism, Skin cancer, Asthma, Symptomatic carotid artery stenosis with infarction Acute CVA (cerebrovascular accident), Diabetes mellitus, type II, CAD (coronary artery disease), HTN (hypertension), Dyslipidemia, CKD (chronic kidney disease), stage III, CABG, kidney and pancreas transplant, that presented to the [facility] ER with C/O abdominal pain. Patient reports he was in [facility] hospital due to dehydration and diarrhea. He was discharged yesterday and developed severe abdominal pain. He rates the pain yesterday a sharp 10/10 associated nausea, chills, and dry heaves, no vomiting. Currently he reports no abdominal pain, or nausea. He will be transferred back to [facility] when a bed becomes available. General surgery was consulted to follow along, for what is appearing to be a SBO vs Ileus on CT scan. Patient has had a BM since being in the ER. On exam He has a NG tube that is draining dark brownish fluid. Abdomen is non distended, non tender, soft. Patient appears tired but is arousable to verbal stimuli. Electrolyte abnormalities and elevated creatinine, and Lipase. A CT scan is reading SBO vs Ileus or possible constipation VSS, WBC 8 (12) IMPRESSION: 1. Findings concerning for diffuse ileus versus partial small bowel obstruction with indeterminate zone of transition. Possible underlying constipation. 2. Mild free fluid within the posterior pelvis, etiology indeterminate. Mild diffuse anasarca. 3. Ovoid distended gallbladder with multiple small gallstones. 4. Bilateral severe renal atrophy. 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 Keep NPO, Keep NG tube for now current output is 700ml/ 12hr. IV Fluids for hydration IV antiemetic PRN Patient was given Zosyn in the ER IV analgesic PRN Replace electrolytes as needed No acute surgical intervention indicated at this time and due to patients surgical/transplant Hx he is not a surgical candidate at this facility, Continue with transfer to tertiary center. Will discuss case with on -call surgeon Dr. Henry and further recommendations will be forthcoming. (3) BERLIN (acute kidney injury): Supervising Physician Co-Signing Physician Notes Patient seen and examined, labs and imaging reviewed, agree with above. 73-year-old male with history of pancreatic and renal transplant with recent admission to transplant center at [facility] for possible rejection workup. Right after his discharge she developed significant abdominal pain and distention. He was admitted to the emergency department last night and scheduled for transfer back to [facility]. He has had multiple bowel movements and feels that his pain and distention are significantly improved. On exam he is afebrile with stable vitals. His abdomen is soft, moderately distended, nontender. Positive bowel sounds. Labs reviewed. CT personally reviewed and interpreted and agree with the assessment of likely ileus with possible component of constipation, no definitive transition point noted so unlikely true obstruction. This likely represents an ileus versus significant constipation. He is already having bowel movements. He may benefit from rectal stimulation and treatment for his constipation to include suppositories and enemas. Any surgical intervention would require transfer to a transplant center. His transfer is currently pending. If he has significant improvement overnight and his KUB improves, we may be able to remove his NG tube tomorrow. Surgery will follow while in house. History of Present Illness Reason for Consultation: SBO Requesting Physician: Dr. Luis History of Present Illness Patient is a 73 yo male with PMH of Postop carotid endarterectomy surveillance, Hx: recurrent pneumonia, History of pneumothorax Bacteremia associated with IV line, GI bleed, PAD (peripheral artery disease), Hypothyroidism, Skin cancer, Asthma, Symptomatic carotid artery stenosis with infarction Acute CVA (cerebrovascular accident), Diabetes mellitus, type II, CAD (coronary artery disease), HTN (hypertension), Dyslipidemia, CKD (chronic kidney disease), stage III, CABG, kidney and pancreas transplant, that presented to the [facility] ER with C/O abdominal pain. Patient reports he was in [facility] hospital due to dehydration and diarrhea. He was discharged yesterday and developed severe abdominal pain. He rates the pain yesterday a sharp 10/10 associated nausea, with dry heaves, no vomiting. Currently he reports no abdominal pain, or nausea. He will be transferred back to [facility] when a bed becomes available. General surgery was consulted to follow along, for what is appearing to be a SBO vs Ileus on CT scan. Allergies Allergy/AdvReac Type Severity Reaction Status Date / Time sulfamethoxazole Allergy Intermediate rash Verified 10/06/23 00:47 trimethoprim Allergy Intermediate rash Verified 10/06/23 00:47 promethazine [From Phenergan] AdvReac Intermediate AGITATION/C Verified 10/06/23 00:47 ONFUSION Home Medications Medication Instructions Recorded Confirmed Type amlodipine 10 mg tablet 10 mg PO QAM 11/19/22 10/06/23 History brimonidine 0.2 %-timolol 0.5 % 1 drp OPL Q12 11/19/22 10/06/23 History eye drops (Combigan) chlorthalidone 25 mg tablet 25 mg PO QAM 11/19/22 10/06/23 History glipizide 2.5 mg tablet, extended 2.5 mg PO BIDM 11/19/22 10/06/23 History release 24 hr metformin 1,000 mg tablet 1,000 mg PO BIDM 11/19/22 10/06/23 History multivitamin 1 tab PO BID 11/19/22 10/06/23 History netarsudil 0.02 %-latanoprost 1 drp OPB HS 11/19/22 10/06/23 History 0.005 % eye drops (Rocklatan) carvedilol 12.5 mg tablet 12.5 mg PO BID 05/20/23 10/06/23 History atorvastatin 10 mg tablet (Lipitor) 10 mg PO QAM 07/15/23 10/06/23 History ferrous sulfate 325 mg (65 mg 325 mg PO BID 09/12/23 10/06/23 History iron) tablet,delayed release tacrolimus 1 mg oral granules in 1 mg PO Q12 09/12/23 10/06/23 History packet trazodone 50 mg tablet 50 mg PO HS 09/12/23 10/06/23 History Bifidobacterium-Lactobacillus 1 tab PO QPM 10/06/23 10/06/23 History Oil Of Oregano 150 mg PO BID 10/06/23 10/06/23 History Vitamin B12, 3000mcg/Ml 1 ml sublingual QPM 10/06/23 10/06/23 History ascorbic acid (vitamin C) 1,000 mg 1 g PO QPM 10/06/23 10/06/23 History tablet (Vitamin C) aspirin 81 mg tablet,delayed 81 mg PO DAILY 10/06/23 10/06/23 History release astragalus root 250 mg capsule 500 mg PO TID 10/06/23 10/06/23 History cholecalciferol (vitamin D3) 125 125 mcg PO QAM 10/06/23 10/06/23 History mcg (5,000 unit) tablet (Vitamin D3) coQ10 (ubiquinol) 100 mg capsule 100 mg PO BID 10/06/23 10/06/23 History qufuod-mzgynwdz-rtphptt 1 cap PO TID 10/06/23 10/06/23 History 24,000-76,000-120,000 unit capsule,delayed rel (Creon) lisinopril 20 mg tablet 20 mg PO BID 10/06/23 10/06/23 History mycophenolate sodium 180 mg 360 mg PO .AC BID 10/06/23 10/06/23 History tablet,delayed release (Myfortic) mycophenolate sodium 360 mg 720 mg PO BID 10/06/23 10/06/23 History tablet,delayed release (Myfortic) pantoprazole 40 mg tablet,delayed 40 mg PO BID 10/06/23 10/06/23 History release tamsulosin 0.4 mg capsule 0.8 mg PO DAILY 10/06/23 10/06/23 History Patient History Medical History Postop carotid endarterectomy surveillance, encounter for S/P transesophageal echocardiogram (EILEEN) Hx: recurrent pneumonia last episode ~Fall 2021 History of pneumothorax during his open heart surgery in [address] [facility]. will have reoccurring pneumonia since. Bacteremia associated with IV line during patient's inpatient stay at the end of April 2023 due to a severe IV infiltration during inpatient stay. doing okay at this time. no curret infection. GI bleed ~05/26/23 treated at [facility] PAD (peripheral artery disease) S/p right fem/pop artery revascularization with stent placed and angioplasty per records - right tibial/peroneal artery revascularization with angio Hypothyroidism Fistula hx of ---was in right arm and no longer working Skin cancer on ear and head Asthma as child History of COVID-19 06/2022 - resolved Symptomatic carotid artery stenosis with infarction 90% stenosis of the proximal right external carotid artery. There is 30% stenosis of the proximal right internal iliac artery just beyond its origin with a tandem 20% stenosis seen distally within the right ICA at its entrance to carotid siphon; 80% stenosis of the proximal left ICA Acute CVA (cerebrovascular accident) - 05/17/23- started with weakness and discoordination right let and arm. Speech slurred at some points. - Dx'ed with acute CVA 05/20/23- admitted to [facility] until 05/22/23 - Right side weakness is getting better. History of TIA (transient ischemic attack) Unsure of date Diabetes mellitus, type II Hx of severe diabetes- 2003 had pancreas transplant- did not require DM meds until the past four years (had to restart oral DM meds) CAD (coronary artery disease) "s/p CABG x 5 in 2002" [facility] HTN (hypertension) Dyslipidemia CKD (chronic kidney disease), stage III - at this time - Hx of ESRD- on dialysis x one year but had kidney transplant 2003- no dialysis required since that time Surgical History Transplant recipient pancreas and kidney transplants in 2003 S/P PICC central line placement since removed 05/2023 Hx of chest tube placement 2002 for pneumothorax History of esophagogastroduodenoscopy (EGD) for a GI Bleed ~05/26/[address] Fitzpatrick at [facility]. Hx of extremity bypass graft - right fem/pop artery revascularization with stent placed and angioplasty per records - right tibial/peroneal artery revascularization with angio History of open reduction and internal fixation (ORIF) procedure left hip History of pancreas transplant [facility]- had this at the time of kidney transplant pancreas had abcess and was taken back in to drain it. History of kidney transplant 2003 -[facility] -- ERSD and on dialysis for a year and then had transplant and at this time the doctor is monitoring S/P CABG (coronary artery bypass graft) x 5 -- [facility] 2002 - incidental finding when getting worked up for transplant follows with Medical doctor Family History Mother Breast cancer Father Diabetes Other No family history of adverse response to anesthesia Social History Smoking Status: Never smoker Tobacco Type: Smokeless Tobacco (Dip or Chew) Second Hand Exposure: No; Do You Dip or Chew Tobacco: Yes (advised NPO); Hx Alcohol Use: No Hx Substance Use: No Preferred Language: Bruneian Communication Ability: Impaired Career Based Intervention Coordinator Required: No Beliefs That Will Affect Care: Jehovah'S Witness Jehovah'S Witness Beliefs: Voodoo marital status: Current Living Situation: Spouse Feels Safe at Home: Yes Assistive Devices: Walker Review of Systems Constitutional: + chills; no fever Eyes: + corrective lenses Cardiovascular: no chest pain Gastrointestinal: + nausea, + change in bowel habits and + diarrhea/loose stools; no abdominal pain and no vomiting Genitourinary: no problem reported Integumentary: no rash Psychiatric: no problem reported Physical Exam Physical Exam: resting , arousable to verbal stimuli Constitutional: cooperative, comfortable and + lethargic; no acute distress ENMT: external ear and nose normal, oropharynx normal Neck: trachea midline, no thyromegaly Respiratory: normal respiratory effort and able to speak in complete sentences; no respiratory distress wear o2 via NC Cardiovascular: Rate/Rhythm: regular rate Gastrointestinal (Abdomen): Inspection/Auscultation: + abdominal surgical scar; abdomen not distended Percussion/Palpation: abdomen soft; abdomen nontender and no guarding Skin: no rashes, warm and dry Neurologic: not confused Psychiatric: A+Ox3, euthymic affect Results & Data Vital Signs (Past 12 Hours) Vital Signs Temp Pulse Pulse Resp BP BP Pulse Ox 10/06/23 11:30 78 19 158/71 H 98 10/06/23 11:00 82 21 162/89 H 98 10/06/23 10:00 81 24 164/77 H 100 10/06/23 09:30 78 18 157/88 H 100 10/06/23 09:00 84 23 166/78 H 100 10/06/23 07:39 78 19 168/77 H 99 10/06/23 05:00 98.8 F 71 14 161/75 H 99 10/06/23 03:30 64 10/06/23 03:00 95.6 F L 72 16 147/77 H 99 10/06/23 01:27 69 24 134/74 95 O2 Del Method O2 Flow Rate 10/06/23 11:30 10/06/23 11:00 10/06/23 10:00 10/06/23 09:30 10/06/23 09:00 10/06/23 07:39 Nasal Cannula 2 10/06/23 05:00 Nasal Cannula 2 10/06/23 03:30 10/06/23 03:00 Nasal Cannula 2 10/06/23 01:27 Room Air Diagnostic Findings [place], [place] [phone] CT Scan Report Patient: LAW HE Admit Date: 10/05/23 MR#: [id number] Address1: [address] [place] [address] Acct ID:[id number] Address2: Date: 1950 [facility] Zip: [place] [address] Age: 73 Location: ED Sex: M Room/Bed: Att Phy: Diagnosis: ABDOMINAL PAIN Nemo Phy: Jolly Prajapati MD Service Date: 10/05/23 Fam Phy: Interpreting Phy: Rekha Jaime MDAdmit Phy: Ordering Phy: Amada Hurtado DO cc: ~ Exam(s): CT ABDOMEN + PELVIS Without Contrast EXAM: CT Abdomen and Pelvis Without Intravenous Contrast CLINICAL HISTORY: Reason for exam: abd pain, tympanitic, sob. TECHNIQUE: Axial computed tomography images of the abdomen and pelvis without intravenous contrast. CTDI is 17.32 mGy and DLP is 983.66 mGy-cm. Automated exposure control was utilized for the study. A dose lowering technique was utilized adhering to the principles of ALARA. COMPARISON: 09/12/2023. FINDINGS: Lung bases: Coarse consolidation within the left lower lobe most compatible with residual infiltrate. Mild right lower lobe atelectasis versus infiltrate. Heart: Mild cardiomegaly with coronary artery calcifications. ABDOMEN: Liver: Unremarkable. Gallbladder and bile ducts: Ovoid distended gallbladder with multiple small stones near the gallbladder neck. No ductal dilation. Pancreas: Unremarkable. No ductal dilation. Spleen: Unremarkable. No splenomegaly. Adrenals: Unremarkable. No mass. Kidneys and ureters: Severe bilateral renal atrophy. There is a left- sided transplanted kidney, unremarkable with no hydronephrosis or stone. Stomach and bowel: Significant dilatation of the stomach and small bowel concerning with air-fluid level throughout the small bowel concerning for diffuse ileus versus partial obstruction. No distinct zone of transition seen. Moderate to abundant fecal debris within the colon which may indicate underlying constipation. No mucosal thickening. PELVIS: Appendix: No findings to suggest acute appendicitis. Bladder: Unremarkable. No stones. Reproductive: Postoperative penile surgical changes. ABDOMEN and PELVIS: Intraperitoneal space: Mild free fluid within the posterior pelvis. No free air. Bones/joints: Midline sternotomy wires. Osteopenia with degenerative disease of the spine. Status post ORIF surgery with 3 fixation screws in the left femoral neck. No acute fracture. No dislocation. Soft tissues: Mild fluid infiltration of subcutaneous fat suggestive of anasarca. Vasculature: Calcified atherosclerotic disease of aorta with no aneurysm. Lymph nodes: Unremarkable. No enlarged lymph nodes. IMPRESSION: 1. Findings concerning for diffuse ileus versus partial small bowel obstruction with indeterminate zone of transition. Possible underlying constipation. 2. Mild free fluid within the posterior pelvis, etiology indeterminate. Mild diffuse anasarca. 3. Ovoid distended gallbladder with multiple small gallstones. 4. Bilateral severe renal atrophy. 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 Electronically signed by: Rekha aJime MD 10/06/23 00:30 AM Dictated: 10/06/2329 Transcribed: 10/06/2329 [place], [place] [phone] XRay Report Patient: LAW HE Admit Date: 10/05/23 MR#: [id number] Address1: [address] [place] [address] Acct ID:[id number] Address2: Date: 1950 [facility] Zip: [place] [address] Age: 73 Location: ED Sex: M Room/Bed: Att Phy: Diagnosis: ABDOMINAL PAIN Nemo Phy: Jolly Prajapati MD Service Date: 10/06/23 [facility] Phy: Interpreting Phy: Vitaliy Naidu MDAdmit Phy: Ordering Phy: Amada Hurtado DO cc: ~ XR KUB/Abdomen 1 view CLINICAL HISTORY: NG placement TECHNIQUE: 1 view of the abdomen was obtained. Comparison: Comparison is made to CT abdomen pelvis 10/05/2023 FINDINGS: Enteric tube terminates in the stomach. The osseous structures are grossly unremarkable. Multiple gas-distended loops of bowel are seen compatible with known ileus versus small bowel obstruction. Stool and gas noted within the colon. IMPRESSION: Satisfactory position of enteric tube. Redemonstration of dilated small bowel loops. ACT 112: Negative or not required by law. Electronically signed by: Vitaliy Naidu M.D. 10/06/2023 6:57 AM Dictated: 10/06/23651 Transcribed: 10/06/23651 Results Complete Blood Count Results: RBC 3.92 M/uL (4.70-6.10) L 10/06/23 WBC 8.60 K/ul (4.8-10.8) 10/06/23 Hgb 11.7 g/dl (14.0-18.0) L 10/06/23 Hct 34.5 % (42.0-52.0) L 10/06/23 Plt Count 147 K/uL (130-400) 10/06/23 Results CMP Results: Na 130 mmol/L (136-145) L 10/06/23 K 5.9 mmol/L (3.5-5.1) H 10/06/23 Cl 95 mmol/L (98-107) L 10/06/23 CO2 27 mmol/L (21-32) 10/06/23 Anion Gap 8 (3-11) 10/06/23 BUN 79 mg/dl (6-23) H 10/06/23 Creatinine 2.02 mg/dl (0.6-1.4) H 10/06/23 Estimated GFR ( Amer) 36.6 ml/min 10/06/23 Estimated GFR (Non-Af Amer) 31.5 ml/min 10/06/23 BUN/Creatinine Ratio 39.1 (10-20) H 10/06/23 Glu 215 mg/dl (70-99(Fasting)) H 10/06/23 Ca 8.9 mg/dl (8.6-10.3) 10/06/23 Phosphorus Level 2.3 mg/dl (2.5-4.9) L 05/29/23 Total Bilirubin 0.5 mg/dl (0.2-1.0) 10/06/23 Direct Bilirubin 0.1 mg/dl (0-0.2) 10/06/23 AST 32 U/L (13-39) 10/06/23 ALT 27 U/L (7-52) 10/06/23 Alkaline Phosphatase 76 U/L (34-104) 10/06/23 TP 6.5 gm/dl (6.0-8.3) 10/06/23 Albumin 3.5 gm/dl (3.4-5.0) 10/06/23 Globulin 3.0 gm/dl (2.5-4.0) 10/06/23 Albumin/Globulin Ratio 1.2 (0.9-2) 10/06/23 Lactate Dehydrogenase 177 U/L (86-244) 10/06/23 PG Care Time/CCT Total # of Minutes Spent Total Time Spent with Patient: Total time spent is greater than 50% in coordination of care (as documented) at patient's floor/unit and/or counseling patient: Coding Level of Care Code 51149 INT INP/OBS CARE 2/55MIN Diagnoses Elevated lipase R74.8 Partial small bowel obstruction K56.600 [place] (acute kidney injury) N17.9
--- NOTE | 2023-10-06 13:22 | XRay Report ---
KUB CLINICAL HISTORY: Small bowel obstruction. FINDINGS: 2 AP, portable, supine abdominal radiographs are compared to study performed earlier the [facility] day 10/06/2023 and correlated with abdominal CT dated 10/05/2023. An enteric tube is unchanged in posi tion. The tip projects below the diaphragm over the stomach. Surgical clips are noted in the right up per quadrant. There is persistent small bowel obstruction. Distended small bowel loops measure up to 5 cm. No evidence of intraperitoneal free air is seen on these supine images. There are no abnormal a bdominal calcifications. The skeletal structures are osteopenic. Chronic deformity and postsurgical c hanges noted in the left proximal femur. IMPRESSION: Persistent small bowel obstruction. Electronically signed by: Shaheen Lo M.D. 10/06/2023 1:20 PM
--- NOTE | 2023-10-06 16:00 | Emergency Department Note ---
ED Visit Note I received this patient at the change of shift pending transfer to [facility] from Dr. Amada Hurtado. [facility] had been contacted several times and no timeframe for bed was available. KUB was ordered repeat and confirms small bowel obstruction remains. Patient is resting comfortably with NG tube in place and IV fluids as ordered. [facility] and further management. .
[2023-10-06] MEDS ORDERED: TAMSULOSIN HCL 0.4 MG CAP PO SCH (16:30)
[2023-10-06] MEDS ORDERED: PROTEASE PO SCH (17:00)
[2023-10-06] MEDS ORDERED: AMYLASE PO SCH (17:00)
[2023-10-06] MEDS ORDERED: LIPASE PO SCH (17:00)
[2023-10-06] MEDS ORDERED: LABETALOL HCL IV 5 MG/ML 20ML IV PRN ×2 (17:00→19:45)
[2023-10-06] MEDS ORDERED: PIPERACILLIN/TAZOBACTAM 4.5 GM in DEXTROSE 5% MINI-B 100 ML IV SCH (17:08)
[2023-10-06] MEDS ORDERED: carvediloL 12.5 MG TAB PO SCH (17:15)
[2023-10-06] MEDS ORDERED: MYCOPHENOLATE SODIUM 180 MG TAB PO SCH (17:30)
[2023-10-06 17:48] LABS: Hematocrit (blood only) 33.9 % (42.0-52.0); Hemoglobin 11.5 g/dl (14.0-18.0); Mean Corpuscular Hemoglobin 29.8 pg (25.0-34.0); Mean Corpuscular Hgb Conc 33.9 g/dL (32.0-36.0); Mean Corpuscular Volume 87.8 fL (80.0-100.0); Mean Platelet Volume 11.1 fL (9.4-12.4); Platelet Count 158 K/uL (130-400); RDW Coefficient of Variation 14.6 % (11.5-14.5); RDW Standard Deviation 46.5 fL (36.4-46.3); Red Blood Count 3.86 M/uL (4.70-6.10); White Blood Count 8.62 K/ul (4.8-10.8)
[2023-10-06 18:28] LABS: Albumin Globulin Ratio 1.2 (0.9-2); Albumin Level 2.7 gm/dl (3.4-5.0); BUN Creatinine Ratio 44.5 (10-20); Bilirubin,Total 0.4 mg/dl (0.2-1.0); Calcium 7.8 mg/dl (8.6-10.3); Creatinine Clr Calc Pharmacy 40.8 ml/min; Est GFR (Non-African American) 40.6 ml/min; Globulin 2.3 gm/dl (2.5-4.0); Potassium 4.9 mmol/L (3.5-5.1)
--- NOTE | 2023-10-06 18:38 | Discharge Summary ---
Discharge Summary Date of Service October 06, 2023 Notes For Next Care Provider Medication Changes From Visit Holding Meds 2/[address] Admission HPI Per Admitting Provider This is a 73 y/o male with hx CAD s/p CABG, prior CVA, PAD s/p fem/pop angio and stent, s/p rib tib/peroneal angio revascularization, mild MR/TR, HTN, DM2, hypothyroidism, ESRD s/p kidney and pancreas transplant in 2003, on chronic immunosuppression (tacrolimus and CellCept), dyslipidemia, and other medical history as outlined below who presented to the ED last night with worsening abdominal pain. He reports that he was discharged from [facility] yesterday after a two week hospitalization. He reports that during that admission, he was having abdominal pain that was severe at times and had not completely resolved at the time of discharge. He reports multiple medication changes were made during that admission but is unsure exactly what they were and unclear on exactly what transpired during that admission. His pain seems worse with constipation but got somewhat better with a BM. Reports that he had a BM yesterday and then again this morning, which gave him some relief of the pain. He and his not that his abdomen last night was very distended, not much improvement in the bloating this morning even with the bowel movement. Reports his baseline bowel pattern is diarrhea for 3-4 days then no BM for 3-4 days then cycle seems to repeat - ongoing issue. He denies documented fevers but has felt like he has had a hard time getting warm. No night sweats. No chest pain, fontana es in urination. Does have some chronic urinary urgency that is no worse than usual. Admission Exam Per Admitting Provider General: Tired, ill looking gentleman CV:RRR, no murmurs appreciated, Resp: diminished breathsounds, dry cough on deep inhalation MSK moving all extremities, GI: distended abdomen, firm, no tenderness on palpation Principal Dx & Hospital Course #1 = Principal Diagnosis (1) Partial small bowel obstruction: This is a 73 y/o male with hx CAD s/p CABG, prior CVA, PAD s/p fem/pop angio and stent, s/p rib tib/peroneal angio revascularization, mild MR/TR, HTN, DM2, hypothyroidism, ESRD s/p kidney and pancreas transplant in 2003, on chronic immunosuppression (tacrolimus and CellCept), dyslipidemia, and other medical history as outlined below who presented to the ED last night with worsening abdominal pain. Work-up here consistent with partial SBO, elevated lipase c/w pancreatitis. ED attempted to initiate transfer back to [facility] directly from the ED but no beds available so referred for admission. - Admit to PCU until bed available at [facility] - Consult surgery for recommendations while awaiting transfer - pt currently has NGT with suction - Holding oral meds while NGT hooked up to suction - no IV versions of pt's immunosuppressants on formulary here so will have to hold for now. Will resume as soon as able to d/c suction. - IV Labetalol prn for BP - Insulin sliding scale - Continue Zosyn empirically for now (2) Pancreatitis: (3) BERLIN (acute kidney injury): (4) CAD (coronary artery disease): (5) Diabetes mellitus, type II: (6) HTN (hypertension): (7) Dyslipidemia: (8) History of kidney transplant: (9) History of pancreas transplant: Plan In short, Mr. Brock is a 73 year old gentleman with history of CAD s/p CABG, prior CVA 2022, PVD, Carotid stenosis s/p left endarterectomy, HLD, hypothyroidism, DMTII, HTN, renal transplant 2003, CKD III, pancreatic transplant 2003 on chronic immunosuppressants (MMF, Tacro) who is admitted due to abdominal pain that started on 10/05 shortly after discharge from [facility]. Patient was recently admitted to [facility] on 09/12-09/18 due to BERLIN on CKD. Patient was continued on home Tacro, when level resulted back at 21.2 prompting transfer to [facility] given inability to monitor appropriate troughs/levels while admitted here as labs take 24-48 hours to return with a level. Patient remained admitted to [facility] , however, patient is unsure why--he reports receiving antibiotics, steroids. He notes he doesn't recall having a bowel movement while admitted. He states that they said maybe a "pancreas infections" was going on, but ultimately he is unsure of his course from 09/18-10/05. He notes he experienced two types of abdominal pain, one similar to prior episodes of pancreatitis, which he has experienced multiple times, as well as bloating and discomfort in his abdomen. In the ED, imaging revealed concerns for SBO. Patient had NGT placed. Patient started moving bowels with some relief. Patient simply admitted to [facility] given lack of bed availability for transfer to [facility]. Mr. Brock is a gentleman who is admitted due to lack of bed for transport iso pancreatitis/SBO in a pancreatic/kidney transplant patient. NG inplace on suction--unable to take immunosuppressants. #Pancreatitis #SBO #History of pancreatic and kidney transplant #BERLIN on CKD III #Chronic immunosuppression -Remains NPO with NGT on suction -IV antiemetics, and analgesic -IVF -Surgery and GI: recommend transfer, nothing to manage outside of IVF and NPO--will need transplant center and continuity of care at recent center, [facility]. -Transfer to [facility] for management of pancreatitis iso of chronic immunosuppression given kidney/pancreas #HTN -IV labetolol Transfer tentative for 1929 Discharge Exam Constitutional ill appearing man, cooperative Respiratory normal respiratory effort, lungs clear to auscultation Gastrointestinal (Abdomen) NTND on discharge, NG in place, notable brown output Updated Medication List Medication Instructions Recorded Confirmed Type amlodipine 10 mg tablet 10 mg PO QAM 11/19/22 10/06/23 History brimonidine 0.2 %-timolol 0.5 % 1 drp OPL Q12 11/19/22 10/06/23 History eye drops (Combigan) chlorthalidone 25 mg tablet 25 mg PO QAM 11/19/22 10/06/23 History glipizide 2.5 mg tablet, extended 2.5 mg PO BIDM 11/19/22 10/06/23 History release 24 hr metformin 1,000 mg tablet 1,000 mg PO BIDM 11/19/22 10/06/23 History multivitamin 1 tab PO BID 11/19/22 10/06/23 History netarsudil 0.02 %-latanoprost 1 drp OPB HS 11/19/22 10/06/23 History 0.005 % eye drops (Rocklatan) carvedilol 12.5 mg tablet 12.5 mg PO BID 05/20/23 10/06/23 History atorvastatin 10 mg tablet (Lipitor) 10 mg PO QAM 07/15/23 10/06/23 History ferrous sulfate 325 mg (65 mg 325 mg PO BID 09/12/23 10/06/23 History iron) tablet,delayed release tacrolimus 1 mg oral granules in 1 mg PO Q12 09/12/23 10/06/23 History packet trazodone 50 mg tablet 50 mg PO HS 09/12/23 10/06/23 History Bifidobacterium-Lactobacillus 1 tab PO QPM 10/06/23 10/06/23 History Oil Of Oregano 150 mg PO BID 10/06/23 10/06/23 History Vitamin B12, 3000mcg/Ml 1 ml sublingual QPM 10/06/23 10/06/23 History ascorbic acid (vitamin C) 1,000 mg 1 g PO QPM 10/06/23 10/06/23 History tablet (Vitamin C) aspirin 81 mg tablet,delayed 81 mg PO DAILY 10/06/23 10/06/23 History release astragalus root 250 mg capsule 500 mg PO TID 10/06/23 10/06/23 History cholecalciferol (vitamin D3) 125 125 mcg PO QAM 10/06/23 10/06/23 History mcg (5,000 unit) tablet (Vitamin D3) coQ10 (ubiquinol) 100 mg capsule 100 mg PO BID 10/06/23 10/06/23 History zoursd-tqjsryft-knyeaec 1 cap PO TID 10/06/23 10/06/23 History 24,000-76,000-120,000 unit capsule,delayed rel (Creon) lisinopril 20 mg tablet 20 mg PO BID 10/06/23 10/06/23 History mycophenolate sodium 180 mg 360 mg PO .AC BID 10/06/23 10/06/23 History tablet,delayed release (Myfortic) mycophenolate sodium 360 mg 720 mg PO BID 10/06/23 10/06/23 History tablet,delayed release (Myfortic) pantoprazole 40 mg tablet,delayed 40 mg PO BID 10/06/23 10/06/23 History release tamsulosin 0.4 mg capsule 0.8 mg PO DAILY 10/06/23 10/06/23 History Hospital Stay Data Consultations 10/06/23 11:34 ED Decision to Admit Stat 10/06/23 11:46 Consult Gastroenterology Routine 10/06/23 12:31 Consult General Surgery Routine Diagnostic Imagining Performed 10/05/23 23:35 CT abd pelvis wo con Stat Pending Results Patient Have Any Pending Studies at Discharge: No Discharge Instructions Given to Patient (Per Discharging Provider) Patient is a 73 yo male with PMH of Postop carotid endarterectomy surveillance, Hx: recurrent pneumonia, History of pneumothorax Bacteremia associated with IV line, GI bleed, PAD (peripheral artery disease), Hypothyroidism, Skin cancer, Asthma, Symptomatic carotid artery stenosis with infarction Acute CVA (cerebrovascular accident), Diabetes mellitus, type II, CAD (coronary artery disease), HTN (hypertension), Dyslipidemia, CKD (chronic kidney disease), stage III, CABG, kidney and pancreas transplant, that presented to the [facility] ER with C/O abdominal pain. Patient reports he was in [facility] hospital due to dehydration and diarrhea. He was discharged yesterday from [facility] and developed severe abdominal pain. H e rates the pain yesterday a sharp 10/10 associated nausea, chills, and dry heaves, no vomiting. Currently he reports no abdominal pain, or nausea. He will be transferred back to [facility] when a bed becomes available. General surgery was consulted to follow along, for what is appearing to be a SBO vs Ileus on CT scan. Patient has had a BM since being in the ER. On exam He has a NG tube that is draining dark brownish fluid. Abdomen is non distended, non tender, soft. Patient appears tired but is arousable to verbal stimuli. Electrolyte abnormalities and elevated creatinine, and Lipase. A CT scan is reading SBO vs Ileus or possible constipation VSS, WBC 8 (12) IMPRESSION: 1. Findings concerning for diffuse ileus versus partial small bowel obstruction with indeterminate zone of transition. Possible underlying constipation. 2. Mild free fluid within the posterior pelvis, etiology indeterminate. Mild diffuse anasarca. 3. Ovoid distended gallbladder with multiple small gallstones. 4. Bilateral severe renal atrophy. 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 K Lipase notably elevated 565. BERLIN to 2.02 Unable to take Immunosuppresants Infectious workup ordered eep NPO, Keep NG tube for now current output is 700ml/ 12hr. IV Fluids for hydration IV antiemetic PRN Continued Zosyn IV analgesic PRN Replace electrolytes as needed Transfer back to [facility] Total Time Total Time Spent Total Time Spent (In Minutes): 55
[2023-10-06] MEDS ORDERED: LABETALOL HCL IV 5 MG/ML 20ML IV STA (19:15)
[2023-10-06] MEDS ORDERED: PANCREAZE (LIPASE 16,800U) CAP PO SCH (21:00)
[2023-10-06] MEDS ORDERED: BRIMONIDINE TARTRATE 0.2% 5ML OP SCH (21:00)
[2023-10-06] MEDS ORDERED: traZODone HCL 50 MG TAB PO SCH (21:00)
[2023-10-06] MEDS ORDERED: PANTOprazole 40 MG in SYRINGE 0 ML IV SCH (21:00)
[2023-10-06] MEDS ORDERED: BRIMONIDINE TARTRATE OPB SCH (21:00)
[2023-10-06] MEDS ORDERED: lisinopril 20 MG TAB PO SCH (21:00)
[2023-10-06] MEDS ORDERED: TIMOLOL OPB SCH (21:00)
[2023-10-06] MEDS ORDERED: TIMOLOL MALEATE 0.5% OP SOLN 5 ML BTL OP SCH (21:00)
[2023-10-07] MEDS ORDERED: TAMSULOSIN HCL 0.4 MG CAP PO SCH (09:00)
[2023-10-07] MEDS ORDERED: ASPIRIN 81 MG CHEW PO SCH (09:00)
[2023-10-07] MEDS ORDERED: amLODIPine BESYLATE 5 MG TAB PO SCH (09:00)
[2023-10-07] MEDS ORDERED: ASPIRIN 81 MG ECTAB PO SCH (09:00)
== END 2023-10-07 00:30 | disposition short-term general hospital (02) | DRG 388 ==
LOC: ED 23:22 → EDINP 10-06 12:20